=== PATIENT | female | born 2005 | race Caucasian/White ===

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

== ENCOUNTER 2023-01-25 08:00 | Outpatient (RCR) | payer OTHER, SELFPAY ==
--- NOTE | 2023-01-25 10:15 | BH.SGPN.GN ---
Behaviors/Verbalizations/Mental Status: [] Eye contact is fair to good. Motor activity is appropriate. Appearance is casual. Speech is Appropriate. Mood is anxious and depressed. Affect is congruent. Thoughts are linear and logical. No evidence of psychosis. Client Response/Progress/Benefit: [] Client first day in IOP tx, he was attentive during interactive group discussions AEB by writing notes, engaging in small group, and sharing when prompted. Attentive during psychoeducation on the six types of boundaries (physical, emotional, intellectual, sexual, time, and material). Along with peers, pt contributed to interactive discussion identifying common challenges to setting and maintaining healthy boundaries which included; fear of other's response, guilt, fear of losing relationships, and resentment for having to establish the boundary in the first place. Client along with peers identified the benefits to setting boundaries. Client shared she struggles with setting boundaries because she has had past negative experiences when establishing a boundary, as well as struggles with fear of being hurt or rejected. Client benefited from increased awareness and insight on the importance/benefit to setting healthy boundaries. Will continue in IOP to improve daily functioning, increase consistent application of healthy coping and distress tolerance skills, and prevent decompensation. Narrative Note: []
--- NOTE | 2023-01-25 11:15 | BH.SGPN.GN ---
Behaviors/Verbalizations/Mental Status: []Pt alert and oriented, casually dressed and groomed. Eye contact good. Motor activity appropriate. Speech within normal limits. Affect congruent, mood depressed and anxious. Thoughts linear, logical, no signs of hallucinations or delusions. Client Response/Progress/Benefit: []Pt responded well to session, engaged and contributing. Pt attentive during psychoeducation on the different boundary styles. Pt reports connecting most with either extremely rigid or porous boundaries depending on the environment and her comfort levels, shared this has impacted her ability to consistently get her needs met and maintain healthy relationships. Group brainstormed various strategies for improving ability to establish and maintain healthy boundaries. Reported he wants to work on starting with establishing and maintaining small boundaries and building off of them from there. Appeared to benefit from increasing insight to boundary setting styles and the impacts on mental health. Will continue IOP tx to prevent decompensation and maintain safety, improve ability to challenge thought distortions, and increase distress tolerance skill application. Narrative Note: []
--- NOTE | 2023-01-25 11:40 | BH.COMM ---
Communication Note Communication with Client Communication Note: Met with pt to complete initial paperwork and administer the CSSR-S screening and risk assessment. Pt is high risk per the CSSR-S screening and risk assessment. Pt has history of approximately 10 suicide attempts and several self-aborted or interrupted attempts. Pt?s most recent attempt that resulted in a hospitalization to [facility] was in June 2022. Pt shared she overdosed on her medications at that time. Pt did not need her stomach pumped. Pt denies any active suicidal ideations, plan, or intent today, but admits that on 01/04/23 pt had suicidal ideations with intent to overdose, but pt stopped herself. History of non-suicidal self-injurious behavior for the past 9 years. No guns at home. No stockpiles of medications. Pt receptive to discussion on reducing access to lethal means. Pt reports her friend has ?all my knives and all my extra meds.? Protective factors this time in [facility] include stable housing, a care coordination team, and less financial stress. Pt reports ability to maintain safety today. Discussed case with Dr. Alvarez and pt will be admitted to [facility] tx with a diagnosis of MDD, recurrent, severe, without psychosis F 33.2
--- NOTE | 2023-01-27 12:06 | BH.MTP ---
Master Treatment Plan Patient Information Program Physician:: Dr. Kimmy Alvarez Primary Therapist:: Sonali POLANCO Psychiatric Diagnoses Psychiatric Diagnoses:: Major depressive disorder, recurrent, severe without psychosis F 33.2; Dysthymic disorder; Borderline personality disorder; Anxiety disorder, NOS; Complex PTSD Diagnosis Code(s):: F 33.2 Estimated LOS Estimated LOS (in weeks):: 4 Problem/Goal #1 Problem/Goal #1 Stated Goal:: Pt will decrease depressive symptoms, hopelessness, worthlessness, negative self-talk, low distress tolerance, and suicidal ideations. Description of Barriers: Pt has a significant trauma history that pt has not been able to process or resolve. Pt has a history of chronic SI and self-harm. Pt reports low trust for other people, has high recidivism, and has low distress tolerance which makes it difficult for pt to manage chronic SI and reduce self-harm. Functional Impact: Pt is a 17 year-old female with a history of depressive, borderline personality disorder, and complex PTSD. Pt wad referred back to [facility] tx by her insurance leather case finisher due to worsening mental health symptoms. Pt endorses sadness, hopelessness, worthlessness, chronic thoughts of , and chronic passive suicidal ideation. Pt has low motivation and anhedonia and decreased concentration. Her sleep is not good at about 4 to 5 hours a night which is the most sleep she ever states that she gets. Pt has been self harming almost daily by cutting and burning herself but has not required stitches and she feels that this is an addiction. Pt's symptoms are currently impacting her daily functioning and relationships. Goal Relevant Strengths/Supports: Pt has an apartment and has stable housing. Pt is connected with case management through [facility] and through [employer]. Pt also has an outpatient psychiatrist and therapist. Objectives Objective #2: Stated Objective: Pt will learn and utilize 2-3 healthy coping strategies to better manage depressive symptoms and reduce thoughts of as shown by a decrease of DMS-5 symptoms for depression. Interventions: Through group and individual sessions, therapist will help pt identify triggers and warning signs of depression and guilt including emotional, physical, and behavioral changes. Therapist will teach pt various coping skills to manage symptoms and give pt tangible resources to use to regulate emotions. Therapist will use cognitive restructuring techniques and help pt gain awareness of negative thoughts that reinforce guilt and depression. Therapist will provide psychoeducation on maintenance cycles and help pt learn ways to break unhealthy maintenance cycles. Therapist will help pt incorporate behavioral activation and assist pt in setting SMART goals. Discharge Criteria: Pt will have met this goal when can report learning and using at least 2 coping skills to manage depressive symptoms and reduce isolation. Additionally, pt will have met this goal when pt's DSM-5 scores for depression decrease. Target Date: 02/22/23 Review Date: 02/22/23 Status: open Objective #1: Stated Objective: Pt will identify 2 triggers and 2 coping skills to use when pt experiences mood dysregulation and has increased urges to engage in unhealthy, impulsive coping skills. Interventions: Through individual and group counseling pt will be provided with education on healthy coping skills to manage mood symptoms, impulse, and crisis behaviors. Therapist will provide information on healthy alternatives to emotion release. Individual therapist will teach pt DBT techniques to increase emotional regulation and mindfulness. Therapist will also engage pt to use self-compassion while working to change behaviors. Discharge Criteria: pt will have accomplished this goal when pt can identify at least 2 triggers and 2 coping skills to increase mood stability and reduce unhealthy action urges. Target Date: 02/22/23 Review Date: 02/22/23 Status: open
== END 2023-01-26 23:59 ==
LOC: BHIOP 08:00
PROVIDERS: PCP Family Medicine; Referring Provider Psychiatry & Neurology Psychiatry; Visit Provider Psychiatry & Neurology Psychiatry
DX: F33.2 Major depressive disorder, recurrent severe without psychotic features (principal)
CPT/HCPCS: H2012

== ENCOUNTER 2023-01-27 06:50 | Outpatient (RCR) | payer OTHER, SELFPAY ==
--- NOTE | 2023-01-27 09:00 | BH.SGPN.GN ---
Behaviors/Verbalizations/Mental Status: [Patient was alert and oriented, appropriately dressed and groomed. Eye contact was good, motor activity normal, speech within normal limits. Affect congruent, mood content. Thoughts linear, logical, no signs of hallucinations or delusions. Reviewed Patients symptom tracker and the patient reported depressed mood, anxiety/panic attacks, aggravation/irritation/anger, self-harm urges, and risk/thoughts of suicide within patients normal base level.] Client Response/Progress/Benefit: [Patient was engaged and open to the discussion. Patient reported her mood being ?tired and gloomy?.??The patients first win is that she finally got herself into to see the psych doctor after canceling 3 times. Her second win was that she was open and honest with the doctor. She hopes this medication she was put on will be helpful. The stressor was that she has a lot of appointments to keep track of and is nervous she will forget some of them. Patient was interactive and respectful with other group members about their mental wins and stressors. Patient benefited from the discussion by listening to feedback and giving input on her peer?s stressors and mental health wins. Patient will continue with IOP treatment to help develop healthy skills, promote mood stability, and improve distress tolerance. ] Narrative Note: []
--- NOTE | 2023-01-27 10:10 | BH.SGPN.GN ---
Behaviors/Verbalizations/Mental Status: [] Eye contact is poor. Motor activity is appropriate. Appearance is casual. Speech is Appropriate. Mood is depressed. Affect is flat. Thoughts are linear and logical. No evidence of psychosis. Client Response/Progress/Benefit: [] Attentive during group discussions. Active participant in experiential activity. Attentive during interactive discussion in which group worked together to define resilience (i.e. continuing to bounce back from hardship; willingness to keep trying) and identify benefits of resilience. Attentive during interactive discussion on if resilience is something we are born with or can learn. Provided appropriate thoughts and feedback. Participated at times during small groups however was quiet and mostly passive as peers identified strategies to build resilience. Benefited from increased awareness of the role of resilience in mental health and ways to build resilience. Will continue in IOP to prevent decompensation, maintain safety, and to improve daily functioning. Narrative Note: [] Behaviors/Verbalizations/Mental Status: [] Client Response/Progress/Benefit: [] Attentive during group discussions. Active participant in experiential activity. Attentive during interactive discussion in which group worked together to define resilience (i.e. continuing to bounce back from hardship; willingness to keep trying) and identify benefits of resilience. Attentive during interactive discussion on if resilience is something we are born with or can learn. Provided appropriate thoughts and feedback. Participated at times during small groups however was quiet and mostly passive as peers identified strategies to build resilience. Benefited from increased awareness of the role of resilience in mental health and ways to build resilience. Will continue in IOP to prevent decompensation, maintain safety, and to improve daily functioning. Narrative Note: []
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
--- NOTE | 2023-01-27 11:10 | BH.SGPN.GN ---
Behaviors/Verbalizations/Mental Status: []Pt alert and oriented, neatly dressed and groomed. Eye contact fair. Motor activity appropriate. Speech within normal limits. Affect congruent, mood depressed. Thoughts linear, logical, no signs of hallucinations or delusions. Client Response/Progress/Benefit: [] Pt responded well to session AEB completing the resilience worksheet provided. Pt actively participated in the discussion and worked cooperatively with group to identify strategies to enhance each of the components discussed. Pt reports belief they already use resilience traits of self-awareness and moving towards her goals. Pt discussed that they could work more on improving accepting that change is a part of living and nurturing a positive view of self. ?Pt seemed to benefit from discussing strategies for improving personal resilience and identifying resilience traits Pt already possesses. Will continue IOP tx to prevent decompensation, improve distress tolerance skills, and reduce the use of maladaptive coping skills. ??? Narrative Note: []
[2023-01-27 11:39] VITALS: BP 146/91; PULSE 80
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
--- NOTE | 2023-01-27 12:20 | BH.DR.ITP ---
Initial Treatment Plan Patient Information Visit Information: ADMISSION DATE: EXPECTED LOS: 4-6 weeks Problems/Symptoms Problem #1:: depression Symptom:: Sadness, hopelessness, worthlessness, anhedonia, low motivation, biological disruption of sleep, self-harm thoughts, passive thoughts of , suicidal ideation Problem #2:: Anxiety Symptom:: Worry, rumination
--- NOTE | 2023-01-28 10:15 | BH.SGPN.GN ---
Behaviors/Verbalizations/Mental Status: [] Eye contact is poor.. Motor activity is appropriate. Appearance is disheveled. Speech is Appropriate. Mood is depressed. Affect is flat. Thoughts are linear and logical. No evidence of psychosis. Client Response/Progress/Benefit: [] Pt did not participate during the group discussions or group activity on perspective. Attentive at times however does not appear to be taking notes during interactive group discussions in which peers worked together to define 'perspective' (i.e. how we look at things; what we focus on) and discuss how it can impact one's mental health. Attentive as group was able to to identify what can impact our perspective and gave examples such as; past experiences, emotions, feelings, thoughts, support system, upbringing, and current environment. Benefited from increased awareness and insight on the role of perspective on mental health. Will continue in IOP to maintain safety, prevent decompensation, increase healthy coping, and improve functioning. Narrative Note: []
--- NOTE | 2023-01-28 11:15 | BH.SGPN.GN ---
Behaviors/Verbalizations/Mental Status: []Pt alert and oriented, casually dressed and groomed. Eye contact good. Motor activity appropriate. Speech within normal limits. Affect constricted, mood anxious and depressed. Thoughts linear, logical, no signs of hallucinations or delusions. Client Response/Progress/Benefit: []Pt was attentive and contributed to small group discussion, though largely remained a passive participant. Pt completed strengths exploration worksheet, identifying love, common sense, and honesty as personal strengths. With some aid from her small group, Pt able to acknowledge how these strengths are helping pt and can continue to help pt in mental health journey. Pt worked with group to identify strategies that can help increase utilization of personal strengths and how to challenge one?s perspective in general. Pt identified wanting to work on practicing DBT skill of delay, distract, decide to help challenge perspective. Benefited from identifying personal strengths and strategies for enhancing use of identified strengths to challenge perspective. Pt to continue IOP tx to promote mood stability, improve distress tolerance, and prevent decompensation. Narrative Note: []
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
--- NOTE | 2023-02-01 10:15 | BH.SGPN.GN ---
Narrative Note: []Behaviors/Verbalizations/Mental Status: [] Eye contact is fair. Motor activity is appropriate. Appearance is casual. Speech is Appropriate. Mood is depressed and anxious. Affect is constricted. Thoughts are linear and logical. No evidence of psychosis. Client Response/Progress/Benefit: [] Pt was a passive participant in group discussions. Somewhat attentive during psychoeducation AEB by note taking. Pt worked along with peers in small groups to define guilt, inappropriate guilt, and appropriate guilt. Interactive discussion on examples of both inappropriate and appropriate guilt. Pt identified connecting with the group examples of inappropriate guilt and how this impacted their mental health. Benefited from increased awareness of guilt and the differences between appropriate and inappropriate guilt. Will continue in IOP to prevent decompensation, continue to promote mood stability, maintain safety. Narrative Note: []
--- NOTE | 2023-02-01 13:15 | BH.DS ---
Discharge Summary Demographics Date of Admission:: 01/25/23 Discharge Date: 02/01/23 Presenting Problems at Admission:: Pt is a 17 year-old female with a history of depressive, borderline personality disorder, and complex PTSD. Pt wad referred back to [facility] tx by her insurance watch caser due to worsening mental health symptoms. Pt endorses sadness, hopelessness, worthlessness, chronic thoughts of , and chronic passive suicidal ideation. Pt has low motivation and anhedonia and decreased concentration. Her sleep is not good at about 4 to 5 hours a night which is the most sleep she ever states that she gets. Pt has been self harming almost daily by cutting and burning herself but has not required stitches and she feels that this is an addiction. Pt's symptoms are currently impacting her daily functioning and relationships. Discharge Diagnoses:: Major depressive disorder, recurrent, severe without psychosis F 33.2; Dysthymic disorder; Borderline personality disorder; Anxiety disorder, NOS; Complex PTSD Reason for Discharge:: Staff received a call from [facility] registration that [place] Police were in the building and searching for pt. According to [place] Police they received a call from out of state that pt had attempted to kill herself this AM. Pt was taken out of group sessions to discuss recent events. Pt admitted to the around 3am in which she tied a blanket around the door knob and her neck. Pt was escorted to [facility] ER for monitoring and evaluation. Treatment Progress During Treatment & Response: Limited progress. Pt disengaged in group sessions, except on her first day. Admitted to [facility] for only a week. Issues Still to be Addressed:: Mood instability, chronic SI and self-harm, low distress and frustration tolerance, negative thinking, use of unhelpful coping skills, and PTSD. There is a concern that pt decompensated once starting IOP tx AEB pt reporting passive SI that was manageable prior to starting IOP tx and then escalated almost immediately after starting IOP AEB having a suicide attempt a week into the program. Discharge Recommendations/Instructions:: Pt will discharge from [facility] tx to obtain higher level of care. Pt prefers to go to [facility] in [place]. Therapist spoke with [facility] tx team, including Dr. Alvarez, and Dr. Montejo who is pt's outpatient psychiatrist. Pt will be referred to a DBT IOP/PHP as pt can benefit from increasing DBT distress tolerance skills needed to manage chronic SI, borderline personality disorder, and self-harming. Pt can return to IOP tx while pt waits to get into [facility]. Discharge Handout
--- NOTE | 2023-02-01 14:39 | BH.MDN ---
Multi-Disciplinary Note Note 60-min Individual: Time Started:: 11:15 Date: 02/01/23 Purpose of session/treatment goals addressed:: risk assessment Eye Contact:: Poor and Avoidant Motor Activity:: Restless and Other (sobbing, hands over her face) Appearance:: Disheveled Speech:: Other (refused to speak for a majority of crisis intervention) Mood:: Depressed Affect:: Flat Thoughts:: Linear, Logical and No evidence of hallucinations/delusions noted Staff Interventions:: completed risk assessment / safety planning Client Response:: Staff received a call from [facility] registration that [place] Police were in the building and searching for patient. According to [place] Police they received a call from out of state that patient had attempted to kill herself this AM. Pt was taken out of group programinG to discuss recent events. Pt admitted to the SA around 3am in which she tied a blanket around the door knob and her neck. At some point the blanket slipped from the door knob. Its unclear whom she spoke with or the events that occurred after her attempt. She verbalized to staff continued SI and regret that her her attempt was not successful. At this point Angie NIELSEN arrived and pt began to sob uncontrollably with her hands over her face. She refused to leave the chair in which she was seated. She did this for close to an hour and refused to answer any questions. Risks/Concerns:: Significant risk noted due recent suicide attempt. Discussed with Angie NIELSEN and other clinical IOP staff. Plan to escort patient to ER for crisis evaluation. Progress Toward Goals/Plan:: After numerous interventions pt was able to calm self and was agreeable to walking over the ER with IOP staff and Angie NIELSEN. Time Stopped:: 12:45
== END 2023-02-02 06:52 ==
LOC: BHIOP 06:50
PROVIDERS: PCP Family Medicine; Referring Provider Psychiatry & Neurology Psychiatry; Visit Provider Psychiatry & Neurology Psychiatry
DX: F33.2 Major depressive disorder, recurrent severe without psychotic features (principal); F60.3 Borderline personality disorder; F41.9 Anxiety disorder, unspecified; F43.10 Post-traumatic stress disorder, unspecified
CPT/HCPCS: 90792; H2012; H2020; S9480; T1002; 90832; 90837

== ENCOUNTER 2023-02-01 13:07 | Emergency (ER) | payer MEDICAID, SELFPAY ==
[2023-02-01 13:07] VITALS: BP 131/87; PULSE 117; RESP 16; TEMP 36.6; O2SAT 100; BMI 45.7
--- NOTE | 2023-02-01 14:40 | EDS_ITS ---
HPI HPI - Psych History of Present Illness Chief Complaint: Suicidal Informant: patient Onset/Context/Timing Onset: Yesterday Context: Gradual Onset Timing: Continuous Worsened by: Situational factors Relieved by: Nothing Associated Symptoms Associated Symptoms - Psych: Positive for Depressed, Change in Eating, Change in sleeping, Decreased Interest and Suicidal Thoughts; Negative for Confusion, Paranoia, Visual Hallucinations or Auditory Hallucinations Specific plan (suicidal thought): Hanging herself Narrative Narrative: Patient presents with depression and suicide attempt that occurred today. Patient states she has been getting more depressed over the past few days. Patient states she tried to hang herself. Patient states she has not been eating or sleeping well. Patient denies any visual or auditory hallucinations. Patient states she still feels like she wants to try to hang herself. Prior similar symptoms: Yes PFSH PFSH Medical History Anxiety disorder, unspecified Borderline personality disorder Bulimia nervosa, purging type Depression Dysthymic disorder Encounter for medication monitoring Major depressive disorder, recurrent severe without psychotic features Home Medications lamotrigine 100 mg tablet See Rx Instructions .Route .COMPLEX #30 tabs 01/26/23 [Rx Last Taken Unknown] quetiapine 200 mg tablet See Rx Instructions .Route .COMPLEX #30 tabs 01/26/23 [Rx Last Taken Unknown] duloxetine 60 mg capsule,delayed release See Rx Instructions .Route .COMPLEX #30 caps 02/01/23 [Rx Last Taken Unknown] Allergy/AdvReac Type Severity Reaction Status Date / Time No Known Allergies Allergy Verified 01/27/23 11:33 Surgical History History of wisdom tooth extraction Social History Smoking Status: Never smoker alcohol intake: current details: rarely substance use type: former substance user, marijuana and other details: acid and mushrooms what type of physical activity do you participate in: walking ROS ROS ED Constitutional Constitutional ED: Denies chills or fever(s) Eyes Eyes: Denies blurry vision or change in vision ENT ENT ED: Denies rhinorrhea or sore throat Cardiovascular Cardiovascular: Denies chest pain or palpitations Respiratory/Chest Respiratory/Chest: Denies cough or dyspnea Gastrointestinal Gastrointestinal: Denies nausea or vomiting Genitourinary Genitourinary ED: Denies dysuria or hematuria Musculoskeletal Musculoskeletal: Reports neck pain; Denies back pain Integumentary Denies abscess or rash Neurologic Neurologic: Denies headache(s) or weakness Psychiatric Psychiatric: Reports depression, suicidal ideation and suicidal thoughts Allergic/Immunologic Allergic/Immunologic ED: Denies mouth swelling or urticaria EXAM Physical Exam Const Vital Signs: 02/01/23 13:07 02/01/23 20:07 Temperature 97.8 F Temperature Source Temporal Pulse Rate 117 H 75 Respiratory Rate 16 18 Blood Pressure 131/87 H 110/76 Blood Pressure Mean 101 87 Pulse Ox 100 95 Oxygen Delivery Method Room Air Room Air Positive well nourished, well developed and obese General Appearance ED: well developed and NAD Nutritional Appearance: obese HEENT Reports moist mucous membranes Neck supple and no JVD Neck Narrative: There is an abrasion over the anterior neck. There is no subcutaneous emphysema. There is no active bleeding noted. There is mild tenderness to palpation. Resp normal respiratory effort and clear to auscultation bilaterally Cardio Rate: regular rate Rhythm: regular rhythm GI non-tender and non-distended Neuro oriented x3, CN's II-XII intact bilaterally and no sensory deficits noted [place] Coma Scale: document GCS findings Spontaneous Obeys Commands Oriented 15 Sensorium / Orientation: alert Motor Exam: strength 5/5 throughout Psych Activity / Motor Behavior: appropriate eye contact Speech: minimal and soft Mood & Affect: depressed and flat affect Thought Content: suicidality, No homicidality, No delusion(s) and No hallucination(s) Attention / Concentration: attention grossly intact MDM MDM MDM Narrative Medical decision making narrative: [place] slip was placed on the chart by police. Patient will be medically cleared for psychiatric placement. CBC will be obtained to assess for leukocytosis and anemia. Basic metabolic profile will be obtained to assess for electrolyte abnormality and renal function. Urine tox screen will be obtained to assess for substance abuse. Blood alcohol level will be obtained to assess for alcohol intoxication. Serum hCG will be obtained to assess for . COVID-19 rapid antigen will be obtained to assess for COVID-19 infection. Lab Data Attestation: I reviewed the patient's lab results. Lab results narrative: CBC was reviewed. There is a slight leukocytosis of 13.1. The remainder was within normal limits. Basic metabolic profile was reviewed. Potassium was slightly low at 3.3. CO2 was slightly low at 17. The remainder was within normal limits. Urine tox screen was reviewed and was positive for cannabinoids. COVID-19 rapid antigen was reviewed and was negative. Serum hCG was reviewed and was negative. Serum alcohol level was reviewed and was less than 3.0. Labs: Laboratory Results - last 24 hr 02/01/23 02/01/23 02/01/23 15:15 15:37 15:45 WBC 13.1 H RBC 5.46 H Hgb 14.9 Hct 47.0 MCV 86.1 MCH 27.3 MCHC 31.7 L RDW Std Deviation 40.5 RDW Coeff of Nikhil 13.1 Plt Count 259 MPV 9.8 Immature Gran % (Auto) 0.500 Neut % (Auto) 76.4 H Lymph % (Auto) 17.1 L [place] % (Auto) 5.3 Eos % (Auto) 0.2 Baso % (Auto) 0.5 Absolute Neuts (auto) 10.0 H Absolute Lymphs (auto) 2.24 Nucleated RBC % 0 Sodium 136 Potassium 3.3 L Chloride 112 H Carbon Dioxide 17.0 L Anion Gap 7 BUN 6 L Creatinine 0.79 Estim Creat Clear Calc 185.82 Est GFR (MDRD) Af Amer 119 Est GFR (MDRD) Non-Af 99 BUN/Creatinine Ratio 7.6 L Glucose 77 Calcium 8.8 Serum , Qual NEGATIVE Urine Opiates Screen NEGATIVE Urine Methadone Screen NEGATIVE Ur Barbiturates Screen NEGATIVE Ur Phencyclidine Scrn NEGATIVE Ur Amphetamines Screen NEGATIVE MDMA (Ecstasy) Screen NEGATIVE U Benzodiazepines Scrn NEGATIVE Urine Cocaine Screen NEGATIVE U Cannabinoids Screen POSITIVE H Ur Drug Screen Comment Ethyl Alcohol < 3.0 Management Discussion w/another healthcare provider: Behavioral health Treatment and Re-Evaluation Narrative: Patient is medically cleared for psychiatric evaluation. Patient was evaluated by crisis counselor. Crisis counselor felt patient would benefit from admission to a psychiatric facility. Crisis counselor was able to arrange for admission to psychiatric facility. Patient was filled out on the chart. Transfer form was filled out. Patient will be transferred when transportation is available. Discharge Plan Triage Chief Complaint: Suicidal ED Provider: Jones Ingram Dx/Rx/DC Orders Clinical Impression: Depression, Suicide attempt by hanging Prescriptions: No Action lamotrigine 100 mg tablet See Rx Instructions .ROUTE .COMPLEX Qty: 30 2RF Dose Instruction: TAKE 1 TABLET BY MOUTH DAILY Rx Instructions: TAKE 1 TABLET BY MOUTH DAILY quetiapine 200 mg tablet See Rx Instructions .ROUTE .COMPLEX Qty: 30 2RF Dose Instruction: TAKE 1 TABLET BY MOUTH AT BEDTIME Rx Instructions: TAKE 1 TABLET BY MOUTH AT BEDTIME duloxetine 60 mg capsule,delayed release(DR/EC) See Rx Instructions .ROUTE .COMPLEX Qty: 30 3RF Dose Instruction: TAKE 1 CAPSULE BY MOUTH DAILY Rx Instructions: TAKE 1 CAPSULE BY MOUTH DAILY Primary Care Provider: Care Physician,No Primary Referrals: Carley Pang DO [Non-Staff] - Disposition Disposition: Psychiatric Hospital or Unit Discharge Location: [facility]
[2023-02-01 15:26] LABS: Absolute Lymphocyte Count 2.24 X10^3/uL (0.83-4.51); Basophil# 0.07 X10^3/uL; Basophil% 0.5 % (0-1); Eosinophil# 0.03 X10^3/uL; Eosinophils% 0.2 % (0-5); Hemoglobin 14.9 g/dL (12.0-15.0); Lymphocyte # 2.24 X10^3/ul (0.83-4.51); Lymphocyte % 17.1 % (19-41); Mean Corp Hgb Conc 31.7 g/dL (32-36); Mean Corpuscular Hgb 27.3 pg (27.0-32.0); Mean Corpuscular Volume 86.1 fL (81-99); Mean Platelet Vol. 9.8 fl (6.2-12.0); Monocyte% 5.3 % (0-10); NRBC Flagged by Analyzer 0 % (0-5); Neutrophil % 76.4 % (47-70); POSITIVE COUNT YES; Platelet Count 259 K/mm3 (150-450); RBC Distribution Width CV 13.1 % (11.6-14.6); RBC Distribution Width SD 40.5 fl (35.1-43.9); Red Blood Count 5.46 M/mm3 (4.2-5.4); White Blood Count 13.1 K/mm3 (4.4-11.0)
[2023-02-01 15:47] LABS: Anion Gap 7 (5-15); BUN 6 mg/dL (7-18); BUN/Creat Ratio 7.6 RATIO (10-20); Calcium,Total 8.8 mg/dL (8.5-10.1); Chloride 112 mmol/L (98-107); Creatinine, Serum 0.79 mg/dL (0.55-1.02); EST Glomerular Filtration Rate 99 mL/min (>60); Est Glom Filt Rate - Afr Amer 119 mL/min (>60); Estimated Creatinine Clearance 185.82 ml/min; Glucose 77 mg/dL (74-106); Potassium 3.3 mmol/L (3.5-5.1); Sodium Level 136 mmol/L (136-145)
[2023-02-01 16:14] LABS: Amphetamine Urine VISTA NEGATIVE (<1000 ng/mL); Barbiturate Urine VISTA NEGATIVE (< 200 ng/mL); Benzodiazepine Urine VISTA NEGATIVE (< 200 ng/mL); Cocaine Urine VISTA NEGATIVE (< 300 ng/mL); Ecstacy Urine VISTA NEGATIVE (< 500 ng/mL); Methadone Urine VISTA NEGATIVE (< 300 ng/mL); PCP Urine VISTA NEGATIVE (< 25 ng/mL); THC Urine VISTA POSITIVE (< 50 ng/mL); Vista UDS pH Range 4
[2023-02-01] MEDS: Potassium Chloride Oral Tablet 20 MEQ 40 MEQ PO (16:20)
[2023-02-01 16:43] LABS: Alcohol, Blood (Medical)-Serum < 3.0 mg/dL; Internal QC Validated? YES +Cl - CLEAR BKGD; Pregnancy, Serum, hCG Quali. NEGATIVE Negative
[2023-02-01 20:07] VITALS: BP 110/76; PULSE 75; RESP 18; O2SAT 95
[2023-02-01 22:46] VITALS: RESP 16
[2023-02-02 03:19] VITALS: RESP 16
[2023-02-02 06:03] VITALS: BP 122/68; PULSE 80; RESP 16; TEMP 35.6; O2SAT 99
[2023-02-02 07:14] VITALS: RESP 16
== END 2023-02-02 08:59 ==
PROVIDERS: Emergency Provider Emergency Medicine; Visit Provider Emergency Medicine
DX: F32.A Depression, unspecified (principal); T14.91XA Suicide attempt, initial encounter; Z79.899 Other long term (current) drug therapy
CPT/HCPCS: 36415; 80048; 80307; 82077; 84703; 85025; 87811; 99283

== ENCOUNTER 2023-02-11 08:00 | Outpatient (RCR) | payer OTHER, SELFPAY ==
--- NOTE | 2023-02-11 09:05 | BH.SGPN.GN ---
Behaviors/Verbalizations/Mental Status: []Eye contact is good. Motor activity is appropriate. Appearance is casual. Speech is Appropriate. Mood is depressed. Affect is flat. Thoughts are linear and logical. No evidence of psychosis. Reviewed daily check in sheet and no reports of suicidal ideations or intent. Client Response/Progress/Benefit: []Pt responded well to session, attentive, but quiet. Pt has been in IOP tx before and was recently discharged from [facility] due to a suicide attempt by hanging. Pt did not share much during her check-in, but reported that she wants to work on everything while pt is in IOP tx. Pt appeared to benefit from receiving encouraging feedback from peers. Pt will continue IOP tx to prevent decompensation, maintain safety, and increase healthy coping skills. Narrative Note: []
--- NOTE | 2023-02-11 10:10 | BH.SGPN.GN ---
Behaviors/Verbalizations/Mental Status: [] Eye contact is poor. Motor activity is appropriate. Appearance is casual. Speech is Appropriate. Mood is depressed and agitated. Affect is flat. Thoughts are linear and logical. No evidence of psychosis. Client Response/Progress/Benefit: [] Pt was a passive participant in group discussions AEB her providing no contributions in group discussion. Attentive during psychoeducation on the 4 communication styles (Passive, Passive-Aggressive, Aggressive, and Assertive) and the obstacles to effective communication. Contributed during interactive discussion on the benefits of communicating effectively which included: getting needs met, building connection, decreases stress, improved relationships, increased motivation, and increased understanding of others. Worked well in small group in which pt and peers identified the benefits and disadvantages to the different communication styles. Benefited from increased understanding of communication styles and how these can impact effective communication. Will continue in IOP to improve distress tolerance, maintain safety, and prevent decompensation.
--- NOTE | 2023-02-11 11:15 | BH.SGPN.GN ---
Behaviors/Verbalizations/Mental Status: []Pt alert and oriented, neatly dressed and groomed. Eye contact good. Motor activity appropriate. Speech within normal limits. Affect congruent, mood anxious, irritable, depressed. Thoughts linear, logical, no signs of hallucinations or delusions. Client Response/Progress/Benefit: [] Pt responded well to session AEB Pt listening attentively to others during group discussion on the pay offs and costs of the different communication styles. Pt able to connect how current communication style of passive-aggressive and passive communication impacts mental health and relationships. Pt engaged in activity, though mostly passive, which is to be expected on first day. Connected with peers comments about importance of using assertive communication. Pt reported she wants to work on being more open to openly describing and advocating for her needs/wants. Pt seemed to benefit from increasing awareness of healthy strategies to improve communication. Will continue IOP tx to maintain safety, improve mood stability, and prevent decompensation. Narrative Note: []
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
--- NOTE | 2023-02-12 09:00 | BH.COMM ---
Communication Note Communication with Client Communication Note: cancelled IOP today due to illness
--- NOTE | 2023-02-15 09:00 | BH.COMM ---
Communication Note Communication with Client Communication Note: Cancelled IOP today due to illness.
--- NOTE | 2023-02-16 14:51 | BH.DS ---
Discharge Summary Demographics Date of Admission:: 02/11/23 Discharge Date: 02/15/23 Presenting Problems at Admission:: Pt is a 17 y/o female with hx of C-PTSD, MDD, and Borderline PD. Hx of several psychiatric admissions with most recent at [facility] from 02/01/23-02/10/23 due to suicidal attempt via hanging. Pt was enrolled in [facility] IOP from 01/25/23 until her hospitalization (refer to D/C summary and ER notes on 02/01/23). Readmitted to [facility] on 02/11/23 and reported depressed mood, hopelessness, low motivation, no energy, and poor sleep. Long-standing hx of mood instability, low distress tolerance, and struggles with daily functioning. Pt's C-PTSD has intensified since living alone reporting nightmares, flashbacks and hypervigilance. Long-standing daily fleeting SI and self-injurious behaviors. [place] Suicide Screening was completed on 02/11/23 and was not identified as imminent danger to self. Discharge Diagnoses:: Major depressive disorder, recurrent, severe without psychosis F 33.2; Dysthymic disorder; Borderline personality disorder; Anxiety disorder, NOS; Complex PTSD Reason for Discharge:: Pt emailed this therapist on 02/15/23 stating that she no longer wanted to continue in IOP. According to pt's email I just want to start off by saying thank you for all that you guys have been doing for me. It may not seem like it lately but I do appreciate it a lot. As I have been talking with the crisis team through the counseling center. We wrote out all the appointments and programs I am in and we discussed that I need to cut back on a few things. I have decided for right now to cut back on IOP as I will be starting EMDR and hopefully in the near future getting involved in the DBT IOP program that your team discussed. Thank you again for everything I appreciate it a lot Treatment Progress During Treatment & Response: No progress noted as she only attended one day of IOP. Due to only attending one day she did not complete psychosocial, treatment plan, or psychiatric evaluation. She was discharged from [facility] Psych[facility] Unit on 02/10/23 and attended IOP on 02/11/23. She was scheduled to attend on 02/12/23 and 02/15/23 however cancelled stating that she was ill. Issues Still to be Addressed:: Borderline PD, C-PTSD, long-standing self-injurious behaviors, depression, long-standing suicidal ideations, struggles to function. Discharge Recommendations/Instructions:: This therapist reached out to pt's psychiatrist's office (Dr. Montejo) and was informed that she had appointment this afternoon and did no show. Therapist reached out to pt's [facility] inpatient services rn (Pia Conroy) who reports that she spoke with patient this afternoon and was unaware that she was intending to discharge from IOP. [employer] reports she will reach back out to patient to discuss further. Pt is scheduled to begin DBT IOP the week of March 01. Due to limited progress in [facility] IOP (this is her 2nd admission in a year) it was decided by treatment team to refer to a DBT IOP/PHP at [facility] as pt can benefit from increasing DBT distress tolerance skills needed to manage chronic SI, borderline personality disorder, and self-harming. Plan was to remain in [facility] IOP until she started DBT IOP. Pt has several mental health resources and providers (2 caseworkers, therapist, psychiatrist, and lives in apartments managed by local [facility]). Discharge Handout
== END 2023-02-16 07:49 | disposition home or self-care (01) ==
LOC: BHIOP 08:00
PROVIDERS: Referring Provider Psychiatry & Neurology Psychiatry; Visit Provider Psychiatry & Neurology Psychiatry
DX: F33.2 Major depressive disorder, recurrent severe without psychotic features (principal); F60.3 Borderline personality disorder; F43.10 Post-traumatic stress disorder, unspecified; F34.1 Dysthymic disorder
CPT/HCPCS: H2020

== ENCOUNTER 2023-08-28 16:48 | Emergency (ER) | payer OTHER, SELFPAY ==
[2023-08-28 16:49] VITALS: BP 124/66; PULSE 97; RESP 18; TEMP 37; O2SAT 97; BMI 41.4
--- NOTE | 2023-08-28 17:17 | EDS_ITS ---
<Statement entered by Sandra Rivero MD - 08/28/23 22:16> I have personally performed a face to face assessment of the patient and have reviewed the HAZEL Note. Patient presents with crisis secondary to suicidal ideation and attempt. She is known to the crisis center and has not been on any psychiatric medicine since January of last year. She reports having more frequent thoughts of self-harm. Couple weeks ago she did cut her arm. Today she grabbed a razor and caused a superficial laceration across her anterior neck. Patient sitting upright in bed no acute distress. Alert and talkative. Head and neck examination reveals an 8 cm superficial abrasion across the anterior neck. No active bleeding. Heart is regular rate and rhythm. Lung sounds are clear. Abdomen is soft and nontender. Neuro exam unremarkable. Labwork for psychiatric clearance is obtained. Lab work is unremarkable. test negative. Tox screen is positive for cannabinoids. EtOH is negative. Neck wound is cleansed and bacitracin ointment applied. Patient has been seen by crisis and will require placement. Addendum: Patient accepted to [facility] in [place]. She will be observed overnight with transport arranged for 7 AM tomorrow morning. Patient be signed out to oncoming physician for further monitoring. She has been cooperative throughout her ED stay on my shift. HPI History of Present Illness Chief Complaint: Suicidal Narrative Narrative: Patient is a 18-year-old female with history of anxiety, depression, obesity who presents to the emergency department for suicidal ideation, suicide attempt. Patient states that she is been dealing with depression for a long time. She is currently not on any oral medications, she has not been on any oral medication since January 2023, this was also the last time that she was hospitalized. Andreia hutchinson does have history of cutting, she has multiple lacerations to her forearms. 2 weeks ago, she cut her left forearm because she was upset, this did require sutures. Today, the patient states that these feelings of harming herself have been more severe, she is having difficulty doing daily activities because of these thoughts. Today she grabbed a razor blade and cut her throat. This is roughly 8 cm underneath the lower jaw. This is superficial however did draw blood. Patient did not strike any internal arteries or veins. Patient states that she feels out of control. Denies any drug abuse. PFSH PFSH Medical History Anxiety disorder, unspecified Borderline personality disorder Bulimia nervosa, purging type Depression Dysthymic disorder Encounter for medication monitoring Major depressive disorder, recurrent severe without psychotic features Home Medications ?Medication ?Instructions ?Recorded ?Last Taken ?Type duloxetine 60 mg capsule,delayed See Rx Instructions .Route 02/01/23 Unknown Rx release .COMPLEX #30 caps Allergy/AdvReac Type Severity Reaction Status Date / Time No Known Allergies Allergy Verified 08/28/23 16:49 Surgical History History of wisdom tooth extraction Social History Smoking Status: Never smoker alcohol intake: current details: rarely substance use type: former substance user, marijuana and other details: acid and mushrooms what type of physical activity do you participate in: walking ROS ROS ED ROS Narrative Constitutional: Negative for fever, chills, weight loss, weakness Eyes: Negative for vision loss, vision change, double vision ENT: Negative for any sore throat, ear pain, congestion Cardiovascular: Negative for any chest pain, tightness, palpitations Respiratory: Negative for any cough, sputum production, hemoptysis, dyspnea, dyspnea on exertion, orthopnea Gastrointestinal: Negative for any abdominal pain, nausea, vomiting, diarrhea, constipation, blood in stool, blood in vomit : Negative for any urinary frequency, dysuria, retention, blood in urine Muscle skeletal: Negative for any neck pain, back pain Neurological: Negative for any headache, syncope, dizziness Skin: Negative for any rashes, itching, abrasions. Positive for superficial laceration to the neck Psychiatric: Negative for any homicidal ideation. Positive for anxiety, depress ion, elevated stress level, suicidal ideation Hematologic: Negative for any excessive bruising, easy bleeding EXAM Physical Exam Narrative Exam Narrative: Vital signs reviewed. Patient is alert and orient x 4, patient is acting appropriate. HEET: Head normocephalic atraumatic, TMs clear bilaterally. Posterior pharynx is clear, moist mucous membranes. Nares clear bilaterally. Neck: Supple with no lymphadenopathy or tenderness. No signs of meningismus. Cardiac: Regular rate and rhythm no murmurs gallops or rubs, equal peripheral pulses bilaterally. Respiratory: Lungs clear to auscultation bilaterally. No chest tenderness. Abdomen: Soft, nontender, nondistended. No abdominal bruit or pulsatile masses. No hepatosplenomegaly Extremities: No peripheral edema, no signs of gross trauma or deformity. Active full range of motion of all extremities. Neuro: Cranial nerves II through XII intact, no focal neurological deficits. Skin: Clean dry and intact with no rash, purpura, petechiae, vesicles or pustules. Superficial laceration to the neck, bleeding is controlled. This is superficial however deep enough to cause blood. Backs/flank: No CVA tenderness, no midline spinal tenderness, no deformity. Psych: Normal mood and affect. Speaking with the patient, she is tearful, she does have suicidal ideations, Const Vital Signs: 08/28/23 16:49 08/28/23 17:48 Temperature 98.6 F Temperature Source Temporal Pulse Rate 97 84 Respiratory Rate 18 18 Blood Pressure 124/66 H 127/85 H Blood Pressure Mean 85 99 Pulse Ox 97 98 Oxygen Delivery Method Room Air Room Air [facility] Lab Data Labs: Laboratory Results - last 24 hr 08/28/23 08/28/23 16:57 17:25 WBC 13.8 H RBC 5.69 H Hgb 15.5 H Hct 48.6 H MCV 85.4 MCH 27.2 MCHC 31.9 L RDW Std Deviation 41.4 RDW Coeff of Nikhil 13.2 Plt Count 328 MPV 9.2 Immature Gran % (Auto) 0.400 Neut % (Auto) 84.1 H Lymph % (Auto) 10.9 L [place] % (Auto) 4.1 Eos % (Auto) 0.2 Baso % (Auto) 0.3 Absolute Neuts (auto) 11.6 H Absolute Lymphs (auto) 1.51 Nucleated RBC % 0 Sodium 139 Potassium 3.4 L Chloride 105 Carbon Dioxide 23.0 Anion Gap 11 BUN 8 Creatinine 0.89 Estim Creat Clear Calc 102.73 Est GFR (MDRD) Af Amer 104 Est GFR (MDRD) Non-Af 86 BUN/Creatinine Ratio 9.0 L Glucose 94 Calcium 9.6 Serum , Qual NEGATIVE Urine Opiates Screen NEGATIVE Urine Methadone Screen NEGATIVE Ur Barbiturates Screen NEGATIVE Ur Phencyclidine Scrn NEGATIVE Ur Amphetamines Screen NEGATIVE MDMA (Ecstasy) Screen NEGATIVE U Benzodiazepines Scrn NEGATIVE Urine Cocaine Screen NEGATIVE U Cannabinoids Screen POSITIVE H Ur Drug Screen Comment Ethyl Alcohol 4.0 Treatment and Re-Evaluation :: Differential diagnosis includes however is not limited to: Depression, anxiety, suicidal ideation, suicide attempt, psychosis Patient appears to be in no obvious respiratory distress vital signs are stable, patient is acting appropriate. Talking with the patient, she does seem extremely depressed, she is not on any medications which she took yourself off. Patient suicidal ideations are getting more strong, she is also getting more bold and harming herself. 2 weeks ago, she lacerated her left forearm causing the need for sutures. Today she is now going towards her echo is more vital area. Talking with the patient, as well as the crisis evaluation team, I do believe the patient needs to be pink slipped for placement. Patient will start the workup with blood work and urine. All belongings were taken from the patient, the patient will be observed. Patient's laboratory values showed a slight leukocytosis with a white blood count of 13.8, hemoconcentrated with a hematocrit of 15.5. Chemistries were unremarkable. Patient is not . Patient was positive for marijuana however this has been ongoing since January 2023. Patient is currently being observed, will speak with crisis for placement. [place] slip was completed. Update, 8:15 PM, patient is resting comfortably, patient is eating and drinking normally. Currently waiting for a placement to a psychiatric facility. Discharge Plan Triage Chief Complaint: Suicidal ED Midlevel Provider: Eros Flores ED Provider: Sandra Rivero Dx/Rx/DC Orders Prescriptions: No Action duloxetine 60 mg capsule,delayed release(DR/EC) See Rx Instructions .ROUTE .COMPLEX Qty: 30 3RF Dose Instruction: TAKE 1 CAPSULE BY MOUTH DAILY Rx Instructions: TAKE 1 CAPSULE BY MOUTH DAILY Primary Care Provider: Care Physician,No Primary Referrals: Care Physician,No Primary [Primary Care Provider] - Print Language: [place]
[2023-08-28 17:29] LABS: Absolute Lymphocyte Count 1.51 X10^3/uL (0.83-4.51); Absolute Neutrophil Count 11.6 X10^3/uL (2.0-7.7); Basophil# 0.04 X10^3/uL; Basophil% 0.3 % (0-1); Eosinophil# 0.03 X10^3/uL; Eosinophils% 0.2 % (0-5); Hematocrit 48.6 % (37-47); Hemoglobin 15.5 g/dL (12.0-15.0); Lymphocyte # 1.51 X10^3/ul (0.83-4.51); Lymphocyte % 10.9 % (19-41); Mean Corp Hgb Conc 31.9 g/dL (32-36); Mean Corpuscular Hgb 27.2 pg (27.0-32.0); Mean Corpuscular Volume 85.4 fL (81-99); Mean Platelet Vol. 9.2 fl (6.2-12.0); Monocyte# 0.57 X10^3/uL; Monocyte% 4.1 % (0-10); NRBC Flagged by Analyzer 0 % (0-5); Neutrophil # 11.63 X10^3/uL (2.7-7.7); Neutrophil % 84.1 % (47-70); Platelet Count 328 K/mm3 (150-450); RBC Distribution Width CV 13.2 % (11.6-14.6); RBC Distribution Width SD 41.4 fl (35.1-43.9); Red Blood Count 5.69 M/mm3 (4.2-5.4); White Blood Count 13.8 K/mm3 (4.4-11.0)
[2023-08-28 17:47] LABS: Internal QC Validated? YES +Cl - CLEAR BKGD; Pregnancy, Serum, hCG Quali. NEGATIVE Negative
[2023-08-28 17:48] VITALS: BP 127/85; PULSE 84; RESP 18; O2SAT 98
[2023-08-28 17:51] LABS: Anion Gap 11 (5-15); BUN 8 mg/dL (7-18); Calcium,Total 9.6 mg/dL (8.5-10.1); Chloride 105 mmol/L (98-107); Creatinine, Serum 0.89 mg/dL (0.55-1.02); EST Glomerular Filtration Rate 86 mL/min (>60); Est Glom Filt Rate - Afr Amer 104 mL/min (>60); Estimated Creatinine Clearance 102.73 ml/min; Glucose 94 mg/dL (74-106); Potassium 3.4 mmol/L (3.5-5.1); Sodium Level 139 mmol/L (136-145)
[2023-08-28 18:00] LABS: Amphetamine Urine VISTA NEGATIVE (<1000 ng/mL); Barbiturate Urine VISTA NEGATIVE (< 200 ng/mL); Benzodiazepine Urine VISTA NEGATIVE (< 200 ng/mL); Cocaine Urine VISTA NEGATIVE (< 300 ng/mL); Ecstacy Urine VISTA NEGATIVE (< 500 ng/mL); Methadone Urine VISTA NEGATIVE (< 300 ng/mL); PCP Urine VISTA NEGATIVE (< 25 ng/mL); THC Urine VISTA POSITIVE (< 50 ng/mL)
--- NOTE | 2023-08-28 18:13 | NURSING ---
FAXED CHART TO CRISIS
[2023-08-28 18:44] LABS: Vista UDS pH Range 5
[2023-08-29 01:00] VITALS: BP 113/67; PULSE 80; RESP 16; O2SAT 98
[2023-08-29 04:04] VITALS: BP 118/80; PULSE 78; RESP 16; TEMP 36.7; O2SAT 97
--- NOTE | 2023-08-29 04:06 | NURSING ---
Report called to Donald Lucio and report given to Suzanne. ORELLANA.
== END 2023-08-29 09:05 ==
PROVIDERS: Emergency Provider Emergency Medicine; Visit Provider Emergency Medicine
DX: F41.8 Other specified anxiety disorders (principal); E66.9 Obesity, unspecified; R45.851 Suicidal ideations
CPT/HCPCS: 80048; 80307; 80320; 84703; 85025; 99285; G0480

== ENCOUNTER 2024-02-03 12:37 | Emergency (ER) | payer OTHER, MEDICAID, SELFPAY ==
[2024-02-03 12:38] VITALS: BP 138/91; PULSE 110; RESP 18; TEMP 36.9; O2SAT 99; BMI 41.0
[2024-02-03 13:29] LABS: Absolute Lymphocyte Count 2.79 X10^3/uL (0.83-4.51); Basophil# 0.05 X10^3/uL; Basophil% 0.3 % (0-1); Eosinophil# 0.04 X10^3/uL; Eosinophils% 0.3 % (0-5); Hematocrit 45.4 % (37-47); Hemoglobin 15.1 g/dL (12.0-15.0); Lymphocyte # 2.79 X10^3/ul (0.83-4.51); Mean Corp Hgb Conc 33.3 g/dL (32-36); Mean Corpuscular Hgb 27.8 pg (27.0-32.0); Mean Corpuscular Volume 83.6 fL (81-99); Mean Platelet Vol. 9.6 fl (6.2-12.0); Monocyte# 0.74 X10^3/uL; NRBC Flagged by Analyzer 0 % (0-5); Neutrophil # 11.01 X10^3/uL (2.7-7.7); Neutrophil % 74.9 % (47-70); Platelet Count 399 K/mm3 (150-450); RBC Distribution Width CV 13.2 % (11.6-14.6); RBC Distribution Width SD 40.6 fl (35.1-43.9); Red Blood Count 5.43 M/mm3 (4.2-5.4); White Blood Count 14.7 K/mm3 (4.4-11.0)
[2024-02-03 13:36] LABS: Internal QC Validated? YES +Cl - CLEAR BKGD; Pregnancy, Serum, hCG Quali. NEGATIVE Negative
[2024-02-03 13:41] LABS: Anion Gap 8 (5-15); BUN 7 mg/dL (7-18); BUN/Creat Ratio 8.1 RATIO (10-20); Calcium,Total 9.3 mg/dL (8.5-10.1); Chloride 109 mmol/L (98-107); Creatinine, Serum 0.86 mg/dL (0.55-1.02); EST Glomerular Filtration Rate 88 mL/min (>60); Est Glom Filt Rate - Afr Amer 107 mL/min (>60); Estimated Creatinine Clearance 105.66 ml/min; Glucose 109 mg/dL (74-106); Potassium 3.4 mmol/L (3.5-5.1); Sodium Level 137 mmol/L (136-145)
[2024-02-03 13:42] LABS: Alcohol, Blood (Medical)-Serum < 3.0 mg/dL
[2024-02-03 15:39] LABS: Amphetamine Urine VISTA NEGATIVE (<1000 ng/mL); Barbiturate Urine VISTA NEGATIVE (< 200 ng/mL); Benzodiazepine Urine VISTA NEGATIVE (< 200 ng/mL); Cocaine Urine VISTA NEGATIVE (< 300 ng/mL); Ecstacy Urine VISTA NEGATIVE (< 500 ng/mL); Methadone Urine VISTA NEGATIVE (< 300 ng/mL); PCP Urine VISTA NEGATIVE (< 25 ng/mL); THC Urine VISTA POSITIVE (< 50 ng/mL); Vista UDS pH Range 6
[2024-02-03 23:09] VITALS: BP 115/70; PULSE 65; RESP 16; TEMP 36.8; O2SAT 98
== END 2024-02-04 00:03 ==
LOC: ED 13:20
PROVIDERS: Emergency Provider Emergency Medicine; Visit Provider Emergency Medicine
DX: T14.91XA Suicide attempt, initial encounter (principal); F60.3 Borderline personality disorder; S51.812A Laceration without foreign body of left forearm, initial encounter; F32.A Depression, unspecified
CPT/HCPCS: 12001; 80048; 80307; 82077; 84703; 85025; 99285

== ENCOUNTER 2024-03-09 17:11 | Emergency (ER) | payer OTHER, MEDICAID, SELFPAY ==
[2024-03-09 17:12] VITALS: BP 126/73; PULSE 96; RESP 18; TEMP 36.6; O2SAT 98; BMI 44.5
--- NOTE | 2024-03-09 17:39 | EX.ED.VIS.PS ---
HPI <TAL Ruiz - Last Filed: 03/09/24 21:41> HPI - Psych History of Present Illness Chief Complaint: Suicidal Narrative Narrative: Patient presenting today after being sent in from crisis due to concerns for increased self-harm behaviors and suicidal ideation. She currently resides at the counseling center, they report that over the course of several days she has displayed increased self-harm behavior and suicidal ideations. Today, she made several superficial cuts to her left forearm despite being safety planned. Crisis feels she requires additional support and observation. She currently denies SI, HI, hallucinations, and substance use. She has been placed in psychiatric facilities in the past. She has a PMH of anxiety, depression, and borderline personality disorder. Her tetanus is up-to-date. PFSH <TAL Ruiz - Last Filed: 03/09/24 21:41> PFS Medical History MDD (major depressive disorder) Bulimia nervosa, purging type Major depressive disorder, recurrent severe without psychotic features Encounter for medication monitoring Anxiety disorder, unspecified Borderline personality disorder Dysthymic disorder Depression Home Medications ?Medication ?Instructions ?Recorded ?Last Taken ?Type mirabegron 50 mg tablet,extended 50 mg PO QDAY 11/30/23 Unknown History release 24 hr (Myrbetriq) naltrexone 50 mg tablet 25 mg (1/2 x 50 mg) PO QDAY 30 03/02/24 Unknown Rx days #15 tabs Allergy/AdvReac Type Severity Reaction Status Date / Time No Known Allergies Allergy Verified 03/09/24 17:17 Surgical History History of wisdom tooth extraction Social History Smoking Status: Never smoker alcohol intake: current details: rarely substance use type: former substance user, marijuana and other details: acid and mushrooms what type of physical activity do you participate in: walking ROS <TAL Ruiz - Last Filed: 03/09/24 21:41> ROS ED Constitutional Constitutional ED: Denies chills or fever(s) Cardiovascular Cardiovascular: Denies chest pain Respiratory/Chest Respiratory/Chest: Denies cough or dyspnea Gastrointestinal Gastrointestinal: Denies abdominal pain, nausea or vomiting Genitourinary Genitourinary ED: Denies dysuria, hematuria or urinary urgency Musculoskeletal Musculoskeletal: Denies arthralgias or myalgias Integumentary Reports laceration Neurologic Neurologic: Denies weakness EXAM <TAL Ruiz - Last Filed: 03/09/24 21:41> Physical Exam Const Vital Signs: 03/09/24 17:12 03/09/24 18:52 Temperature 98 F Temperature Source Temporal Pulse Rate 96 68 Respiratory Rate 18 14 Blood Pressure 126/73 H 122/78 H Blood Pressure Mean 90 92 Pulse Ox 98 99 Oxygen Delivery Method Room Air Positive well nourished, well developed and no apparent distress General Appearance ED: well developed HEENT Reports normocephalic and head/scalp atraumatic Mouth ED: Yes moist mucous membranes normal Eyes PERRL and EOMs intact bilaterally Neck full ROM and supple Chest Wall inspection of chest normal Resp normal respiratory effort and clear to auscultation bilaterally Cardio regular rate and regular rhythm GI soft to palpation, non-tender, non-distended and no masses Back/Spine normal ROM and normal to inspection Extremity full ROM Extremity Narrative: Several superficial linear lacerations to the left ventral forearm. No active bleeding, no surrounding erythema or signs of infection. Neuro oriented x3, CN's II-XII intact bilaterally, moves all extremities, no focal motor deficits and no sensory deficits noted Sensorium / Orientation: awake and alert Psych mental status grossly normal, cooperative, denies hallucinations, denies homicidal ideation and denies suicidal ideation Skin Rashes: no rashes <Dr. Marvel Velasquez DO - Last Filed: 03/10/24 00:38> Physical Exam Const Vital Signs: 03/09/24 17:12 03/09/24 18:52 Temperature 98 F Temperature Source Temporal Pulse Rate 96 68 Respiratory Rate 18 14 Blood Pressure 126/73 H 122/78 H Blood Pressure Mean 90 92 Pulse Ox 98 99 Oxygen Delivery Method Room Air MDM <TAL Ruiz - Last Filed: 03/09/24 21:41> [facility] MDM Narrative Medical decision making narrative: Patient presenting today due to increasingly concerning behavior she is exhibited over the last several days according to the counseling center. She has had increased suicidal thoughts, worsening depression, and self harming behaviors despite being safety planned. She denies currently feeling suicidal. She does have several superficial linear lacerations to her left ventral forearm with no active bleeding. She has been placed several times in the past. The counseling center pink slipped her and felt that she would benefit from placement in a psychiatric facility. Crisis evaluated the patient and agrees. Medical clearance labs obtained. She does have a WBC of 17.5 but this is nonspecific, potassium 3.2, potassium replacement was given, her urine does not appear infected, urine tox screen shows cannabinoids. Placement is pending. Patient has been pink slipped. Lab Data Attestation: I reviewed the patient's lab results. Lab results narrative: WBC 17.5, potassium 3.2, UA negative for UTI, urine tox screen positive for cannabinoids. Labs: Laboratory Results - last 24 hr 03/09/24 03/09/24 17:17 17:57 WBC 17.5 H RBC 5.26 Hgb 14.6 Hct 45.3 MCV 86.1 MCH 27.8 MCHC 32.2 RDW Std Deviation 39.9 RDW Coeff of Nikhil 12.8 Plt Count 318 MPV 10.0 Immature Gran % (Auto) 0.600 Neut % (Auto) 86.1 H Lymph % (Auto) 8.3 L [place] % (Auto) 4.5 Eos % (Auto) 0.2 Baso % (Auto) 0.3 Absolute Neuts (auto) 15.1 H Absolute Lymphs (auto) 1.46 Nucleated RBC % 0 Sodium 139 Potassium 3.2 L Chloride 109 H Carbon Dioxide 20.0 L Anion Gap 10 BUN 11 Creatinine 0.91 Estim Creat Clear Calc 104.83 Est GFR (MDRD) Af Amer 100 Est GFR (MDRD) Non-Af 83 BUN/Creatinine Ratio 12.0 Glucose 93 Calcium 9.3 Serum , Qual NEGATIVE Urine Color Yellow Urine Clarity Clear Urine pH 6.0 Ur Specific [place] 1.015 Urine Protein 30 H Urine Glucose (UA) Normal Urine Ketones Negative Urine Occult Blood Negative Urine Nitrite Negative Urine Bilirubin Negative Urine Urobilinogen Normal Ur Leukocyte Esterase Negative Urine RBC 0-5 SEEN Urine WBC 0 SEEN Ur Squamous Epith Cells 5-10 SEEN Ur Transition Epith Cell 0-5 SEEN Urine Bacteria 1+ Urine Mucus 0 SEEN Urine Opiates Screen NEGATIVE Urine Methadone Screen NEGATIVE Ur Barbiturates Screen NEGATIVE Ur Phencyclidine Scrn NEGATIVE Ur Amphetamines Screen NEGATIVE MDMA (Ecstasy) Screen NEGATIVE U Benzodiazepines Scrn NEGATIVE Urine Cocaine Screen NEGATIVE U Cannabinoids Screen POSITIVE H Ur Drug Screen Comment Ethyl Alcohol < 3.0 <Dr. Marvel Velasquez, DO - Last Filed: 03/10/24 00:38> [facility] Narrative Medical decision making narrative: Patient presenting today due to increasingly concerning behavior she is exhibited over the last several days according to the counseling center. She has had increased suicidal thoughts, worsening depression, and self harming behaviors despite being safety planned. She denies currently feeling suicidal. She does have several superficial linear lacerations to her left ventral forearm with no active bleeding. She has been placed several times in the past. The counseling center pink slipped her and felt that she would benefit from placement in a psychiatric facility. [facility] evaluated the patient and agrees. Medical clearance labs obtained. She does have a WBC of 17.5 but this is nonspecific, potassium 3.2, potassium replacement was given, her urine does not appear infected, urine tox screen shows cannabinoids. Placement is pending. Patient has been pink slipped. Supervisory Physician Note Patient was seen and examined with the Advanced Practice Provider. Nursing notes and vital signs have been reviewed. Pertinent old records have been reviewed. I agree with the essential elements of the HAZEL's history, physical exam, assessment, and plan. The differential diagnosis and management options were discussed with the HAZEL. I participated in determining and agree with the management, procedures, final impression and disposition as documented. See changes noted by me. Please see addendum or separate note for any additional details. 18-year-old female with history of borderline personality disorder, depression, anxiety presents pink slipped from crisis for increased self-harm behaviors and suicidal ideation. Patient resides at crisis/counseling center. Experience suicidal ideation earlier today with self-harm to the left forearm. Has been taking medication. Currently denies suicidal ideation, homicidal ideation, visual/auditory hallucinations. Gen: A&O x3, NAD Head: Normocephalic, atraumatic Eyes: No sclera icterus, conjunctiva clear ENT: Moist mucous membranes Neck: Trachea midline, No JVD CV: RRR, no murmurs, no peripheral edema Resp: Lungs CTA BL, no w/r/c GI: Abd soft, non-distended, non-tender, no r/r/g Musc: Full ROM, no deformity Skin: Warm, superficial lacerations to the left forearm-no active bleeding Neuro: Alert, oriented, grossly intact, sensation intact Psych: Cooperative, appropriate mood and affect Given patient's increased suicidal ideation as well as self-harm behaviors patient would benefit from inpatient psychiatric facility placement. Patient was informed of our plan. [place] slip written. Crisis and our social worker delinquency prevention evaluate the patient and agrees with placement. Patient up-to-date on tetanus. CBC with a leukocytosis of 17.5. May be reactive to her superficial lacerations. Patient not endorses infectious type symptoms. However will add on UA to rule out UTI. No anemia. BMP relatively unremarkable except for mild hypokalemia. P.o. potassium ordered. UA negative for UTI. Urine negative. Drug screen positive for cannabinoid. Patient medically cleared for inpatient psychiatric facility. Will be placed. Impression: 1. Suicidal ideation 2. Self-harm behaviors 3. History of borderline personality disorder, anxiety, depression 4. Mild hypokalemia Lab Data Labs: Laboratory Results - last 24 hr 03/09/24 03/09/24 17:17 17:57 WBC 17.5 H RBC 5.26 Hgb 14.6 Hct 45.3 MCV 86.1 MCH 27.8 MCHC 32.2 RDW Std Deviation 39.9 RDW Coeff of Nikhil 12.8 Plt Count 318 MPV 10.0 Immature Gran % (Auto) 0.600 Neut % (Auto) 86.1 H Lymph % (Auto) 8.3 L [place] % (Auto) 4.5 Eos % (Auto) 0.2 Baso % (Auto) 0.3 Absolute Neuts (auto) 15.1 H Absolute Lymphs (auto) 1.46 Nucleated RBC % 0 Sodium 139 Potassium 3.2 L Chloride 109 H Carbon Dioxide 20.0 L Anion Gap 10 BUN 11 Creatinine 0.91 Estim Creat Clear Calc 104.83 Est GFR (MDRD) Af Amer 100 Est GFR (MDRD) Non-Af 83 BUN/Creatinine Ratio 12.0 Glucose 93 Calcium 9.3 Serum , Qual NEGATIVE Urine Color Yellow Urine Clarity Clear Urine pH 6.0 Ur Specific [place] 1.015 Urine Protein 30 H Urine Glucose (UA) Normal Urine Ketones Negative Urine Occult Blood Negative Urine Nitrite Negative Urine Bilirubin Negative Urine Urobilinogen Normal Ur Leukocyte Esterase Negative Urine RBC 0-5 SEEN Urine WBC 0 SEEN Ur Squamous Epith Cells 5-10 SEEN Ur Transition Epith Cell 0-5 SEEN Urine Bacteria 1+ Urine Mucus 0 SEEN Urine Opiates Screen NEGATIVE Urine Methadone Screen NEGATIVE Ur Barbiturates Screen NEGATIVE Ur Phencyclidine Scrn NEGATIVE Ur Amphetamines Screen NEGATIVE MDMA (Ecstasy) Screen NEGATIVE U Benzodiazepines Scrn NEGATIVE Urine Cocaine Screen NEGATIVE U Cannabinoids Screen POSITIVE H Ur Drug Screen Comment Ethyl Alcohol < 3.0 Discharge Plan Triage Chief Complaint: Suicidal ED Midlevel Provider: Maria Guadalupe [place] ED Provider: Marvel Velasquez Dx/Rx/DC Orders Clinical Impression: Borderline personality disorder, MDD (major depressive disorder), Intentional self-harm, Suicidal ideations Prescriptions: No Action mirabegron [Myrbetriq] 50 mg tablet extended release 24 hr 50 mg PO QDAY naltrexone 50 mg tablet 25 mg PO QDAY 30 Days Qty: 15 0RF Primary Care Provider: Care Physician,No Primary Referrals: Care Physician,No Primary [Primary Care Provider] - Print Language: Austrian
[2024-03-09 18:20] LABS: Anion Gap 10 (5-15); BUN 11 mg/dL (7-18); Calcium,Total 9.3 mg/dL (8.5-10.1); Chloride 109 mmol/L (98-107); Creatinine, Serum 0.91 mg/dL (0.55-1.02); EST Glomerular Filtration Rate 83 mL/min (>60); Est Glom Filt Rate - Afr Amer 100 mL/min (>60); Estimated Creatinine Clearance 104.83 ml/min; Glucose 93 mg/dL (74-106); Potassium 3.2 mmol/L (3.5-5.1); Sodium Level 139 mmol/L (136-145)
[2024-03-09 18:27] LABS: Internal QC Validated? YES +Cl - CLEAR BKGD; Pregnancy, Serum, hCG Quali. NEGATIVE Negative
[2024-03-09 18:28] LABS: Alcohol, Blood (Medical)-Serum < 3.0 mg/dL
[2024-03-09 18:29] LABS: Amphetamine Urine VISTA NEGATIVE (<1000 ng/mL); Barbiturate Urine VISTA NEGATIVE (< 200 ng/mL); Benzodiazepine Urine VISTA NEGATIVE (< 200 ng/mL); Cocaine Urine VISTA NEGATIVE (< 300 ng/mL); Ecstacy Urine VISTA NEGATIVE (< 500 ng/mL); Methadone Urine VISTA NEGATIVE (< 300 ng/mL); PCP Urine VISTA NEGATIVE (< 25 ng/mL); THC Urine VISTA POSITIVE (< 50 ng/mL); Vista UDS pH Range 5
[2024-03-09 18:52] VITALS: BP 122/78; PULSE 68; RESP 14; O2SAT 99
[2024-03-09 18:53] LABS: Absolute Lymphocyte Count 1.46 X10^3/uL (0.83-4.51); Absolute Neutrophil Count 15.1 X10^3/uL (2.0-7.7); Basophil# 0.06 X10^3/uL; Basophil% 0.3 % (0-1); Eosinophil# 0.03 X10^3/uL; Eosinophils% 0.2 % (0-5); Hematocrit 45.3 % (37-47); Hemoglobin 14.6 g/dL (12.0-15.0); Lymphocyte # 1.46 X10^3/ul (0.83-4.51); Lymphocyte % 8.3 % (19-41); Mean Corp Hgb Conc 32.2 g/dL (32-36); Mean Corpuscular Hgb 27.8 pg (27.0-32.0); Mean Corpuscular Volume 86.1 fL (81-99); Monocyte# 0.79 X10^3/uL; Monocyte% 4.5 % (0-10); NRBC Flagged by Analyzer 0 % (0-5); Neutrophil # 15.06 X10^3/uL (2.7-7.7); Neutrophil % 86.1 % (47-70); Platelet Count 318 K/mm3 (150-450); RBC Distribution Width CV 12.8 % (11.6-14.6); RBC Distribution Width SD 39.9 fl (35.1-43.9); Red Blood Count 5.26 M/mm3 (4.2-5.4); White Blood Count 17.5 K/mm3 (4.4-11.0)
--- NOTE | 2024-03-09 19:30 | CM.ED ---
Social work Ludin from Crisis called this SW around 1730 and left a voicemail stating patient would be arriving at [facility] ED soon. This SW and KAYDEN Malave returned Ludin's call and Ludin stated Rose from Crisis was on her way to [facility] ED with patient's pink slip. Ludin stated he was typing patient's assessment and would fax it to [facility] ED when completed, but Ludin stated patient would need inpatient psych. KAYDEN Malave verified that Ludin would be sending referrals when necessary; Ludin confirmed and SW to send medical clearance paperwork when available if ready prior to end of SW shift. Dr. Salgado arrived to ED SW office and stated concern with Crisis plan to place patient at an inpatient psychiatric hospital. Dr. Salgado asked this KAYDEN and KAYDEN Malave could check in with patient. SW to follow. Michelle Watson, [employer], [employer]
[2024-03-09] MEDS: Potassium Chloride Oral Tablet 20 MEQ 40 MEQ PO (20:17)
[2024-03-09 20:24] LABS: Mucous, Urine 0 SEEN /hpf (<or=2+); White Blood Cells 0 SEEN /hpf (0-5)
[2024-03-09 20:26] LABS: Color, Urine Yellow (Yellow); Glucose, Dipstick Normal (Normal); Ketone-Dipstick Negative (Negative); Leukocyte Esterase-Dipstick Negative /ul (Negative); Nitrite-Dipstick Negative (Negative); Occult Blood-Urine Negative /ul (Negative); Protein-Dipstick 30 mg/dl (Negative); Specific Gravity, Urine 1.015 (1.002-1.030); Urine Bilirubin Dipstick Negative (Negative); Urine Clarity Clear (Clear); Urine Urobilinogen Normal (Normal)
[2024-03-09 20:44] LABS: Red Blood Cells-Urine 0-5 SEEN /hpf (0-5); Squamous Epithelial Cells - UA 5-10 SEEN /hpf (5-10); Transitional Epithelial - Ur 0-5 SEEN /hpf (0-5)
[2024-03-09 20:45] LABS: Bacteria 1+ /hpf (None Seen)
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
--- NOTE | 2024-03-09 21:45 | ED.RN ---
TAZ CHANG CALLED, REFERRED TO [facility]
[2024-03-10 00:55] VITALS: BP 129/72; PULSE 77; RESP 15; TEMP 36.7; O2SAT 99
== END 2024-03-10 00:57 | disposition short-term general hospital (02) ==
PROVIDERS: Physician Assistant; Emergency Provider Surgery; Visit Provider Surgery
DX: F32.9 Major depressive disorder, single episode, unspecified (principal); F60.3 Borderline personality disorder; X83.8XXA Intentional self-harm by other specified means, initial encounter; S51.812A Laceration without foreign body of left forearm, initial encounter; R45.851 Suicidal ideations; E87.6 Hypokalemia; Y92.89 Other specified places as the place of occurrence of the external cause
CPT/HCPCS: 80048; 80307; 81001; 82077; 84703; 85025; 99285

== ENCOUNTER 2025-03-03 08:35 | Observation (INO) | payer MEDICAID, SELFPAY ==
[2025-03-03] VITALS (15 sets, daily range): BP systolic 89–146; BP diastolic 53–121; PULSE 50–117; RESP 11–32; TEMP 36.3–36.9; O2SAT 94–100; BMI 35.3; BMI 33.4
--- NOTE | 2025-03-03 08:47 | EDS_ITS ---
HPI History of Present Illness Chief Complaint: Nausea/Vomiting Detail of Chief Complaint: Vomiting and abdominal pain Informant: patient Narrative Narrative: Patient presents to the emergency department complaint of vomiting and abdominal pain that started yesterday. She called EMS. She lives alone. History of bulimia as well as history of heavy THC use which she quit about a week ago. Patient states she has lost about 70 pounds in the last 6 months or so. She has had no prior abdominal surgeries. She denies urinary symptoms. Does not think she is . No history of diabetes. [facility] Medical History (Updated 03/03/25 @ 11:[address] Julee Joyce DO) PTSD (post-traumatic stress disorder) MDD (major depressive disorder) Bulimia nervosa, purging type Major depressive disorder, recurrent severe without psychotic features Encounter for medication monitoring Anxiety disorder, unspecified Borderline personality disorder Dysthymic disorder Depression Home Medications Medication Instructions Recorded Last Taken Type ondansetron 4 mg disintegrating 4 mg PO Q8H PRN nausea and vomiting 03/03/25 03/03/25 History tablet Allergy/AdvReac Type Severity Reaction Status Date / Time No Known Allergies Allergy Verified 03/03/25 08:45 Surgical History History of wisdom tooth extraction Social History Smoking Status: Never smoker alcohol intake: current details: rarely substance use type: former substance user, marijuana and other details: acid and mushrooms what type of physical activity do you participate in: walking ROS ROS ED Review of Systems ROS Unobtainable: other Constitutional Constitutional ED: Reports lethargy; Denies chills, fever(s), sweats or weight loss Eyes Eyes: Denies blurry vision, change in vision or diplopia ENT ENT ED: Denies rhinorrhea or sore throat Cardiovascular Cardiovascular: Denies chest pain, orthopnea or racing heartbeat Respiratory/Chest Respiratory/Chest: Denies cough, dyspnea, dyspnea on exertion, orthopnea or sputum Gastrointestinal Gastrointestinal: Reports abdominal pain, nausea and vomiting; Denies diarrhea Genitourinary Genitourinary ED: Denies dysuria, hematuria or urinary frequency Musculoskeletal Musculoskeletal: Denies arthralgias, back pain, myalgias or neck pain Integumentary Denies abscess, Abrasions or rash Neurologic Neurologic: Denies headache(s) or weakness Psychiatric Psychiatric: Denies anxiety, depression or suicidal thoughts Endocrine Endocrinology: Denies polydipsia, polyphagia or polyuria Hematologic/Lymphatic Hematologic/Lymphatic: Denies easy bleeding, easy bruising or lymphadenopathy Allergic/Immunologic Allergic/Immunologic ED: Denies mouth swelling, tongue swelling or urticaria EXAM Physical Exam Const Vital Signs: 03/03/25 08:36 03/03/25 11:12 Temperature 97.5 F L Temperature Source Oral Pulse Rate 117 H 66 Respiratory Rate 32 H 16 Blood Pressure 146/121 H 103/53 L Blood Pressure Mean 129 69 Pulse Ox 94 99 Oxygen Delivery Method Room Air Positive well nourished and well developed General Appearance ED: well developed and NAD HEENT Reports TM's clear and moist mucous membranes normocephalic and atraumatic; Negative for trauma or tenderness Tympanic Membrane ED: Yes TM's clear Eyes PERRL and EOMs intact bilaterally General Eye ED: Negative for pale conjunctiva or scleral icterus Neck no lymphadenopathy, supple and no JVD General: Negative for tenderness Chest Wall inspection of chest normal and palpation of chest normal Chest: Negative for tenderness Resp normal respiratory effort and clear to auscultation bilaterally Effort and Inspection: Negative for respiratory distress or pain with movement Auscultation: Negative for rhonchi, wheezes or diminished lung sounds Cardio regular rate, regular rhythm, S1 normal heart sound, S2 normal heart sound and no murmurs Peripheral Pulses: pulses 2+ throughout GI normal to inspection, nondistended, normoactive bowel sounds, soft to palpation, non-distended and no masses GI Narrative: Mild diffuse tenderness. No rebound, rigidity, or peritoneal signs. No mass palpated Back/Spine no CVA tenderness and no thoracic nor lumbar tenderness Extremity normal to inspection General Extremety ED: Negative for edema General Extremity: Negative for edema Neuro oriented x3, CN's II-XII intact bilaterally, no sensory deficits noted and gait normal Sensorium / Orientation: awake, alert, oriented to person, oriented to place and oriented to time Motor Exam: strength 5/5 throughout and strength abnormal Psych mental status grossly normal Skin no rashes or lesions noted and no wounds MDM MDM MDM Narrative Medical decision making narrative: Patient presents with vomiting with history of bulimia and more than 70 pound weight loss in the last 6 months. Actively retching and vomiting on arrival. She states she has not been bulimic for over 2 years. IV line established. She was medicated with Reglan 10 mg IV. She had good relief with that but continued to feel nauseated and was given 4 mg Zofran. She was ordered a literfluid bolus. CBC with differential showed an elevated white count 17.6 with hemoglobin 16 and platelet count of 298. Chemistry showed sodium of 135 with potassium of 2.6. CO2 was 13.9 and anion gap of 27 with a glucose of 174. GHB was elevated 6.5. negative. CT scan of the abdomen pelvis showed no acute findings in the abdomen. She had submucosal fat deposition in small and large bowel which could be related to inflammatory bowel disease versus chronic steroid use versus obesity or less common from chronic ischemia. At this point felt patient warranted admission for vomiting and dehydration. I did give her Protonix bolus. Discussed case with hospitalist Dr. Whitney Dutta. I did order initially an ABG which is pending. Held off on treating for possible DKA given that she has no history of diabetes and this could be dehydration ketosis. Patient will be admitted and guarded condition. Blood gas was obtained and did show acidosis with pH of 7.3 and a CO2 of 23. Patient will be admitted admitted to the ICU. Hospitalist did not want to start an insulin drip as hemoglobin A1c was normal and suspicion is this is all dehydration and starvation ketosis Lab Data Attestation: I reviewed the patient's lab results. Labs: Laboratory Results - last 24 hr 03/03/25 03/03/25 09:13 11:42 WBC 17.6 H RBC 5.61 H Hgb 16.0 H Hct 47.0 MCV 83.8 MCH 28.5 MCHC 34.0 RDW Std Deviation 40.4 RDW Coeff of Nikhil 13.2 Plt Count 298 MPV 11.3 Immature Gran % (Auto) 0.900 Neut % (Auto) 86.8 H Lymph % (Auto) 7.9 L Greene % (Auto) 3.8 Eos % (Auto) 0.1 Baso % (Auto) 0.5 Absolute Neuts (auto) 15.3 H Absolute Lymphs (auto) 1.39 Nucleated RBC % 0 Sodium 135 Potassium 2.6 L* Chloride 94 L Carbon Dioxide 13.9 L Anion Gap 27 H BUN 5 Creatinine 0.79 Estim Creat Clear Calc 105.03 Est GFR (MDRD) Non-Af 110 BUN/Creatinine Ratio 6.1 L Glucose 174 H Hemoglobin A1c 4.6 Calcium 9.8 Magnesium 1.8 Total Bilirubin 0.60 AST 15 ALT 19 Alkaline Phosphatase 57 Total Protein 7.6 Albumin 4.4 Globulin 3.2 Albumin/Globulin Ratio 1.4 Lipase 32 b-Hydroxybutyric mmol/L 6.5 H Serum , Qual NEGATIVE Urine Color Straw Urine Clarity Clear Urine pH 5.0 Ur Specific [place] 1.010 Urine Protein 15 H Urine Glucose (UA) Normal Urine Ketones 150 A* Urine Occult Blood Negative Urine Nitrite Negative Urine Bilirubin Negative Urine Urobilinogen Normal Ur Leukocyte Esterase Negative Urine RBC 0 SEEN Urine WBC 0 SEEN Ur Squamous Epith Cells 0-5 SEEN Urine Bacteria 0 SEEN Urine Mucus 0 SEEN ABG Data ABG results: ABG 03/03/25 11:53 Specimen Type ART Sample Site Not entered pH 7.33 L Bicarbonate Actual 12.2 L Total CO2 13 Base Excess -14 L O2 Saturation 98 ABG pCO2 23.2 L ABG pO2 102 H O2 Delivery Device Not entered Vent Mode Not entered Radiography Diagnostic Testing: Clinical Impression(s) from Imaging Studies Abdomen/Pelvis CT 03/03/25 10:05 IMPRESSION: 1. No acute findings in the abdomen or pelvis. 2. Submucosal fat deposition ("fat-halo" sign) in the small and large bowel, most often related to chronic IBD, chronic steroid use, or obesity; less commonly chronic ischemia. No acute inflammation. Reading Location: [facility] EK Initial EKG: Attestation: I personally reviewed and interpreted this EKG as follows: Comments: Sinus rhythm with rate of of [address] changes Discharge Plan Dx/Rx/DC Orders Clinical Impression: Intractable nausea and vomiting, Leukocytosis, Dehydration, Acute hypokalemia Disposition Disposition: Acute Care Hospital [facility]
[2025-03-03 09:21] LABS: Hematocrit 47.0 % (37-47); Hemoglobin 16.0 g/dL (12.0-15.0); Immature Granulocytes Count 0.150 X10^3/uL (0.0-0.0); Mean Corp Hgb Conc 34.0 g/dL (32-36); Mean Corpuscular Volume 83.8 fL (81-99); Mean Platelet Vol. 11.3 fl (6.2-12.0); NRBC Flagged by Analyzer 0 % (0-5); Platelet Count 298 K/mm3 (150-450); RBC Distribution Width CV 13.2 % (11.6-14.6); RBC Distribution Width SD 40.4 fl (35.1-43.9); Red Blood Count 5.61 M/mm3 (4.2-5.4); White Blood Count 17.6 K/mm3 (4.4-11.0)
[2025-03-03 09:26] LABS: Internal QC Validated? YES +Cl - CLEAR BKGD; Pregnancy, Serum, hCG Quali. NEGATIVE Negative
[2025-03-03] MEDS: 0.9% Normal Saline (1000mL) 1,000 ML 999 ML IV (09:28)
--- OUTSIDE RECORDS SUMMARY | 2025-03-03 09:34 | XMS RPT_ITS | CCD ---
Author Organization [facility] Care Team Providers Care Hot Press Operator Name Role Phone PATRICIA ORELLANA MD Primary Care Physician MONICA GALVIN Admitting Unavailable MONICA GALVIN Attending Unavailable ROSY BASHAR Consulting Unavailable TOM BUENROSTRO Primary Care Unavailabl gael GALLEGOS, BASHAR Consulting Unavailable GEHLOT, UPENDER Admitting Unavailable GEHLOT, UPENDER Attending Unavailable TOM BUENROSTRO Primary Care UnavailHAILEY Torrez Admitting Unavailable HAILEY DIAZ Attending Unavailable ROSY, BASHAR Consulting Unavailable TOM BUENROSTRO Primary Care Unavailfavian GALLEGOS, BASHAR Consulting Unavailable GEHLOT, UPENDER Admitting Unavailable GEHLOT, UPENDER Attending Unavailable TOM BUENROSTRO Primary Care UnavailPATRICIA Ann MD Primary Care Physician PHYSICIAN, NONE Primary Care Physician UnavailQUINTIN García DO Attending Unavailable PATRICIA ORELLANA MD Primary Care UnavailHODAN Hernández DO Attending Unavailable PHYSICIAN, NONE Primary Care Unavailable PHYSICIAN, NONE Primary Care Unavailable JOSE DAVID DALEY, DR DIANE Almaguer Attending Unavai lable Care Physician, No Primary Referring Unava ilable Wyatt Montejo Attending Unavailable Care Physician, No Primary Primary Care Unava ilable Wyatt Montejo Attending Unavailable Care Physician, No Primary Primary Care Unava ilable Care Physician, No Primary Primary Care Unava ilable Wyatt Montejo Attending Unavailable Care Physician, No Primary Primary Care Unava ilable Wyatt Montejo Attending Unavailable Care Physician, No Primary Primary Care Unava ilable Wyatt Montejo Attending Unavailable Care Physician, No Primary Primary Care Unava ilable Marvel Velasquez [facility] Luis Avila Attending Unavailable Care Physician, No Primary Primary Care Unava ilable Care Physician, No Primary Primary Care Unava ilable Care Physician, No Primary Referring Unava ilable SeeWyatt deal Attending Unavailable Care Physician, No Primary Primary Care Unava ilable Seese, Wyatt Barlow Attending Unavailable Care Physician, No Primary Primary Care Unava ilable Care Physician, No Primary Referring Unava ilable Seese, Wyatt Barlow Attending Unavailable Care Physician, No Primary Primary Care Unava ilable Care Physician, No Primary Referring Unava ilable Seese, Wyatt Barlow Attending Unavailable Care Physician, No Primary Primary Care Unava ilable Seese, Wyatt Barlow Attending Unavailable Care Physician, No Primary Primary Care Unava ilable Care Physician, No Primary Referring Unava ilable SeeWyatt deal Attending Unavailable SeeseWyatt Attending Unavailable Care Physician, No Primary Primary Care Unava ilable Medications Current Medications Medication Drug Class(es) Dates Sig (Normalized) Sig (Original) ibuprofen 200 mg oral tablet (4 sources) Nonsteroidal Anti-inflammatory Drug Start: 09-08-2017 take 1 dose by mouth every six hours as needed for pain ibuprofen Dose : 200 mg =, Oral, q6hr, PRN as needed for pain, 0 Refill(s) Start Date: 09/08/17 Status: Ordered Repeat number: 1 24 hr mirabegron 50 mg extended release oral tablet (2 sources) beta3-Adrenergic Agonist Start: 08-05-2023 Myrbetriq 50 mg oral tablet, extended release Dose : 50 mg = 1 tab(s), Oral, qDay, # 30 tab(s), 0 Refill(s) Start Date: 08/05/23 Status: Ordered Quantity: 30.0 Unit: tab(s) Repeat number: 1 ondansetron 4 mg disintegrating oral tablet (1 source) Serotonin-3 Receptor Antagonist Start: 09-29-2024 End: 10-05-2024 ondansetron 4 mg oral tablet, disintegrating Dose : 4 mg = 1 tab(s), Oral, q6h, PRN Nausea/Vomiting, X 3 day(s), # 20 tab(s), 1 Refill(s), 10/05/24 3:23:00 AM EDT Start Date: 09/29/24 Stop Date: 10/05/24 Status: Ordered Quantity: 20.0 Unit: tab(s) Repeat number: 2 Problems Problem Classification Problem Date Documented Da te Episodic/Chronic Anxiety disorders (2 sources) Post-traumatic stress disorder, unspecified; Translations: [Post-traumatic stress disorder, unspecified] Onset: 06-21-2024 Chronic Fluid and electrolyte disorders (2 sources) Dehydration; Translations: [Dehydration] Onset: 09-29-2024 Episodic Mood disorders (20 sources) Depressive disorder; Translations: [Depression with suicidal ideation] Onset: 02-26-2022 Chronic Nausea and vomiting (2 sources) Nausea and vomiting; Translations: [Nausea with vomiting, unspecified] Onset: 09-29-2024 Episodic Open wounds of extremities (1 source) Laceration of upper arm; Translations: [Laceration without foreign body of unspecified upper arm, initial encounter] Onset: 08-05-2023 Episodic Other gastrointestinal disorders (4 sources) Heartburn 02-16-2018 Episodic Other injuries and conditions due to external causes (3 sources) Abrasion and/or friction burn of multiple sites; Translations: [Unspecified multiple injuries, initial encounter] Episodic Personality disorders (2 sources) Borderline personality disorder; Translations: [Borderline personality disorder] Onset: 03-02-2024 Chronic Residual codes; unclassified (3 sources) Deliberate self-cutting; Translations: [Other problems related to lifestyle] Episodic Suicide and intentional self-inflicted injury (10 sources) Suicidal thoughts; Translations: [Suicidal ideations] Onset: 07-24-2024 Episodic Unclassified (4 sources) Gastrocnemius muscle structure (body structure) 09-08-2017 Comment on above: Left leg Results Test Name Value Interpretation Reference Range Facility .Auto Diffon 09-29-2024 Basophil, Absolute 0.0 10 3/mcL Normal 0.0-0.3 [facility] Comment on above: Performed By: #### A DIFF, CBC, ANEU, MDW, GFR, CMP, LIP #### [facility] [address] [place], [place] [address] Basophils/100 WBC (Bld) 0.7 % Normal 0.0-2.5 [facility] Comment on above: Performed By: #### A DIFF, CBC, ANEU, MDW, GFR, CMP, LIP #### [address] [address] Eosinophil, Absolute 0.1 10 3/mcL Normal 0.0-0.7 [facility] Comment on above: Performed By: #### A DIFF, CBC, ANEU, MDW, GFR, CMP, LIP #### [address] [address] Eosinophils/100 WBC (Bld) 1.3 % Normal 0.0-6.0 [facility] Comment on above: Performed By: #### A DIFF, CBC, ANEU, MDW, GFR, CMP, LIP #### [address] [address] Lymphocyte, Absolute 3.0 10 3/mcL Normal 0.9-4.3 [facility] Comment on above: Performed By: #### A DIFF, CBC, ANEU, MDW, GFR, CMP, LIP #### [address] [address] Lymphocytes/100 WBC (Bld) 28.9 % Normal 20.0-40.0 [facility] Comment on above: Performed By: #### A DIFF, CBC, ANEU, MDW, GFR, CMP, LIP #### [address] [address] Monocyte, Absolute 0.9 10 3/mcL Normal 0.1-1.4 [facility] Comment on above: Performed By: #### A DIFF, CBC, ANEU, MDW, GFR, CMP, LIP #### [address] [address] Monocytes/100 WBC (Bld) 9.0 % Normal 2.0-13.0 [facility] Comment on above: Performed By: #### A DIFF, CBC, ANEU, MDW, GFR, CMP, LIP #### [address] [address] Neutrophils/100 WBC (Bld) 59.9 % Normal 50.0-75.0 [facility] Comment on above: Performed By: #### A DIFF, CBC, ANEU, MDW, GFR, CMP, LIP #### [address] [address] .GFRon 09-29-2024 Estimated Glomerular Filtration Rate 101 ml/min/1.73sqm Normal [facility] Comment on above: Result Comment: Stages of Chronic Kidney Disease (CKD) Stage Description eGFR(ml/min/1.73 sq.m.) CKD 1 Normal kidney function or >=90 normal kindney function with possible kidney damage (ex. Proteinuria) CKD 2 Kidney damage with mild loss 60-89 of kidney function CKD 3a Mild to moderate loss of kidney 45-59 function CKD 3b Moderate to severe loss of 30-44 of kindey function CKD 4 Severe loss of kidney function 15-29 CKD 5 Kidney failure <15 Note: (go live 2024) the eGFR calculation was updated to the 2020 CKD-EPI creatinine equation without a race factor to calculate the eGFR results. Performed By: #### A DIFF, CBC, ANEU, MDW, GFR, CMP, LIP #### [address] [address] .MDWon 09-29-2024 Monocyte Distribution Width Not performed Normal 0.00-20.00 [facility] Comment on above: Result Comment: MDW testing unable to be performed on [id number] instrumentation. Performed By: #### A DIFF, CBC, ANEU, MDW, GFR, CMP, LIP #### [address] [address] .NEUABSon 09-29-2024 Neutrophil, Absolute 6.2 10 3/mcL Normal 2.3-8.1 [facility] Comment on above: Performed By: #### A DIFF, CBC, ANEU, MDW, GFR, CMP, LIP #### [address] [address] CBCon 09-29-2024 Erythrocyte distribution width (RBC) [Ratio] 13.7 % Normal 11.5-15.5 [facility] Comment on above: Performed By: #### A DIFF, CBC, ANEU, MDW, GFR, CMP, LIP #### [address] [address] Hematocrit (Bld) [Volume fraction] 49.0 % High 34.0-46.0 [facility] Comment on above: Performed By: #### A DIFF, CBC, ANEU, MDW, GFR, CMP, LIP #### [address] [address] Hgb 17.2 G/dL High 12.0-16.0 [facility] Comment on above: Performed By: #### A DIFF, CBC, ANEU, MDW, GFR, CMP, LIP #### [address] [address] MCH (RBC) [Entitic mass] 27.9 pg Normal 27.0-33.0 [facility] Comment on above: Performed By: #### A DIFF, CBC, ANEU, MDW, GFR, CMP, LIP #### [address] [address] MCHC 35.2 G/dL Normal 32.0-36.0 [facility] Comment on above: Performed By: #### A DIFF, CBC, ANEU, MDW, GFR, CMP, LIP #### [address] [address] MCV (RBC) [Entitic vol] 79.3 fL Low 80.0-99.0 [facility] Comment on above: Performed By: #### A DIFF, CBC, ANEU, MDW, GFR, CMP, LIP #### [address] [address] Platelet 371 10 3/mcL Normal 150-450 [facility] Comment on above: Performed By: #### A DIFF, CBC, ANEU, MDW, GFR, CMP, LIP #### [address] [address] Platelet mean volume (Bld) [Entitic vol] 8.6 fL Normal 6.6-10.5 [facility] Comment on above: Performed By: #### A DIFF, CBC, ANEU, MDW, GFR, CMP, LIP #### [address] [address] RBC 6.18 10 6/mcL High 4.10-5.30 [facility] Comment on above: Performed By: #### A DIFF, CBC, ANEU, MDW, GFR, CMP, LIP #### [address] [address] WBC 10.4 10 3/mcL Normal 4.5-10.8 [facility] Comment on above: Performed By: #### A DIFF, CBC, ANEU, MDW, GFR, CMP, LIP #### [address] [address] CMPon 09-29-2024 Albumin Level 4.3 G/dL Normal 3.5-5.0 [facility] Comment on above: Performed By: #### A DIFF, CBC, ANEU, MDW, GFR, CMP, LIP #### [address] [address] Albumin/Globulin [Mass ratio] 1.0 {ratio} Low 1.1-2.5 [facility] Comment on above: Performed By: #### A DIFF, CBC, ANEU, MDW, GFR, CMP, LIP #### [address] [address] ALP [Catalytic activity/Vol] 85 U/L Normal 40-135 [facility] Comment on above: Performed By: #### A DIFF, CBC, ANEU, MDW, GFR, CMP, LIP #### [address] [address] ALT [Catalytic activity/Vol] 27 U/L Normal 14-59 [facility] Comment on above: Performed By: #### A DIFF, CBC, ANEU, MDW, GFR, CMP, LIP #### [address] [address] AST [Catalytic activity/Vol] 17 U/L Normal 10-40 [facility] Comment on above: Performed By: #### A DIFF, CBC, ANEU, MDW, GFR, CMP, LIP #### [address] [address] Bili Total 0.7 mg/dL Normal 0.2-1.0 [facility] Comment on above: Result Comment: Use of this assay is not recommended for patients undergoing treatment with eltrombopag due to the potential for falsely elevated results. Performed By: #### A DIFF, CBC, ANEU, MDW, GFR, CMP, LIP #### [place] [address] BUN/Creatinine Ratio 5 ratio Low 7-27 [facility] Comment on above: Performed By: #### A DIFF, CBC, ANEU, MDW, GFR, CMP, LIP #### [place] [address] Calcium [Mass/Vol] 9.4 mg/dL Normal 8.4-10.2 [facility] Comment on above: Performed By: #### A DIFF, CBC, ANEU, MDW, GFR, CMP, LIP #### [place] [id number] Chloride [Moles/Vol] 99 mmol/L Normal 98-107 [facility] Comment on above: Performed By: #### A DIFF, CBC, ANEU, MDW, GFR, CMP, LIP #### [place] [address] CO2 [Moles/Vol] 17 mmol/L Low 22-29 [facility] Comment on above: Performed By: #### A DIFF, CBC, ANEU, MDW, GFR, CMP, LIP #### [address] [address] Creatinine [Mass/Vol] 0.84 mg/dL Normal 0.51-0.95 [facility] Comment on above: Performed By: #### A DIFF, CBC, ANEU, MDW, GFR, CMP, LIP #### [address] [address] Electrolyte Balance 21.0 mEq/L High 4.0-15.0 [facility] Comment on above: Performed By: #### A DIFF, CBC, ANEU, MDW, GFR, CMP, LIP #### [address] [address] Globulin 4.5 G/dL High 2.7-4.4 [facility] Comment on above: Performed By: #### A DIFF, CBC, ANEU, MDW, GFR, CMP, LIP #### [address] [address] Glucose [Mass/Vol] 89 mg/dL Normal 70-105 [facility] Comment on above: Performed By: #### A DIFF, CBC, ANEU, MDW, GFR, CMP, LIP #### [address] [address] Potassium [Moles/Vol] 3.4 mmol/L Low 3.5-5.1 [facility] Comment on above: Performed By: #### A DIFF, CBC, ANEU, MDW, GFR, CMP, LIP #### [address] [address] Sodium [Moles/Vol] 137 mmol/L Normal 136-145 [facility] Comment on above: Performed By: #### A DIFF, CBC, ANEU, MDW, GFR, CMP, LIP #### [address] [address] Total Protein 8.8 G/dL High 6.4-8.2 [facility] Comment on above: Performed By: #### A DIFF, CBC, ANEU, MDW, GFR, CMP, LIP #### [address] [address] Urea nitrogen [Mass/Vol] 4 mg/dL Low 7-18 [facility] Comment on above: Performed By: #### A DIFF, CBC, ANEU, MDW, GFR, CMP, LIP #### [address] [address] [address] ABD/PELVIS W/ IV CONTRAST ONLYon 09-29-2024 CT ABD/PELVIS W/ IV CONTRAST ONLY ORIGINAL EXAMINATION: CT OF THE ABDOMEN AND PELVIS WITH CONTRAST 09/29/2024 2:30 am TECHNIQUE: CT of the abdomen and pelvis was performed with the administration of intravenous contrast. Multiplanar reformatted images are provided for review. Automated exposure control, iterative reconstruction, and/or weight based adjustment of the mA/kV was utilized to reduce the radiation dose to as low as reasonably achievable. COMPARISON: CT abdomen and pelvis on 04/03/2021 HISTORY: ORDERING SYSTEM PROVIDED HISTORY: Reason for Exam: Abdominal pain, acute, nonlocalized FINDINGS: Lower Chest: There is no acute abnormality at the lung bases. Organs: The liver, biliary tree, pancreas, spleen, adrenal glands, and kidneys show no sign of acute abnormality. GI/Bowel: There is no intestinal obstruction or inflammation. The appendix is normal. No free intraperitoneal air or abnormal fluid collection is present in the peritoneum. Normal mesenteric lymph nodes are present without signs of mesenteritis. Pelvis: Urinary bladder is nearly empty and contains no stones. Uterus and adnexal structures are unremarkable. There is no abnormal fluid collection in the pelvis. Peritoneum/Retroperitone um: There is no retroperitoneal lymph node enlargement. Abdominal aorta and inferior vena cava are normal. Bones/Soft Tissues: No acute findings. IMPRESSION: No acute intra-abdominal or pelvic abnormality. Interpreted by: Enrico Justice MD Preliminary Report By: Enrico Justice MD Electronically signed By Enrico Justice MD Dictated Date: 09/29/2024 2:47:16 AM Prelim Date: 09/29/2024 2:50:36 AM Sign Date: 09/29/2024 2:50:36 AM Ordering Provider: DIANE MAIN Interpreted by: Enrico Justice MD Preliminary Report By: Enrico Justice MD Electronically signed By Enrico Justice MD Dictated Date: 09/29/2024 2:47:16 AM Prelim Date: 09/29/2024 2:50:36 AM Sign Date: 09/29/2024 2:50:36 AM Ordering Provider: DIANE Tucker [facility] LABORATORYOrdered By: Rosa Momin on 09-29-2024 Amphetamines Screen Ql (U) Negative *NA* (09/29/24 1:48 AM) Invalid Interpretation Code Negative AO ADM SS Appearance (U) Clear (09/29/24 1:48 AM) Normal Clear AO Auto Urine SS Barbiturates Screen Ql (U) Negative *NA* (09/29/24 1:48 AM) Invalid Interpretation Code Negative AO ADM SS Benzodiazepines Ql (U) Negative *NA* (09/29/24 1:48 AM) Invalid Interpretation Code Negative AO ADM SS Benzoylecgonine Screen Ql (U) Negative *NA* (09/29/24 1:48 AM) Invalid Interpretation Code Negative AO ADM SS Bilirubin Ql (U) Moderate *ABN* (09/29/24 1:48 AM) Invalid Interpretation Code Negative AO Auto Urine SS Cannabinoids Screen Ql (U) Positive *ABN* (09/29/24 1:48 AM) Invalid Interpretation Code Negative AO ADM SS Color (U) Yellow (09/29/24 1:48 AM) Normal AO Auto Urine SS Glucose Test strip (U) [Mass/Vol] Negative Normal Negative AO Auto Urine SS HCG ( test) Ql Negative (09/29/24 1:48 AM) Normal AO Manual Urine SS Hemoglobin Auto test strip (U) [Mass/Vol] Negative (09/29/24 1:48 AM) Normal Negative AO Auto Urine SS Ketones Ql (U) >=160 mg/dL Invalid Interpretation Code Negative AO Auto Urine SS Methadone Screen Ql (U) Negative *NA* (09/29/24 1:48 AM) Invalid Interpretation Code Negative AO ADM SS Opiates Screen Ql (U) Negative *NA* (09/29/24 1:48 AM) Invalid Interpretation Code Negative AO ADM SS Phencyclidine Ql (U) Negative *NA* (09/29/24 1:48 AM) Invalid Interpretation Code Negative AO ADM SS test (u) int Not detected Invalid Interpretation Code AO Manual Urine SS UA Leuk Est Negative (09/29/24 1:48 AM) Normal Negative AO Auto Urine SS UA Nitrite Negative (09/29/24 1:48 AM) Normal Negative AO Auto Urine SS UA pH 6.0 (09/29/24 1:48 AM) Normal 5.0 - 8.0 AO Auto Urine SS UA Protein 100 mg/dL Invalid Interpretation Code Negative AO Auto Urine SS UA RBC Negative Normal 0-2 AO Auto Urine SS UA Spec Grav >=1.030 *ABN* (09/29/24 1:48 AM) Invalid Interpretation Code 1.015-1.025 AO Auto Urine SS UA Specimen Type Void (09/29/24 1:48 AM) Normal AO Auto Urine SS UA Squam Epithelial 3-5 /HPF Normal 0-20 AO Au to Urine SS UA Urobilinogen 0.2 E.U./dL Normal 0.2-1.0 AO Auto Urine SS Urine Drugs screened: See Below 3 (09/29/24 1:48 AM) Normal AO Chemistry S Comment on above: Interpretive Data: T his drug screen is a presumptive screening only. No confirmation will be performed unless requested. Drugs screened include: Threshold Amphetamines/Methamphetamines 1,000 ng/mL Barbiturates 200 ng/mL Benzodiazepine metabolites 200 ng/mL Cannabinoids (THC metabolites) 50 ng/mL Cocaine 300 ng/mL Opiates 300 ng/mL Methadone 300 ng/mL Phencyclidine (PCP) 25 ng/mL Testing has been performed FOR MEDICAL PURPOSES ONLY. WBC LM.HPF (Urine sed) [#/Area] 3-5 /HPF Normal 0-5 AO Auto Urine SS Monocyte distribution width Auto (Bld) [Entitic vol] Not Performed 1 (09/29/24 1:43 AM) Normal 0.00 - 20.00 AO Hematology S Comment on above: Result Comment: MDW testing unable to be performed on [id number] instrumentation. LABORATORYOrdered By: SYSTEM SYSTEM on 09-29-2024 Albumin BCP dye [Mass/Vol] 4.3 G/dL Normal 3.5 - 5.0 G/dL AO ADM SS Albumin/Globulin [Mass ratio] 1.0 {ratio} Low 1.1 - 2.5 ratio AO ADM SS ALP [Catalytic activity/Vol] 85 U/L Normal 40 - 135 U/L AO ADM SS ALT With P-5'-P [Catalytic activity/Vol] 27 U/L Normal 14 - 59 U/L AO ADM SS AST With P-5'-P [Catalytic activity/Vol] 17 U/L Normal 10 - 40 U/L AO ADM SS Basophils (Bld) [#/Vol] 0.0 103/mcL Normal 0.0 - 0.3 10^3/mcL AO Workflow SS Basophils/100 WBC (Bld) 0.7 % Normal 0.0 - 2.5 % AO Workflow SS Bilirubin [Mass/Vol] 0.7 mg/dL Normal 0.2 - 1 .0 mg/dL AO ADM SS Comment on above: Interpretive Data: U se of this assay is not recommended for patients undergoing treatment with eltrombopag due to the potential for falsely elevated results. Calcium [Mass/Vol] 9.4 mg/dL Normal 8.4 - 10. 2 mg/dL AO ADM SS Chloride [Moles/Vol] 99 mmol/L Normal 98 - 10 7 mmol/L AO ADM SS CO2 [Moles/Vol] 17 mmol/L Low 22 - 29 mmol/L AO ADM SS Creatinine [Mass/Vol] 0.84 mg/dL Normal 0.51 - 0.95 mg/dL AO ADM SS Electrolyte Balance 21.0 mEq/L High 4.0 - 15 .0 mEq/L AO ADM SS Eosinophil, Absolute 0.1 103/mcL Normal 0.0 - 0 .7 10^3/mcL AO Workflow SS Eosinophils/100 WBC (Bld) 1.3 % Normal 0.0 - 6.0 % AO Workflow SS Erythrocyte distribution width (RBC) [Ratio] 13.7 % Normal 11.5 - 15.5 % AO Workflow SS Estimated Glomerular Filtration Rate 101 ml/min/1.73sqm Invalid Interpretation Code AO Chemistry S Comment on above: Interpretive Data: Stages of Chronic Kidney Disease (CKD) Stage Description eGFR(ml/min/1.73 sq.m.) CKD 1 Normal kidney function or >=90 normal kindney function with possible kidney damage (ex. Proteinuria) CKD 2 Kidney damage with mild loss 60-89 of kidney function CKD 3a Mild to moderate loss of kidney 45-59 function CKD 3b Moderate to severe loss of 30-44 of kindey function CKD 4 Severe loss of kidney function 15-29 CKD 5 Kidney failure <15 Note: (go live 2024) the eGFR calculation was updated to the 2020 CKD-EPI creatinine equation without a race factor to calculate the eGFR results. Globulin 4.5 G/dL High 2.7 - 4.4 G/dL AO ADM SS Glucose [Mass/Vol] 89 mg/dL Normal 70 - 105 mg/dL AO ADM SS Hematocrit (Bld) [Volume fraction] 49.0 % High 34.0 - 46.0 % AO Workflow SS Hemoglobin (Bld) [Mass/Vol] 17.2 G/dL High 12.0 - 16.0 G/dL AO Workflow SS Lipase [Catalytic activity/Vol] 37 U/L Normal 16 - 77 U/L AO ADM SS Lymphocytes (Bld) [#/Vol] 3.0 103/mcL Normal 0.9 - 4.3 10^3/mcL AO Workflow SS Lymphocytes/100 WBC (Bld) 28.9 % Normal 20.0 - 40.0 % AO Workflow SS MCH (RBC) [Entitic mass] 27.9 pg Normal 27.0 - 33.0 pg AO Workflow SS MCHC 35.2 G/dL Normal 32.0 - 36.0 G/dL AO Workflow SS MCV (RBC) [Entitic vol] 79.3 fL Low 80.0 - 99.0 fL AO Workflow SS Monocytes (Bld) [#/Vol] 0.9 103/mcL Normal 0.1 - 1.4 10^3/mcL AO Workflow SS Monocytes/100 WBC (Bld) 9.0 % Normal 2.0 - 13.0 % AO Workflow SS Neutrophils (Bld) [#/Vol] 6.2 103/mcL Normal 2.3 - 8.1 10^3/mcL AO Workflow SS Neutrophils/100 WBC (Bld) 59.9 % Normal 50.0 - 75.0 % AO Workflow SS Platelet mean volume (Bld) [Entitic vol] 8.6 fL Normal 6.6 - 10.5 fL AO Workflow SS Platelets (Bld) [#/Vol] 371 103/mcL Normal 150 - 450 10^3/mcL AO Workflow SS Potassium [Moles/Vol] 3.4 mmol/L Low 3.5 - 5.1 mmol/L AO ADM SS Protein [Mass/Vol] 8.8 G/dL High 6.4 - 8.2 G/dL AO ADM SS RBC (Bld) [#/Vol] 6.18 106/mcL High 4.10 - 5.3 0 10^6/mcL AO Workflow SS Sodium [Moles/Vol] 137 mmol/L Normal 136 - 145 mmol/L AO ADM SS Urea nitrogen [Mass/Vol] 4 mg/dL Low 7 - 18 mg/dL AO ADM SS Urea nitrogen/Creatinine [Mass ratio] 5 ratio Low 7 - 27 ratio AO ADM SS WBC (Bld) [#/Vol] 10.4 103/mcL Normal 4.5 - 10.8 10^3/mcL AO Workflow SS LIPon 09-29-2024 Lipase Level 37 U/L Normal 16-77 [facility] Comment on above: Performed By: #### A DIFF, CBC, ANEU, MDW, GFR, CMP, LIP #### [address] [address] PREGUon 09-29-2024 HCG ( test) Ql (U) Negative Normal [facility] Comment on above: Performed By: #### U A, UAMIC, PREGU, UDRUG #### [place] [address] test (u) int Not detected Invalid Interpretation Code [facility] Comment on above: Performed By: #### U A, UAMIC, PREGU, UDRUG #### [place] [address] UAon 09-29-2024 Color (U) Yellow Normal [facility] Comment on above: Performed By: #### U A, UAMIC, PREGU, UDRUG #### [place] [address] Glucose (U) [Mass/Vol] Negative Normal Negative [facility] Comment on above: Performed By: #### U A, UAMIC, PREGU, UDRUG #### [place] [address] Ketones Ql (U) >=160 Abnormal Negative [facility] Comment on above: Performed By: #### U A, UAMIC, PREGU, UDRUG #### [place] [address] UA Appear Clear Normal Clear [facility] Comment on above: Performed By: #### U A, UAMIC, PREGU, UDRUG #### [address] [address] UA Bili Moderate Abnormal Negative [facility] Comment on above: Performed By: #### U A, UAMIC, PREGU, UDRUG #### [place] [address] UA Blood Negative Normal Negative [facility] Comment on above: Performed By: #### U A, UAMIC, PREGU, UDRUG #### [address] [address] UA Leuk Est Negative Normal Negative [facility] Comment on above: Performed By: #### U A, UAMIC, PREGU, UDRUG #### [place] [address] UA Nitrite Negative Normal Negative [facility] Comment on above: Performed By: #### U A, UAMIC, PREGU, UDRUG #### [place] [address] UA pH 6.0 Normal 5.0 - 8.0 [facility] Comment on above: Performed By: #### U A, UAMIC, PREGU, UDRUG #### [place] [address] UA Protein 100 mg/dL Abnormal Negative [facility] Comment on above: Performed By: #### U A, UAMIC, PREGU, UDRUG #### [place] [address] UA Spec Grav >=1.030 Abnormal 1.015-1.025 [facility] Comment on above: Performed By: #### U A, UAMIC, PREGU, UDRUG #### [place] [address] UA Specimen Type Void Normal [facility] Comment on above: Performed By: #### U A, UAMIC, PREGU, UDRUG #### [place] [address] UA Urobilinogen 0.2 E.U./dL Normal 0.2-1.0 [facility] Comment on above: Performed By: #### U A, UAMIC, PREGU, UDRUG #### [place] [address] UAMICon 09-29-2024 UA RBC Negative Normal 0-2 [facility] Comment on above: Performed By: #### A DIFF, CBC, ANEU, MDW, GFR, CMP, LIP #### [place] [address] UA Squam Epithelial 3-5 Normal 0-20 [facility] Comment on above: Performed By: #### A DIFF, CBC, ANEU, MDW, GFR, CMP, LIP #### [address] [address] UA WBC 3-5 Normal 0-5 [facility] Comment on above: Performed By: #### A DIFF, CBC, ANEU, MDW, GFR, CMP, LIP #### [place] [address] UDRUGon 09-29-2024 Amphetamine (u) Negative Normal Negative [facility] Comment on above: Performed By: #### A DIFF, CBC, ANEU, MDW, GFR, CMP, LIP #### [place] [address] Barbiturate (u) Negative Normal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 nitrogen/Creatinine [Mass ratio] 10.5 mg/mg 10-20 [facility] Work Phone: [phone] Laboratory - Drug toxicology on 03-02-2022 Amphetamines Ql (U) Negative <1000 ng/mL [facility] Work Phone: [phone] Benzodiazepines Ql (U) Negative < 200 ng/mL [facility] Work Phone: [phone] Cannabinoids Screen Ql (U) Negative < 50 ng/mL [facility] Work Phone: [phone] Cocaine Ql (U) Negative < 300 ng/mL [facility] Work Phone: [phone] Opiates Ql (U) Negative < 300 ng/mL [facility] Work Phone: [phone] Laboratory - Hematology and Cell countson 03-02-2022 Erythrocyte distribution width (RBC) [Entitic vol] 39.5 fL 35.1-43.9 [facility] Work Phone: [phone] Erythrocyte distribution width (RBC) [Ratio] 12.9 % 11.6-14.6 [facility] Work Phone: [phone] Immature granulocytes/100 WBC (Bld) 0.500 % 0.0-0.9 [facility] Work Phone: [phone] Comment on above: IG% - Immature Granu locytes (promyelocytes, myelocytes and metamyelocytes) > 1% indicates that a LEFT SHIFT is Present. MCH (RBC) [Entitic mass] 27.5 pg 25.0-35.0 [facility] Work Phone: Nucleated RBC/100 WBC (Bld) [Ratio] 0 % 0-5 [facility] Work Phone: [phone] MCHC Auto (RBC) [Mass/Vol]on 03-02-2022 MCHC (RBC) [Mass/Vol] 32.7 g/dL 32-36 [facility] Work Phone: No Panel Informationon 03-02 Estimated Creatinine Clearance Calc 155.72 ml/min [facility] Work Phone: [phone] Estimated GFR (MDRD) Amer 111 mL/min >60 [facility] Work Phone: [phone] Comment on above: GFR Calc Estimated GFR (MDRD) Non-Af Amer 91 mL/min >60 [facility] Work Phone: [phone] Comment on above: Non- GFR Calc Ethyl Alcohol Level < 3.0 mg/dL [facility] Work Phone: [phone] Comment on above: The serum:whole bloo d ethanol ratio is approximately 1.14and varies slightly with hematocrit. Medical Alcohol reference interval and critical value innon-tolerant individuals; 50 - 100 Impairment 100 Intoxication 100 - 250 Severe Poisoning 250 - 400 Deep/possible fatal coma MDMA (Ecstasy) Screen Negative < 500 ng/mL [facility] Work Phone: [phone] Urine Barbiturates Screen Negative < 200 ng/mL [facility] Work Phone: [phone] Urine Drug Screen Comment [facility] Work Phone: [phone] Comment on above: CONFIRMATORY TESTING FOR ALL POSITIVE URINE DRUG SCREENRESULTS WILL ONLY BE SENT OUT UPON PHYSICIAN ORDER. VISTA Urine Drug Screen methods provide only preliminaryanalytical test results. A more specific alternate chemicalmethod must be used in order to obtain a confirmedanalytical result. Gas chromatography/mass spectrometery(GC/MS) is the preferred confirmatory method. Clinicalconsideration and professional judgement should be appliedto any drug of abuse test result, particularly whenpreliminary positive results are used. URINE TCA TESTING MUST BE ORDERED SEPARATELY. USE TESTMNEMONIC: [facility] Urine Methadone Screen Negative < 300 ng/mL [facility] Work Phone: Platelets bldon 03-02-2022 Platelets (Bld) [#/Vol] 276 10*3/uL 150-450 [facility] Work Phone: Serum or plasma calcium dean urement (mass/volume)on 03-02-2022 Calcium [Mass/Vol] 9.3 mg/dL 8.5-10.1 [facility] Work Phone: Serum or plasma creatinine m easurement (mass/volume)on 03-02-2022 Creatinine [Mass/Vol] 0.85 mg/dL 0.55-1.02 [facility] Work Phone: Comment on above: The validity of the calculated GFR & GFRAA in patients over 70 years has not been determined. Clinical correlation is essential. Serum or plasma urea nitroge n measurement (mass/volume)on 03-02-2022 Urea nitrogen [Mass/Vol] 9 mg/dL 7-18 [facility] Work Phone: Thin prep Papanicolaou smear with manual screeningon 03-02-2022 Thin prep Papanicolaou smear with manual screening 8 5-15 [facility] Work Phone: Urine phencyclidine (PCP) de tectionon 03-02-2022 Phencyclidine Ql (U) Negative < 25 ng/mL [facility] Work Phone: Absolute lymphocyte counton 02-25-2022 Lymphocytes Auto (Unsp spec) [#/Vol] 2.68 10*3/uL 0.83-4.51 [facility] Work Phone: Basophil percentageon 2021 Basophils/100 WBC (Bld) 0.4 % 0-1 [facility] Work Phone: Chloride [Moles/Vol] 108 mmol/L 98-107 [facility] Work Phone: Eosinophils/100 WBC (Bld) 0.6 % 0-3 [facility] Work Phone: Glucose [Mass/Vol] 100 mg/dL 74-106 [facility] Work Phone: Comment on above: Fasting Glucose resu lt from 100 to 125 mg/dL suggests IMPAIRED HOMEOSTASIS per A.D.A. criteria. Neutrophils (Bld) [#/Vol] 10.4 10*3/uL 2.0-7.7 [facility] Work Phone: Neutrophils/100 WBC (Bld) 74.5 % 34-64 [facility] Work Phone: [phone] Potassium [Moles/Vol] 3.3 mmol/L 3.5-5.1 [facility] Work Phone: [phone] Sodium [Moles/Vol] 141 mmol/L 136-145 [facility] Work Phone: [phone] WBC (Bld) [#/Vol] 14.0 10*3/uL 4.5-13.0 [facility] Work Phone: [phone] Beta hCG serum qualon 2021 Beta HCG ( test) Ql Negative [facility] Work Phone: [phone] Blood erythrocytes count (nu mber/volume)on 02-25-2022 RBC (Bld) [#/Vol] 5.45 10*6/uL 4.1-4.8 [facility] Work Phone: Blood hemoglobin measurement (mass/volume)on 02-25-2022 Hemoglobin (Bld) [Mass/Vol] 14.6 g/dL 12.0-15.0 [facility] Work Phone: [phone] Blood lymphocytes/100 leukoc yteson 02-25-2022 Lymphocytes/100 WBC (Bld) 19.2 % 25-45 [facility] Work Phone: [phone] Blood monocytes/100 leukocyt eson 02-25-2022 Monocytes/100 WBC (Bld) 4.8 % 3-6 [facility] Work Phone: Blood platelet mean volumeon 02-25-2022 Platelet mean volume (Bld) [Entitic vol] 11.0 fL 6.2-12.0 [facility] Work Phone: Determination of erythrocyte mean corpuscular volume (MCV)on 02-25-2022 MCV (RBC) [Entitic vol] 82.0 fL 78-96 [facility] Work Phone: [phone] Hematocrit Auto (Bld) [Volum e fraction]on 02-25-2022 Hematocrit (Bld) [Volume fraction] 44.7 % 37-46 [facility] Work Phone: [phone] Laboratory - Chemistry and C hemistry - challengeon 02-25-2022 CO2 [Moles/Vol] 24.0 mmol/L 21.0-32.0 [facility] Work Phone: [phone] Urea nitrogen/Creatinine [Mass ratio] 11.1 mg/mg 10-20 [facility] Work Phone: [phone] Laboratory - Drug toxicology on 02-25-2022 Amphetamines Ql (U) Negative <1000 ng/mL [facility] Work Phone: [phone] Benzodiazepines Ql (U) Negative < 200 ng/mL [facility] Work Phone: [phone] Cannabinoids Screen Ql (U) Negative < 50 ng/mL [facility] Work Phone: [phone] Cocaine Ql (U) Negative < 300 ng/mL [facility] Work Phone: [phone] Opiates Ql (U) Negative < 300 ng/mL [facility] Work Phone: [phone] Laboratory - Hematology and Cell countson 02-25-2022 Erythrocyte distribution width (RBC) [Entitic vol] 38.8 fL 35.1-43.9 [facility] Work Phone: [phone] Erythrocyte distribution width (RBC) [Ratio] 13.0 % 11.6-14.6 [facility] Work Phone: [phone] Immature granulocytes/100 WBC (Bld) 0.500 % 0.0-0.9 [facility] Work Phone: [phone] Comment on above: IG% - Immature Granu locytes (promyelocytes, myelocytes and metamyelocytes) > 1% indicates that a LEFT SHIFT is Present. MCH (RBC) [Entitic mass] 26.8 pg 25.0-35.0 [facility] Work Phone: [phone] Nucleated RBC/100 WBC (Bld) [Ratio] 0 % 0-5 [facility] Work Phone: [phone] MCHC Auto (RBC) [Mass/Vol]on 02-25-2022 MCHC (RBC) [Mass/Vol] 32.7 g/dL 32-36 [facility] Work Phone: [phone] No Panel Informationon 02-25 MDMA (Ecstasy) Screen Negative < 500 ng/mL [facility] Work Phone: [phone] Urine Barbiturates Screen Negative < 200 ng/mL [facility] Work Phone: [phone] Urine Drug Screen Comment [facility] Work Phone: [phone] Comment on above: CONFIRMATORY TESTING FOR ALL POSITIVE URINE DRUG SCREENRESULTS WILL ONLY BE SENT OUT UPON PHYSICIAN ORDER. VISTA Urine Drug Screen methods provide only preliminaryanalytical test results. A more specific alternate chemicalmethod must be used in order to obtain a confirmedanalytical result. Gas chromatography/mass spectrometery(GC/MS) is the preferred confirmatory method. Clinicalconsideration and professional judgement should be appliedto any drug of abuse test result, particularly whenpreliminary positive results are used. URINE TCA TESTING MUST BE ORDERED SEPARATELY. USE TESTMNEMONIC: [facility] Urine Methadone Screen Negative < 300 ng/mL [facility] Work Phone: [phone] Estimated Creatinine Clearance Calc 186.01 ml/min [facility] Work Phone: [phone] Estimated GFR (MDRD) Amer 135 mL/min >60 [facility] Work Phone: [phone] Comment on above: GFR Calc Estimated GFR (MDRD) Non-Af Amer 111 mL/min >60 [facility] Work Phone: [phone] Comment on above: Non- GFR Calc Ethyl Alcohol Level 9.0 mg/dL [facility] Work Phone: [phone] Comment on above: The serum:whole bloo d ethanol ratio is approximately 1.14and varies slightly with hematocrit. Medical Alcohol reference interval and critical value innon-tolerant individuals; 50 - 100 Impairment 100 Intoxication 100 - 250 Severe Poisoning 250 - 400 Deep/possible fatal coma Platelets bldon 02-25-2022 Platelets (Bld) [#/Vol] 224 10*3/uL 150-450 [facility] Work Phone: Serum or plasma calcium dean urement (mass/volume)on 02-25-2022 Calcium [Mass/Vol] 9.2 mg/dL 8.5-10.1 [facility] Work Phone: Serum or plasma creatinine m easurement (mass/volume)on 02-25-2022 Creatinine [Mass/Vol] 0.72 mg/dL 0.55-1.02 [facility] Work Phone: Comment on above: The validity of the calculated GFR & GFRAA in patients over 70 years has not been determined. Clinical correlation is essential. Serum or plasma urea nitroge n measurement (mass/volume)on 02-25-2022 Urea nitrogen [Mass/Vol] 8 mg/dL 7-18 [facility] Work Phone: Thin prep Papanicolaou smear with manual screeningon 02-25-2022 Thin prep Papanicolaou smear with manual screening 9 5-15 [facility] Work Phone: Urine phencyclidine (PCP) de tectionon 02-25-2022 Phencyclidine Ql (U) Negative < 25 ng/mL [facility] Work Phone: Progress Noteon 04-23-2021 [employer] Authentication Interface Message Text Patient ID: Eva Montes is a 15 y.o. female. Her chief complaint(s) include: Follow Up (Follow up on stomach pain, pain after eating and drinking patient states no change since last seen ) Assessment 1. Pain of upper abdomen Plan Eva was seen today for follow up. Diagnoses and all orders for this visit: Pain of upper abdomen Patient comes in for recheck of abdominal pain. Patient has not been taking the prilosec as prescribed. Part of it is due to upcoming procedure tomorrow in which patient was told she had to be off medication. Instructed patient that once procedure completed, she is to start on prilosec 40mg qam. To monitor diet and keep diary of symptoms and associated information such as where the pain is, level of pain, food eaten or if not eaten, etc. If pain not improving with taking the prilosec on daily basis for 1 to 2 weeks, then instructed to call. Will review the information and discuss with GI to see if patient needs seen sooner. In the meantime, recommended patient avoid fatty, fried foods. Avoid spicy foods as well. Also to avoid caffeine. Return in about 2 weeks (around 05/07/2021). Subjective She is accompanied by her mother. Independent history obtained from mother (and patient). Follow Up This problem is new. (All her life per patient, she has been having abdominal pain/discomfort.). The onset has been gradual. The course is worsening. The patient's symptoms have included decreased appetite, decreased fluid intake and abdominal pain (sharp pain on either side of upper abdomen and then goes to middle. Usually right after eating. No pain with swallowing. No feeling of something getting stuck in her throat). The patient's symptoms have included no fever, no fussiness, no congestion, no rhinorrhea, no cough, no headaches, no diarrhea and no vomiting. The location of symptoms have included the abdomen. The symptoms are described as severe (sometimes to point of tears). The symptoms are aggravated by eating (no certain foods will trigger her). (Prilosec 20mg qday--not taking them due to having a bladder pressure test.). Primary Care Review of Systems Objective Vital Signs 04/23/21 1606 Temp: 36.4 C (97.6 F) TempSrc: Temporal Weight: 87.6 kg There is no height or weight on file to calculate BMI. Physical Exam Constitutional: She appears well. She is active. No distress. HENT: Head: Atraumatic. Ears: Right Ear: Tympanic membrane and external ear normal. Left Ear: Tympanic membrane and external ear normal. Nose: Nose normal. No nasal discharge. Mouth/Throat: Mucous membranes are moist. Dentition is normal. No pharynx erythema. Eyes: Conjunctivae and EOM are normal. Pupils are equal, round, and reactive to light. Neck: Neck supple. No neck adenopathy. Cardiovascular: Normal rate, regular rhythm, S1 normal and S2 normal. Pulses are palpable. Pulmonary/Chest: Effort normal and breath sounds normal. Abdominal: Soft. Bowel sounds are normal. She exhibits no distension and no mass. There is abdominal tenderness (upper abdomen with pain and tenderness with palpation/lower abdomen without discomfort.). Musculoskeletal: Cervical back: Neck supple. General: No deformity. Neurological: She is alert. She has normal strength. She exhibits normal muscle tone. Skin: Skin is warm. Skin is not pale and cyanotic. Findings: No rash. Vitals reviewed: Temperature 36.4 C (97.6 F), temperature source Temporal, weight 87.6 kg, last menstrual period 03/24/2021. Normal [facility] Immunoglobulin Aon 2 Immunoglobulin A 228 mg/dL Normal 61-348 [facility] Comment on above: Order Comment: Is th is specimen being sent to an external lab?->No Release to patient->Automatic [id number]&Blood^\\S\\^Vein&Vein Performed By: #### I GA #### [address] [address] Bili,Conjugatedon 04-03-2021 Bili,Conjugated <0.1 Normal 0.0-0.7 [facility] Comment on above: Order Comment: Is th is specimen being sent to an external lab?->No Release to patient->Automatic [id number]&Blood^\\S\\^Vein&Vein Performed By: #### D BILI #### [address] [address] Comp Metabolic Panelon 04-03 Potassium [Moles/Vol] 6.5 mmol/L Off scale high 3.3-5.1 [facility] Comment on above: Order Comment: Is th is specimen being sent to an external lab?->No Release to patient->Automatic [id number]&Blood^\\S\\^Vein&Vein Result Comment: No v isible hemolysis. Original specimen repeated and results verified. Performed By: #### C MP #### [address] [address] Albumin [Mass/Vol] 4.3 g/dL Normal 3.2-4.5 [facility] Comment on above: Order Comment: Is th is specimen being sent to an external lab?->No Release to patient->Automatic [id number]&Blood^\\S\\^Vein&Vein Performed By: #### C MP #### [address] [address] ALP [Catalytic activity/Vol] 47 U/L Normal 43-83 [facility] Comment on above: Order Comment: Is th is specimen being sent to an external lab?->No Release to patient->Automatic [id number]&Blood^\\S\\^Vein&Vein Performed By: #### C MP #### [address] [address] ALT [Catalytic activity/Vol] 18 U/L Normal 0-31 [facility] Comment on above: Order Comment: Is th is specimen being sent to an external lab?->No Release to patient->Automatic 90775&Blood^\\S\\^Vein&Vein Performed By: #### C MP #### [address] [address] AST [Catalytic activity/Vol] 17 U/L Normal 0-31 [facility] Comment on above: Order Comment: Is th is specimen being sent to an external lab?->No Release to patient->Automatic 81569&Blood^\\S\\^Vein&Vein Performed By: #### C MP #### [address] [address] Bili,Total 0.5 mg/dl Normal 0.0-1.0 [facility] Comment on above: Order Comment: Is th is specimen being sent to an external lab?->No Release to patient->Automatic 77352&Blood^\\S\\^Vein&Vein Performed By: #### C MP #### [address] [address] Calcium [Mass/Vol] 9.1 mg/dL Normal 7.6-11.0 [facility] Comment on above: Order Comment: Is th is specimen being sent to an external lab?->No Release to patient->Automatic [id number]&Blood^\\S\\^Vein&Vein Performed By: #### C MP #### [place] [address] Chloride [Moles/Vol] 103 mmol/L Normal 96-108 [facility] Comment on above: Order Comment: Is th is specimen being sent to an external lab?->No Release to patient->Automatic [id number]&Blood^\\S\\^Vein&Vein Performed By: #### C MP #### [place] [address] CO2 [Moles/Vol] 23.6 mmol/L Normal 22.0-29.0 [facility] Comment on above: Order Comment: Is th is specimen being sent to an external lab?->No Release to patient->Automatic [id number]&Blood^\\S\\^Vein&Vein Performed By: #### C MP #### [place] [address] Creatinine [Mass/Vol] 0.69 mg/dL Normal 0.50-1.00 [facility] Comment on above: Order Comment: Is th is specimen being sent to an external lab?->No Release to patient->Automatic 99031&Blood^\\S\\^Vein&Vein Result Comment: Premature 0.3-1.0 mg/dL Performed By: #### C MP #### [place] [address] Glucose [Mass/Vol] 69 mg/dL Low 70-99 [facility] Comment on above: Order Comment: Is th is specimen being sent to an external lab?->No Release to patient->Automatic [id number]&Blood^\\S\\^Vein&Vein Result Comment: Criteria for Diagnosis of Diabetes(Effective 09/01/10): Fasting specimen (no caloric intake for at least 8 hours). <100 mg/dl Normal 100-125 mg/dl Increased Risk for Diabetes >125 mg/dl Diagnostic for Diabetes Random Glucose (any time of day without regard to last meal). >=200 mg/dl plus Classic Symptoms of Diabetes Performed By: #### C MP #### [place] [address] Protein [Mass/Vol] 7.9 g/dL Normal 6.0-8.0 [facility] Comment on above: Order Comment: Is th is specimen being sent to an external lab?->No Release to patient->Automatic 68857&Blood^\\S\\^Vein&Vein Performed By: #### C MP #### [place] [address] Sodium [Moles/Vol] 137 mmol/L Normal 133-145 [facility] Comment on above: Order Comment: Is th is specimen being sent to an external lab?->No Release to patient->Automatic 49034&Blood^\\S\\^Vein&Vein Performed By: #### C MP #### [place] [address] Urea nitrogen [Mass/Vol] 8 mg/dL Normal 4-19 [facility] Comment on above: Order Comment: Is th is specimen being sent to an external lab?->No Release to patient->Automatic [id number]&Blood^\\S\\^Vein&Vein Performed By: #### C MP #### [place] [address] LABORATORYOrdered By: Ashley Borges on 04-03-2021 Basophil, Absolute 0.10 103/mcL Invalid Interpretation Code 0.00 - 0.19 10^3/mcL AO Auto Heme SS Basophils/100 WBC (Bld) 0.8 % Invalid Interpretation Code 0.0 - 2.5 % AO Auto Heme SS Eosinophil, Absolute 0.10 103/mcL Invalid Interpretation Code 0.00 - 0.40 10^3/mcL AO Auto Heme SS Eosinophils/100 WBC (Bld) 1.1 % Invalid Interpretation Code 0.0 - 7.0 % AO Auto Heme SS Erythrocyte distribution width (RBC) [Ratio] 13.2 % Invalid Interpretation Code 11.5 - 14.5 % AO Auto Heme SS Hematocrit (Bld) [Volume fraction] 41.2 % Invalid Interpretation Code 37.0 - 47.0 % AO Auto Heme SS Hemoglobin (Bld) [Mass/Vol] 13.6 G/dL Invalid Interpretation Code 12.0 - 16.0 G/dL AO Auto Heme SS Lymphocyte, Absolute 3.40 103/mcL Invalid Interpretation Code 0.77 - 3.85 10^3/mcL AO Auto Heme SS Lymphocytes/100 WBC (Bld) 32.8 % Invalid Interpretation Code 10.0 - 50.0 % AO Auto Heme SS MCH (RBC) [Entitic mass] 27.0 pg Invalid Interpretation Code 27.0 - 31.2 pg AO Auto Heme SS MCHC (RBC) [Mass/Vol] 33.0 G/dL Invalid Interpretation Code 33.0 - 37.0 G/dL AO Auto Heme SS MCV (RBC) [Entitic vol] 81.9 fL Invalid Interpretation Code 80.0 - 94.0 fL AO Auto Heme SS Monocyte, Absolute 0.60 103/mcL Invalid Interpretation Code 0.15 - 1.00 10^3/mcL AO Auto Heme SS Monocytes/100 WBC (Bld) 6.0 % Invalid Interpretation Code 1.7 - 13.0 % AO Auto Heme SS Neutrophil, Absolute 6.10 103/mcL Invalid Interpretation Code 2.85 - 6.16 10^3/mcL AO Auto Heme SS Neutrophils/100 WBC (Bld) 59.3 % Invalid Interpretation Code 37.0 - 80.0 % AO Auto Heme SS Platelet mean volume (Bld) [Entitic vol] 7.5 fL Invalid Interpretation Code 7.4 - 10.4 fL AO Auto Heme SS Platelets (Bld) [#/Vol] 348 103/mcL Invalid Interpretation Code 130 - 400 10^3/mcL AO Auto Heme SS RBC (Bld) [#/Vol] 5.03 106/mcL Invalid Interpretation Code 4.20 - 5.40 10^6/mcL AO Auto Heme SS WBC (Bld) [#/Vol] 10.30 103/mcL Invalid Interpretation Code 4.60 - 10.80 10^3/mcL AO Auto Heme SS Appearance (U) Clear (04/03/21 8:43 PM) Invalid Interpretation Code Clear AO Auto Urine SS Bilirubin Ql (U) Negative (04/03/21 8:43 PM) Invalid Interpretation Code Negative AO Auto Urine SS Color (U) Yellow (04/03/21 8:43 PM) Invalid Interpretation Code AO Auto Urine SS Glucose Test strip (U) [Mass/Vol] Negative Invalid Interpretation Code Negativemg/d L AO Auto Urine SS HCG ( test) Ql Negative (04/03/21 8:43 PM) Invalid Interpretation Code AO Manual Urine SS Hemoglobin Auto test strip (U) [Mass/Vol] Negative (04/03/21 8:43 PM) Invalid Interpretation Code Negative AO Auto Urine SS Ketones Ql (U) Trace mg/dL Invalid Interpretation Code Negativemg/d L AO Auto Urine SS test (u) int Not detected Invalid Interpretation Code AO Manual Urine SS UA Leuk Est Negative (04/03/21 8:43 PM) Invalid Interpretation Code Negative AO Auto Urine SS UA Nitrite Negative (04/03/21 8:43 PM) Invalid Interpretation Code Negative AO Auto Urine SS UA pH 6.0 (04/03/21 8:43 PM) Invalid Interpretation Code 5.0 - 8.0 AO Auto Urine SS UA Protein Negative Invalid Interpretation Code Negativemg/d L AO Auto Urine SS UA Spec Grav >=1.030 *ABN* (04/03/21 8:43 PM) Invalid Interpretation Code 1.015-1.025 AO Auto Urine SS UA Specimen Type Clean Catch (04/03/21 8:43 PM) Invalid Interpretation Code AO Auto Urine SS UA Urobilinogen 1.0 E.U./dL Invalid Interpretation Code 0.2-1.0E.U./ dL AO Auto Urine SS LABORATORYOrdered By: Tom Nunez on 04-03-2021 Lipase [Catalytic activity/Vol] 128 U/L Invalid Interpretation Code 73 - 393 U/L AO ADM SS Calcium [Mass/Vol] 9.1 mg/dL Invalid Interpretation Code 8.4 - 10.2 mg/dL AO ADM SS Chloride [Moles/Vol] 103 mmol/L Invalid Interpretation Code 98 - 107 mmol/L AO ADM SS CO2 [Moles/Vol] 28 mmol/L Invalid Interpretation Code 22 - 29 mmol/L AO ADM SS Creatinine [Mass/Vol] 0.76 mg/dL Invalid Interpretation Code 0.55 - 1.02 mg/dL AO ADM SS Electrolyte Balance 11.0 mEq/L Invalid Interpretation Code AO ADM SS Glucose [Mass/Vol] 95 mg/dL Invalid Interpretation Code 70 - 105 mg/dL AO ADM SS Potassium [Moles/Vol] 3.5 mmol/L Invalid Interpretation Code 3.5 - 5.1 mmol/L AO ADM SS Sodium [Moles/Vol] 142 mmol/L Invalid Interpretation Code 136 - 145 mmol/L AO ADM SS Urea nitrogen [Mass/Vol] 11 mg/dL Invalid Interpretation Code 7 - 18 mg/dL AO ADM SS Urea nitrogen/Creatinine [Mass ratio] 14 ratio Invalid Interpretation Code 7 - 27 ratio AO ADM SS Lipaseon 04-03-2021 Lipase [Catalytic activity/Vol] 28 U/L Normal 16-63 [facility] Comment on above: Order Comment: Is th is specimen being sent to an external lab?->No Release to patient->Automatic [id number]&Blood^\\S\\^Vein&Vein Performed By: #### L IPAS #### [address] [address] Transglutaminase IgAon 04-03 Transglutaminase IgA <1.60 Normal 0.00-8.99 [facility] Comment on above: Order Comment: Is th is specimen being sent to an external lab?->No Release to patient->Automatic [id number]&Blood^\\S\\^Vein&Vein Result Comment: NEGATIVE Interpretation of Results: Negative: <9.0 AU/mL Equivocal: 9.0-16.0 AU/mL Positive: >16.0 AU/mL Method: The anti-tTG antibodies were determined using an ASHLEY-based commercially available kit ([facility]). Performed By: #### T RGLA #### [address] [address] Progress Noteon 04-02-2021 [employer] Program Manager Authentication Interface Message Text Patient ID: Eva Montes is a 15 y.o. female. Her chief complaint(s) include: Abdominal Pain Assessment 1. Epigastric abdominal pain Plan Eva was seen today for abdominal pain. Diagnoses and all orders for this visit: Epigastric abdominal pain - omeprazole (PRILOSEC) 40 MG capsule; Take 1 Capsule (40 mg) by mouth daily - Venipuncture - Immunoglobulin A - Transglutaminase IgA - Comprehensive metabolic panel - Cancel: Hepatic function panel - Lipase - Cancel: Referral to Gastroenterology; Future - US Abdomen Complete; Future - Referral to Gastroenterology; Future Other orders - Bili, Conjugated Return in 3 weeks (on 04/23/2021). Will obtain labwork and imaging d/t degree of pain pt is experiencing and length of time. Advised to start prilosec and will refer to GI. Will have pt f/u in 3 weeks but if can get into GI sooner then okay to cancel f/u appt. Recommended: - Avoid overeating; eat smaller meals throughout the day - Increase water intake to reduce acid in esophagus - Avoid: caffeine, coffee, carbonated beverages, chocolate Subjective HPI Comments: Stomach pains every time after she drinks or eats, doesn't matter what it is. Has had these pains since as long as she can remember, got worse last Spring and getting worse each day. Epigastric region, not the same level of pain always. Tums did not help, did 1 day of prilosec and did not help. She is accompanied by her friend of family. Abdominal Pain The course is worsening. The location of the pain is in the epigastrium. Aggravated by: eating and drinking. Symptoms are relieved by resting. Associated symptoms include headaches. Associated symptoms do not include burping, flatus, diarrhea, nausea, vomiting and dysuria. Stool history does not include large stools. (Daily BM, soft, no pain, no blood, no mucus). Diet History: pt does not eat much, does not eat breakfast d/t feeling nauseated, sometimes skips lunch and dinner; has a snack bin in room; drinks gatorade, 1/7 days drinks pop, < once week drinks coffee, denies fast food often or spicy food. (LMP 2 weeks ago). Primary Care Review of Systems Objective Vital Signs 04/02/21 1249 Temp: 36.3 C (97.3 F) TempSrc: Temporal Weight: 86.9 kg There is no height or weight on file to calculate BMI. Physical Exam Constitutional: She appears well. She is active. No distress. HENT: Head: Atraumatic. Eyes: Conjunctivae and EOM are normal. Pupils are equal, round, and reactive to light. Neck: Neck supple. No neck adenopathy. Cardiovascular: Normal rate, regular rhythm, S1 normal and S2 normal. Pulses are palpable. Pulmonary/Chest: Effort normal and breath sounds normal. Abdominal: Soft. Bowel sounds are normal. She exhibits no distension and no mass. There is abdominal tenderness (epigastric, makes pt tear up, +murphys sign). Musculoskeletal: Cervical back: Neck supple. Neurological: She exhibits normal muscle tone. Skin: Skin is warm. Skin is not pale and cyanotic. Findings: No rash. 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 female. Her chief complaint(s) include: 15 YEAR WELL CHILD and Depression (discuss meds) Assessment 1. Encounter for routine child health examination without abnormal findings 2. Dysthymia 3. Urinary incontinence, unspecified type 4. Exercise counseling 5. Encounter for dietary counseling and surveillance 6. Need for vaccination Plan Eva was seen today for 15 year well child and depression. Diagnoses and all orders for this visit: Encounter for routine child health examination without abnormal findings - PHQ9 Assessment With Score - Health Risk Assessment - LUCA Dysthymia - citalopram (CELEXA) 10 MG tablet; Take 1 Tablet (10 mg) by mouth daily Urinary incontinence, unspecified type - AMB Referral To Urology; Future Exercise counseling Encounter for dietary counseling and surveillance Need for vaccination - Meningococcal B (BEXSERO) Return in about 1 year (around 10/10/2021) for well check. Mood has been much better lately, especially with going to the new counselor and living in her new living arrangement. No self harm or suicidal thoughts. Eva has not been taking her celexa and is doing well without it. Discussed the importance of starting it if her depression symptoms start to return, especially with the increased stress of school starting in the fall, working, and going to counseling with mom to try to work out their differences. Referred to urology (Tatianna Tabares) for further evaluation of the urinary incontinence issues. Subjective HPI Comments: Mood concerns. Was hospitalized a few months ago in a psychiatric hospital. Was started on celexa. Taking celexa 10 mg daily- started about 2 weeks ago. Feels happier. Mom feels she is doing better lately. Has been living apart from mom for the past 2-3 weeks. She and mom are going to start counseling together, Wednesday at [facility]. Eva is not happy about this because she does not like the counselor they will be meeting with (she went to him previously, other family members also see him). Per discussion with Eva when mom was not in the room: Eva states that the reason she is no longer living with mom is because of the state of the house mom is living in- multiple cats without litter boxes and the carpet is/was covered in pet urine (Eva states the carpet was ripped out after a CPS visit). Eva states that CPS continues to be involved. The living conditions were causing Eva to not want to eat and made her depression a lot worse, leading to a psych hospitalization. She is now living about an hour away, living with an adult friend that she met at [facility]. She likes where she is living now and feels safe there. Her mood has been much better. She is doing weekly counseling and likes her counselor (new counselor recently that she feels much more comfortable with)- she feels this has been very helpful. Mood is much better in her new living environment. When mom is in the room, Eva states that she has been taking her Celexa, however with mom out of the room, states that she has not been taking it and has been doing well without it. She does not feel sad. Has been happy lately. No suicidal thoughts or self harm. She does not want mom to know that she is not taking the med because it was a condition of her agreement with mom (could live with her friend if she took the meds). Has been having some urinary incontinence, "dribbling" in her underwear. Has been happening as long as she can remember. Getting a little worse recently. Will happen randomly, not necesarily right after using the bathroom, not associated with coughing/sneezing, etc, but throughout the day. No pain with urination. She is accompanied by her mother. Independent history obtained from mother. 15 YEAR WELL CHILD Complications after delivery: parental limits and consequences for unacceptable behavior Home: Eva has an adult to turn to for help and lives apart from family. Education: Eva is in 12th grade. (Initially was failing but then brought up grades to A's by the end of the year. Missed a lot of days of school marla year. Doing career [employer] for [employer].). Eating: Eva eats regular meals including fruits and vegetables and has a calcium source (sometimes milk). 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 (Likes to swim). Drugs: Eva does not use tobacco, does not use drugs, does not use alcohol and does not vape. (Eva admits to using marijuana and drinking alcohol in the past to cope with "home stuff" but denies any use in the past few months). Safety: Eva has peer relationships free from violence. Sex: The patient has never had a sexual partner. Suicidality: Eva has ways to cope with stress, displays self-confidence and has depression (has been much better lately). Eva has no problems wit (more content not included)... Normal [facility] COVID-19 virus antigen assay SARS-CoV-2 (COVID-19) Ag IA.rapid Ql (Resp) [facility] Work Phone: Vital Signs Date Time Vital Sign Value Performing Clinician Facility 08-05-2023 21:24-0400 Body height 149.9 cm [facility] Placed [facility] 08-05-2023 21:24-0400 Body temperature 98.24 [degF] [facility] Placed [facility] 08-05-2023 21:24-0400 Body weight 81.8 kg [facility] INDOM [facility] 08-05-2023 21:24-0400 Diastolic Blood Pressure Non-Invasive 84 mm[Hg] [facility] Placed [facility] 08-05-2023 21:24-0400 Heart rate 110 /min [facility] INDOM [facility] 08-05-2023 21:24-0400 Systolic Blood Pressure Non-Invasive 122 mm[Hg] HODAN MELCHOR DO [facility] 02-19-2023 23:39-0500 Blood Pressure Location QUINTIN BARLOW DO [facility] 02-19-2023 23:39-0500 Body height 149.9 cm QUINTIN ELENAT DO [facility] 02-19-2023 23:39-0500 Body temperature 99.14 [degF] QUINTIN ELENAT DO [facility] 02-19-2023 23:39-0500 Body weight 103.1 kg QUINTIN ELENAT DO [facility] 02-19-2023 23:39-0500 Diastolic Blood Pressure Non-Invasive 88 mm[Hg] QUINTIN ELENAT DO [facility] 02-19-2023 23:39-0500 Heart rate 98 /min QUINTIN BARLOW DO [facility] 02-19-2023 23:39-0500 Height ZScore -2.06 1 QUINTIN BARLOW DO [facility] Comment on above: Result Comment: ^~:!ZScore Source -[facility] 02-19-2023 23:39-0500 Percent Height for Age 1.96 % QUINTIN ELENAT DO [facility] Comment on above: Result Comment: ^~:!Percentile Source -[facility] 02-19-2023 23:39-0500 Respiratory rate 16 /min QUINTIN ELENAT DO [facility] 02-19-2023 23:39-0500 Systolic Blood Pressure Non-Invasive 138 mm[Hg] QUINTIN ELENAT DO [facility] 03-24-2022 06:00-0500 Diastolic blood pressure 75 mm[Hg] [facility] Work Phone: 03-24-2022 06:00-0500 Heart rate 76 /min [facility] Work Phone: 03-24-2022 06:00-0500 Respiratory rate 18 /min [facility] Work Phone: 03-24-2022 06:00-0500 SaO2% (BldA) [Mass fraction] 97 % [facility] Work Phone: 03-24-2022 06:00-0500 Systolic blood pressure 126 mm[Hg] [facility] Work Phone: 03-23-2022 18:27-0500 Body temperature 98.4 [degF] [facility] Work Phone: 03-23-2022 17:02-0500 Body height 147.32 cm [facility] Work Phone: 03-23-2022 17:02-0500 Body mass index (BMI) [Percentile] Per age and sex 98.9 % [facility] Work Phone: 03-23-2022 17:02-0500 Body mass index (BMI) [Ratio] 41.8 kg/m2 [facility] Work Phone: 03-23-2022 17:02-0500 Body weight 90.71 kg [facility] Work Phone: 03-03-2022 10:00-0500 Body temperature 98.1 [degF] [facility] Work Phone: 03-03-2022 10:00-0500 Diastolic blood pressure 71 mm[Hg] [facility] Work Phone: 03-03-2022 10:00-0500 Heart rate 74 /min [facility] Work Phone: 03-03-2022 10:00-0500 Respiratory rate 16 /min [facility] Work Phone: 03-03-2022 10:00-0500 SaO2% (BldA) [Mass fraction] 97 % [facility] Work Phone: 03-03-2022 10:00-0500 Systolic blood pressure 93 mm[Hg] [facility] Work Phone: 03-02-2022 21:11-0500 Body height 147.32 cm [facility] Work Phone: 03-02-2022 21:11-0500 Body mass index (BMI) [Percentile] Per age and sex 98.9 % [facility] Work Phone: 03-02-2022 21:11-0500 Body mass index (BMI) [Ratio] 42.3 kg/m2 [facility] Work Phone: 03-02-2022 21:11-0500 Body weight 91.9 kg [facility] Work Phone: 02-26-2022 15:06-0500 Diastolic blood pressure 77 mm[Hg] [facility] Work Phone: 02-26-2022 15:06-0500 Heart rate 73 /min [facility] Work Phone: 02-26-2022 15:06-0500 Respiratory rate 16 /min [facility] Work Phone: 02-26-2022 15:06-0500 SaO2% (BldA) [Mass fraction] 97 % [facility] Work Phone: 02-26-2022 15:06-0500 Systolic blood pressure 110 mm[Hg] [facility] Work Phone: 02-26-2022 14:00-0500 Body temperature 97.4 [degF] [facility] Work Phone: 02-25-2022 17:42-0500 Body height 147.32 cm [facility] Work Phone: 02-25-2022 17:42-0500 Body mass index (BMI) [Percentile] Per age and sex 99 % [facility] Work Phone: 02-25-2022 17:42-0500 Body mass index (BMI) [Ratio] 42.8 kg/m2 [facility] Work Phone: 02-25-2022 17:42-0500 Body weight 92.98 kg [facility] Work Phone: 04-03-2021 22:00-0500 Diastolic blood pressure 78 mm[Hg] GREGORY BOX MD [facility] 04-03-2021 22:00-0500 Heart rate 80 /min GREGORY BOX MD [facility] 04-03-2021 22:00-0500 Systolic blood pressure 126 mm[Hg] GREGORY BOX MD [facility] 04-03-2021 20:04-0500 Body temperature 98.6 [degF] GREGORY BOX MD [facility] 04-03-2021 20:04-0500 Body weight 83 kg GREGORY BOX MD [facility] 04-03-2021 20:04-0500 Diastolic blood pressure 88 mm[Hg] GREGORY BOX MD [facility] 04-03-2021 20:04-0500 Heart rate 88 /min GREGORY BOX MD [facility] 04-03-2021 20:04-0500 Respiratory rate 18 /min GREGORY BOX MD [facility] 04-03-2021 20:04-0500 Systolic blood pressure 138 mm[Hg] GREGORY BOX MD [facility] Encounters Encounter Date Encounter Type Care Provider Facility Start: 10-11-2024 ambulatory No Primary Car e Physician Facility:[facility] Start: 09-29-2024 End: 09-29-2024 Emergency department patient visit DR DIANE MAIN MD [facility] Start: 08-17-2024 End: 08-17-2024 ambulatory No Primary Care Physician Facility:[facility] Start: 07-19-2024 End: 07-19-2024 ambulatory No Primary Care Physician Facility:[facility] Start: 06-21-2024 End: 06-21-2024 ambulatory No Primary Care Physician Facility:[facility] Start: 04-11-2024 End: 04-11-2024 ambulatory No Primary Care Physician Facility:[facility] Start: 03-09-2024 End: 03-10-2024 Emergency department patient visit No Primary Care Physician Facility:[facility] Start: 03-02-2024 End: 03-02-2024 ambulatory Wyatt L Seese Facility:[facility] Start: 02-29-2024 ambulatory Wyatt L Seese Facility :[facility] Start: 02-03-2024 End: 02-04-2024 Emergency department patient visit Luis Avila Facility:[facility] Start: 02-01-2024 End: 02-01-2024 ambulatory No Primary Care Physician Facility:[facility] Start: 01-11-2024 ambulatory No Primary Car e Physician Facility:[facility] Start: 11-30-2023 End: 11-30-2023 ambulatory No Primary Care Physician Facility:[facility] Start: 08-05-2023 End: 08-06-2023 Emergency department patient visit HODAN JILL LOZANO Facility:[facility] Start: 08-05-2023 End: 08-06-2023 [facility] Start: 02-20-2023 End: 02-20-2023 Emergency department patient visit QUINTIN BARLOW DO Facility:[facility] Start: 02-19-2023 End: 02-19-2023 [facility] Start: 02-02-2023 End: 02-09-2023 Evaluation and management of inpatient MONICA K. [facility] Start: 06-28-2022 End: 07-02-2022 Evaluation and management of inpatient [facility] Start: 03-23-2022 End: 03-24-2022 Emergency department patient visit [facility] Start: 03-03-2022 End: 03-16-2022 Evaluation and management of inpatient HAILEY MALDONADO [facility] Start: 03-02-2022 End: 03-03-2022 Emergency department patient visit [facility] Start: 02-26-2022 End: 03-01-2022 Evaluation and management of inpatient [facility] Start: 02-25-2022 End: 02-26-2022 Emergency department patient visit [facility] Start: 04-03-2021 End: 04-03-2021 Emergency department patient visit GREGORY BOX MD [facility] Procedures Date Procedure Procedure Detail Performing Clinician Start: 02-25-2018 Steven BOX MD Comment on above: Right Start: 09-17-2017 Steven BOX MD Comment on above: LEFT Viral antigen assay Plan of Treatment Date Care Activity Detail Author Start: 03-23-2022 Referral to service [facility] Work Phone: Start: 03-23-2022 End: 03-23-2022 Suicide precautions [facility] Work Phone: Start: 03-02-2022 Referral to service [facility] Work Phone: Start: 03-02-2022 End: 03-02-2022 Suicide precautions [facility] Work Phone: Start: 02-25-2022 Referral to service [facility] Work Phone: Start: 02-25-2022 End: 02-25-2022 Suicide precautions [facility] Work Phone: Patient referral [facility] Work Phone: Immunizations Immunization Date Immunization Notes Care Provider Fa sweetie 02-19-2023 tetanus toxoid, redu tammy diphtheria toxoid, and acellular pertussis vaccine, adsorbed QUINTIN KASSYMariana DO [facility] Payers Date Payer Category Payer Medicaid [id number] 2023 Self-pay [id number] 2022 Medicaid [id number] 2016 Unknown [facility] [id number] 91a [id number] 2003 Unknown [id number] 2.16. [id number] 2003 Unknown [id number] 2.16. 840.1.442711.3.579.2.903 2003 Unknown [id number] 2.16. 840.1.715725.3.579.2.903 2003 Unknown [id number] 2.16. 840.1.400172.3.579.2.903 2003 Unknown [id number] 2.16. 840.1.800495.3.579.2.627 1962 Unknown [id number] 2.16.8 40.1.946809.3.579.2.627 1962 Unknown [id number] 2.16.8 40.1.068877.3.579.2.627 Unknown [id number] 2.16.8 40.1.330098.3.579.2.462 Unknown [id number] 2.16.8 40.1.850290.3.579.2.462 Unknown [id number] 2.16.8 40.1.954245.3.579.2.462 Unknown [id number] 2.16.8 40.1.837580.3.579.2.462 Unknown [id number] 2.16.8 40.1.489175.3.579.2.462 Unknown [id number] 2.16.8 40.1.616727.3.579.2.462 Unknown [id number] 2.16.8 40.1.103995.3.579.2.462 Unknown [id number] 2.16.8 40.1.347732.3.579.2.462 Unknown [id number] 2.16.8 40.1.187129.3.579.2.462 Unknown [id number] 2.16.8 40.1.914435.3.579.2.462 Unknown [id number] 2.16.8 40.1.583395.3.579.2.462 Unknown [id number] 2.16.8 40.1.114240.3.579.2.462 Unknown [id number] 2.16.8 40.1.349522.3.579.2.462 Unknown [id number] 2.16.8 40.1.525158.3.579.2.462 Social History Date Type Detail Facility Start: 09-29-2024 Never smoked t obacco (finding) [facility] Assigned At [facility] Start: 02-25-2022 End: 03-23-2022 Tobacco smoking status NHIS Unknown if ever smoked [facility] Work Phone: Start: 08-02-2020 Non-smoker;- [facility] Work Phone: Start: 2003 Sex Assigned At Female [facility] Work Phone: Start: 08-30-2017 Sex Female (finding) [facility] Functional Status Date Assessment Result Facility 08-06-2023 Functional Status ID band on, Bed in low position [facility] 08-05-2023 Functional Status Room check performed [facility] 08-05-2023 Functional Status [facility] 02-19-2023 Functional Status Identified as high risk, Room located near nursing station, Door open, Non-Slip footwear, Room check performed, Produce Runner at bedside [facility] Mental Status Date Assessment Result Facility 08-05-2023 Mental Status Orientation Orie nted x 4, Follows simple commands [facility] 02-19-2023 Mental Status Oriented x 4 [facility] Clinical Notes 04-04-2021 to 09-29-2024 Note Date & Type Note Facility 09-29-2024 Hospital Discharg e instructions Patient Education 09/29/2024 03:23:03 Vomiting (Adult) Vomiting (Adult) Vomiting is a common symptom that may be due to different causes. These include gastroenteritis ("stomach flu"), food poisoning and gastritis. There are other more serious causes of vomiting which may be hard to diagnose early in the illness. Therefore, it is important to watch for the warning signs listed below. The main danger from repeated vomiting is dehydration. This is due to excess loss of water and minerals from the body. When this occurs, your body fluids must be replaced. Home care If symptoms are severe, rest at home for the next 24 hours. Because your symptoms may be from an infection, wash your hands often and well. If soap and water are not available, use alcohol-based mat roller to keep from spreading the infection to others. Wash your hands for at least 20 seconds. Humming the happy birthday song twice while you wash is an easy way to make sure you've washed for 20 seconds. Wash your hands after using the toilet, before and after preparing food, before eating food, after changing a diaper, cleaning a wound, caring for a sick person, and blowing your nose, coughing, or sneezing. You should also wash your hands after caring for someone who is sick, touching pet food, or treats, and touching an animal, or animal waste. You may use acetaminophen or NSAID medicines like ibuprofen or naproxen to control fever, unless another medicine was prescribed. If you have chronic liver or kidney disease or ever had a stomach ulcer or gastrointestinal bleeding, talk with your doctor before using these medicines. Aspirin should never be used in anyone under 18 years of age who is ill with a fever. It may cause severe liver damage. Don't use NSAID medicines if you are already taking one for another condition (like arthritis) or are on aspirin (such as for heart disease, or after a stroke) Don't use tobacco and or drink alcohol, which may worsen your symptoms. If medicines for vomiting were prescribed, take as directed. Once vomiting stops, then follow these guidelines: During the first 12 to 24 hours follow the diet below: Fruit juices. Apple, grape juice, clear fruit drinks, and electrolyte replacement drinks. Beverages. Soft drinks without caffeine; mineral water (plain or flavored), decaffeinated tea and coffee. Soups. Clear broth and bouillon Desserts. Plain gelatin, ice pops, and fruit juice bars. As you feel better, you may add 6 to 8 ounces of yogurt per day. During the next 24 hours you may add the following to the above: Hot cereal, plain toast, bread, rolls, crackers Plain noodles, rice, mashed potatoes, chicken noodle or rice soup Unsweetened canned fruit such as applesauce, bananas (avoid pineapple and citrus) Limit caffeine and chocolate. No spices or seasonings except salt. During the next 24 hours: Gradually resume a normal diet, as you feel better and your symptoms lessen. Follow-up care Follow up with your healthcare provider, or as advised. When to seek medical advice Call your healthcare provider right away if any of these occur: Constant right-sided lower belly pain or increasing general belly pain Continued vomiting (unable to keep liquids down) for 24 hours Vomiting blood or coffee grounds Swollen belly Frequent diarrhea (more than 5 times a day); blood (red or black color) or mucus in diarrhea Reduced urine output or extreme thirst Weakness, dizziness or fainting Unusually drowsy or confused Fever of 100.4 F (38 C) oral or higher, or as directed Yellow color of the eyes or skin [id number] [employer]. [address] [place] [address]. All rights reserved. This information is not intended as a substitute for professional medical care. Always follow your healthcare professional's instructions. 09/29/2024 03:23:01 Dehydration Dehydration The human body is comprised largely of water. If you lose more fluids than you take in, you can become dehydrated. This means there are not enough fluids in your body for it to function right. Mild dehydration can cause weakness, confusion, or muscle cramps. In extreme cases, it can lead to brain damage and even . That's why prompt treatment is crucial. Risk factors Anyone can become dehydrated. But infants, children, and older adults are at greatest risk. You are most likely to lose fluids with severe vomiting, diarrhea, or a fever. Exercising or working hard especially in hot weather can also cause excess fluid loss. What to do Drinking liquids is the best way to prevent dehydration. Water is best, but juice or frozen pops can also help. For adults, don't use liquids that contain caffeine or alcohol to rehydrate. Your doctor may suggest electrolyte solutions for sick infants and young children. When to go to the emergency room (ER) Go to an ER right away for these symptoms: Adults Very dark urine and little urine output Dizziness, weakness, confusion, fainting Children Sunken eyes Little or no urine output (for infants, no wet diaper in 8 hours) Very dark urine Skin that doesn't bounce back quickly when pinched Crying without tears Lethargy, decreased activity, or increased sleepiness What to expect in the emergency room Your blood pressure, temperature, and heart rate will be checked. You may have blood or urine tests. The main treatment for dehydration is fluids. You may be given these to drink. Or, you may receive them through a vein in your arm. You also may be treated for diarrhea, vomiting, or a high fever. [id number] [employer]. [address] [place] [address]. All rights reserved. This information is not intended as a substitute for professional medical care. Always follow your healthcare professional's instructions. Follow Up Care 09/29/2024 01:22:15 With:Call STEPHANIE Godfrey Pt. Refferral [phone] Address:Unknown When:2-4 days Comments:Return to ED if symptoms worsen With:Call Physician Referral Address:Unknown When:2-4 days [facility] 09-29-2024 Note Discharge Instructions Thank you for allowing [facility] to assist you with your healthcare needs. The following is important discharge information regarding your hospital visit. Diagnosis from Today's Visit Dehydration Nausea & vomiting What to Do Next Instructions from Your Care Team No qualifying data available. Post Acute Orders No qualifying data available. You Need to Schedule the Following Appointments Follow Up with Call [facility] New Pt. Refferral [phone] When:Within 2-4 days Additional Information: Return to ED if symptoms worsen Follow Up with Call Physician Referral When:Within 2-4 days Allergies NKA Medications Please ask your primary doctor or pharmacist before taking any other medication not listed, including over the counter drugs, herbal medications, vitamins and or supplements as they may interact with your home medications. What How Much When Instructions Last Dose New ondansetron (ondansetron 4 mg oral tablet, disintegrating) 1 tab(s) by mouth Every 6 hours as needed for Nausea/Vomiting Duration: 3 Days Refills: 1 Printed Prescription Unchanged ibuprofen 200 Milligram by mouth Every 6 hours as needed for as needed for pain Unchanged mirabegron (Myrbetriq 50 mg oral tablet, extended release) 1 tab(s) by mouth Once a day Please take this list to your next doctor s visit. Bring all medications you take, including over the counter medications, herbals and other supplements with you to your doctor s visit. Patients and families are reminded to discard old lists and to update any records with all medication providers or retail pharmacies. Education Materials Vomiting (Adult) Vomiting is a common symptom that may be due to different causes. These include gastroenteritis ("stomach flu"), food poisoning and gastritis. There are other more serious causes of vomiting which may be hard to diagnose early in the illness. Therefore, it is important to watch for the warning signs listed below. The main danger from repeated vomiting is dehydration. This is due to excess loss of water and minerals from the body. When this occurs, your body fluids must be replaced. Home care If symptoms are severe, rest at home for the next 24 hours. Because your symptoms may be from an infection, wash your hands often and well. If soap and water are not available, use alcohol-based mat roller to keep from spreading the infection to others. Wash your hands for at least 20 seconds. Humming the happy birthday song twice while you wash is an easy way to make sure you've washed for 20 seconds. Wash your hands after using the toilet, before and after preparing food, before eating food, after changing a diaper, cleaning a wound, caring for a sick person, and blowing your nose, coughing, or sneezing. You should also wash your hands after caring for someone who is sick, touching pet food, or treats, and touching an animal, or animal waste. You may use acetaminophen or NSAID medicines like ibuprofen or naproxen to control fever, unless another medicine was prescribed. If you have chronic liver or kidney disease or ever had a stomach ulcer or gastrointestinal bleeding, talk with your doctor before using these medicines. Aspirin should never be used in anyone under 18 years of age who is ill with a fever. It may cause severe liver damage. Don't use NSAID medicines if you are already taking one for another condition (like arthritis) or are on aspirin (such as for heart disease, or after a stroke) Don't use tobacco and or drink alcohol, which may worsen your symptoms. If medicines for vomiting were prescribed, take as directed. Once vomiting stops, then follow these guidelines: During the first 12 to 24 hours follow the diet below: Fruit juices. Apple, grape juice, clear fruit drinks, and electrolyte replacement drinks. Beverages. Soft drinks without caffeine; mineral water (plain or flavored), decaffeinated tea and coffee. Soups. Clear broth and bouillon Desserts. Plain gelatin, ice pops, and fruit juice bars. As you feel better, you may add 6 to 8 ounces of yogurt per day. During the next 24 hours you may add the following to the above: Hot cereal, plain toast, bread, rolls, crackers Plain noodles, rice, mashed potatoes, chicken noodle or rice soup Unsweetened canned fruit such as applesauce, bananas (avoid pineapple and citrus) Limit caffeine and chocolate. No spices or seasonings except salt. During the next 24 hours: Gradually resume a normal diet, as you feel better and your symptoms lessen. Follow-up care Follow up with your healthcare provider, or as advised. When to seek medical advice Call your healthcare provider right away if any of these occur: Constant right-sided lower belly pain or increasing general belly pain Continued vomiting (unable to keep liquids down) for 24 hours Vomiting blood or coffee grounds Swollen belly Frequent diarrhea (more than 5 times a day); blood (red or black color) or mucus in diarrhea Reduced urine output or extreme thirst Weakness, dizziness or fainting Unusually drowsy or confused Fever of 100.4 F (38 C) oral or higher, or as directed Yellow color of the eyes or skin [id number] [employer]. [address] [place] [address], [place] [address]. All rights reserved. This information is not intended as a substitute for professional medical care. Always follow your healthcare professional's instructions. Dehydration The human body is comprised largely of water. If you lose more fluids than you take in, you can become dehydrated. This means there are not enough fluids in your body for it to function right. Mild dehydration can cause weakness, confusion, or muscle cramps. In extreme cases, it can lead to brain damage and even . That's why prompt treatment is crucial. Risk factors Anyone can become dehydrated. But infants, children, and older adults are at greatest risk. You are most likely to lose fluids with severe vomiting, diarrhea, or a fever. Exercising or working hard especially in hot weather can also cause excess fluid loss. What to do Drinking liquids is the best way to prevent dehydration. Water is best, but juice or frozen pops can also help. For adults, don't use liquids that contain caffeine or alcohol to rehydrate. Your doctor may suggest electrolyte solutions for sick infants and young children. When to go to the emergency room (ER) Go to an ER right away for these symptoms: Adults Very dark urine and little urine output Dizziness, weakness, confusion, fainting Children Sunken eyes Little or no urine output (for infants, no wet diaper in 8 hours) Very dark urine Skin that doesn't bounce back quickly when pinched Crying without tears Lethargy, decreased activity, or increased sleepiness What to expect in the emergency room Your blood pressure, temperature, and heart rate will be checked. You may have blood or urine tests. The main treatment for dehydration is fluids. You may be given these to drink. Or, you may receive them through a vein in your arm. You also may be treated for diarrhea, vomiting, or a high fever. [id number] [employer]. [address] [place] [address], [place] [address]. All rights reserved. This information is not intended as a substitute for professional medical care. Always follow your healthcare professional's instructions. Additional Information VACCINATE! IT SAVES LIVES! Members of the community who have not yet received the COVID-19 vaccine and would like to receive it can visit one of [facility] vaccine clinics. There are many vaccine clinic locations within the [facility]. For locations and available times, please visit [email or web address].[place]. gov/. It is important to note that some COVID mobile vaccine clinics are held outdoors and may be canceled in rainy or stormy conditions. To learn more about pediatric vaccinations (ages 5-11), we invite you to visit the [facility] webpage. [email or web address] [email or web address] To learn more about the COVID-19 vaccine, we invite you to visit the CDC website for a list of frequently asked questions. https://www.cdc.gov/coronavirus/ 2019-ncov/vaccines/faq.html [facility] [employer] [facility] [employer] Patient Portal Access Instructions: Stay connected with your healthcare team and access your personal medical information anytime with the [employer] Patient Portal. If you would like a full copy of your medical records please contact the [facility] Medical Records Department Wednesday through Wednesday between 8a.m. and 4:30p.m. Please follow the directions below to access the portal: 1.Access the email account you provided upon registration to the hospital.2.Look for an invitation email from [facility].3.Open the email and access the invitation link: Accept Invitation to [facility] [employer] [facility] [employer]4.Fill in the required vogel to create your account. Sign into www.[employer] with your username and password that you created in the above steps to stay up to date. You can then view a summary of results, a summary of your visits, and the ability to download your summaries to your computer or send the information securely to a physician. Remember that your healthcare information is confidential, so carefully consider who you will allow to register on the [employer] Patient Portal for access to your information. You can also access the [employer] Patient Portal on the [email or web address]. Simply click on "Health Records" under "Health Data" and then click on the [employer] logo. HOW TO SAFELY DISPOSE OF PRESCRIPTION MEDICATIONS Please use one of the following methods to safely dispose of your unused medications. 1.Use a drug disposal kit: the drug disposal pouch allows you to safely discard your old and unused drugs. Ask your nurse to give you one when you are discharged.2.Visit a local take-back location: Many local pharmacies and police departments have programs that collect old and unwanted prescription drugs. Call your local pharmacy or go to http://Blendagram.[employer]/7B1Zq3q to find one close to you.3.Make use of household items: Use cat litter or old coffee grounds to dispose medications if other options are not available. Mix your drugs with these household products, seal them in an airtight container and throw it into the garbage. Call [facility]: [phone] to be sure your drugs can be disposed of in this way. Some medicines may require a different approach.4.Never flush your medications down the toilet. IF YOU HAVE BEEN PRESCRIBED AN OPIOIDS FOR PAIN If you have been prescribed an opioid (such as hydrocodone, oxycodone or morphine), it is critical to understand the possible side effects and risks of opioid pain medications. Even when taken as directed, opioids can have several side effects including: Tolerance, meaning you might need to take more of a medication for the same pain relief. Nausea, vomiting and/or constipation. Sleepiness, dizziness, dry mouth, confusion, depression or itching. Physical dependence, meaning you have withdrawal symptoms when a medication is stopped ? this can develop within a few days. KNOW YOUR RESPONSIBILITIES It is important to know exactly how much and how often to take the opioid pain medications you are prescribed. Never take opioids in higher amounts or more often than prescribed. Do not combine opioids with alcohol or other drugs that cause drowsiness, such as benzodiazepines, also known as benzos, including diazepam and alprazolam, muscle relaxants or sleep aids. Never sell or share prescription opioids. This is illegal. Store opioids in a secure place and out of reach of others (including children, family, friends and visitors). The last page(s) of this document has been signed and retained as a CHART COPY Signatures Patient Education Materials Vomiting (Adult) Dehydration Medication Leaflets My discharge plan and instructions have been reviewed and explained to me and I,EVA MONTES understand my current condition and have read and understand these discharge instructions. I have received a written copy of the plan/instructions. If I have questions, I am aware that I should contact my doctor. 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 Multiplanar reformatted images are provided for review. Automated exposure control, iterative reconstruction, and/or weight based adjustment of the mA/kV was utilized to reduce the radiation dose to as low as reasonably achievable. COMPARISON: CT abdomen and pelvis on 04/03/2021 HISTORY: ORDERING SYSTEM PROVIDED HISTORY: Reason for Exam: Abdominal pain, acute, nonlocalized FINDINGS: Lower Chest: There is no acute abnormality at the lung bases. Organs: The liver, biliary tree, pancreas, spleen, adrenal glands, and kidneys show no sign of acute abnormality. GI/Bowel: There is no intestinal obstruction or inflammation. The appendix is normal. No free intraperitoneal air or abnormal fluid collection is present in the peritoneum. Normal mesenteric lymph nodes are present without signs of mesenteritis. Pelvis: Urinary bladder is nearly empty and contains no stones. Uterus and adnexal structures are unremarkable. There is no abnormal fluid collection in the pelvis. Peritoneum/Retroperitoneum: There is no retroperitoneal lymph node enlargement. Abdominal aorta and inferior vena cava are normal. Bones/Soft Tissues: No acute findings. IMPRESSION: No acute intra-abdominal or pelvic abnormality. Interpreted by: Enrico Justice MD Preliminary Report By: Enrico Justice MD Electronically signed By Enrico Justice MD Dictated Date: 09/29/2024 2:47:16 AM Prelim Date: 09/29/2024 2:50:36 AM Sign Date: 09/29/2024 2:50:36 AM Ordering Provider: DIANE MAIN Interpreted by: Enrico Justice MD Preliminary Report By: Enrico Justice MD Electronically signed By Enrico Justice MD Dictated Date: 09/29/2024 2:47:16 AM Prelim Date: 09/29/2024 2:50:36 AM Sign Date: 09/29/2024 2:50:36 AM Ordering Provider: DIANE MAIN [facility]05-10-2024 Note Discharge Instructions Thank you for allowing [facility] to assist you with your healthcare needs. The following is importantdischarge information regarding your hospital visit. Diagnosis from Today's Visit Depression Laceration of arm Medical screening exam What to Do Next Instructions from Your Care Team Follow-up with your doctor return the emergency department 8 to 10 days for possible suture removal. Keep wound clean and dry. Return the emergency department immediately if you have increased redness around wound, drainage, fevers, suicidal thoughts or homicidal thoughts, or any other care concern. No qualifying data available. Post Acute Orders No qualifying data available. You Need to Schedule the Following Appointments Follow Up with your counselor When Within 2-4 days Where: Follow Up with Go to emergency room if symptoms worsen When Within 2-4 days Follow Up with Call Physician Referral When Within 2-4 days Allergies NKA Medications Please ask your primary doctor or pharmacist before taking any other medication not listed, including over the counter drugs, herbal medications, vitamins and or supplements as they may interact withyour home medications. What How Much When Instructions Last Dose Unchanged ibuprofen 200 Milligram by mouth Every 6 hours as needed for as needed for pain Unchanged mirabegron (Myrbetriq 50 mg oral tablet, extended release) 1 tab(s) by mouth Once a day Please take this list to your next doctor s visit. Bring all medications you take, including over the counter medications, herbals and other supplements with you to your doctor s visit. Patients and families are reminded to discard old lists and to update any records with all medication providers or retail pharmacies. Education Materials Depression Depression is one of the most common mental health problems today. It is not just a state of unhappiness or sadness. It is a true disease. The cause seems to be related to a decrease in chemicals that transmit signals in the brain. Having a family history of depression, alcoholism, or suicide increases the risk. Chronic illness, chronic pain, migraine headaches, and high emotional stress also increase the risk. Depression is something we tend to recognize in others, but may have a hard time seeing in ourselves. It can show in many physical and emotional ways: Loss of appetite Overeating Not being able to sleep Sleeping too much Tiredness not related to physical exertion Restlessness or irritability Slowness of movement or speech Feeling depressed or withdrawn Loss of interest in things you once enjoyed Trouble concentrating, poor memory, trouble making decisions Thoughts of harming or killing oneself, or thoughts that life is not worth living Low self-esteem The treatment for depression may include both medicine and psychotherapy. Antidepressants can reduce suffering and can improve the ability to function during the depressed period. Therapy can offer emotional support and help you understand emotional factors that may be causing the depression. Home care Ongoing care and support help people manage this disease. Find a healthcare provider and therapist who meet your needs. Seek help when you feel like you may be getting ill. Be kind to yourself. Make it a point to do things that you enjoy (gardening, walking in nature, going to a movie). Reward yourself for small successes. Take care of your physical body. Eat a balanced diet (low in saturated fat and high in fruits and vegetables). Exercise at least 3 times a week for 30 minutes. Even mild-moderate exercise (like briskwalking) can make you feel better. Don't drink alcohol, which can make depression worse. Take medicine as prescribed. Tell each of your healthcare providers about all of the prescription and jhkf-oul-gmrwhow medicines, vitamins, and supplements you take. Certain supplements interact with medicines and can result in dangerous side effects. Ask your pharmacist when you have questions about medicine interactions. Talk with your family and trusted friends about your feelings and thoughts. Ask them to help you recognize behavior changes early so you can get help and, if needed, medicine can be adjusted. Follow-up care Follow up with your healthcare provider, or as advised. Call 911 Call 911 if you: Have suicidal thoughts, a suicide plan, and the means to carry out the plan; or serious thoughts ofhurting someone else Have trouble breathing Are very confused Feel very drowsy or have trouble awakening Faint or lose consciousness Have new chest pain that becomes more severe, lasts longer, or spreads into your shoulder, arm, neck, jaw, or back When to seek medical advice Call your healthcare provider right away if any of these happen: Feeling extreme depression, fear, anxiety, or anger toward yourself or others Feeling out of control Feeling that you may try to harm yourself or another Hearing voices that others do not hear Seeing things that others do not see Can t sleep or eat for 3 days in a row Friends or family express concern over your behavior and ask you to seek help [phone] [employer]. [address] [place] [address]. All rights reserved. This information is not intended as a substitute for professional medical care. Always follow yourhealthcare professional's instructions. Extremity Laceration: Stitches, Wild, or Tape A laceration is a cut through the skin. If it is deep, it may require stitches or wild to close so it can heal. Minor cuts may be treated with surgical tape closures, or skin glue. X-rays may be done if something may have entered the skin through the cut. You may also need a tetanus shot if you are not up to date on this vaccine. Home care Follow the healthcare provider s instructions on how to care for the cut. Wash your hands with soap and warm water before and after caring for your wound. This is to help prevent infection. Keep the wound clean and dry. If a bandage was applied and it becomes wet or dirty, replace it. Otherwise, leave it in place for the first 24 hours, then change it once a day or as directed. If stitches or wild were used, clean the wound daily: oAfter removing the bandage, wash the area with soap and water. Use a wet cotton swab to loosen andremove any blood or crust that forms. oAfter cleaning, keep the wound clean and dry. Talk with your healthcare provider before putting any antibiotic ointment on the wound. Reapply the bandage. You may remove the bandage to shower as usual after the first 24 hours, but don't soak the area in water (no swimming) until the stitches or wild are removed. If surgical tape closures were used, keep the area clean and dry. If it becomes wet, blot it dry with a towel. Let the surgical tape fall off on its own. The healthcare provider may prescribe an antibiotic cream or ointment to prevent infection. He or she may also prescribe an antibiotic pill. Don't stop taking this medicine until you have finished itall or the provider tells you to stop. The provider may also prescribe medicine for pain. Follow the instructions for taking these medicines. Don't do activities that may reopen your wound. Follow-up care Follow up with your healthcare provider, or as advised. Most skin wounds heal within 10 days. But an infection may sometimes occur even with proper treatment. Check the wound daily for the signs of infection listed below. Stitches and wild should be removed within 7 to14 days. If surgical tape closures were used, you may remove them after 10 days if they have not fallen off by then. When to seek medical advice Call your healthcare provider right away if any of these occur: Wound bleeding not controlled by direct pressure Signs of infection, including increasing pain in the wound, increasing wound redness or swelling, or pus or bad odor coming from the wound Fever of 100.4 F (38 C) or higher, or as directed by your healthcare provider Stitches or wild come apart or fall out or surgical tape falls off before 7 days Wound edges reopen Wound changes colors Numbness occurs around the wound Decreased movement around the injured area [id number] [employer]. [address] [place] [address]. All rights reserved. This information is not intended as a substitute for professional medical care. Always follow yourhealthcare professional's instructions. Additional Information VACCINATE! IT SAVES LIVES! Members of the community who have not yet received the COVID-19 vaccine and would like to receive it can visit one of [facility] vaccine clinics. There are many vaccine clinic locations within the [facility]. For locations and available times, please visit www.gettheshot.coronavirus.[place].gov/. It is important to note that some COVID mobile vaccine clinics are held outdoors and may be canceled in rainy or stormy conditions. To learn more about pediatric vaccinations (ages 5-11), we invite you to visit the [facility] webpage. https://www.[employer]SpringSources.org/[email or web address]-Rjdxw-Glxhrzyzogw-Elnandpzht-[email or web address] stions.htmlTo learn more about the COVID-19 vaccine, we invite you to visit the CDC website for a list of frequently asked questions. https://www.cdc.gov/coronavirus/2019-ncov/vaccines/faq.html [facility] [employer] Patient Portal Access Instructions: Stay connected with your healthcare team and access your personal medical information anytime with the [facility] Patient Portal. If you would like a full copy of your medical records please contact the [facility] Medical Records Department Wednesday through Wednesday between 8a.m. and 4:30p.m. Please follow the directions below to access the portal: 1.Access the email account you provided upon registration to the hospital.2.Look for an invitation email from [facility].3.Open the email and access the invitation link: Accept Invitation to [facility]4.Fill in the required vogel to create your account. Sign into www.[employer] with your username and password that you created in the above steps to stay up to date. You can then view a summary of results, a summary of your visits, and the ability to download your summaries to your computer or send the information securely to a physician. Remember that your healthcare information is confidential, so carefully consider who you will allow to register on the [facility] Patient Portal for access to your information. You can also access the [facility] Patient Portal on the trgt.us. Simply click on "Health Records" under "HealthData" and then click on the [employer] logo. HOW TO SAFELY DISPOSE OF PRESCRIPTION MEDICATIONS Please use one of the following methods to safely dispose of your unused medications. 1.Use a drug disposal kit: the drug disposal pouch allows you to safely discard your old and unuseddrugs. Ask your nurse to give you one when you are discharged.2.Visit a local take-back location: Many local pharmacies and police departments have programs that collect old and unwanted prescriptiondrugs. Call your local pharmacy or go to http://Blend[employer]/4C5Jx9o to find one close to you.3.Make use of household items: Use cat litter or old coffee grounds to dispose medications if other options arenot available. Mix your drugs with these household products, seal them in an airtight container andthrow it into the garbage. Call [facility]: [phone] to be sure your drugs can be disposed of in this way. Some medicines may require a different approach.4.Never flush your medications down the toilet. IF YOU HAVE BEEN PRESCRIBED AN OPIOIDS FOR PAIN If you have been prescribed an opioid (such as hydrocodone, oxycodone or morphine), it is critical to understand the possible side effects and risks of opioid pain medications. Even when taken as directed, opioids can have several side effects including: Tolerance, meaning you might need to take more of a medication for the same pain relief. Nausea, vomiting and/or constipation. Sleepiness, dizziness, dry mouth, confusion, depression or itching. Physical dependence, meaning you have withdrawal symptoms when a medication is stopped ? this can develop within a few days. KNOW YOUR RESPONSIBILITIES It is important to know exactly how much and how often to take the opioid pain medications you are prescribed. Never take opioids in higher amounts or more often than prescribed. Do not combine opioids with alcohol or other drugs that cause drowsiness, such as benzodiazepines, also known as benzos,including diazepam and alprazolam, muscle relaxants or sleep aids. Never sell or share prescriptionopioids. This is illegal. Store opioids in a secure place and out of reach of others (including children, family, friends and visitors). The last page(s) of this document has been signed and retained as a CHART COPY Signatures Patient Education Materials Depression Laceration, Extremity: Suture, Staple, or Tape Medication Leaflets My discharge plan and instructions have been reviewed and explained to me and IALBERTO RAVEN L understand my current condition and have read and understand these discharge instructions. I have received a written copy of the plan/instructions. If I have questions, I am aware that I should contact my doctor. 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 Digitally Signed by Sonali Smith RN on 08/06/2023 12:46 AM [facility]05-10-2024 Hospital Discharge instructions Patient Education 08/05/2023 22:11:37 Depression Depression Depression is one of the most common mental health problems today. It is not just a state of unhappiness or sadness. It is a true disease. The cause seems to be related to a decrease in chemicals that transmit signals in the brain. Having a family history of depression, alcoholism, or suicide increases the risk. Chronic illness, chronic pain, migraine headaches, and high emotional stress also increase the risk. Depression is something we tend to recognize in others, but may have a hard time seeing in ourselves. It can show in many physical and emotional ways: Loss of appetite Overeating Not being able to sleep Sleeping too much Tiredness not related to physical exertion Restlessness or irritability Slowness of movement or speech Feeling depressed or withdrawn Loss of interest in things you once enjoyed Trouble concentrating, poor memory, trouble making decisions Thoughts of harming or killing oneself, or thoughts that life is not worth living Low self-esteem The treatment for depression may include both medicine and psychotherapy. Antidepressants can reduce suffering and can improve the ability to function during the depressed period. Therapy can offer emotional support and help you understand emotional factors that may be causing the depression. Home care Ongoing care and support help people manage this disease. Find a healthcare provider and therapist who meet your needs. Seek help when you feel like you may be getting ill. Be kind to yourself. Make it a point to do things that you enjoy (gardening, walking in nature, going to a movie). Reward yourself for small successes. Take care of your physical body. Eat a balanced diet (low in saturated fat and high in fruits and vegetables). Exercise at least 3 times a week for 30 minutes. Even mild-moderate exercise (like briskwalking) can make you feel better. Don't drink alcohol, which can make depression worse. Take medicine as prescribed. Tell each of your healthcare providers about all of the prescription and rpdg-jld-zuiacne medicines, vitamins, and supplements you take. Certain supplements interact with medicines and can result in dangerous side effects. Ask your pharmacist when you have questions about medicine interactions. Talk with your family and trusted friends about your feelings and thoughts. Ask them to help you recognize behavior changes early so you can get help and, if needed, medicine can be adjusted. Follow-up care Follow up with your healthcare provider, or as advised. Call 911 Call 911 if you: Have suicidal thoughts, a suicide plan, and the means to carry out the plan; or serious thoughts ofhurting someone else Have trouble breathing Are very confused Feel very drowsy or have trouble awakening Faint or lose consciousness Have new chest pain that becomes more severe, lasts longer, or spreads into your shoulder, arm, neck, jaw, or back When to seek medical advice Call your healthcare provider right away if any of these happen: Feeling extreme depression, fear, anxiety, or anger toward yourself or others Feeling out of control Feeling that you may try to harm yourself or another Hearing voices that others do not hear Seeing things that others do not see Can t sleep or eat for 3 days in a row Friends or family express concern over your behavior and ask you to seek help [phone] [employer] [place] [address], [place] [address]. All rights reserved. This information is not intended as a substitute for professional medical care. Always follow [facility] professional's instructions. 08/05/2023 22:11:27 Laceration, Extremity: Suture, Staple, or Tape Extremity Laceration: Stitches, Harrison, or Tape A laceration is a cut through the skin. If it is deep, it may require stitches or wild to close so it can heal. Minor cuts may be treated with surgical tape closures, or skin glue. X-rays may be done if something may have entered the skin through the cut. You may also need a tetanus shot if you are not up to date on this vaccine. Home care Follow the healthcare provider s instructions on how to care for the cut. Wash your hands with soap and warm water before and after caring for your wound. This is to help prevent infection. Keep the wound clean and dry. If a bandage was applied and it becomes wet or dirty, replace it. Otherwise, leave it in place for the first 24 hours, then change it once a day or as directed. If stitches or wild were used, clean the wound daily: oAfter removing the bandage, wash the area with soap and water. Use a wet cotton swab to loosen andremove any blood or crust that forms. oAfter cleaning, keep the wound clean and dry. Talk with your healthcare provider before putting any antibiotic ointment on the wound. Reapply the bandage. You may remove the bandage to shower as usual after the first 24 hours, but don't soak the area in water (no swimming) until the stitches or wild are removed. If surgical tape closures were used, keep the area clean and dry. If it becomes wet, blot it dry with a towel. Let the surgical tape fall off on its own. The healthcare provider may prescribe an antibiotic cream or ointment to prevent infection. He or she may also prescribe an antibiotic pill. Don't stop taking this medicine until you have finished itall or the provider tells you to stop. The provider may also prescribe medicine for pain. Follow the instructions for taking these medicines. Don't do activities that may reopen your wound. Follow-up care Follow up with your healthcare provider, or as advised. Most skin wounds heal within 10 days. But an infection may sometimes occur even with proper treatment. Check the wound daily for the signs of infection listed below. Stitches and wild should be removed within 7 to14 days. If surgical tape closures were used, you may remove them after 10 days if they have not fallen off by then. When to seek medical advice Call your healthcare provider right away if any of these occur: Wound bleeding not controlled by direct pressure Signs of infection, including increasing pain in the wound, increasing wound redness or swelling, or pus or bad odor coming from the wound Fever of 100.4 F (38 C) or higher, or as directed by your healthcare provider Stitches or wild come apart or fall out or surgical tape falls off before 7 days Wound edges reopen Wound changes colors Numbness occurs around the wound Decreased movement around the injured area [id number] [employer]. [address] [place] [address]. All rights reserved. This information is not intended as a substitute for professional medical care. Always follow yourhealthcare professional's instructions. Follow Up Care 08/05/2023 21:13:51 With:your counselor Address: When:2-4 days With:Go to emergency room if symptoms worsen Address:Unknown When:2-4 days With:Call Physician Referral Address:Unknown When:2-4 days [facility] 11-25-2023 Hospital Discharge instructions Patient Education 02/19/2023 23:33:13 Laceration, Old: Not Sutured Old Laceration: Not Sutured A laceration is a cut through the skin. This will usually require stitches if it is deep. However, if a laceration remains open for too long, the risk of infection increases. In your case, too much time has passed before coming for treatment. The danger of infection from stitching at this time is too high. That is why your wound was not stitched. If the wound is spread open, it will heal by filling in from the bottom and sides. A wound that is not stitched may take 1 to 4 weeks to heal, depending on the size of the opening. You will probably have a visible scar. You can discuss revision of the scar with your healthcare provider at a later time. Home care The following guidelines will help you care for your laceration at home: Keep the wound clean and dry. If a bandage was applied and it becomes wet or dirty, replace it. Otherwise, leave it in place for the first 24 hours, then change it once a day or as directed. The healthcare provider may prescribe an antibiotic cream or ointment to prevent infection. If you are at high risk for infection, or the wound is very dirty, your provider may prescribe an oral antibiotic medicine to prevent infection. Don't stop using this medicine until you have finishedit all, or the provider tells you to stop. The healthcare provider may also prescribe medicine for pain. Follow instructions for taking these medicines. Clean the wound daily: After removing any bandage, wash the area with soap and water. Use a wet cotton swab to loosen and remove any blood or crust that forms. Talk with your healthcare provider before applying any antibiotic ointment to the wound. Reapply a fresh bandage. You may remove the bandage to shower as usual after the first 24 hours, but don't soak the area in water. This means no tub baths or swimming until the wound heals or your provider tells you it's OK.Don't do activities that may reinjure your wound. Check the wound daily for signs of infection listed below. Follow-up care Follow up with your healthcare provider, or as advised. When to seek medical advice Call your healthcare provider right away if any of these occur: Wound bleeding not controlled by direct pressure Signs of infection, including increasing pain in the wound, increasing wound redness or swelling, or pus or bad odor coming from the wound Fever of 100.4 F (38. C) or higher, or as directed by your healthcare provider Wound edges reopen Wound changes colors Numbness around the wound Decreased movement around the injured area [id number] [employer]. [address] [place] [address]. All rights reserved. This information is not intended as a substitute for professional medical care. Always follow yourhealthcare professional's instructions. Follow Up Care 02/19/2023 23:12:47 With:PATRICIA ORELLANA MD Address: [facility] [address] [place] [address]- When:2-4 days [facility] 11-24-2023 Note Discharge Instructions Thank you for allowing [facility] to assist you with your healthcare needs. The following is importantdischarge information regarding your hospital visit. Diagnosis from Today's Visit Arm laceration What to Do Next Instructions from Your Care Team No qualifying data available. Post Acute Orders No qualifying data available. You Need to Schedule the Following Appointments Follow Up with PATRICIA ORELLANA MD When Within 2-4 days Where: [facility] [address] [place] [address]- Allergies NKA Medications Please ask your primary doctor or pharmacist before taking any other medication not listed, including over the counter drugs, herbal medications, vitamins and or supplements as they may interact withyour home medications. What How Much When Instructions Last Dose Unchanged ibuprofen 200 Milligram by mouth Every 6 hours as needed for as needed for pain Please take this list to your next doctor s visit. Bring all medications you take, including over the counter medications, herbals and other supplements with you to your doctor s visit. Patients and families are reminded to discard old lists and to update any records with all medication providers or retail pharmacies. Medication Leaflets tetanus, diphtheria, acellular pertussis vaccine (Tdap) (TET a nus, dif THEER ee a, and ay BASIM juan manuel ler per [facility] iss) Adacel (Tdap), Boostrix (Tdap) What is the most important information I should know about this vaccine? Becoming infected with tetanus, diphtheria, or pertussis is much more dangerous to your health thanreceiving this vaccine. What is tetanus, diphtheria, acellular pertussis vaccine (Tdap)? Tetanus, diphtheria, and pertussis are serious diseases caused by bacteria. Tetanus (lockjaw) causes painful tightening of the muscles that can lead to 'locking' of the jaw sothe victim cannot open the mouth, swallow, or breathe. Tetanus can lead to . Diphtheria can lead to breathing problems, paralysis, heart failure, or . Pertussis (whooping cough) causes severe long-lasting episodes of cough that can interfere with eating, drinking, or breathing. Pertussis can lead to pneumonia, seizures, brain damage, and . Diphtheria and pertussis are spread from person to person. Tetanus enters the body through a cut orwound. The tetanus, diphtheria, and acellular pertussis adult vaccine (also called Tdap) is used to help prevent these diseases in people who are 10 to 64 years old. Like any vaccine, the Tdap vaccine may not provide protection from disease in every person. What should I discuss with my healthcare provider before receiving this vaccine? You should not receive this vaccine if you've ever had: a life-threatening allergic reaction to a vaccine containing tetanus, diphtheria, or pertussis; or decreased consciousness, seizures, or coma within 7 days after receiving a pertussis vaccine. If you have any of these other conditions, your vaccine may need to be postponed or not given at all: seizures; a weak immune system (caused by disease or by using certain medicine); or Guillain-Nieto syndrome within 6 weeks after receiving a tetanus vaccine. You can still receive a vaccine if you have a minor cold. In the case of a more severe illness witha fever or any type of infection, wait until you get better before receiving this vaccine. If you are or , your doctor or vaccination provider should determine whether you need a Tdap vaccine. If you are , your name may be listed on a registry to track the effects of this vaccine on the baby. This version of the vaccine (Adacel, Boostrix) should not be given to anyone under the age of 10. Another vaccine is available for use in children younger than 10 years old. How is this vaccine given? This vaccine is given as an injection (shot) into a muscle. Tdap vaccine is usually given as a one-time injection. Unless your doctor's tells you otherwise, you will not need a booster vaccine. What happens if I miss a dose? Since the Tdap vaccine is usually given only once, you are not likely to miss a dose. What happens if I overdose? An overdose of this vaccine is unlikely to occur. What should I avoid before or after receiving this vaccine? Follow your vaccination provider's instructions about any restrictions on food, beverages, or activity. What are the possible side effects of this vaccine? Get emergency medical help if you have signs of an allergic reaction: hives; difficult breathing; swelling of your face, lips, tongue, or throat. Becoming infected with diphtheria, pertussis, or tetanus is much more dangerous to your health thanreceiving this vaccine. However, like any medicine, this vaccine can cause side effects but the risk of serious side effects is extremely low. Call your doctor at once if you have: severe pain, itching, swelling, or redness where the shot was given; high fever (over 102 degrees F); a light-headed feeling, like you might pass out; severe joint pain; or nervous system problems--numbness, pain, tingling, weakness, burning or prickly feeling, vision or hearing problems, trouble breathing. Common side effects may include: nausea, vomiting, diarrhea, and/or abdominal pain; pain, redness, or swelling where the shot was given; headache or tiredness; body aches; or fever. This is not a complete list of side effects and others may occur. Call your doctor for medical advice about side effects. You may report vaccine side effects to the Department of Health and Human Services at . What other drugs will affect tetanus, diphtheria, acellular pertussis vaccine? Before receiving this vaccine, tell your vaccination provider about all other vaccines you have recently received. Also, tell the vaccination provider if you have recently received drugs or treatments that can weaken the immune system, including: steroid medicine; cancer treatments; medicine to treat psoriasis, rheumatoid arthritis, or other autoimmune disorders; or medicines to treat or prevent organ transplant rejection. If you are using any of these medications, you may not be able to receive the vaccine, or may need to wait until the other treatments are finished. This list is not complete. Other drugs may affect this vaccine, including prescription and mhsm-zbu-zrebltw medicines, vitamins, and herbal products. Not all possible drug interactions are listed here. Where can I get more information? Your vaccination provider, pharmacist, or doctor can provide more information about this vaccine. Additional information is available from your local health department or the Centers for Disease Control and Prevention. Remember, keep this and all other medicines out of the reach of children, never share your medicines with others, and use this medication only for the indication prescribed. Every effort has been made to ensure that the information provided by [employer]. ('[employer]') is accurate, up-to-date, and complete, but no guarantee is made to that effect. Drug information contained herein may be time sensitive. [employer] information has been compiled for use by healthcare practitioners and consumers in the [place] and therefore [employer] does not warrant that uses outside of the [place] are appropriate, unless specifically indicated otherwise. [employer]'s drug information does not endorse drugs, diagnose patients or recommend therapy. [employer] drug information isan informational resource designed to assist licensed healthcare practitioners in caring for their p atients and/or to serve consumers viewing this service as a supplement to, and not a substitute for, the expertise, skill, knowledge and judgment of healthcare practitioners. The absence of a warningfor a given drug or drug combination in no way should be construed to indicate that the drug or drug combination is safe, effective or appropriate for any given patient. [facility] does not assume any responsibility for any aspect of healthcare administered with the aid of information [facility] provides. The information contained herein is not intended to cover all possible uses, directions, precautions, warnings, drug interactions, allergic reactions, or adverse effects. If you have questions about the drugs you are taking, check with your doctor, nurse or pharmacist. Copyright 0914-3523 [employer] Version: 4.01. Revision Date: 02/26/2021. Education Materials Old Laceration: Not Sutured A laceration is a cut through the skin. This will usually require stitches if it is deep. However, if a laceration remains open for too long, the risk of infection increases. In your case, too much time has passed before coming for treatment. The danger of infection from stitching at this time is too high. That is why your wound was not stitched. If the wound is spread open, it will heal by filling in from the bottom and sides. A wound that is not stitched may take 1 to 4 weeks to heal, depending on the size of the opening. You will probably have a visible scar. You can discuss revision of the scar with your healthcare provider at a later time. Home care The following guidelines will help you care for your laceration at home: Keep the wound clean and dry. If a bandage was applied and it becomes wet or dirty, replace it. Otherwise, leave it in place for the first 24 hours, then change it once a day or as directed. The healthcare provider may prescribe an antibiotic cream or ointment to prevent infection. If you are at high risk for infection, or the wound is very dirty, your provider may prescribe an oral antibiotic medicine to prevent infection. Don't stop using this medicine until you have finishedit all, or the provider tells you to stop. The healthcare provider may also prescribe medicine for pain. Follow instructions for taking these medicines. Clean the wound daily: After removing any bandage, wash the area with soap and water. Use a wet cotton swab to loosen and remove any blood or crust that forms. Talk with your healthcare provider before applying any antibiotic ointment to the wound. Reapply a fresh bandage. You may remove the bandage to shower as usual after the first 24 hours, but don't soak the area in water. This means no tub baths or swimming until the wound heals or your provider tells you it's OK.Don't do activities that may reinjure your wound. Check the wound daily for signs of infection listed below. Follow-up care Follow up with your healthcare provider, or as advised. When to seek medical advice Call your healthcare provider right away if any of these occur: Wound bleeding not controlled by direct pressure Signs of infection, including increasing pain in the wound, increasing wound redness or swelling, or pus or bad odor coming from the wound Fever of 100.4 F (38. C) or higher, or as directed by your healthcare provider Wound edges reopen Wound changes colors Numbness around the wound Decreased movement around the injured area [id number] [employer]. [address] [place] [address]. All rights reserved. This information is not intended as a substitute for professional medical care. Always follow yourhealthcare professional's instructions. Additional Information VACCINATE! IT SAVES LIVES! Members of the community who have not yet received the COVID-19 vaccine and would like to receive it can visit one of [facility] vaccine clinics. There are many vaccine clinic locations within the [facility]. For locations and available times, please visit www.[email or web address].[place].gov/. It is important to note that some COVID mobile vaccine clinics are held outdoors and may be canceled in rainy or stormy conditions. To learn more about pediatric vaccinations (ages 5-11), we invite you to visit the [facility] webpage. [email or web address]/pages/[email or web address]-Eyfgoiydwzy-Ikrtxtojrp-Qhloe-[email or web address] stions.htmlTo learn more about the COVID-19 vaccine, we invite you to visit the CDC website for a list of frequently asked questions. https://www.cdc.gov/coronavirus/2019-ncov/vaccines/faq.html [facility] Access Instructions: Stay connected with your healthcare team and access your personal medical information anytime with the [facility] Patient Portal. If you would like a full copy of your medical records please contact the [facility] Medical Records Department Wednesday through Wednesday between 8a.m. and 4:30p.m. Please follow the directions below to access the portal: 1.Access the email account you provided upon registration to the [facility].2.Look for an invitation email from [facility].3.Open the email and access the invitation link: Accept Invitation to [facility]4.Fill in the required vogel to create your account. Sign into www.[employer] with your username and password that you created in the above steps to stay up to date. You can then view a summary of results, a summary of your visits, and the ability to download your summaries to your computer or send the information securely to a physician. Remember that your healthcare information is confidential, so carefully consider who you will allow to register on the [facility] Patient Portal for access to your information. You can also access the [facility] Patient Portal on the [email or web address]. Simply click on "Health Records" under "HealthData" and then click on the [facility] logo. HOW TO SAFELY DISPOSE OF PRESCRIPTION MEDICATIONS Please use one of the following methods to safely dispose of your unused medications. 1.Use a drug disposal kit: the drug disposal pouch allows you to safely discard your old and unuseddrugs. Ask your nurse to give you one when you are discharged.2.Visit a local take-back location: Many local pharmacies and police departments have programs that collect old and unwanted prescriptiondrugs. Call your local pharmacy or go to http://Blendagram.[employer]/6A5Kn2r to find one close to you.3.Make use of household items: Use cat litter or old coffee grounds to dispose medications if other options arenot available. Mix your drugs with these household products, seal them in an airtight container andthrow it into the garbage. Call [facility]: [phone] to be sure your drugs can be disposed of in this way. Some medicines may require a different approach.4.Never flush your medications down the toilet. IF YOU HAVE BEEN PRESCRIBED AN OPIOIDS FOR PAIN If you have been prescribed an opioid (such as hydrocodone, oxycodone or morphine), it is critical to understand the possible side effects and risks of opioid pain medications. Even when taken as directed, opioids can have several side effects including: Tolerance, meaning you might need to take more of a medication for the same pain relief. Nausea, vomiting and/or constipation. Sleepiness, dizziness, dry mouth, confusion, depression or itching. Physical dependence, meaning you have withdrawal symptoms when a medication is stopped ? this can develop within a few days. KNOW YOUR RESPONSIBILITIES It is important to know exactly how much and how often to take the opioid pain medications you are prescribed. Never take opioids in higher amounts or more often than prescribed. Do not combine opioids with alcohol or other drugs that cause drowsiness, such as benzodiazepines, also known as benzos,including diazepam and alprazolam, muscle relaxants or sleep aids. Never sell or share prescriptionopioids. This is illegal. Store opioids in a secure place and out of reach of others (including children, family, friends and visitors). The last page(s) of this document has been signed and retained as a CHART COPY Signatures Patient Education Materials [place], Old: Not Sutured Medication Leaflets Boostrix (Tdap) My discharge plan and instructions have been reviewed and explained to me and I,EVA MONTES understand my current condition and have read and understand these discharge instructions. I have received a written copy of the plan/instructions. If I have questions, I am aware that I should contact my doctor. 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 This does not mean that this is something to worry about. Everyone likes to know the exact cause of the problem. But sometimes with belly pain, there is no clear-cut cause, and this could be a good thing. The good news is that your symptoms can be treated, and you will feel better. Your condition does not seem serious now. But sometimes the signs of a serious problem may take more time to appear. For this reason, it is important for you to watch for any new symptoms, problems, or worsening of your condition. Over the next few days, the abdominal pain may come and go. Or it may be constant. Other common symptoms can include nausea and vomiting. Sometimes it can be difficult to tell if you feel nauseous. You may just feel bad and not connect that feeling to nausea. Constipation, diarrhea, and a fever maygo along with the pain. The pain may continue even if treated correctly over the following days. Depending on how things go, sometimes the cause can become clear and may need more or different treatment. Additional evaluations, medicines, or tests may also be needed. Home care Your healthcare provider may prescribe medicine for pain, symptoms, or an infection. Follow the healthcare provider's instructions for taking these medicines. General care Rest as much as you can until your next exam. No strenuous activities. Try to find positions that ease discomfort. A small pillow placed on the abdomen may help relieve pain. Something warm on your abdomen (such as a heating pad) may help, but be careful not to burn yourself. Diet Don t force yourself to eat, especially if having cramps, vomiting, or diarrhea. Water is important so you don't get dehydrated. Soup may also be good. Sports drinks may also help,especially if they are not too acidic. Don't drink sugary drinks as this can make things worse. Take liquids in small amounts. Don t guzzle them. Caffeine sometimes makes the pain and cramping worse. Don t take dairy products if you have vomiting or diarrhea. Don't eat large amounts at a time. Wait a few minutes between bites. Eat a diet low in fiber (called a low-residue diet). Foods allowed include refined breads, white rice, fruit and vegetable juices without pulp, tender meats. These foods will pass more easily throughthe intestine. Don t have whole-grain foods, whole fruits and vegetables, meats, seeds and nuts, fried or fatty foods, dairy, alcohol and spicy foods until your symptoms go away. Follow-up care Follow up with your healthcare provider, or as advised, if your pain does not begin to improve in the next 24 hours. Call 911 Call 911 if any of these occur: Trouble breathing Confusion Fainting or loss of consciousness Rapid heart rate Seizure When to seek medical advice Call your healthcare provider right away if any of these occur: Pain gets worse or moves to the right lower abdomen New or worsening vomiting or diarrhea Swelling of the abdomen Unable to pass stool for more than 3 days Fever of 100.4 F (38 C) or higher, or as directed by your healthcare provider. Blood in vomit or bowel movements (dark red or black color) Yellow color of eyes and skin (jaundice) Weakness, dizziness Chest, arm, back, neck, or jaw pain Unexpected vaginal bleeding or missed period Can't keep down liquids or water and you are getting dehydrated [id number] [employer]. [address] [place] [address]. All rights reserved. This information is not intended as a substitute for professional medical care. Always follow yourhealthcare professional's instructions. Follow Up Care 04/03/2021 20:02:44 With:PATRICIA ORELLANA MD Address: [address] [place] [address]- When:2-4 days [facility] Evaluation + Plan note No data available for this section [facility] Evaluation noteNo assessment information available [facility] Work Phone: Summary note* TRAN Holden: PERFORM Event Display: Patient Summary Documents Authored Date: [id number] [facility] Summary Purpose Family History No Family History Records FoundNo Family History Records Found No data available for this section No data available for this section No Family History Records Found No data available for this section No Family History Records FoundNo Family History Records Found Advance Directives No Advanced Directives Records Found Advance Directive Response Recorded Date/ Time Living Will No February 25 6:43pm Power of Rehabilitation Services Coordinator No February 25, 2022 6:43pm Advance Directive Response Recorded Date/ Time Living Will No March 02 10:08pm Power of Rehabilitation Services Coordinator No March 02, 2022 10:08pm Advance Directive Response Recorded Date/ Time Living Will No March 23 6:28pm Power of Rehabilitation Services Coordinator No March 23, 2022 6:28pm Chief Complaint and Reason for Visit Chief Complaint SI Chief Complaint SI S.I. Chief Complaint SI S.I. SI Additional Source Comments INFORMATION SOURCE (unrecogn ized section and content) DATE CREATED AUTHOR 05/07/2021 [facility] DATE CREATED AUTHOR AUTHOR'S ORGANIZ ATION 02/11/2023 [facility] DATE CREATED AUTHOR AUTHOR'S ORGANIZ ATION 08/14/2023 [facility] ([place]) DATE CREATED AUTHOR AUTHOR'S ORGANIZ ATION 10/07/2024 [facility] DATE CREATED AUTHOR AUTHOR'S ORGANIZ ATION 10/13/2024 [facility] Goals (unrecognized section and content) Goals may be documented in a n alternate section Patient Care team informatio n (unrecognized section and content) Care Team Personnel Name: PATRICIA ORELLANA MD Member Role: Primary Care Physician Address: Address: [address] [place] [id number] Name: QUINTIN BARLOW DO Position: ED Physician Member Role: ED Physician Address: Address: [facility] [address] [place] [address] Care Team Related Persons Name: MANJULA GRANDA Address: Home [address] [place] [address] Name: IVIS MONTES Address: Home [address] [place], [place] [id number] Address: Temporary [address] [place], [place] [id number] Care Team Personnel Name: PHYSICIAN, LIBERTY Position: Physician Member Role: Primary Care Physician Care Team Related Persons Name: GRANDAMANJULA URENA Address: Home [address] [place] [address] Name: IVIS MONTES Address: Home [address] [place], [place] [id number] Address: Temporary [address] [place], [place] [id number] Care Team Personnel Name: PHYSICIAN, NONE Position: AH Physician Member Role: Primary Care Physician Care Team Related Persons Name: MANJULA GRANDA Name: NANCIEIVIS VERAS FOR RECORDS PERTAINING TO PATIENTS WHO ARE OR HAVE BEEN ENROLLED IN A CHEMICAL DEPENDENCY/SUBSTANCEABUSE PROGRAM, SOME INFORMATION MAY BE OMITTED. This clinical summary was aggregated from multiple sources. Caution should be exercised in using it in the provision of clinical care. This summary normalizes information from multiple sources, and as a consequence, information in this document may materially change the coding, format and clinical context of patient data. In addition, data may be omitted in some cases. CLINICAL DECISIONS SHOULD BE BASED ON THE PRIMARY CLINICAL RECORDS. [employer] [facility]. provides no warranty or guarantee of the accuracy or completeness of information in this document.
[2025-03-03 09:42] LABS: Lipase 32 U/L (13-75)
[2025-03-03 09:49] LABS: AST(SGOT) 15 U/L (<=31); Alanine Aminotransfer ALT/SGPT 19 U/L (<=34); Albumin, Serum 4.4 g/dL (3.5-5.0); Alkaline Phosphatase 57 U/L (35-104); Anion Gap 27 (5-15); BUN 5 mg/dL (4-19); BUN/Creat Ratio 6.1 RATIO (10-20); Calcium,Total 9.8 mg/dL (7.6-11.0); Carbon Dioxide 13.9 mmol/L (21.0-32.0); Chloride 94 mmol/L (98-108); Estimated Creatinine Clearance 105.03 ml/min (50-250); Globulin 3.2 g/dL (2.2-4.2); Glucose 174 mg/dL (70-99); Potassium 2.6 mmol/L (3.3-5.1)
--- NOTE | 2025-03-03 10:00 | EKG12_ITS ---
Test Reason : GENERAL Blood Pressure : */* mmHG Vent. Rate : 70 BPM Atrial Rate : 70 BPM P-R Int : 180 ms QRS Dur : 92 ms QT Int : 414 ms P-R-T Axes : 105 34 18 degrees QTcB Int : 447 ms Normal sinus rhythm Nonspecific T wave abnormality Abnormal ECG Confirmed by CAMERON DALEY, ISADORA ([id number]), movie editor OTM TRUJILLO ([id number]) on 03/05/2025 6:09:31 AM Referred By: Confirmed By: ISADORA BARNES MD
--- NOTE | 2025-03-03 10:05 | CT_ITS ---
PROCEDURE: ABDOMEN/PELVIS W IV CONT ONLY 03/03/2025 REASON FOR EXAM: Vomiting and abdominal pain for 7 hours. Weight loss 70 lb. Quit smoking we would 1 week ago. History of bulimia and PTSD. TECHNIQUE: Procedure Code: [id number] Modality: CT Procedure: ABDOMEN/PELVIS W IV CONT ONLY Coronal and Sagittal reconstruction series were provided. CONTRAST: Isovue 370 VOLUME: 94 mL One or more dose reduction techniques were used (e.g., Automated exposure control, adjustment of the mA and/or kV according to patient size, use of iterative reconstruction technique. RADIATION DOSE SUMMARY: CTDlvol: 13.30, 15.07 mGy DLP: 750 mGycm COMPARISON: None. FINDINGS: LUNG BASES: No basilar airspace consolidation or pleural effusion. LIVER: Unremarkable, except for focal steatosis along the falciform ligament. GALLBLADDER: Unremarkable. No calcified stone. BILE DUCTS: No ductal dilation. PANCREAS: Unremarkable. SPLEEN: Unremarkable. ADRENAL GLANDS: Unremarkable. KIDNEYS: Unremarkable. The kidneys enhance symmetrically. No hydronephrosis or hydroureter. STOMACH AND BOWEL: Small hiatal hernia. Diffuse submucosal fat within the distal small bowel and colon without wall thickening or inflammatory change. No obstruction, perforation or pneumatosis. No wall thickening. APPENDIX: Normal-appearing appendix. No CT evidence for appendicitis. RETRO/PERITONEUM: No free fluid. No free air. LYMPH NODES: No lymphadenopathy. PELVIC ORGANS: Unremarkable as visualized. VASCULATURE: No aortic aneurysm. ABDOMINAL WALL AND SOFT TISSUES: Unremarkable. BONES: No fracture or suspicious osseous abnormality. CT/Abdomen/Pelvis W IV Cont ONLY IMPRESSION: 1. No acute findings in the abdomen or pelvis. 2. Submucosal fat deposition ("fat-halo" sign) in the small and large bowel, m ost often related to chronic IBD, chronic steroid use, or obesity; less commonly chronic ischemia. No acute inflammation. Reading Location: [id number]
[2025-03-03] MEDS: Pantoprazole Sodium 40 MG in 0.9% Normal Saline (100mL MB+) 100 ML 300 MG IV (10:24)
[2025-03-03 10:29] LABS: BETA-HYDROXYBUTYRATE 6.5 mmol/L (0.0-0.3)
[2025-03-03] MEDS: Potassium Chloride 10mEq/100mL 10 MEQ/100 ML IV.SOLN. 100 MEQ IV BOLUS ×4 (10:52→14:54)
--- NOTE | 2025-03-03 11:23 | PCM.HP.STD ---
HPI - General General Date of Admission: 03/03/25 Date of Service: 03/03/25 Chief Complaint: Nausea/vomiting/abdominal pain HPI Narrative ANUSHA DOMINGUEZ, is a 19 F who presented to the emergency department at [facility] on 03/03/2025 due to intractable nausea and vomiting. Patient was brought to the emergency department by EMS. She lives alone and has a history of bulimia as well as heavy THC use and states that her last marijuana use was about a week ago. She indicated that she lost about 70 pounds in the last 6 months or so. It does not sound like this was intentional. She has had no previous abdominal surgeries and denied any urinary symptoms on presentation. She has had no fever or chills. She does follow with psychiatry for major depressive disorder/borderline personality disorder and PTSD. Her last psychiatry visit was in July 2024. It does not appear she is on anything right now for this. Patient states that her intractable nausea and vomiting has been ongoing for some time. She stated when she was smoking marijuana she actually felt better and was able to eat a little bit more. She has some associated postprandial right upper quadrant pain that is fairly severe. She has never been worked up for gallbladder disease. She also states that she will want to eat and eat and things come right back up. She is not forcing herself to vomit like she had been with her previous bulimia. Recently she has had decreased bowel movements but is passing gas and had a small bowel movement this morning. She states her p.o. intake just not probably been adequate to produce a stool. There is been no hematemesis. She did states she was post to follow-up with her primary care, Cathy Fay NP, for further testing but she has not been able to get a ride so this testing has not yet been ordered. Vital signs on presentation showed a temperature of 97.5, heart rate 117, respiratory 32, blood pressure is 146/121 and pulse ox is 94% on room air. Repeat blood pressure is 103/53 and heart rate did come down to 66 after IV fluids were given. Per the ED physician the patient appeared to be markedly dehydrated on presentation. Her CBC showed a leukocytosis and and erythrocytosis which is consistent with her dehydration. Chemistry panel showed marked hypokalemia with potassium of 2.6. Anion gap was 27 with a serum bicarb of 13.6. Serum blood sugar was 174 but hemoglobin A1c was 4.6. Liver function was unremarkable. Lipase was normal. Beta-hydroxybutyrate was 6.5. test is negative. UA is not consistent with infection but is consistent with dehydration and had ketones likely related to starvation ketosis. Toxicology screen was negative except for presumptive positive cannabinoids. ABG was obtained and consistent with a mild acidosis with a pH of 7.33. She has a compensatory respiratory alkalosis for her metabolic acidosis. CT of her abdomen pelvis showed no acute findings. She had a gallbladder ultrasound on 09/22/2022 that was unremarkable for any acute findings at that time. [facility] Medical History PTSD (post-traumatic stress disorder) MDD (major depressive disorder) Bulimia nervosa, purging type Major depressive disorder, recurrent severe without psychotic features Encounter for medication monitoring Anxiety disorder, unspecified Borderline personality disorder Dysthymic disorder Depression Home Medications Medication Instructions Recorded Last Taken Type ondansetron 4 mg disintegrating 4 mg PO Q8H PRN nausea and vomiting 03/03/25 03/03/25 History tablet Allergy/AdvReac Type Severity Reaction Status Date / Time No Known Allergies Allergy Verified 03/03/25 08:45 no significant family history Surgical History History of wisdom tooth extraction Social History Smoking Status: Never smoker alcohol intake: current details: rarely substance use type: former substance user, marijuana and other details: acid and mushrooms what type of physical activity do you participate in: walking ROS Constitutional Constitutional: Reports anorexia, change in weight and fatigue; Denies chills, fever(s), malaise, night sweats, weakness or other Eyes Eyes: Denies blurry vision, change in eye color, change in vision, discharge from eye(s), double vision, erythema, eye pain, loss of vision or other ENT HEENT: Denies abnormal hearing, dysphagia, ear pain, epistaxis, headache(s), hearing loss, nasal congestion, nasal discharge, post nasal drip, sinus pressure, sore throat or other Cardiovascular Cardiovascular: Denies chest pain, claudication, dyspnea on exertion, edema, lightheadedness, orthopnea, palpitations, paroxysmal nocturnal dyspnea, rapid heart rate, syncope or other Respiratory/Chest Respiratory/Chest: Denies cough, dyspnea, excessive phlegm production, hemoptysis, productive cough, shortness of breath at rest, shortness of breath with exertion, wheezing or other Gastrointestinal Gastrointestinal: Reports abdominal pain, nausea and vomiting; Denies coffee ground emesis, constipation, diarrhea, dyspepsia, hematemesis, hematochezia, loose stools, melena or other Genitourinary Genitourinary: Denies burning urination, difficulty urinating, dysuria, hematuria, nocturia, urinary frequency, urinary hesitancy, urinary incontinence, urinary urgency or other Musculoskeletal Musculoskeletal: Denies arthralgias, back pain, joint pain, joint stiffness, joint swelling, myalgias, neck pain or other Neurologic Neurologic: Denies abnormal gait, abnormal speech, confusion, disequilibrium, dizziness, focal weakness, headache(s), numbness, paresthesias, seizure-like activity, seizures, syncope, tingling, tremor(s) or other Psychiatric Psychiatric: Reports depression; Denies anxiety, homicidal ideation, suicidal ideation or other Endocrine Endocrinology: Denies change in body appearance, cold intolerance, excessive sweating, heat intolerance, polydipsia, polyuria or other Hematologic/Lymphatic Hematologic/Lymphatic: Denies anemia, easy bleeding, easy bruising, lymphadenopathy or other Allergic/Immunologic Allergic/Immunologic: Denies rhinitis, hives, eczemia, asthma or other Vital Signs Vital Signs Vital Signs: 03/03/25 08:36 03/03/25 11:12 Temperature 97.5 F L Temperature Source Oral Pulse Rate 117 H 66 Respiratory Rate 32 H 16 Blood Pressure 146/121 H 103/53 L Blood Pressure Mean 129 69 Pulse Ox 94 99 Oxygen Delivery Method Room Air Weight Weight: 79.4 kg Body Mass Index (BMI) 35.3 Physical Exam Const alert, oriented x3, no apparent distress, average body habitus and well nourished Constitutional Narrative: Obese, Young, white female, sitting up in bed, does not appear toxic, currently appears comfortable, friend at bedside, converses appropriately General Appearance: cooperative HEENT normocephalic, head/scalp atraumatic and hearing grossly normal bilaterally HEENT Narrative: Mucous membranes are dry Neck supple Neck Narrative: Trachea midline Resp normal respiratory effort, no retractions, no use of accessory muscles and clear to auscultation bilaterally Auscultation: Negative for crackles, rhonchi or wheezes Cardio regular rate, regular rhythm, S1 normal heart sound, S2 normal heart sound, no murmurs, no rub, no gallops and no clicks GI normal to inspection, nondistended, normoactive bowel sounds and soft to palpation; Negative for non-tender GI Narrative: Mild right upper quadrant tenderness Extremity no clubbing, cyanosis or edema Extremity Narrative: 2+ pedal pulses Neuro moves all extremities and no focal motor deficits Speech: speech normal Psych affect normal Psych Narrative: Eye contact is good and patient interacts appropriately Results Lab / Micro Data 03/03/25 09:13 03/03/25 13:40 Labs: Laboratory Results - last 24 hr 03/03/25 09:13: WBC 17.6 H, RBC 5.61 H, Hgb 16.0 H, Hct 47.0, MCV 83.8, MCH 28.5, MCHC 34.0, RDW Std Deviation 40.4, RDW Coeff of Nikhil 13.2, Plt Count 298, MPV 11.3, Immature Gran % (Auto) 0.900, Neut % (Auto) 86.8 H, Lymph % (Auto) 7.9 L, Pleasants % (Auto) 3.8, Eos % (Auto) 0.1, Baso % (Auto) 0.5, Absolute Neuts (auto) 15.3 H, Absolute Lymphs (auto) 1.39, Nucleated RBC % 0, Sodium 135, Potassium 2.6 L*, Chloride 94 L, Carbon Dioxide 13.9 L, Anion Gap 27 H, BUN 5, Creatinine 0.79, Estim Creat Clear Calc 105.03, Est GFR (MDRD) Non-Af 110, BUN/Creatinine Ratio 6.1 L, Glucose 174 H, Calcium 9.8, Total Bilirubin 0.60, AST 15, ALT 19, Alkaline Phosphatase 57, Total Protein 7.6, Albumin 4.4, Globulin 3.2, Albumin/Globulin Ratio 1.4, Lipase 32, b-Hydroxybutyric mmol/L 6.5 H, Serum , Qual NEGATIVE Imaging Radiology Impression Abdomen/Pelvis CT 03/03/25 10:05 IMPRESSION: 1. No acute findings in the abdomen or pelvis. 2. Submucosal fat deposition ("fat-halo" sign) in the small and large bowel, most often related to chronic IBD, chronic steroid use, or obesity; less commonly chronic ischemia. No acute inflammation. Reading Location: [facility] Assessment & Plan Assessment/Plan (1) Intractable nausea and vomiting: (2) Hyperglycemia: (3) High anion gap metabolic acidosis: (4) Leukocytosis: (5) Erythrocytosis: (6) Hypokalemia: (7) Hyperglycemia: (8) Dehydration: (9) Abdominal pain: (10) Weight loss: PLAN: Plan Intractable nausea vomiting/abdominal pain - May be cyclic vomiting syndrome as she recently has stopped using marijuana - IV fluids - Scopolamine patch - As needed antiemetics - Will check UA - test is negative - Check toxicology screen - CT of the abdomen pelvis was overtly unremarkable other than a "fat-halo" sign which seems to be more nonspecific per radiology read - Clear liquid diet for now and advance as tolerated - This has been going on on for some time with marked weight loss - Had unremarkable gallbladder ultrasound in 2022 so we will check a HIDA scan - Check gastric emptying study to rule out gastroparesis will avoid Reglan for now - May need GI input if these tests are unrevealing Anion gap metabolic acidosis secondary to starvation ketosis - A1c is normal at 4.5 - Was hyperglycemic on presentation however suspect this is stress response - Beta-hydroxybutyrate elevated from starvation ketosis this is not in alignment with DKA - IV fluids with D5 LR - Serial BMPs to ensure improvement - ABG shows mild acidosis with compensation Severe hypokalemia - Replacement initiated in the emergency department with IV potassium due to intractable nausea and vomiting - Will repeat and trend - check magnesium level Hyperglycemia - A1c is under 5 - Suspect stress response - Will remain elevated while she is on dextrose - Will trend with as needed BMPs - No SSI or Accu-Cheks for now Leukocytosis/erythrocytosis - Highly suspect this is related to dehydration - Will recheck in a.m. after IV fluids History of bulimia - Purging type - Patient denies any current issues with this MDD/PTSD/borderline personality disorder - Follows with Dr. Wyatt Montejo from psychiatry - Does not appear to be on any medications currently - Recommend close outpatient follow-up Obesity - BMI 33.4 DVT prophylaxis - Lovenox subcu daily CODE STATUS - Full code Charges/Coding Visit Charges Inpatient E&M: 38857 Subs Hosp L3
[2025-03-03 11:48] LABS: Mucous, Urine 0 SEEN /hpf (<or=2+); Red Blood Cells-Urine 0 SEEN /hpf (0-5)
[2025-03-03 11:52] LABS: Color, Urine Straw (Yellow); Glucose, Dipstick Normal (Normal); Leukocyte Esterase-Dipstick Negative /ul (Negative); Nitrite-Dipstick Negative (Negative); Occult Blood-Urine Negative /ul (Negative); Protein-Dipstick 15 mg/dl (Negative); Specific Gravity, Urine 1.010 (1.002-1.030); Urine Bilirubin Dipstick Negative (Negative)
[2025-03-03 11:56] LABS: Base Excess -14 mmol/L (-2 to +2); PO2 102 mmHG (75-100); SO2 98 % (94-98)
[2025-03-03 11:58] LABS: Magnesium 1.8 mg/dL (1.5-2.2)
[2025-03-03 11:59] LABS: Ketone-Dipstick 150 mg/dl (Negative)
[2025-03-03 12:01] LABS: Squamous Epithelial Cells - UA 0-5 SEEN /hpf (5-10)
--- NOTE | 2025-03-03 12:18 | ED.RN ---
called pharmacy for second bag of K+
[2025-03-03 12:42] LABS: Barbiturate Urine NEGATIVE (< 200 ng/mL); Benzodiazepine Urine NEGATIVE (< 200 ng/mL); PCP Urine NEGATIVE (< 25 ng/mL); THC Urine PRESUMPTIVE POSITIVE (< 50 ng/mL)
--- OUTSIDE RECORDS SUMMARY | 2025-03-03 12:49 | XMS RPT_ITS | CCD ---
Author Organization [facility] Care Team Providers Care Clinical Laboratory Technician Name Role Phone PATRICIA ORELLANA MD Primary [...] Primary Care Unava ilable Marvel Velasquez [facility] Luis Avila Attending Unavailable Care Physician, No [...] Basophil, Absolute 0.0 10 3/mcL Normal 0.0-0.3 [facility] Comment on above: Performed By: #### A DIFF, CBC, ANEU, MDW, GFR, CMP, LIP #### [facility] [address] [place], [place] [address] Basophils/100 WBC (Bld) 0.7 % Normal 0.0-2.5 [facility] Comment on above: Performed By: #### A DIFF, CBC, ANEU, MDW, GFR, CMP, LIP #### [address] [address] Eosinophil, Absolute 0.1 10 3/mcL Normal 0.0-0.7 [facility] Comment on above: Performed By: #### A DIFF, CBC, ANEU, MDW, GFR, CMP, LIP #### [address] [address] Eosinophils/100 WBC (Bld) 1.3 % Normal 0.0-6.0 [facility] Comment on above: Performed By: #### A DIFF, CBC, ANEU, MDW, GFR, CMP, LIP #### [address] [address] Lymphocyte, Absolute 3.0 10 3/mcL Normal 0.9-4.3 [facility] Comment on above: Performed By: #### A DIFF, CBC, ANEU, MDW, GFR, CMP, LIP #### [address] [address] Lymphocytes/100 WBC (Bld) 28.9 % Normal 20.0-40.0 [facility] Comment on above: Performed By: #### A DIFF, CBC, ANEU, MDW, GFR, CMP, LIP #### [address] [address] Monocyte, Absolute 0.9 10 3/mcL Normal 0.1-1.4 [facility] Comment on above: Performed By: #### A DIFF, CBC, ANEU, MDW, GFR, CMP, LIP #### [address] [address] Monocytes/100 WBC (Bld) 9.0 % Normal 2.0-13.0 [facility] Comment on above: Performed By: #### A DIFF, CBC, ANEU, MDW, GFR, CMP, LIP #### [address] [address] Neutrophils/100 WBC (Bld) 59.9 % Normal 50.0-75.0 [facility] Comment on above: Performed By: #### A DIFF, CBC, ANEU, MDW, GFR, CMP, LIP #### [address] [address] .GFRon 09-29-2024 Estimated Glomerular Filtration Rate 101 ml/min/1.73sqm Normal [facility] Comment on above: Result Comment: Stages of [...] CBC, ANEU, MDW, GFR, CMP, LIP #### [address] [address] .MDWon 09-29-2024 Monocyte Distribution Width Not performed Normal 0.00-20.00 [facility] Comment on above: Result Comment: MDW testing unable to be performed on [id number] instrumentation. Performed By: #### A DIFF, CBC, ANEU, MDW, GFR, CMP, LIP #### [address] [address] .NEUABSon 09-29-2024 Neutrophil, Absolute 6.2 10 3/mcL Normal 2.3-8.1 [facility] Comment on above: Performed By: #### A DIFF, CBC, ANEU, MDW, GFR, CMP, LIP #### [address] [address] CBCon 09-29-2024 Erythrocyte distribution width (RBC) [Ratio] 13.7 % Normal 11.5-15.5 [facility] Comment on above: Performed By: #### A DIFF, CBC, ANEU, MDW, GFR, CMP, LIP #### [address] [address] Hematocrit (Bld) [Volume fraction] 49.0 % High 34.0-46.0 [facility] Comment on above: Performed By: #### A DIFF, CBC, ANEU, MDW, GFR, CMP, LIP #### [address] [address] Hgb 17.2 G/dL High 12.0-16.0 [facility] Comment on above: Performed By: #### A DIFF, CBC, ANEU, MDW, GFR, CMP, LIP #### [address] [address] MCH (RBC) [Entitic mass] 27.9 pg Normal 27.0-33.0 [facility] Comment on above: Performed By: #### A DIFF, CBC, ANEU, MDW, GFR, CMP, LIP #### [address] [address] MCHC 35.2 G/dL Normal 32.0-36.0 [facility] Comment on above: Performed By: #### A DIFF, CBC, ANEU, MDW, GFR, CMP, LIP #### [address] [address] MCV (RBC) [Entitic vol] 79.3 fL Low 80.0-99.0 [facility] Comment on above: Performed By: #### A DIFF, CBC, ANEU, MDW, GFR, CMP, LIP #### [address] [address] Platelet 371 10 3/mcL Normal 150-450 [facility] Comment on above: Performed By: #### A DIFF, CBC, ANEU, MDW, GFR, CMP, LIP #### [address] [address] Platelet mean volume (Bld) [Entitic vol] 8.6 fL Normal 6.6-10.5 [facility] Comment on above: Performed By: #### A DIFF, CBC, ANEU, MDW, GFR, CMP, LIP #### [address] [address] RBC 6.18 10 6/mcL High 4.10-5.30 [facility] Comment on above: Performed By: #### A DIFF, CBC, ANEU, MDW, GFR, CMP, LIP #### [address] [address] WBC 10.4 10 3/mcL Normal 4.5-10.8 [facility] Comment on above: Performed By: #### A DIFF, CBC, ANEU, MDW, GFR, CMP, LIP #### [address] [address] CMPon 09-29-2024 Albumin Level 4.3 G/dL Normal 3.5-5.0 [facility] Comment on above: Performed By: #### A DIFF, CBC, ANEU, MDW, GFR, CMP, LIP #### [address] [address] Albumin/Globulin [Mass ratio] 1.0 {ratio} Low 1.1-2.5 [facility] Comment on above: Performed By: #### A DIFF, CBC, ANEU, MDW, GFR, CMP, LIP #### [address] [address] ALP [Catalytic activity/Vol] 85 U/L Normal 40-135 [facility] Comment on above: Performed By: #### A DIFF, CBC, ANEU, MDW, GFR, CMP, LIP #### [address] [address] ALT [Catalytic activity/Vol] 27 U/L Normal 14-59 [facility] Comment on above: Performed By: #### A DIFF, CBC, ANEU, MDW, GFR, CMP, LIP #### [address] [address] AST [Catalytic activity/Vol] 17 U/L Normal 10-40 [facility] Comment on above: Performed By: #### A DIFF, CBC, ANEU, MDW, GFR, CMP, LIP #### [address] [address] Bili Total 0.7 mg/dL Normal 0.2-1.0 [facility] Comment on above: Result Comment: Use of this assay is not recommended for patients undergoing treatment with eltrombopag due to the potential for falsely elevated results. Performed By: #### A DIFF, CBC, ANEU, MDW, GFR, CMP, LIP #### [place] [id number] BUN/Creatinine Ratio 5 ratio Low 7-27 [facility] Comment on above: Performed By: #### A DIFF, CBC, ANEU, MDW, GFR, CMP, LIP #### [place] [id number] Calcium [Mass/Vol] 9.4 mg/dL Normal 8.4-10.2 [facility] Comment on above: Performed By: #### A DIFF, CBC, ANEU, MDW, GFR, CMP, LIP #### [place] [id number] Chloride [Moles/Vol] 99 mmol/L Normal 98-107 [facility] Comment on above: Performed By: #### A DIFF, CBC, ANEU, MDW, GFR, CMP, LIP #### [place] [address] CO2 [Moles/Vol] 17 mmol/L Low 22-29 [facility] Comment on above: Performed By: #### A DIFF, CBC, ANEU, MDW, GFR, CMP, LIP #### [address] [address] Creatinine [Mass/Vol] 0.84 mg/dL Normal 0.51-0.95 [facility] Comment on above: Performed By: #### A DIFF, CBC, ANEU, MDW, GFR, CMP, LIP #### [address] [address] Electrolyte Balance 21.0 mEq/L High 4.0-15.0 [facility] Comment on above: Performed By: #### A DIFF, CBC, ANEU, MDW, GFR, CMP, LIP #### [address] [address] Globulin 4.5 G/dL High 2.7-4.4 [facility] Comment on above: Performed By: #### A DIFF, CBC, ANEU, MDW, GFR, CMP, LIP #### [address] [address] Glucose [Mass/Vol] 89 mg/dL Normal 70-105 [facility] Comment on above: Performed By: #### A DIFF, CBC, ANEU, MDW, GFR, CMP, LIP #### [address] [address] Potassium [Moles/Vol] 3.4 mmol/L Low 3.5-5.1 [facility] Comment on above: Performed By: #### A DIFF, CBC, ANEU, MDW, GFR, CMP, LIP #### [address] [address] Sodium [Moles/Vol] 137 mmol/L Normal 136-145 [facility] Comment on above: Performed By: #### A DIFF, CBC, ANEU, MDW, GFR, CMP, LIP #### [address] [address] Total Protein 8.8 G/dL High 6.4-8.2 [facility] Comment on above: Performed By: #### A DIFF, CBC, ANEU, MDW, GFR, CMP, LIP #### [address] [address] Urea nitrogen [Mass/Vol] 4 mg/dL Low 7-18 [facility] Comment on above: Performed By: #### A DIFF, CBC, ANEU, MDW, GFR, CMP, LIP #### [address] [address] [address] ABD/PELVIS W/ IV CONTRAST ONLYon 09-29-2024 [...] 09/29/2024 2:50:36 AM Ordering Provider: DIANE Tucker [facility] LABORATORYOrdered By: Rosa Momin on 09-29-2024 Amphetamines [...] MDW testing unable to be performed on [id number] instrumentation. LABORATORYOrdered By: SYSTEM SYSTEM on 09-29-2024 [...] 09-29-2024 Lipase Level 37 U/L Normal 16-77 [facility] Comment on above: Performed By: #### A DIFF, CBC, ANEU, MDW, GFR, CMP, LIP #### [address] [address] PREGUon 09-29-2024 HCG ( test) Ql (U) Negative Normal [facility] Comment on above: Performed By: #### U A, UAMIC, PREGU, UDRUG #### [place] [address] test (u) int Not detected Invalid Interpretation Code [facility] Comment on above: Performed By: #### U A, UAMIC, PREGU, UDRUG #### [place] [address] UAon 09-29-2024 Color (U) Yellow Normal [facility] Comment on above: Performed By: #### U A, UAMIC, PREGU, UDRUG #### [place] [address] Glucose (U) [Mass/Vol] Negative Normal Negative [facility] Comment on above: Performed By: #### U A, UAMIC, PREGU, UDRUG #### [place] [address] Ketones Ql (U) >=160 Abnormal Negative [facility] Comment on above: Performed By: #### U A, UAMIC, PREGU, UDRUG #### [place] [address] UA Appear Clear Normal Clear [facility] Comment on above: Performed By: #### U A, UAMIC, PREGU, UDRUG #### [address] [address] UA Bili Moderate Abnormal Negative [facility] Comment on above: Performed By: #### U A, UAMIC, PREGU, UDRUG #### [place] [address] UA Blood Negative Normal Negative [facility] Comment on above: Performed By: #### U A, UAMIC, PREGU, UDRUG #### [address] [address] UA Leuk Est Negative Normal Negative [facility] Comment on above: Performed By: #### U A, UAMIC, PREGU, UDRUG #### [place] [address] UA Nitrite Negative Normal Negative [facility] Comment on above: Performed By: #### U A, UAMIC, PREGU, UDRUG #### [place] [address] UA pH 6.0 Normal 5.0 - 8.0 [facility] Comment on above: Performed By: #### U A, UAMIC, PREGU, UDRUG #### [place] [address] UA Protein 100 mg/dL Abnormal Negative [facility] Comment on above: Performed By: #### U A, UAMIC, PREGU, UDRUG #### [place] [address] UA Spec Grav >=1.030 Abnormal 1.015-1.025 [facility] Comment on above: Performed By: #### U A, UAMIC, PREGU, UDRUG #### [place] [address] UA Specimen Type Void Normal [facility] Comment on above: Performed By: #### U A, UAMIC, PREGU, UDRUG #### [place] [address] UA Urobilinogen 0.2 E.U./dL Normal 0.2-1.0 [facility] Comment on above: Performed By: #### U A, UAMIC, PREGU, UDRUG #### [place] [address] UAMICon 09-29-2024 UA RBC Negative Normal 0-2 [facility] Comment on above: Performed By: #### A DIFF, CBC, ANEU, MDW, GFR, CMP, LIP #### [place] [address] UA Squam Epithelial 3-5 Normal 0-20 [facility] Comment on above: Performed By: #### A DIFF, CBC, ANEU, MDW, GFR, CMP, LIP #### [address] [address] UA WBC 3-5 Normal 0-5 [facility] Comment on above: Performed By: #### A DIFF, CBC, ANEU, MDW, GFR, CMP, LIP #### [place] [address] UDRUGon 09-29-2024 Amphetamine (u) Negative Normal Negative [facility] Comment on above: Performed By: #### A DIFF, CBC, ANEU, MDW, GFR, CMP, LIP #### [place] [address] Barbiturate (u) Negative Normal Negative [facility] Comment on above: Performed By: #### A DIFF, CBC, ANEU, MDW, GFR, CMP, LIP #### [place] [address] Benzodiazepine (u) Negative Normal Negative [facility] Comment on above: Performed By: #### A DIFF, CBC, ANEU, MDW, GFR, CMP, LIP #### [place] [address] Cannabinoid (u) Positive Abnormal Negative [facility] Comment on above: Performed By: #### A DIFF, CBC, ANEU, MDW, GFR, CMP, LIP #### [place] [address] Cocaine Ql (U) Negative Normal Negative [facility] Comment on above: Performed By: #### A DIFF, CBC, ANEU, MDW, GFR, CMP, LIP #### [place] [address] Methadone Ql (U) Negative Normal Negative [facility] Comment on above: Performed By: #### A DIFF, CBC, ANEU, MDW, GFR, CMP, LIP #### [place] [address] Opiate (u) Negative Normal Negative [facility] Comment on above: Performed By: #### A DIFF, CBC, ANEU, MDW, GFR, CMP, LIP #### [address] [address] PCP (u) Negative Normal Negative [facility] Comment on above: Performed By: #### A DIFF, CBC, ANEU, MDW, GFR, CMP, LIP #### [place] [id number] Urine Drugs screened: See Below Normal [facility] Comment on above: Result Comment: This drug [...] CBC, ANEU, MDW, GFR, CMP, LIP #### [place] [id number] MR/BMS.BPon 08-17-2024 MR/[place] [address] OFFICE VISIT Date of Service: 08/17/24 MR#: [id number] Acct: [id number] Name: EVA MONTES Rep #: [id number] : 2005 Provider: Dr. Wyatt Izquierdo se, DO Age/Sex: 19/F Location: [facility].BPV Status: Signed Intake Vital Signs 07/19/24 14:40 08/17/24 15:08 Height 4 ft 11 in 4 ft 11 in BP Intake Visit Reasons: 1mfu Allergies No Known Allergies Allergy (Verified 06/21/24 15:21) [facility] History (Updated 06/21/24 @ 15:53 by [...] this. Did recently take a trip to [facility] with her friend and her boyfriend. Sleep schedule is currently "messed up." Attributes this to not having day program. Going to bed around 7 am until 3 pm. Patient has applied for social security disability. manager ethics, Grazyna, has been helping her with obtaining [...] regular volume and regular prosody Mood depressed ("Brvi-akw-vixs") Affect full range Thought Process linear and [...] is l (more content not included)... Normal [facility] MR/BMS.BPon 07-19-2024 MR/BMS.BP [address], [address] [place] [address] OFFICE VISIT Date of Service: 07/19/24 MR#: [id number] Acct: [id number] Name: EVA MONTES Rep #: [id number] : 2005 Provider: Dr. Wyatt Izquierdo se, DO Age/Sex: 19/F Location: [facility].BPV Status: Signed with Addenda ADDENDUM by Dr. [...] a lot of time with her friend Sophia, who is essentially a mother figure to [...] No Known Allergies Allergy (Verified 06/21/24 15:21) [facility] Medical History (Updated 06/21/24 @ 15:53 by [...] evaluation via virtual visit. Presents today with cyanide case hardener Grazyna. Admits to having recent plan with [...] and down (more content not included)... Normal [facility] MR/on 06-21-2024 MR/AGATA. [facility] [address], [address] [place] [id number] OFFICE VISIT Date of Service: 06/21/24 MR#: [id number] Acct: [id number] Name: EVA MONTES Rep #: [id number] : 2005 Provider: Dr. Wyatt Izquierdo se, DO Age/Sex: 18/F Location: [facility].BP Status: Signed Intake Vital Signs 04/11/24 15:55 06/21/24 15:18 Height 4 ft 11 in 4 ft 11 in Weight: 208 lb BMI 42.0 BP 132/79 H Blood Pressure Location Lt brachial Position Sitting Respiration 16 Pulse 86 Pulse Source Monitor BP Intake Visit Reasons: follow up Accompanied by: [employer] Allergies No Known Allergies Allergy (Verified 06/21/24 [...] for follow up evaluation. Presents today with cyanide case hardener Grazyna. Admits to having recent plan with [...] add prazo (more content not included)... Normal [facility] MR/BMS.BPon 04-11-2024 MR/BMS.BP [facility] [address], [address] [place] [address] OFFICE VISIT Date of Service: 04/11/24 MR#: [id number] Acct: [id number] Name: EVA MONTES Rep #: [id number] : 2005 Provider: Dr. Wyatt Izquierdo se, DO Age/Sex: 18/F Location: [facility].BPV Status: Signed Intake Vital Signs 03/09/24 17:12 04/11/24 15:55 Height 4 ft 11 in 4 ft 11 in BP Intake Visit Reasons: f/u Allergies No Known Allergies Allergy (Verified 03/09/24 17:17) [facility] Medical History MDD (major depressive disorder) Bulimia [...] depressive disor (more content not included)... Normal [facility] Alcohol, Blood (Medical)-Ser umon 03-09-2024 SERUM ETOH < 3.[address] [facility] Comment on above: Result Comment: The serum:whole blood ethanol ratio is approximately 1.14 and varies slightly with hematocrit. Medical Alcohol reference interval and critical value in non-tolerant individuals; 50 - 100 Impairment 100 Intoxication 100 - 250 Severe Poisoning 250 - 400 Deep/possible fatal coma Performed By: #### L 500.2500, L501.9100, L505.5000, L100.0100, L700.6800 ####[facility] [address] [place], [address] Basic Metabolic Profile (BMP )on 03-09-2024 BUN/CRE 12.0 RATIO Normal 10-[address] [facility] Comment on above: Performed By: #### L 500.2500, L501.9100, L505.5000, L100.0100, L700.6800 #### [facility] [address] [place], [address] CA,Total 9.3 mg/dL Normal 8.5-10.[address] [facility] Comment on above: Performed By: #### L 500.2500, L501.9100, L505.5000, L100.0100, L700.6800 #### [facility] [address] [place], [address] Chloride [Moles/Vol] 109 mmol/L High 98-107 [facility] Comment on above: Performed By: #### L 500.2500, L501.9100, L505.5000, L100.0100, L700.6800 #### [facility] [address] [place], [address] CO2 [Moles/Vol] 20.0 mmol/L Low 21.0-32.[address] [facility] Comment on above: Performed By: #### L 500.2500, L501.9100, L505.5000, L100.0100, L700.6800 #### [facility] [address] [place], [address] Creatinine [Mass/Vol] 0.91 mg/dL Normal 0.55-1.[address] [facility] Comment on above: Result Comment: The validity of the calculated GFR GFRAA in patients over 70 years has not been determined. Clinical correlation is essential. Performed By: #### L 500.2500, L501.9100, L505.5000, L100.0100, L700.6800 #### [facility] [address] [place], [address] ECRCL 104.83 ml/min Normal [facility] Comment on above: Performed By: #### L 500.2500, L501.9100, L505.5000, L100.0100, L700.6800 #### [facility] [address] [place], [address] EST GFR - AA 100 mL/min Normal >[address] [facility] Comment on above: Result Comment: Afri can [place] GFR Calc Performed By: #### L 500.2500, L501.9100, L505.5000, L100.0100, L700.6800 #### [facility] [address] [place], [place], [facility] GAP 10 Normal 5-[address] [facility] Comment on above: Performed By: #### L 500.2500, L501.9100, L505.5000, L100.0100, L700.6800 #### [facility] [address] [place], [address] GFR/1.73 sq M.predicted among non-blacks MDRD (S/P/Bld) [Vol rate/Area] 83 mL/min/{1.73_m2} Normal >[address] [facility] Comment on above: Result Comment: Non- GFR Calc Performed By: #### L 500.2500, L501.9100, L505.5000, L100.0100, L700.6800 #### [facility] [address] [place], [address] Glucose [Mass/Vol] 93 mg/dL Normal 74-106 [facility] Comment on above: Performed By: #### L 500.2500, L501.9100, L505.5000, L100.0100, L700.6800 #### [facility] [address] [place], [address] Potassium [Moles/Vol] 3.2 mmol/L Low 3.5-5.[address] [facility] Comment on above: Performed By: #### L 500.2500, L501.9100, L505.5000, L100.0100, L700.6800 #### [facility] [address] [place], [address] Sodium [Moles/Vol] 139 mmol/L Normal 136-145 [facility] Comment on above: Performed By: #### L 500.2500, L501.9100, L505.5000, L100.0100, L700.6800 #### [facility] [address] [place], [address] Urea nitrogen [Mass/Vol] 11 mg/dL Normal 7-[address] [facility] Comment on above: Performed By: #### L 500.2500, L501.9100, L505.5000, L100.0100, L700.6800 #### [facility] [address] [place], [address] CBC W/Diff, Automatedon 02-26 Absolute Lymph 1.46 X10 3/uL Normal 0.83-4.[address] [facility] Comment on above: Performed By: #### L 500.2500, L501.9100, L505.5000, L100.0100, L700.6800 ####[facility] [address] [place], [address] Absolute Neut 15.1 X10 3/uL High 2.0-7.[address] [facility] Comment on above: Performed By: #### L 500.2500, L501.9100, L505.5000, L100.0100, L700.6800 ####[facility] [address] [place], [address] Basophils/100 WBC (Bld) 0.3 % Normal 0-[address] [facility] Comment on above: Performed By: #### L 500.2500, L501.9100, L505.5000, L100.0100, L700.6800 ####[facility] [address] [place], [address] Eosinophils/100 WBC (Bld) 0.2 % Normal 0-[address] [facility] Comment on above: Performed By: #### L 500.2500, L501.9100, L505.5000, L100.0100, L700.6800 ####[facility] [address] [place], [address] Erythrocyte distribution width (RBC) [Ratio] 12.8 % Normal 11.6-14.[address] [facility] Comment on above: Performed By: #### L 500.2500, L501.9100, L505.5000, L100.0100, L700.6800 ####[facility] [address] [place], [address] Hematocrit (Bld) [Volume fraction] 45.3 % Normal 37-[address] [facility] Comment on above: Performed By: #### L 500.2500, L501.9100, L505.5000, L100.0100, L700.6800 ####[facility] [address] [place], [address] Hemoglobin (Bld) [Mass/Vol] 14.6 g/dL Normal 12.0-15.[address] [facility] Comment on above: Performed By: #### L 500.2500, L501.9100, L505.5000, L100.0100, L700.6800 ####[facility] [address] [place], [address] IG% 0.600 Normal 0.0-0.[address] [facility] Comment on above: Result Comment: IG% - Immature Granulocytes (promyelocytes, myelocytes and metamyelocytes) > 1% indicates that a LEFT SHIFT is Present. Performed By: #### L 500.2500, L501.9100, L505.5000, L100.0100, L700.6800 ####[facility] [address] [place], [address] Lymphocytes/100 WBC (Bld) 8.3 % Low 19-[address] [facility] Comment on above: Performed By: #### L 500.2500, L501.9100, L505.5000, L100.0100, L700.6800 ####[facility] [address] [place], [address] MCH (RBC) [Entitic mass] 27.8 pg Normal 27.0-32.[address] [facility] Comment on above: Performed By: #### L 500.2500, L501.9100, L505.5000, L100.0100, L700.6800 ####[facility] [address] [place], [address] MCHC (RBC) [Mass/Vol] 32.2 g/dL Normal 32-[address] [facility] Comment on above: Performed By: #### L 500.2500, L501.9100, L505.5000, L100.0100, L700.6800 ####[facility] [address] [place], [address] MCV (RBC) [Entitic vol] 86.1 fL Normal 81-[address] [facility] Comment on above: Performed By: #### L 500.2500, L501.9100, L505.5000, L100.0100, L700.6800 ####[facility] [address] [place], [address] Monocytes/100 WBC (Bld) 4.5 % Normal 0-[address] [facility] Comment on above: Performed By: #### L 500.2500, L501.9100, L505.5000, L100.0100, L700.6800 ####[facility] [address] [place], [address] Neutrophils/100 WBC (Bld) 86.1 % High 47-[address] [facility] Comment on above: Performed By: #### L 500.2500, L501.9100, L505.5000, L100.0100, L700.6800 ####[facility] [address] [place], [address] Nucleated RBC (Bld) [#/Vol] 0 10*3/uL Normal 0-[address] [facility] Comment on above: Performed By: #### L 500.2500, L501.9100, L505.5000, L100.0100, L700.6800 ####[facility] [address] [place], [address] Platelet mean volume (Bld) [Entitic vol] 10.0 fL Normal 6.2-12.[address] [facility] Comment on above: Performed By: #### L 500.2500, L501.9100, L505.5000, L100.0100, L700.6800 ####[facility] [address] [place], [address] Platelets (Bld) [#/Vol] 318 10*3/uL Normal 150-[address] [facility] Comment on above: Performed By: #### L 500.2500, L501.9100, L505.5000, L100.0100, L700.6800 ####[facility] [address] [place], [address] RBC (Bld) [#/Vol] 5.26 10*6/uL Normal 4.2-5.4 [facility] Comment on above: Performed By: #### L 500.2500, L501.9100, L505.5000, L100.0100, L700.6800 ####[facility] [address] [place], [address] RDW SD 39.9 fl Normal 35.1-43.[address] [facility] Comment on above: Performed By: #### L 500.2500, L501.9100, L505.5000, L100.0100, L700.6800 ####[facility] [address] [place], [address] WBC (Bld) [#/Vol] 17.5 10*3/uL High 4.4-11.0 [facility] Comment on above: Performed By: #### L 500.2500, L501.9100, L505.5000, L100.0100, L700.6800 ####[facility] [address], [address] Emergency Department Summary on 03-09-2024 Emergency Department Summary [facility] Medical Records Department [address] [place] [address] Emergency Department Summary 03/09/24 MR#: [id number] Acct: [id number] Name: EVA MONTES Rep #: [id number] : 2005 18 From: Maria Guadalupe PARADA [...] borderline personality disorder. Her tetanus is up-to-date. [facility] Medical History MDD (major depressive disorder) Bulimia [...] feeling suicidal (more content not included)... Normal [facility] ,Serum,hCG Quali.on 03-09-2024 HCG, SERUM QUAL Negative Normal [facility] Comment on above: Performed By: #### L 500.2500, L501.9100, L505.5000, L100.0100, L700.6800 ####[facility] [address] [place], [address] Urinalysis, Completeon 03-09 BACTERIA 1+ /hpf Normal None Seen [facility] Comment on above: Order Comment: CLEAN CATCH Performed By: #### L 400.0001 #### [facility] Laboratory [address] [place], [address] EPI,SQUAMOUS 5-10 SEEN Normal 5-[address] [facility] Comment on above: Order Comment: CLEAN CATCH Performed By: #### L 400.0001 #### [facility] Laboratory [address] [place], [address] EPI,TRANSITION 0-5 SEEN Normal 0-[address] [facility] Comment on above: Order Comment: CLEAN CATCH Performed By: #### L 400.0001 #### [facility] Laboratory [address] [place], [address] RBC 0-5 SEEN Normal 0-[address] [facility] Comment on above: Order Comment: CLEAN CATCH Performed By: #### L 400.0001 #### [facility] Laboratory [address] [place], [address] Mucus Ql (Urine sed) 0 SEEN Normal [facility] Comment on above: Order Comment: CLEAN CATCH Performed By: #### L 400.0001 #### [facility] [address] [place], [address] WBC 0 SEEN Normal 0-[address] [facility] Comment on above: Order Comment: CLEAN CATCH Performed By: #### L 400.0001 #### [facility] Laboratory [address] [place], [address] Urine Drug Screen (VISTA)on 03-09-2024 AMPHETAMINES Negative Normal <1000 ng/mL [facility] Comment on above: Performed By: #### L 500.2500, L501.9100, L505.5000, L100.0100, L700.6800 #### [facility] Laboratory [address] [place], [address] BARBITIURATES Negative Normal < 200 ng/mL [facility] Comment on above: Performed By: #### L 500.2500, L501.9100, L505.5000, L100.0100, L700.6800 #### [facility] Laboratory [address] [place], [address] BENZODIAZIPINE Negative Normal < 200 ng/mL [facility] Comment on above: Performed By: #### L 500.2500, L501.9100, L505.5000, L100.0100, L700.6800 #### [facility] Laboratory [address] [place], [facility] COCAINE Negative Normal < 300 ng/mL [facility] Comment on above: Performed By: #### L 500.2500, L501.9100, L505.5000, L100.0100, L700.6800 #### [facility] Laboratory [address] [place], [facility] ECSTACY Negative Normal < 500 ng/mL [facility] Comment on above: Performed By: #### L 500.2500, L501.9100, L505.5000, L100.0100, L700.6800 #### [facility] [address] [place], [facility] METHADONE Negative Normal < 300 ng/mL [facility] Comment on above: Performed By: #### L 500.2500, L501.9100, L505.5000, L100.0100, L700.6800 #### [facility] [address] [place], [facility] OPIATES Negative Normal < 300 ng/mL [facility] Comment on above: Performed By: #### L 500.2500, L501.9100, L505.5000, L100.0100, L700.6800 #### [facility] [address] [place], [facility] PCP Negative Normal < 25 ng/mL [facility] Comment on above: Performed By: #### L 500.2500, L501.9100, L505.5000, L100.0100, L700.6800 #### [facility] [address] [place], [address] THC Positive Abnormal < 50 ng/mL [facility] Comment on above: Performed By: #### L 500.2500, L501.9100, L505.5000, L100.0100, L700.6800 #### [facility] Laboratory [address] [place], [address] VISTA UDS PH [address] [facility] Comment on above: Performed By: #### L 500.2500, L501.9100, L505.5000, L100.0100, L700.6800 #### [facility] Laboratory [address] [place], [address] MR/BMS.BPon 03-02-2024 MR/BMS.[address], [address] [place], [place] [address] OFFICE VISIT Date of Service: 03/02/24 MR#: [id number] Acct: [id number] Name: VEA MONTES Rep #: [id number] : 2005 Provider: Dr. Wyatt Izquierdo se, DO Age/Sex: 18/F Location: [facility].BP Status: Signed Intake Vital Signs 02/03/24 12:38 [...] worse. She spent essentially 3 days at [facility], but did not feel like she needed to be there. [facility]. She states that [...] personality disorder: (more content not included)... Normal [facility] Alcohol, Blood (Medical)-Ser umon 02-03-2024 SERUM ETOH < 3.[address] [facility] Comment on above: Result Comment: The serum:whole blood ethanol ratio is approximately 1.14 and varies slightly with hematocrit. Medical Alcohol reference interval and critical value in non-tolerant individuals; 50 - 100 Impairment 100 Intoxication 100 - 250 Severe Poisoning 250 - 400 Deep/possible fatal coma Performed By: #### L 500.2500, L700.6800, L505.5000, L501.9100, L100.0100 #### [facility] Laboratory [address] [place], [address] Basic Metabolic Profile (BMP )on 02-03-2024 BUN/CRE 8.1 RATIO Low 10-[address] [facility] Comment on above: Performed By: #### L 500.2500, L700.6800, L505.5000, L501.9100, L100.0100 #### [facility] [address] [place], [address] CA,Total 9.3 mg/dL Normal 8.5-10.[address] [facility] Comment on above: Performed By: #### L 500.2500, L700.6800, L505.5000, L501.9100, L100.0100 #### [facility] [address] [place], [address] Chloride [Moles/Vol] 109 mmol/L High 98-107 [facility] Comment on above: Performed By: #### L 500.2500, L700.6800, L505.5000, L501.9100, L100.0100 #### [facility] [address] [place], [address] CO2 [Moles/Vol] 20.0 mmol/L Low 21.0-32.[address] [facility] Comment on above: Performed By: #### L 500.2500, L700.6800, L505.5000, L501.9100, L100.0100 #### [facility] [address] [place], [address] Creatinine [Mass/Vol] 0.86 mg/dL Normal 0.55-1.[address] [facility] Comment on above: Result Comment: The validity of the calculated GFR GFRAA in patients over 70 years has not been determined. Clinical correlation is essential. Performed By: #### L 500.2500, L700.6800, L505.5000, L501.9100, L100.0100 #### [facility] [address] [place], [address] ECRCL 105.66 ml/min Normal [facility] Comment on above: Performed By: #### L 500.2500, L700.6800, L505.5000, L501.9100, L100.0100 #### [facility] [address] [place], [address] EST GFR - AA 107 mL/min Normal >[address] [facility] Comment on above: Result Comment: Afri can [place] GFR Calc Performed By: #### L 500.2500, L700.6800, L505.5000, L501.9100, L100.0100 #### [facility] [address] [place], [address] GAP 8 Normal 5-[address] [facility] Comment on above: Performed By: #### L 500.2500, L700.6800, L505.5000, L501.9100, L100.0100 #### [facility] Laboratory [address] [place], [address] GFR/1.73 sq M.predicted among non-blacks MDRD (S/P/Bld) [Vol rate/Area] 88 mL/min/{1.73_m2} Normal >[address] [facility] Comment on above: Result Comment: Non- GFR Calc Performed By: #### L 500.2500, L700.6800, L505.5000, L501.9100, L100.0100 #### [facility] [address] [place], [address] Glucose [Mass/Vol] 109 mg/dL High 74-106 [facility] Comment on above: Result Comment: Fast ing Glucose result from 100 to 125 mg/dL suggests IMPAIRED HOMEOSTASIS per A.D.A. criteria. Performed By: #### L 500.2500, L700.6800, L505.5000, L501.9100, L100.0100 #### [facility] [address] [place], [address] Potassium [Moles/Vol] 3.4 mmol/L Low 3.5-5.[address] [facility] Comment on above: Performed By: #### L 500.2500, L700.6800, L505.5000, L501.9100, L100.0100 #### [facility] [address] [place], [address] Sodium [Moles/Vol] 137 mmol/L Normal 136-145 [facility] Comment on above: Performed By: #### L 500.2500, L700.6800, L505.5000, L501.9100, L100.0100 #### [facility] [address] [place], [address] Urea nitrogen [Mass/Vol] 7 mg/dL Normal 7-[address] [facility] Comment on above: Performed By: #### L 500.2500, L700.6800, L505.5000, L501.9100, L100.0100 #### [facility] [address] [place], [address] CBC W/Diff, Automatedon 11-0 7-2023 Absolute Lymph 2.79 X10 3/uL Normal 0.83-4.[address] [facility] Comment on above: Performed By: #### L 500.2500, L700.6800, L505.5000, L501.9100, L100.0100 #### [facility] [address] [place], [address] Absolute Neut 11.0 X10 3/uL High 2.0-7.[address] [facility] Comment on above: Performed By: #### L 500.2500, L700.6800, L505.5000, L501.9100, L100.0100 #### [facility] [address] [place], [address] Basophils/100 WBC (Bld) 0.3 % Normal 0-[address] [facility] Comment on above: Performed By: #### L 500.2500, L700.6800, L505.5000, L501.9100, L100.0100 #### [facility] [address] [place], [address] Eosinophils/100 WBC (Bld) 0.3 % Normal 0-[address] [facility] Comment on above: Performed By: #### L 500.2500, L700.6800, L505.5000, L501.9100, L100.0100 #### [facility] [address] [place], [address] Erythrocyte distribution width (RBC) [Ratio] 13.2 % Normal 11.6-14.[address] [facility] Comment on above: Performed By: #### L 500.2500, L700.6800, L505.5000, L501.9100, L100.0100 #### [facility] [address] [place], [address] Hematocrit (Bld) [Volume fraction] 45.4 % Normal 37-[address] [facility] Comment on above: Performed By: #### L 500.2500, L700.6800, L505.5000, L501.9100, L100.0100 #### [facility] [address] [place], [address] Hemoglobin (Bld) [Mass/Vol] 15.1 g/dL High 12.0-15.[address] [facility] Comment on above: Performed By: #### L 500.2500, L700.6800, L505.5000, L501.9100, L100.0100 #### [facility] [address] [place], [address] IG% 0.500 Normal 0.0-0.[address] [facility] Comment on above: Result Comment: IG% - Immature Granulocytes (promyelocytes, myelocytes and metamyelocytes) > 1% indicates that a LEFT SHIFT is Present. Performed By: #### L 500.2500, L700.6800, L505.5000, L501.9100, L100.0100 #### [facility] [address] [place], [address] Lymphocytes/100 WBC (Bld) 19.0 % Normal 19-[address] [facility] Comment on above: Performed By: #### L 500.2500, L700.6800, L505.5000, L501.9100, L100.0100 #### [facility] [address] [place], [address] MCH (RBC) [Entitic mass] 27.8 pg Normal 27.0-32.[address] [facility] Comment on above: Performed By: #### L 500.2500, L700.6800, L505.5000, L501.9100, L100.0100 #### [facility] [address] [place], [address] MCHC (RBC) [Mass/Vol] 33.3 g/dL Normal 32-[address] [facility] Comment on above: Performed By: #### L 500.2500, L700.6800, L505.5000, L501.9100, L100.0100 #### [facility] [address] [place], [address] MCV (RBC) [Entitic vol] 83.6 fL Normal 81-[address] [facility] Comment on above: Performed By: #### L 500.2500, L700.6800, L505.5000, L501.9100, L100.0100 #### [facility] [address] [place], [address] Monocytes/100 WBC (Bld) 5.0 % Normal 0-[address] [facility] Comment on above: Performed By: #### L 500.2500, L700.6800, L505.5000, L501.9100, L100.0100 #### [facility] [address] [place], [address] Neutrophils/100 WBC (Bld) 74.9 % High 47-[address] [facility] Comment on above: Performed By: #### L 500.2500, L700.6800, L505.5000, L501.9100, L100.0100 #### [facility] [address] [place], [address] Nucleated RBC (Bld) [#/Vol] 0 10*3/uL Normal 0-[address] [facility] Comment on above: Performed By: #### L 500.2500, L700.6800, L505.5000, L501.9100, L100.0100 #### [facility] [address] [place], [address] Platelet mean volume (Bld) [Entitic vol] 9.6 fL Normal 6.2-12.[address] [facility] Comment on above: Performed By: #### L 500.2500, L700.6800, L505.5000, L501.9100, L100.0100 #### [facility] [address] [place], [address] Platelets (Bld) [#/Vol] 399 10*3/uL Normal 150-[address] [facility] Comment on above: Performed By: #### L 500.2500, L700.6800, L505.5000, L501.9100, L100.0100 #### [facility] [address] [place], [address] RBC (Bld) [#/Vol] 5.43 10*6/uL High 4.2-5.4 [facility] Comment on above: Performed By: #### L 500.2500, L700.6800, L505.5000, L501.9100, L100.0100 #### [facility] [address] [place], [address] RDW SD 40.6 fl Normal 35.1-43.[address] [facility] Comment on above: Performed By: #### L 500.2500, L700.6800, L505.5000, L501.9100, L100.0100 #### [facility] [address] [place], [address] WBC (Bld) [#/Vol] 14.7 10*3/uL High 4.4-11.0 [facility] Comment on above: Performed By: #### L 500.2500, L700.6800, L505.5000, L501.9100, L100.0100 #### [facility] [address] [place], [address] Emergency Department Summary on 02-03-2024 Emergency Department Summary [facility] Medical Records Department [address] [place] [address] Emergency Department Summary 02/03/24 MR#: [id number] Acct: [id number] Name: EVA MONTES Rep #: [id number] : 2005 18 From: Luis Avila DO PCP: Care Physician,No Primary Status:REG ER Location: ED HPI HPI - Psych History of Present Illness Chief Complaint: Mental Health [facility] Medical History (Updated 11/30/23 @ 13:50 by [...] auditory visualizations. Denies any drug use. Per police commissioner patient failed her care plan. Per police commissioner patient had been overwhelmed by "triggering" events. [...] good approximation. Medical clearance labs were obtained. [place] slip signed/. Awaiting medical clearance. Signed out [...] removal. Delores (more content not included)... Normal [facility] ,Serum,hCG Quali.on 02-03-2024 HCG, SERUM QUAL Negative Normal [facility] Comment on above: Performed By: #### L 500.2500, L700.6800, L505.5000, L501.9100, L100.0100 #### [facility] Laboratory [address] [place] [address] Urine Drug Screen (VISTA)on 02-03-2024 AMPHETAMINES Negative Normal <1000 ng/mL [facility] Comment on above: Performed By: #### L 500.2500, L700.6800, L505.5000, L501.9100, L100.0100 #### [facility] Laboratory [address] [place], [facility] BARBITIURATES Negative Normal < 200 ng/mL [facility] Comment on above: Performed By: #### L 500.2500, L700.6800, L505.5000, L501.9100, L100.0100 #### [facility] Laboratory [address] [place], [facility] BENZODIAZIPINE Negative Normal < 200 ng/mL [facility] Comment on above: Performed By: #### L 500.2500, L700.6800, L505.5000, L501.9100, L100.0100 #### [facility] Laboratory [address] [place] [id number] COCAINE Negative Normal < 300 ng/mL [facility] Comment on above: Performed By: #### L 500.2500, L700.6800, L505.5000, L501.9100, L100.0100 #### [facility] Laboratory [address] [place], [address] ECSTACY Negative Normal < 500 ng/mL [facility] Comment on above: Performed By: #### L 500.2500, L700.6800, L505.5000, L501.9100, L100.0100 #### [facility] Laboratory [address] [place], [facility] METHADONE Negative Normal < 300 ng/mL [facility] Comment on above: Performed By: #### L 500.2500, L700.6800, L505.5000, L501.9100, L100.0100 #### [facility] [address] [place], [facility] OPIATES Negative Normal < 300 ng/mL [facility] Comment on above: Performed By: #### L 500.2500, L700.6800, L505.5000, L501.9100, L100.0100 #### [facility] [address] [place], [facility] PCP Negative Normal < 25 ng/mL [facility] Comment on above: Performed By: #### L 500.2500, L700.6800, L505.5000, L501.9100, L100.0100 #### [facility] [address] [place], [facility] THC Positive Abnormal < 50 ng/mL [facility] Comment on above: Performed By: #### L 500.2500, L700.6800, L505.5000, L501.9100, L100.0100 #### [facility] [address] [place], [facility] VISTA UDS PH [address] [facility] Comment on above: Performed By: #### L 500.2500, L700.6800, L505.5000, L501.9100, L100.0100 #### [facility] [place], [address] MR/BMS.BPon 02-01-2024 MR/BMS.BP [facility] [address], [address] [place] [address] OFFICE VISIT Date of Service: 02/01/24 MR#: [id number] Acct: [id number] Name: EVA MONTES Rep #: [id number] : 2005 Provider: Dr. Wyatt Izquierdo se, DO Age/Sex: 18/F Location: [facility].BPV Status: Signed Intake Vital Signs 11/30/23 13:27 02/01/24 13:43 Height 4 ft 11 in 4 ft 11 in BP 125/84 H Blood Pressure Location Rt brachial Position Sitting Respiration 20 H Pulse 82 Pulse Source Monitor Pulse Oximetry (%) 98 Oxygen Delivery Method room air BP Intake Visit Reasons: follow up Allergies No Known Allergies Allergy (Verified 11/30/23 13:32) [facility] Medical History (Updated 11/30/23 @ 13:50 by [...] change she will be going to a intermediate which Eva found out was just a "scare tactic." Has been going to day program through the counseling center. Discovered that anytime she was getting a phone call she was worried that she would lose her housing because of this clinical case manager. Has been assigned a new clinical case manager and it has been somewhat of an adjustment. Describes her mood as "horrible." Does have the occasional good day but also has a lot of bad days. Does have times where she has poor motivation or others where she is irritable. No longer has a nursing care attendant whom she was very close with before. Her nursing care attendant resigned without her knowing and she got a call out of blue [facility] She will not be getting another nursing care attendant at this time. She has been somewhat [...] be ef (more content not included)... Normal [facility] MR/BMS.BPon 11-30-2023 MR/BMS.BP [facility] [address], [address] [place] [address] OFFICE VISIT Date of Service: 11/30/23 MR#: [id number] Acct: [id number] Name: EVA MONTES Rep #: [id number] : 2005 Provider: Dr. Wyatt Izquierdo se, DO Age/Sex: 18/F Location: [facility].BP Status: Signed Intake Vital Signs 08/28/23 16:49 11/30/23 13:27 Height 4 ft 11 in 4 ft 11 in BP 125/84 H Blood Pressure Location Rt brachial Position Sitting Respiration 20 H Pulse 82 Pulse Source Monitor Pulse Oximetry (%) 98 Oxygen Delivery Method room air BP Intake Visit Reasons: follow up [employer] Required: No Accompanied by: Self Is patient in pain?: No Allergies No Known Allergies Allergy (Verified 11/30/23 13:32) Medications ???Medication ???Instructions ???Recorded ???Confirmed ???Type escitalopram oxalate 5 mg tablet 5 mg PO QDAY #30 tabs 11/30/23 11/30/23 Rx mirabegron 50 mg tablet,extended 50 mg PO QDAY 11/30/23 11/30/23 History release 24 hr (Myrbetriq) [facility] Medical History (Updated 11/30/23 @ 13:50 by [...] months. Since last appointment was admitted to [facility] after attempted suicide by cutting of her [...] There was discussion of going to a intermediate per self report. Feels like she invalidates [...] Content no (more content not included)... Normal [facility] Basophil percentageon 2021 Basophil percentage 0-5 SEEN /hpf 0-5 [facility] Work Phone: Bilirubin Test strip Ql (U)o n 03-24-2022 Bilirubin Ql (U) Negative Negative [facility] Work Phone: Ketones Test strip Ql (U)on 03-24-2022 Ketones Ql (U) 50 mg/dl Negative [facility] Work Phone: Mucus LM Ql (Urine sed)on Mucus Ql (Urine sed) 0 SEEN /hpf [facility] Work Phone: Nitrite Test strip Ql (U)on 03-24-2022 Nitrite Ql (U) Negative Negative [facility] Work Phone: Protein Test strip Ql (U)on 03-24-2022 Protein Ql (U) Negative Negative [facility] Work Phone: Squamous epithelial cells de tection in urine sediment by light microscopyon 03-24-2022 Epithelial cells.squamous LM Ql (Urine sed) 0-5 SEEN /hpf 5-[address] [facility] Work Phone: Urine blood detectionon 02-27 RBC Ql (U) 150 /ul Negative [facility] Work Phone: RBC Ql (U) 10-25 SEEN /hpf 0-[address] [facility] Work Phone: Urine clarityon 03-24-2022 Clarity (U) Sl. Cloudy Clear [facility] Work Phone: Urine color determinationon 03-24-2022 Color (U) Yellow Yellow [facility] Work Phone: Urine glucose detectionon Glucose Ql (U) Normal mg/dl Normal [facility] Work Phone: Urine leukocyte esterase det ection by dipstickon 03-24-2022 Leukocyte esterase Test strip Ql (U) 25 /ul Negative [facility] Work Phone: Urine pHon 03-24-2022 pH (U) 5.0 [pH] 5.0 - 8.[address] [facility] Work Phone: Urine sediment bacteria coun t by microscopy (number/high power field)on 03-24-2022 Bacteria LM.HPF (Urine sed) [#/Area] 1 /[HPF] None Seen [facility] Work Phone: Urine specific gravity measu rementon 03-24-2022 Specific gravity (U) [Rel density] 1.015 1.002-1.[address] [facility] Work Phone: Urobilinogen Auto test strip Ql (U)on 03-24-2022 Urobilinogen Ql (U) Normal mg/dl Normal [facility] Work Phone: Absolute lymphocyte counton 03-23-2022 Lymphocytes Auto (Unsp spec) [#/Vol] 1.80 10*3/uL 0.83-4.[address] [facility] Work Phone: Basophil percentageon 2021 Basophils/100 WBC (Bld) 0.3 % 0-[address] [facility] Work Phone: Chloride [Moles/Vol] 107 mmol/L 98-107 [facility] Work Phone: Eosinophils/100 WBC (Bld) 0.1 % 0-[address] [facility] Work Phone: Glucose [Mass/Vol] 88 mg/dL 74-106 [facility] Work Phone: Neutrophils (Bld) [#/Vol] 11.5 10*3/uL 2.0-7.[address] [facility] Work Phone: [phone] Neutrophils/100 WBC (Bld) 80.8 % 34-[address] [facility] Work Phone: [phone] Potassium [Moles/Vol] 3.2 mmol/L 3.5-5.[address] [facility] Work Phone: [phone] Sodium [Moles/Vol] 139 mmol/L 136-145 [facility] Work Phone: [phone] WBC (Bld) [#/Vol] 14.2 10*3/uL 4.5-13.0 [facility] Work Phone: [phone] Beta hCG serum qualon 2021 Beta HCG ( test) Ql Negative [facility] Work Phone: [phone] Blood erythrocytes count (nu mber/volume)on 03-23-2022 RBC (Bld) [#/Vol] 4.99 10*6/uL 4.1-4.8 [facility] Work Phone: [phone] Blood hemoglobin measurement (mass/volume)on 03-23-2022 Hemoglobin (Bld) [Mass/Vol] 13.5 g/dL 12.0-15.[address] [facility] Work Phone: [phone] Blood lymphocytes/100 leukoc yteson 03-23-2022 Lymphocytes/100 WBC (Bld) 12.7 % 25-[address] [facility] Work Phone: [phone] Blood monocytes/100 leukocyt eson 03-23-2022 Monocytes/100 WBC (Bld) 5.6 % 3-[address] [facility] Work Phone: Blood platelet mean volumeon 03-23-2022 Platelet mean volume (Bld) [Entitic vol] 10.4 fL 6.2-12.[address] [facility] Work Phone: Determination of erythrocyte mean corpuscular volume (MCV)on 03-23-2022 MCV (RBC) [Entitic vol] 85.4 fL 78-[address] [facility] Work Phone: [phone] Hematocrit Auto (Bld) [Volum e fraction]on 03-23-2022 Hematocrit (Bld) [Volume fraction] 42.6 % 37-[address] [facility] Work Phone: [phone] Laboratory - Chemistry and C hemistry - challengeon 03-23-2022 CO2 [Moles/Vol] 20.0 mmol/L 21.0-32.[address] [facility] Work Phone: [phone] Urea nitrogen/Creatinine [Mass ratio] 10.5 mg/mg 10-[address] [facility] Work Phone: [phone] Laboratory - Drug toxicology on 03-23-2022 Amphetamines Ql (U) Negative <1000 ng/mL [facility] Work Phone: [phone] Benzodiazepines Ql (U) Negative < 200 ng/mL [facility] Work Phone: [phone] Cannabinoids Screen Ql (U) Negative < 50 ng/mL [facility] Work Phone: [phone] Cocaine Ql (U) Negative < 300 ng/mL [facility] Work Phone: [phone] Opiates Ql (U) Negative < 300 ng/mL [facility] Work Phone: [phone] Laboratory - Hematology and Cell countson 03-23-2022 Erythrocyte distribution width (RBC) [Entitic vol] 40.3 fL 35.1-43.[address] [facility] Work Phone: [phone] Erythrocyte distribution width (RBC) [Ratio] 13.1 % 11.6-14.[address] [facility] Work Phone: [phone] Immature granulocytes/100 WBC (Bld) 0.500 % 0.0-0.[address] [facility] Work Phone: [phone] Comment on above: IG% - Immature Granu locytes (promyelocytes, myelocytes and metamyelocytes) > 1% indicates that a LEFT SHIFT is Present. MCH (RBC) [Entitic mass] 27.1 pg 25.0-35.[address] [facility] Work Phone: [phone] Nucleated RBC/100 WBC (Bld) [Ratio] 0 % 0-[address] [facility] Work Phone: [phone] MCHC Auto (RBC) [Mass/Vol]on 03-23-2022 MCHC (RBC) [Mass/Vol] 31.7 g/dL 32-[address] [facility] Work Phone: [phone] Panel Informationon 03-23 MDMA (Ecstasy) Screen Negative < 500 ng/mL [facility] Work Phone: [phone] Urine Barbiturates Screen Negative < 200 ng/mL [facility] Work Phone: [phone] Urine Drug Screen Comment [facility] Work Phone: [phone] Comment on above: CONFIRMATORY TESTING FOR ALL [...] Urine Methadone Screen Negative < 300 ng/mL [facility] Work Phone: [phone] Estimated Creatinine Clearance Calc 171.92 ml/min [facility] Work Phone: [phone] Estimated GFR (MDRD) Amer 126 mL/min >[address] [facility] Work Phone: [phone] Comment on above: GFR Calc Estimated GFR (MDRD) Non-Af Amer 104 mL/min >[address] [facility] Work Phone: [phone] Comment on above: Non- GFR Calc Ethyl Alcohol Level 3.0 mg/dL [facility] Work Phone: [phone] Comment on above: The serum:whole bloo d ethanol ratio is approximately 1.14and varies slightly with hematocrit. Medical Alcohol reference interval and critical value innon-tolerant individuals; 50 - 100 Impairment 100 Intoxication 100 - 250 Severe Poisoning 250 - 400 Deep/possible fatal coma Platelets bldon 03-23-2022 Platelets (Bld) [#/Vol] 232 10*3/uL 150-[address] [facility] Work Phone: [phone] Serum or plasma calcium dean urement (mass/volume)on 03-23-2022 Calcium [Mass/Vol] 8.9 mg/dL 8.5-10.1 [facility] Work Phone: [phone] Serum or plasma creatinine m easurement (mass/volume)on 03-23-2022 Creatinine [Mass/Vol] 0.76 mg/dL 0.55-1.[address] [facility] Work Phone: Comment on above: The validity of the calculated GFR & GFRAA in patients over 70 years has not been determined. Clinical correlation is essential. Serum or plasma urea nitroge n measurement (mass/volume)on 03-23-2022 Urea nitrogen [Mass/Vol] 8 mg/dL 7-[address] [facility] Work Phone: Thin prep Papanicolaou smear with manual screeningon 03-23-2022 Thin prep Papanicolaou smear with manual screening 12 5-[address] [facility] Work Phone: [phone] Urine phencyclidine (PCP) de tectionon 03-23-2022 Phencyclidine Ql (U) Negative < 25 ng/mL [facility] Work Phone: [phone] Absolute lymphocyte counton 03-02-2022 Lymphocytes Auto (Unsp spec) [#/Vol] 3.22 10*3/uL 0.83-4.[address] [facility] Work Phone: Basophil percentageon 2021 Basophils/100 WBC (Bld) 0.5 % 0-[address] [facility] Work Phone: Chloride [Moles/Vol] 110 mmol/L 98-107 [facility] Work Phone: Eosinophils/100 WBC (Bld) 0.9 % 0-[address] [facility] Work Phone: Glucose [Mass/Vol] 107 mg/dL 74-106 [facility] Work Phone: Comment on above: Fasting Glucose resu lt from 100 to 125 mg/dL suggests IMPAIRED HOMEOSTASIS per A.D.A. criteria. Neutrophils (Bld) [#/Vol] 7.5 10*3/uL 2.0-7.[address] [facility] Work Phone: [phone] Neutrophils/100 WBC (Bld) 64.2 % 34-[address] [facility] Work Phone: [phone] Potassium [Moles/Vol] 3.5 mmol/L 3.5-5.[address] [facility] Work Phone: [phone] Sodium [Moles/Vol] 139 mmol/L 136-145 [facility] Work Phone: [phone] WBC (Bld) [#/Vol] 11.8 10*3/uL 4.5-13.0 [facility] Work Phone: [phone] Beta hCG serum qualon 2021 Beta HCG ( test) Ql Negative [facility] Work Phone: [phone] Blood erythrocytes count (nu mber/volume)on 03-02-2022 RBC (Bld) [#/Vol] 5.27 10*6/uL 4.1-4.8 [facility] Work Phone: [phone] Blood hemoglobin measurement (mass/volume)on 03-02-2022 Hemoglobin (Bld) [Mass/Vol] 14.5 g/dL 12.0-15.[address] [facility] Work Phone: [phone] Blood lymphocytes/100 leukoc yteson 03-02-2022 Lymphocytes/100 WBC (Bld) 27.4 % 25-[address] [facility] Work Phone: [phone] Blood monocytes/100 leukocyt eson 03-02-2022 Monocytes/100 WBC (Bld) 6.5 % 3-[address] [facility] Work Phone: [phone] Blood platelet mean volumeon 03-02-2022 Platelet mean volume (Bld) [Entitic vol] 10.5 fL 6.2-12.[address] [facility] Work Phone: [phone] Determination of erythrocyte mean corpuscular volume (MCV)on 03-02-2022 MCV (RBC) [Entitic vol] 84.1 fL 78-[address] [facility] Work Phone: [phone] Hematocrit Auto (Bld) [Volum e fraction]on 03-02-2022 Hematocrit (Bld) [Volume fraction] 44.3 % 37-[address] [facility] Work Phone: [phone] Laboratory - Chemistry and C hemistry - challengeon 03-02-2022 CO2 [Moles/Vol] 21.0 mmol/L 21.0-32.[address] [facility] Work Phone: [phone] Urea nitrogen/Creatinine [Mass ratio] 10.5 mg/mg 10-[address] [facility] Work Phone: [phone] Laboratory - Drug toxicology on 03-02-2022 Amphetamines Ql (U) Negative <1000 ng/mL [facility] Work Phone: [phone] Benzodiazepines Ql (U) Negative < 200 ng/mL [facility] Work Phone: [phone] Cannabinoids Screen Ql (U) Negative < 50 ng/mL [facility] Work Phone: [phone] Cocaine Ql (U) Negative < 300 ng/mL [facility] Work Phone: [phone] Opiates Ql (U) Negative < 300 ng/mL [facility] Work Phone: [phone] Laboratory - Hematology and Cell countson 03-02-2022 Erythrocyte distribution width (RBC) [Entitic vol] 39.5 fL 35.1-43.[address] [facility] Work Phone: [phone] Erythrocyte distribution width (RBC) [Ratio] 12.9 % 11.6-14.[address] [facility] Work Phone: [phone] Immature granulocytes/100 WBC (Bld) 0.500 % 0.0-0.[address] [facility] Work Phone: [phone] Comment on above: IG% - Immature Granu locytes (promyelocytes, myelocytes and metamyelocytes) > 1% indicates that a LEFT SHIFT is Present. MCH (RBC) [Entitic mass] 27.5 pg 25.0-35.[address] [facility] Work Phone: Nucleated RBC/100 WBC (Bld) [Ratio] 0 % 0-[address] [facility] Work Phone: [phone] MCHC Auto (RBC) [Mass/Vol]on 03-02-2022 MCHC (RBC) [Mass/Vol] 32.7 g/dL 32-[address] [facility] Work Phone: No Panel Informationon 03-02 Estimated Creatinine Clearance Calc 155.72 ml/min [facility] Work Phone: [phone] Estimated GFR (MDRD) Amer 111 mL/min >[address] [facility] Work Phone: [phone] Comment on above: GFR Calc Estimated GFR (MDRD) Non-Af Amer 91 mL/min >[address] [facility] Work Phone: [phone] Comment on above: Non- GFR Calc Ethyl Alcohol Level < 3.0 mg/dL [facility] Work Phone: [phone] Comment on above: The serum:whole bloo d ethanol ratio is approximately 1.14and varies slightly with hematocrit. Medical Alcohol reference interval and critical value innon-tolerant individuals; 50 - 100 Impairment 100 Intoxication 100 - 250 Severe Poisoning 250 - 400 Deep/possible fatal coma MDMA (Ecstasy) Screen Negative < 500 ng/mL [facility] Work Phone: [phone] Urine Barbiturates Screen Negative < 200 ng/mL [facility] Work Phone: [phone] Urine Drug Screen Comment [facility] Work Phone: [phone] Comment on above: CONFIRMATORY TESTING FOR ALL [...] Urine Methadone Screen Negative < 300 ng/mL [facility] Work Phone: Platelets bldon 03-02-2022 Platelets (Bld) [#/Vol] 276 10*3/uL 150-[address] [facility] Work Phone: Serum or plasma calcium dean urement (mass/volume)on 03-02-2022 Calcium [Mass/Vol] 9.3 mg/dL 8.5-10.1 [facility] Work Phone: Serum or plasma creatinine m easurement (mass/volume)on 03-02-2022 Creatinine [Mass/Vol] 0.85 mg/dL 0.55-1.[address] [facility] Work Phone: Comment on above: The validity of the calculated GFR & GFRAA in patients over 70 years has not been determined. Clinical correlation is essential. Serum or plasma urea nitroge n measurement (mass/volume)on 03-02-2022 Urea nitrogen [Mass/Vol] 9 mg/dL 7-[address] [facility] Work Phone: Thin prep Papanicolaou smear with manual screeningon 03-02-2022 Thin prep Papanicolaou smear with manual screening 8 5-[address] [facility] Work Phone: Urine phencyclidine (PCP) de tectionon 03-02-2022 Phencyclidine Ql (U) Negative < 25 ng/mL [facility] Work Phone: Absolute lymphocyte counton 02-25-2022 Lymphocytes Auto (Unsp spec) [#/Vol] 2.68 10*3/uL 0.83-4.[address] [facility] Work Phone: Basophil percentageon 2021 Basophils/100 WBC (Bld) 0.4 % 0-[address] [facility] Work Phone: Chloride [Moles/Vol] 108 mmol/L 98-107 [facility] Work Phone: Eosinophils/100 WBC (Bld) 0.6 % 0-[address] [facility] Work Phone: Glucose [Mass/Vol] 100 mg/dL 74-106 [facility] Work Phone: Comment on above: Fasting Glucose resu lt from 100 to 125 mg/dL suggests IMPAIRED HOMEOSTASIS per A.D.A. criteria. Neutrophils (Bld) [#/Vol] 10.4 10*3/uL 2.0-7.[address] [facility] Work Phone: Neutrophils/100 WBC (Bld) 74.5 % 34-[address] [facility] Work Phone: [phone] Potassium [Moles/Vol] 3.3 mmol/L 3.5-5.[address] [facility] Work Phone: [phone] Sodium [Moles/Vol] 141 mmol/L 136-145 [facility] Work Phone: [phone] WBC (Bld) [#/Vol] 14.0 10*3/uL 4.5-13.0 [facility] Work Phone: [phone] Beta hCG serum qualon 2021 Beta HCG ( test) Ql Negative [facility] Work Phone: [phone] Blood erythrocytes count (nu mber/volume)on 02-25-2022 RBC (Bld) [#/Vol] 5.45 10*6/uL 4.1-4.8 [facility] Work Phone: Blood hemoglobin measurement (mass/volume)on 02-25-2022 Hemoglobin (Bld) [Mass/Vol] 14.6 g/dL 12.0-15.[address] [facility] Work Phone: [phone] Blood lymphocytes/100 leukoc yteson 02-25-2022 Lymphocytes/100 WBC (Bld) 19.2 % 25-[address] [facility] Work Phone: [phone] Blood monocytes/100 leukocyt eson 02-25-2022 Monocytes/100 WBC (Bld) 4.8 % 3-[address] [facility] Work Phone: Blood platelet mean volumeon 02-25-2022 Platelet mean volume (Bld) [Entitic vol] 11.0 fL 6.2-12.[address] [facility] Work Phone: Determination of erythrocyte mean corpuscular volume (MCV)on 02-25-2022 MCV (RBC) [Entitic vol] 82.0 fL 78-[address] [facility] Work Phone: [phone] Hematocrit Auto (Bld) [Volum e fraction]on 02-25-2022 Hematocrit (Bld) [Volume fraction] 44.7 % 37-[address] [facility] Work Phone: [phone] Laboratory - Chemistry and C hemistry - challengeon 02-25-2022 CO2 [Moles/Vol] 24.0 mmol/L 21.0-32.[address] [facility] Work Phone: [phone] Urea nitrogen/Creatinine [Mass ratio] 11.1 mg/mg 10-[address] [facility] Work Phone: [phone] Laboratory - Drug toxicology on 02-25-2022 Amphetamines Ql (U) Negative <1000 ng/mL [facility] Work Phone: [phone] Benzodiazepines Ql (U) Negative < 200 ng/mL [facility] Work Phone: [phone] Cannabinoids Screen Ql (U) Negative < 50 ng/mL [facility] Work Phone: [phone] Cocaine Ql (U) Negative < 300 ng/mL [facility] Work Phone: [phone] Opiates Ql (U) Negative < 300 ng/mL [facility] Work Phone: [phone] Laboratory - Hematology and Cell countson 02-25-2022 Erythrocyte distribution width (RBC) [Entitic vol] 38.8 fL 35.1-43.[address] [facility] Work Phone: [phone] Erythrocyte distribution width (RBC) [Ratio] 13.0 % 11.6-14.[address] [facility] Work Phone: [phone] Immature granulocytes/100 WBC (Bld) 0.500 % 0.0-0.[address] [facility] Work Phone: [phone] Comment on above: IG% - Immature Granu locytes (promyelocytes, myelocytes and metamyelocytes) > 1% indicates that a LEFT SHIFT is Present. MCH (RBC) [Entitic mass] 26.8 pg 25.0-35.[address] [facility] Work Phone: [phone] Nucleated RBC/100 WBC (Bld) [Ratio] 0 % 0-[address] [facility] Work Phone: [phone] MCHC Auto (RBC) [Mass/Vol]on 02-25-2022 MCHC (RBC) [Mass/Vol] 32.7 g/dL 32-[address] [facility] Work Phone: [phone] No Panel Informationon 02-25 MDMA (Ecstasy) Screen Negative < 500 ng/mL [facility] Work Phone: [phone] Urine Barbiturates Screen Negative < 200 ng/mL [facility] Work Phone: [phone] Urine Drug Screen Comment [facility] Work Phone: [phone] Comment on above: CONFIRMATORY TESTING FOR ALL [...] Urine Methadone Screen Negative < 300 ng/mL [facility] Work Phone: [phone] Estimated Creatinine Clearance Calc 186.01 ml/min [facility] Work Phone: [phone] Estimated GFR (MDRD) Amer 135 mL/min >[address] [facility] Work Phone: [phone] Comment on above: GFR Calc Estimated GFR (MDRD) Non-Af Amer 111 mL/min >[address] [facility] Work Phone: [phone] Comment on above: Non- GFR Calc Ethyl Alcohol Level 9.0 mg/dL [facility] Work Phone: [phone] Comment on above: The serum:whole bloo d ethanol ratio is approximately 1.14and varies slightly with hematocrit. Medical Alcohol reference interval and critical value innon-tolerant individuals; 50 - 100 Impairment 100 Intoxication 100 - 250 Severe Poisoning 250 - 400 Deep/possible fatal coma Platelets bldon 02-25-2022 Platelets (Bld) [#/Vol] 224 10*3/uL 150-[address] [facility] Work Phone: Serum or plasma calcium dean urement (mass/volume)on 02-25-2022 Calcium [Mass/Vol] 9.2 mg/dL 8.5-10.1 [facility] Work Phone: Serum or plasma creatinine m easurement (mass/volume)on 02-25-2022 Creatinine [Mass/Vol] 0.72 mg/dL 0.55-1.[address] [facility] Work Phone: Comment on above: The validity of the calculated GFR & GFRAA in patients over 70 years has not been determined. Clinical correlation is essential. Serum or plasma urea nitroge n measurement (mass/volume)on 02-25-2022 Urea nitrogen [Mass/Vol] 8 mg/dL 7-[address] [facility] Work Phone: Thin prep Papanicolaou smear with manual screeningon 02-25-2022 Thin prep Papanicolaou smear with manual screening 9 5-[address] [facility] Work Phone: Urine phencyclidine (PCP) de tectionon 02-25-2022 Phencyclidine Ql (U) Negative < 25 ng/mL [facility] Work Phone: Progress Noteon 04-23-2021 [employer] Aut[employer] Interface Message Text Patient ID: Eva [...] 87.6 kg, last menstrual period 03/24/2021. Normal [facility] Immunoglobulin Aon 2 Immunoglobulin A 228 mg/dL Normal 61-348 [facility] Comment on above: Order Comment: Is th is specimen being sent to an external lab?->No Release to patient->Automatic [id number]&Blood^\\S\\^Vein&Vein Performed By: #### I GA #### [address] [address] Bili,Conjugatedon 04-03-2021 Bili,Conjugated <0.1 Normal 0.0-0.7 [facility] Comment on above: Order Comment: Is th is specimen being sent to an external lab?->No Release to patient->Automatic [id number]&Blood^\\S\\^Vein&Vein Performed By: #### D BILI #### [address] [address] Comp Metabolic Panelon 04-03 Potassium [Moles/Vol] 6.5 mmol/L Off scale high 3.3-5.1 [facility] Comment on above: Order Comment: Is th is specimen being sent to an external lab?->No Release to patient->Automatic [id number]&Blood^\\S\\^Vein&Vein Result Comment: No v isible hemolysis. Original specimen repeated and results verified. Performed By: #### C MP #### [address] [address] Albumin [Mass/Vol] 4.3 g/dL Normal 3.2-4.5 [facility] [facility] Comment on above: Order Comment: Is th is specimen being sent to an external lab?->No Release to patient->Automatic 94087&Blood^\\S\\^Vein&Vein Performed By: #### C MP #### [address] [address] ALP [Catalytic activity/Vol] 47 U/L Normal 43-83 [facility] Comment on above: Order Comment: Is th is specimen being sent to an external lab?->No Release to patient->Automatic 49949&Blood^\\S\\^Vein&Vein Performed By: #### C MP #### [address] [address] ALT [Catalytic activity/Vol] 18 U/L Normal 0-31 [facility] Comment on above: Order Comment: Is th is specimen being sent to an external lab?->No Release to patient->Automatic 93861&Blood^\\S\\^Vein&Vein Performed By: #### C MP #### [address] [address] AST [Catalytic activity/Vol] 17 U/L Normal 0-31 [facility] Comment on above: Order Comment: Is th is specimen being sent to an external lab?->No Release to patient->Automatic 06275&Blood^\\S\\^Vein&Vein Performed By: #### C MP #### [address] [address] Bili,Total 0.5 mg/dl Normal 0.0-1.0 [facility] Comment on above: Order Comment: Is th is specimen being sent to an external lab?->No Release to patient->Automatic 54893&Blood^\\S\\^Vein&Vein Performed By: #### C MP #### [address] [address] Calcium [Mass/Vol] 9.1 mg/dL Normal 7.6-11.0 [facility] Comment on above: Order Comment: Is th is specimen being sent to an external lab?->No Release to patient->Automatic 02711&Blood^\\S\\^Vein&Vein Performed By: #### C MP #### [place] [address] Chloride [Moles/Vol] 103 mmol/L Normal 96-108 [facility] Comment on above: Order Comment: Is th is specimen being sent to an external lab?->No Release to patient->Automatic 03199&Blood^\\S\\^Vein&Vein Performed By: #### C MP #### [place] [address] CO2 [Moles/Vol] 23.6 mmol/L Normal 22.0-29.0 [facility] Comment on above: Order Comment: Is th is specimen being sent to an external lab?->No Release to patient->Automatic 32522&Blood^\\S\\^Vein&Vein Performed By: #### C MP #### [place] [address] Creatinine [Mass/Vol] 0.69 mg/dL Normal 0.50-1.00 [facility] Comment on above: Order Comment: Is th is specimen being sent to an external lab?->No Release to patient->Automatic 39977&Blood^\\S\\^Vein&Vein Result Comment: Premature 0.3-1.0 mg/dL Performed By: #### C MP #### [place] [address] Glucose [Mass/Vol] 69 mg/dL Low 70-99 [facility] Comment on above: Order Comment: Is th is specimen being sent to an external lab?->No Release to patient->Automatic 04068&Blood^\\S\\^Vein&Vein Result Comment: Criteria for Diagnosis of Diabetes(Effective 09/01/10): Fasting specimen (no caloric intake for at least 8 hours). <100 mg/dl Normal 100-125 mg/dl Increased Risk for Diabetes >125 mg/dl Diagnostic for Diabetes Random Glucose (any time of day without regard to last meal). >=200 mg/dl plus Classic Symptoms of Diabetes Performed By: #### C MP #### [place] [address] Protein [Mass/Vol] 7.9 g/dL Normal 6.0-8.0 [facility] Comment on above: Order Comment: Is th is specimen being sent to an external lab?->No Release to patient->Automatic 68122&Blood^\\S\\^Vein&Vein Performed By: #### C MP #### [place] [address] Sodium [Moles/Vol] 137 mmol/L Normal 133-145 [facility] Comment on above: Order Comment: Is th is specimen being sent to an external lab?->No Release to patient->Automatic 08283&Blood^\\S\\^Vein&Vein Performed By: #### C MP #### [place] [address] Urea nitrogen [Mass/Vol] 8 mg/dL Normal 4-19 [facility] Comment on above: Order Comment: Is th is specimen being sent to an external lab?->No Release to patient->Automatic 68842&Blood^\\S\\^Vein&Vein Performed By: #### C MP #### [place] [address] LABORATORYOrdered By: Ashley Borges on 04-03-2021 Basophil, [...] Lipase [Catalytic activity/Vol] 28 U/L Normal 16-63 [facility] Comment on above: Order Comment: Is th is specimen being sent to an external lab?->No Release to patient->Automatic 49320&Blood^\\S\\^Vein&Vein Performed By: #### L IPAS #### [address] [address] Transglutaminase IgAon 04-03 Transglutaminase IgA <1.60 Normal 0.00-8.99 [facility] Comment on above: Order Comment: Is th is specimen being sent to an external lab?->No Release to patient->Automatic 33274&Blood^\\S\\^Vein&Vein Result Comment: NEGATIVE Interpretation of Results: Negative: <9.0 AU/mL Equivocal: 9.0-16.0 AU/mL Positive: >16.0 AU/mL Method: The anti-tTG antibodies were determined using an ASHLEY-based commercially available kit ([facility], [facility]). 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 Findings: No rash. Normal 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 Eva is not happy about this because [...] an adult friend that she met at [facility]. 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 (Likes to swim). Drugs: [...] problems wit (more content not included)... Normal [facility] COVID-19 virus antigen assay SARS-CoV-2 (COVID-19) Ag IA.rapid Ql (Resp) [facility] Work Phone: Vital Signs Date Time Vital Sign Value Performing Clinician Facility 08-05-2023 21:24-0400 Body height 149.9 cm [facility] Rep [facility] 08-05-2023 21:24-0400 Body temperature 98.24 [degF] [facility] Rep [facility] 08-05-2023 21:24-0400 Body weight 81.8 kg [facility] [employer] [facility] 08-05-2023 21:24-0400 Diastolic Blood Pressure Non-Invasive 84 mm[Hg] [facility] Rep [facility] 08-05-2023 21:24-0400 Heart rate 110 /min [facility] [employer] [facility] 08-05-2023 21:24-0400 Systolic Blood Pressure Non-Invasive 122 mm[Hg] HODAN MELCHOR DO [facility] 02-19-2023 23:39-0500 Blood Pressure Location QUINTIN BARLOW DO [facility] 02-19-2023 23:39-0500 Body height 149.9 cm QUINTIN ELENAT DO [facility] 02-19-2023 23:39-0500 Body temperature 99.14 [degF] QUINTIN ELENAT DO [facility] 02-19-2023 23:39-0500 Body weight 103.1 kg QUINTIN ELENAT DO [facility] 02-19-2023 23:39-0500 Diastolic Blood Pressure Non-Invasive 88 mm[Hg] QUINTIN ELENAT DO [facility] 02-19-2023 23:39-0500 Heart rate 98 /min QUINTIN BARLOW DO [facility] 02-19-2023 23:39-0500 Height ZScore -2.06 1 QUINTIN BARLOW DO [facility] Comment on above: Result Comment: ^~:!ZScore Source -[facility] 02-19-2023 23:39-0500 Percent Height for Age 1.96 % QUINTIN ELENAT DO [facility] Comment on above: Result Comment: ^~:!Percentile Source -[facility] 02-19-2023 23:39-0500 Respiratory rate 16 /min QUINTIN ELENAT DO [facility] 02-19-2023 23:39-0500 Systolic Blood Pressure Non-Invasive 138 mm[Hg] QUINTIN ELENAT DO [facility] 03-24-2022 06:00-0500 Diastolic blood pressure 75 mm[Hg] [facility] Work Phone: 03-24-2022 06:00-0500 Heart rate 76 /min [facility] Work Phone: 03-24-2022 06:00-0500 Respiratory rate 18 /min [facility] Work Phone: 03-24-2022 06:00-0500 SaO2% (BldA) [Mass fraction] 97 % [facility] Work Phone: 03-24-2022 06:00-0500 Systolic blood pressure 126 mm[Hg] [facility] Work Phone: 03-23-2022 18:27-0500 Body temperature 98.4 [degF] [facility] Work Phone: 03-23-2022 17:02-0500 Body height 147.32 cm [facility] Work Phone: 03-23-2022 17:02-0500 Body mass index (BMI) [Percentile] Per age and sex 98.9 % [facility] Work Phone: 03-23-2022 17:02-0500 Body mass index (BMI) [Ratio] 41.8 kg/m2 [facility] Work Phone: 03-23-2022 17:02-0500 Body weight 90.71 kg [facility] Work Phone: 03-03-2022 10:00-0500 Body temperature 98.1 [degF] [facility] Work Phone: 03-03-2022 10:00-0500 Diastolic blood pressure 71 mm[Hg] [facility] Work Phone: 03-03-2022 10:00-0500 Heart rate 74 /min [facility] Work Phone: 03-03-2022 10:00-0500 Respiratory rate 16 /min [facility] Work Phone: 03-03-2022 10:00-0500 SaO2% (BldA) [Mass fraction] 97 % [facility] Work Phone: 03-03-2022 10:00-0500 Systolic blood pressure 93 mm[Hg] [facility] Work Phone: 03-02-2022 21:11-0500 Body height 147.32 cm [facility] Work Phone: 03-02-2022 21:11-0500 Body mass index (BMI) [Percentile] Per age and sex 98.9 % [facility] Work Phone: 03-02-2022 21:11-0500 Body mass index (BMI) [Ratio] 42.3 kg/m2 [facility] Work Phone: 03-02-2022 21:11-0500 Body weight 91.9 kg [facility] Work Phone: 02-26-2022 15:06-0500 Diastolic blood pressure 77 mm[Hg] [facility] Work Phone: 02-26-2022 15:06-0500 Heart rate 73 /min [facility] Work Phone: 02-26-2022 15:06-0500 Respiratory rate 16 /min [facility] Work Phone: 02-26-2022 15:06-0500 SaO2% (BldA) [Mass fraction] 97 % [facility] Work Phone: 02-26-2022 15:06-0500 Systolic blood pressure 110 mm[Hg] [facility] Work Phone: 02-26-2022 14:00-0500 Body temperature 97.4 [degF] [facility] Work Phone: 02-25-2022 17:42-0500 Body height 147.32 cm [facility] Work Phone: 02-25-2022 17:42-0500 Body mass index (BMI) [Percentile] Per age and sex 99 % [facility] Work Phone: 02-25-2022 17:42-0500 Body mass index (BMI) [Ratio] 42.8 kg/m2 [facility] Work Phone: 02-25-2022 17:42-0500 Body weight 92.98 kg [facility] Work Phone: 04-03-2021 22:00-0500 Diastolic blood pressure 78 mm[Hg] GREGORY BOX MD [facility] 04-03-2021 22:00-0500 Heart rate 80 /min GREGORY BOX MD [facility] 04-03-2021 22:00-0500 Systolic blood pressure 126 mm[Hg] GREGORY BOX MD [facility] 04-03-2021 20:04-0500 Body temperature 98.6 [degF] GREGROY BOX MD [facility] 04-03-2021 20:04-0500 Body weight 83 kg GREGORY BOX MD [facility] 04-03-2021 20:04-0500 Diastolic blood pressure 88 mm[Hg] GREGORY BOX MD [facility] 04-03-2021 20:04-0500 Heart rate 88 /min GREGORY BOX MD [facility] 04-03-2021 20:04-0500 Respiratory rate 18 /min GREGORY BOX MD [facility] 04-03-2021 20:04-0500 Systolic blood pressure 138 mm[Hg] GREGORY BOX MD [facility] Encounters Encounter Date Encounter Type Care Provider Facility Start: 10-11-2024 ambulatory No Primary Car e Physician Facility:[facility] Start: 09-29-2024 End: 09-29-2024 Emergency department patient visit DR DIANE MAIN MD [facility] Start: 08-17-2024 End: 08-17-2024 ambulatory No Primary Care Physician Facility:[facility] Start: 07-19-2024 End: 07-19-2024 ambulatory No Primary Care Physician Facility:[facility] Start: 06-21-2024 End: 06-21-2024 ambulatory No Primary Care Physician Facility:[facility] Start: 04-11-2024 End: 04-11-2024 ambulatory No Primary Care Physician Facility:[facility] Start: 03-09-2024 End: 03-10-2024 Emergency department patient visit No Primary Care Physician Facility:[facility] Start: 03-02-2024 End: 03-02-2024 ambulatory Wyatt L Seese Facility:[facility] Start: 02-29-2024 ambulatory Wyatt L Seese Facility :[facility] Start: 02-03-2024 End: 02-04-2024 Emergency department patient visit Luis Avila Facility:[facility] Start: 02-01-2024 End: 02-01-2024 ambulatory No Primary Care Physician Facility:[facility] Start: 01-11-2024 ambulatory No Primary Car e Physician Facility:[facility] Start: 11-30-2023 End: 11-30-2023 ambulatory No Primary Care Physician Facility:[facility] Start: 08-05-2023 End: 08-06-2023 Emergency department patient visit HODAN JILL LOZANO Facility:[facility] Start: 08-05-2023 End: 08-06-2023 [facility] Start: 02-20-2023 End: 02-20-2023 Emergency department patient visit QUINTIN BARLOW DO Facility:[facility] Start: 02-19-2023 End: 02-19-2023 [facility] Start: 02-02-2023 End: 02-09-2023 Evaluation and management of inpatient MONICA K. [facility] Start: 06-28-2022 End: 07-02-2022 Evaluation and management of inpatient [facility] Start: 03-23-2022 End: 03-24-2022 Emergency department patient visit [facility] Start: 03-03-2022 End: 03-16-2022 Evaluation and management of inpatient HAILEY MALDONADO [facility] Start: 03-02-2022 End: 03-03-2022 Emergency department patient visit [facility] Start: 02-26-2022 End: 03-01-2022 Evaluation and management of inpatient [facility] Start: 02-25-2022 End: 02-26-2022 Emergency department patient visit [facility] Start: 04-03-2021 End: 04-03-2021 Emergency department patient visit GREGORY BOX MD [facility] Procedures Date Procedure Procedure Detail Performing Clinician Start: 02-25-2018 Steven BOX MD Comment on above: Right Start: 09-17-2017 Steven BOX MD Comment on above: LEFT Viral antigen assay Plan of Treatment Date Care Activity Detail Author Start: 03-23-2022 Referral to service [facility] Work Phone: Start: 03-23-2022 End: 03-23-2022 [facility] Work [facility]: Start: 03-02-2022 Referral to service [facility] Work Phone: Start: 03-02-2022 End: 03-02-2022 Suicide precautions [facility] Work Phone: Start: 02-25-2022 Referral to service [facility] Work Phone: Start: 02-25-2022 End: 02-25-2022 Suicide precautions [facility] Work Phone: Patient referral [facility] Work Phone: Immunizations Immunization Date Immunization Notes Care Provider Fa sweetie 02-19-2023 tetanus toxoid, redu tammy diphtheria toxoid, and acellular pertussis vaccine, adsorbed QUINTIN KASSYMariana DO [facility] Payers Date Payer Category Payer Medicaid [id number] 2023 Self-pay [id number] 2022 Medicaid [id number] 2016 Unknown [facility] [id number] 2003 Unknown [id number] 2.16. [id number] 2003 Unknown [id number] 2.16. 840.1.569114.3.579.2.903 2003 Unknown [id number] 2.16. 840.1.784678.3.579.2.903 2003 Unknown [id number] 2.16. 840.1.674170.3.579.2.903 2003 Unknown [id number] 2.16. 840.1.930276.3.579.2.627 1962 Unknown [id number] 2.16.8 40.1.892904.3.579.2.627 1962 Unknown [id number] 2.16.8 40.1.009265.3.579.2.627 Unknown [id number] 2.16.8 40.1.285852.3.579.2.462 Unknown [id number] 2.16.8 40.1.233690.3.579.2.462 Unknown [id number] 2.16.8 40.1.901708.3.579.2.462 Unknown [id number] 2.16.8 40.1.751398.3.579.2.462 Unknown [id number] 2.16.8 40.1.001186.3.579.2.462 Unknown [id number] 2.16.8 40.1.986613.3.579.2.462 Unknown [id number] 2.16.8 40.1.481351.3.579.2.462 Unknown [id number] 2.16.8 40.1.742160.3.579.2.462 Unknown [id number] 2.16.8 40.1.965947.3.579.2.462 Unknown [id number] 2.16.8 40.1.316917.3.579.2.462 Unknown [id number] 2.16.8 40.1.263978.3.579.2.462 Unknown [id number] 2.16.8 40.1.381971.3.579.2.462 Unknown [id number] 2.16.8 40.1.802174.3.579.2.462 Unknown [id number] 2.16.8 40.1.102279.3.579.2.462 Social History Date Type Detail Facility Start: 09-29-2024 Never smoked t obacco (finding) [facility] Sex Assigned At [facility] Start: 02-25-2022 End: 03-23-2022 Tobacco smoking status NHIS Unknown if ever smoked [facility] Work Phone: Start: 08-02-2020 Non-smoker;- [facility] Work Phone: Start: 2003 Sex Assigned At Female [facility] Work Phone: Start: 08-30-2017 Sex Female (finding) [facility] Functional Status Date Assessment Result Facility 08-06-2023 Functional Status ID band on, Bed in low position [facility] 08-05-2023 Functional Status Room check performed [facility] 08-05-2023 Functional Status [facility] 02-19-2023 Functional Status Identified as high risk, Room located near nursing station, Door open, Non-Slip footwear, Room check performed, Loan Approver at bedside [facility] Mental Status Date Assessment Result Facility 08-05-2023 Mental Status Orientation Orie nted x 4, Follows simple commands [facility] 02-19-2023 Mental Status Oriented x 4 [facility] Clinical Notes 04-04-2021 to 09-29-2024 Note Date [...] and water are not available, use alcohol-based steam box hand to keep from spreading the infection to [...] Yellow color of the eyes or skin [phone] [employer] [place] [address]. All rights reserved. This information is not [...] for diarrhea, vomiting, or a high fever. 8866-[address] [employer] [place] [address]. All rights reserved. This information is not intended as a substitute for professional medical care. Always follow your healthcare professional's instructions. Follow Up Care 09/29/2024 01:22:15 With:Call STEPHANIE Godfrey Pt. Refferral [phone] Address:Unknown When:2-4 days Comments:Return to ED if symptoms worsen With:Call Physician Referral Address:Unknown When:2-4 days [facility] Magaña 09-29-2024 Note Discharge Instructions Thank you for allowing [facility] to assist you with your healthcare needs. The following is important discharge information regarding your hospital visit. Diagnosis from Today's Visit Dehydration Nausea & vomiting What to Do Next Instructions from Your Care Team No qualifying data available. Post Acute Orders No qualifying data available. You Need to Schedule the Following Appointments Follow Up with Call AMB New Pt. Refferral [phone] When:Within 2-4 days Additional Information: Return to [...] and water are not available, use alcohol-based steam box hand to keep from spreading the infection to [...] Yellow color of the eyes or skin [phone] [employer]. [address] [place] [address], [place] [address]. All rights reserved. This information is not [...] for diarrhea, vomiting, or a high fever. 0186-3261 [employer]. [address] [place] [address], [place] [address]. All rights reserved. This information is not intended as a substitute for professional medical care. Always follow your healthcare professional's instructions. Additional Information VACCINATE! IT SAVES LIVES! Members of the community who have not yet received the COVID-19 vaccine and would like to receive it can visit one of [facility] vaccine clinics. There are many vaccine clinic locations within the [facility]. For locations and available times, please visit [email or web address]. gov/. It is important to note that some COVID mobile vaccine clinics are held outdoors and may be canceled in rainy or stormy conditions. To learn more about pediatric vaccinations (ages 5-11), we invite you to visit the [facility] webpage. https://www.[employer].org/p ages/7433-Tvumu-Qbngeijogdg-Freq koqhgr-Xwddb-Idaunxuji.html To learn more about the COVID-19 vaccine, we invite you to visit the CDC website for a list of frequently asked questions. https://www.cdc.gov/coronavirus/ 2019-ncov/vaccines/faq.html [facility] Patient Portal Access Instructions: Stay connected with your healthcare team and access your personal medical information anytime with the [facility] Patient Portal. If you would like a full copy of your medical records please contact the [facility] Medical Records Department Wednesday through Wednesday between 8a.m. and 4:30p.m. Please follow the directions below to access the portal: 1.Access the email account you provided upon registration to the hospital.2.Look for an invitation email from [facility].3.Open the email and access the invitation link: Accept Invitation to [facility]4.Fill in the required vogel to create your account. Sign into www.[employer] with your username and password that you [...] you will allow to register on the [facility] Patient Portal for access to your information. You can also access the [facility] Patient Portal on the [employer]. Simply click on "Health Records" under "Health Data" and then click on the [employer] logo. HOW TO SAFELY DISPOSE OF PRESCRIPTION [...] Call your local pharmacy or go to [email or web address]/3P2Az5f to find one close to you.3.Make use of household items: Use cat litter or old coffee grounds to dispose medications if other options are not available. Mix your drugs with these household products, seal them in an airtight container and throw it into the garbage. Call [facility]: [phone] to be sure your drugs can be [...] aware that I should contact my doctor. Patient/Granulator Tender Signature: Date/Time: Relationship to Patient: Witness Name/Signature: Date/Time: [facility] 09-29-2024 Note Exam Date Time Procedure Performing Provider Status 09/29/24 2:[address] Abd/Pelvis w/ IV Contrast Only ENRICO JUSTICE MD; Auth (Verified) [id number] ORIGINAL EXAMINATION: CT OF THE ABDOMEN AND [...] 09/29/2024 2:50:36 AM Ordering Provider: DIANE MAIN [facility]05-10-2024 Note Discharge Instructions Thank you for allowing [facility] to assist you with your healthcare needs. [...] providers about all of the prescription and ksxh-yex-mwhklgo medicines, vitamins, and supplements you take. Certain [...] behavior and ask you to seek help [phone] [employer] [place] [address]. All rights reserved. This information is not [...] wound Decreased movement around the injured area [phone] [employer] [place] [address]. All rights reserved. This information is not intended as a substitute for professional medical care. Always follow yourhealthcare professional's instructions. Additional Information VACCINATE! IT SAVES LIVES! Members of the community who have not yet received the COVID-19 vaccine and would like to receive it can visit one of [facility] vaccine clinics. There are many vaccine clinic locations within the [facility]. For locations and available times, please visit [email or web address].gov/. It is important to note that some COVID mobile vaccine clinics are held outdoors and may be canceled in rainy or stormy conditions. To learn more about pediatric vaccinations (ages 5-11), we invite you to visit the [facility] webpage. https://www.[employer]Touchstorms.org/pages/3730-Zsoly-Uvnecmjhvao-Iqnbwitkxl-Bnvpf-Uwc stions.htmlTo learn more about the COVID-19 vaccine, we invite you to visit the CDC website for a list of frequently asked questions. https://www.cdc.gov/coronavirus/2019-ncov/vaccines/faq.html [facility] Patient Portal Access Instructions: Stay connected with your healthcare team and access your personal medical information anytime with the [facility] Patient Portal. If you would like a full copy of your medical records please contact the [facility] Medical Records Department Wednesday through Wednesday between 8a.m. and 4:30p.m. Please follow the directions below to access the portal: 1.Access the email account you provided upon registration to the hospital.2.Look for an invitation email from [facility].3.Open the email and access the invitation link: Accept Invitation to [facility].Fill in the required vogel to create your account. Sign into www.[employer] with your username and password that you [...] you will allow to register on the [facility] Patient Portal for access to your information. You can also access the [facility] Patient Portal on the [employer]. Simply click on "Health Records" under "HealthData" and then click on the [employer] logo. HOW TO SAFELY DISPOSE OF PRESCRIPTION [...] Call your local pharmacy or go to http://[employer]/1G7Ec6c to find one close to you.3.Make use of household items: Use cat litter or old coffee grounds to dispose medications if other options arenot available. Mix your drugs with these household products, seal them in an airtight container andthrow it into the garbage. Call [facility]: [phone] to be sure your drugs can be [...] been reviewed and explained to me and IALBETRO RAVEN L understand my current condition and have read and understand these discharge instructions. I have received a written copy of the plan/instructions. If I have questions, I am aware that I should contact my doctor. Patient/Granulator Tender Signature: Date/Time: Relationship to Patient: Witness Name/Signature: Date/Time: [facility]05-10-2024 Nurse Progress note Crisis arrived to unit, will speak with patient. Digitally Signed by Sonali Smith RN on 08/06/2023 12:46 AM [facility]05-10-2024 Hospital Discharge instructions Patient Education 08/05/2023 22:11:37 [...] providers about all of the prescription and khmm-rvp-nllbscz medicines, vitamins, and supplements you take. Certain [...] behavior and ask you to seek help 2841-[address] [employer] [place] [address], [place] [address]. All rights reserved. This information is not intended as a substitute for professional medical care. Always follow yourpeoples hospitalcare professional's instructions. 08/05/2023 22:11:27 Laceration, Extremity: Suture, Staple, or Tape Extremity Laceration: Stitches, [place], or Tape A laceration is a cut [...] wound Decreased movement around the injured area [id number] [employer] [place] [address]. All rights reserved. This information is not intended as a substitute for professional medical care. Always follow yourhealthcare professional's instructions. Follow Up Care 08/05/2023 21:13:51 With:your counselor Address: When:2-4 days With:Go to emergency room if symptoms worsen Address:Unknown When:2-4 days With:Call Physician Referral Address:Unknown When:2-4 days [facility] 11-25-2023 Hospital Discharge instructions Patient Education 02/19/2023 [...] wound Decreased movement around the injured area 4445-[address] [employer] [place] [address]. All rights reserved. This information is not intended as a substitute for professional medical care. Always follow yourhealthcare professional's instructions. Follow Up Care 02/19/2023 23:12:47 With:PATRICIA ORELLANA MD Address: [facility] [address] [address] [place] [address]- When:2-4 days [facility] 11-24-2023 Note Discharge Instructions Thank you for allowing [facility] to assist you with your healthcare needs. The following is importantdischarge information regarding your hospital visit. Diagnosis from Today's Visit Arm laceration What to Do Next Instructions from Your Care Team No qualifying data available. Post Acute Orders No qualifying data available. You Need to Schedule the Following Appointments Follow Up with PATRICIA ORELLANA MD When Within 2-4 days Where: [facility] [address] [place] [address]- Allergies NKA Medications Please ask your primary [...] and ay BASIM juan manuel ler per [facility] iss) Adacel (Tdap), Boostrix (Tdap) [...] may affect this vaccine, including prescription and buun-mva-otuuqmx medicines, vitamins, and herbal products. Not all [...] to ensure that the information provided by [employer]. ('[employer]') is accurate, up-to-date, and complete, but no guarantee is made to that effect. Drug information contained herein may be time sensitive. [employer] information has been compiled for use by healthcare practitioners and consumers in the [place] and therefore [employer] does not warrant that uses outside of the [place] are appropriate, unless specifically indicated otherwise. [employer]'s drug information does not endorse drugs, diagnose patients or recommend therapy. [employer]s drug information isan informational resource designed to [...] effective or appropriate for any given patient. [facility] does not assume any responsibility for any aspect of healthcare administered with the aid of information [facility] provides. The information contained herein is not intended to cover all possible uses, directions, precautions, warnings, drug interactions, allergic reactions, or adverse effects. If you have questions about the drugs you are taking, check with your doctor, nurse or pharmacist. Copyright 8455-5769 [employer]. Version: 4.01. Revision Date: 02/26/2021. Education Materials [...] wound Decreased movement around the injured area 8618-[address] [employer] [place] [address]. All rights reserved. This information is not intended as a substitute for professional medical care. Always follow yourhealthcare professional's instructions. Additional Information VACCINATE! IT SAVES LIVES! Members of the community who have not yet received the COVID-19 vaccine and would like to receive it can visit one of [facility] vaccine clinics. There are many vaccine clinic locations within the [facility]. For locations and available times, please visit www.gettheshot.coronavirus.[place].gov/. It is important to note that some COVID mobile vaccine clinics are held outdoors and may be canceled in rainy or stormy conditions. To learn more about pediatric vaccinations (ages 5-11), we invite you to visit the [facility] webpage. https://www.[facility].org/pages/0210-Rgduh-Nfbxehnkjjh-Zfxghripmy-Ochif-Xyv stions.htmlTo learn more about the COVID-19 vaccine, we invite you to visit the CDC website for a list of frequently asked questions. https://www.cdc.gov/coronavirus/2019-ncov/vaccines/faq.html [facility] Access Instructions: Stay connected with your healthcare team and access your personal medical information anytime with the [facility] Patient Portal. If you would like a full copy of your medical records please contact the [facility] Medical Records Department Wednesday through Wednesday between 8a.m. and 4:30p.m. Please follow the directions below to access the portal: 1.Access the email account you provided upon registration to the [facility].2.Look for an invitation email from [facility].3.Open the email and access the invitation link: Accept Invitation to [facility]4.Fill in the required vogel to create your account. Sign into www.[employer] with your username and password that you [...] you will allow to register on the [facility] Patient Portal for access to your information. You can also access the [facility] Patient Portal on the [employer]. Simply click on "Health Records" under "HealthData" [...] Call your local pharmacy or go to http://[employer]/0T4Wa8n to find one close to you.3.Make use of household items: Use cat litter or old coffee grounds to dispose medications if other options arenot available. Mix your drugs with these household products, seal them in an airtight container andthrow it into the garbage. Call [facility]: [phone] to be sure your drugs can be [...] aware that I should contact my doctor. Patient/Granulator Tender Signature: Date/Time: Relationship to Patient: Witness Name/Signature: Date/Time: [facility]01-07-2022 Hospital Discharge instructions Patient Education 04/03/2021 23:04:23 [...] or water and you are getting dehydrated [phone] [employer] [place] [address]. All rights reserved. This information is not intended as a substitute for professional medical care. Always follow yourhealthcare professional's instructions. Follow Up Care 04/03/2021 20:02:44 With:PATRICIA ORELLANA MD Address: [address] [place] [address]- When:2-4 days [facility] Evaluation + Plan note No data available for this section [facility] Evaluation noteNo assessment information available [facility] Work Phone: Summary note* TRAN Holden: PERFORM Event Display: Patient Summary Documents Authored Date: [id number] [facility] Summary Purpose Family History No Family History [...] Will No February 25 6:43pm Power of Orthotics Technician No February 25, 2022 6:43pm Advance Directive Response Recorded Date/ Time Living Will No March 02 10:08pm Power of Orthotics Technician No March 02, 2022 10:08pm Advance Directive Response Recorded Date/ Time Living Will No March 23 6:28pm Power of Orthotics Technician No March 23, 2022 6:28pm Chief Complaint and Reason for Visit Chief Complaint SI Chief Complaint SI S.I. Chief Complaint SI S.I. SI Additional Source Comments INFORMATION SOURCE (unrecogn ized section and content) DATE CREATED AUTHOR 05/07/2021 [facility] DATE CREATED AUTHOR AUTHOR'S ORGANIZ ATION 02/11/2023 [facility] DATE CREATED AUTHOR AUTHOR'S ORGANIZ ATION 08/14/2023 [facility] DATE CREATED AUTHOR AUTHOR'S ORGANIZ ATION 10/07/2024 [facility] DATE CREATED AUTHOR AUTHOR'S ORGANIZ ATION 10/13/2024 [facility] Goals (unrecognized section and content) Goals may be documented in a n alternate section Patient Care team informatio n (unrecognized section and content) Care Team Personnel Name: PATRICIA ORELLANA MD Member Role: Primary Care Physician Address: Address: [address] [place] [id number] Name: QUINTIN BARLOW DO Position: ED Physician Member Role: ED Physician Address: Address: [facility] [place] [address] Care Team Related Persons Name: MANJULA GRANDA Address: Home [address] [place] [address] Name: IVIS MONTES Address: Home [address] [place], [place] [id number] Address: Temporary [address] [place], [place] [id number] Care Team Personnel Name: PHYSICIAN, LIBERTY Position: Physician Member Role: Primary Care Physician Care Team Related Persons Name: GRANDAMANJULA URENA Address: Home [address] [place] [address] Name: IVIS MONTES Address: Home [address] [place], [place] [id number] Address: Temporary [address] [place] [id number] Care Team Personnel Name: PHYSICIAN, NONE Position: [...] BE BASED ON THE PRIMARY CLINICAL RECORDS. [employer] [facility]. provides no warranty or guarantee of the accuracy or completeness of information in this document.
--- OUTSIDE RECORDS SUMMARY | 2025-03-03 13:15 | XMS RPT_ITS | CCD ---
Author Organization [facility] Care Team Providers Care Registered Art Therapist Name Role Phone PATRICIA ORELLANA MD Primary [...] Primary Care Unava ilable Marvel Velasquez Attending [facility] Luis Avila Attending Unavailable Care Physician, No [...] Basophil, Absolute 0.0 10 3/mcL Normal 0.0-0.3 [facility] Comment on above: Performed By: #### A DIFF, CBC, ANEU, MDW, GFR, CMP, LIP #### [facility] [address] [place], [place] [address] Basophils/100 WBC (Bld) 0.7 % Normal 0.0-2.5 [facility] Comment on above: Performed By: #### A DIFF, CBC, ANEU, MDW, GFR, CMP, LIP #### [address] [address] Eosinophil, Absolute 0.1 10 3/mcL Normal 0.0-0.7 [facility] Comment on above: Performed By: #### A DIFF, CBC, ANEU, MDW, GFR, CMP, LIP #### [address] [address] Eosinophils/100 WBC (Bld) 1.3 % Normal 0.0-6.0 [facility] Comment on above: Performed By: #### A DIFF, CBC, ANEU, MDW, GFR, CMP, LIP #### [address] [address] Lymphocyte, Absolute 3.0 10 3/mcL Normal 0.9-4.3 [facility] Comment on above: Performed By: #### A DIFF, CBC, ANEU, MDW, GFR, CMP, LIP #### [address] [address] Lymphocytes/100 WBC (Bld) 28.9 % Normal 20.0-40.0 [facility] Comment on above: Performed By: #### A DIFF, CBC, ANEU, MDW, GFR, CMP, LIP #### [address] [address] Monocyte, Absolute 0.9 10 3/mcL Normal 0.1-1.4 [facility] Comment on above: Performed By: #### A DIFF, CBC, ANEU, MDW, GFR, CMP, LIP #### [address] [address] Monocytes/100 WBC (Bld) 9.0 % Normal 2.0-13.0 [facility] Comment on above: Performed By: #### A DIFF, CBC, ANEU, MDW, GFR, CMP, LIP #### [address] [address] Neutrophils/100 WBC (Bld) 59.9 % Normal 50.0-75.0 [facility] Comment on above: Performed By: #### A DIFF, CBC, ANEU, MDW, GFR, CMP, LIP #### [address] [address] .GFRon 09-29-2024 Estimated Glomerular Filtration Rate 101 ml/min/1.73sqm Normal [facility] Comment on above: Result Comment: Stages of [...] CBC, ANEU, MDW, GFR, CMP, LIP #### [address] [address] .MDWon 09-29-2024 Monocyte Distribution Width Not performed Normal 0.00-20.00 [facility] Comment on above: Result Comment: MDW testing unable to be performed on [id number] instrumentation. Performed By: #### A DIFF, CBC, ANEU, MDW, GFR, CMP, LIP #### [address] [address] .NEUABSon 09-29-2024 Neutrophil, Absolute 6.2 10 3/mcL Normal 2.3-8.1 [facility] Comment on above: Performed By: #### A DIFF, CBC, ANEU, MDW, GFR, CMP, LIP #### [address] [address] CBCon 09-29-2024 Erythrocyte distribution width (RBC) [Ratio] 13.7 % Normal 11.5-15.5 [facility] Comment on above: Performed By: #### A DIFF, CBC, ANEU, MDW, GFR, CMP, LIP #### [address] [address] Hematocrit (Bld) [Volume fraction] 49.0 % High 34.0-46.0 [facility] Comment on above: Performed By: #### A DIFF, CBC, ANEU, MDW, GFR, CMP, LIP #### [address] [address] Hgb 17.2 G/dL High 12.0-16.0 [facility] Comment on above: Performed By: #### A DIFF, CBC, ANEU, MDW, GFR, CMP, LIP #### [address] [address] MCH (RBC) [Entitic mass] 27.9 pg Normal 27.0-33.0 [facility] Comment on above: Performed By: #### A DIFF, CBC, ANEU, MDW, GFR, CMP, LIP #### [address] [address] MCHC 35.2 G/dL Normal 32.0-36.0 [facility] Comment on above: Performed By: #### A DIFF, CBC, ANEU, MDW, GFR, CMP, LIP #### [address] [address] MCV (RBC) [Entitic vol] 79.3 fL Low 80.0-99.0 [facility] Comment on above: Performed By: #### A DIFF, CBC, ANEU, MDW, GFR, CMP, LIP #### [address] [address] Platelet 371 10 3/mcL Normal 150-450 [facility] Comment on above: Performed By: #### A DIFF, CBC, ANEU, MDW, GFR, CMP, LIP #### [address] [address] Platelet mean volume (Bld) [Entitic vol] 8.6 fL Normal 6.6-10.5 [facility] Comment on above: Performed By: #### A DIFF, CBC, ANEU, MDW, GFR, CMP, LIP #### [address] [address] RBC 6.18 10 6/mcL High 4.10-5.30 [facility] Comment on above: Performed By: #### A DIFF, CBC, ANEU, MDW, GFR, CMP, LIP #### [address] [address] WBC 10.4 10 3/mcL Normal 4.5-10.8 [facility] Comment on above: Performed By: #### A DIFF, CBC, ANEU, MDW, GFR, CMP, LIP #### [address] [address] CMPon 09-29-2024 Albumin Level 4.3 G/dL Normal 3.5-5.0 [facility] Comment on above: Performed By: #### A DIFF, CBC, ANEU, MDW, GFR, CMP, LIP #### [address] [address] Albumin/Globulin [Mass ratio] 1.0 {ratio} Low 1.1-2.5 [facility] Comment on above: Performed By: #### A DIFF, CBC, ANEU, MDW, GFR, CMP, LIP #### [address] [address] ALP [Catalytic activity/Vol] 85 U/L Normal 40-135 [facility] Comment on above: Performed By: #### A DIFF, CBC, ANEU, MDW, GFR, CMP, LIP #### [address] [address] ALT [Catalytic activity/Vol] 27 U/L Normal 14-59 [facility] Comment on above: Performed By: #### A DIFF, CBC, ANEU, MDW, GFR, CMP, LIP #### [address] [address] AST [Catalytic activity/Vol] 17 U/L Normal 10-40 [facility] Comment on above: Performed By: #### A DIFF, CBC, ANEU, MDW, GFR, CMP, LIP #### [address] [address] Bili Total 0.7 mg/dL Normal 0.2-1.0 [facility] Comment on above: Result Comment: Use of this assay is not recommended for patients undergoing treatment with eltrombopag due to the potential for falsely elevated results. Performed By: #### A DIFF, CBC, ANEU, MDW, GFR, CMP, LIP #### [place] [address] BUN/Creatinine Ratio 5 ratio Low 7-27 [facility] Comment on above: Performed By: #### A DIFF, CBC, ANEU, MDW, GFR, CMP, LIP #### [place] [address] Calcium [Mass/Vol] 9.4 mg/dL Normal 8.4-10.2 [facility] Comment on above: Performed By: #### A DIFF, CBC, ANEU, MDW, GFR, CMP, LIP #### [place] [id number] Chloride [Moles/Vol] 99 mmol/L Normal 98-107 [facility] Comment on above: Performed By: #### A DIFF, CBC, ANEU, MDW, GFR, CMP, LIP #### [place] [address] CO2 [Moles/Vol] 17 mmol/L Low 22-29 [facility] Comment on above: Performed By: #### A DIFF, CBC, ANEU, MDW, GFR, CMP, LIP #### [address] [address] Creatinine [Mass/Vol] 0.84 mg/dL Normal 0.51-0.95 [facility] Comment on above: Performed By: #### A DIFF, CBC, ANEU, MDW, GFR, CMP, LIP #### [address] [address] Electrolyte Balance 21.0 mEq/L High 4.0-15.0 [facility] Comment on above: Performed By: #### A DIFF, CBC, ANEU, MDW, GFR, CMP, LIP #### [address] [address] Globulin 4.5 G/dL High 2.7-4.4 [facility] Comment on above: Performed By: #### A DIFF, CBC, ANEU, MDW, GFR, CMP, LIP #### [address] [address] Glucose [Mass/Vol] 89 mg/dL Normal 70-105 [facility] Comment on above: Performed By: #### A DIFF, CBC, ANEU, MDW, GFR, CMP, LIP #### [address] [address] Potassium [Moles/Vol] 3.4 mmol/L Low 3.5-5.1 [facility] Comment on above: Performed By: #### A DIFF, CBC, ANEU, MDW, GFR, CMP, LIP #### [address] [address] Sodium [Moles/Vol] 137 mmol/L Normal 136-145 [facility] Comment on above: Performed By: #### A DIFF, CBC, ANEU, MDW, GFR, CMP, LIP #### [address] [address] Total Protein 8.8 G/dL High 6.4-8.2 [facility] Comment on above: Performed By: #### A DIFF, CBC, ANEU, MDW, GFR, CMP, LIP #### [address] [address] Urea nitrogen [Mass/Vol] 4 mg/dL Low 7-18 [facility] Comment on above: Performed By: #### A DIFF, CBC, ANEU, MDW, GFR, CMP, LIP #### [address] [address] [address] ABD/PELVIS W/ IV CONTRAST ONLYon 09-29-2024 [...] 09/29/2024 2:50:36 AM Ordering Provider: DIANE Tucker [facility] LABORATORYOrdered By: Rosa Momin on 09-29-2024 Amphetamines [...] MDW testing unable to be performed on [id number] instrumentation. LABORATORYOrdered By: SYSTEM SYSTEM on 09-29-2024 [...] 09-29-2024 Lipase Level 37 U/L Normal 16-77 [facility] Comment on above: Performed By: #### A DIFF, CBC, ANEU, MDW, GFR, CMP, LIP #### [address] [address] PREGUon 09-29-2024 HCG ( test) Ql (U) Negative Normal [facility] Comment on above: Performed By: #### U A, UAMIC, PREGU, UDRUG #### [place] [address] test (u) int Not detected Invalid Interpretation Code [facility] Comment on above: Performed By: #### U A, UAMIC, PREGU, UDRUG #### [place] [address] UAon 09-29-2024 Color (U) Yellow Normal [facility] Comment on above: Performed By: #### U A, UAMIC, PREGU, UDRUG #### [place] [address] Glucose (U) [Mass/Vol] Negative Normal Negative [facility] Comment on above: Performed By: #### U A, UAMIC, PREGU, UDRUG #### [place] [address] Ketones Ql (U) >=160 Abnormal Negative [facility] Comment on above: Performed By: #### U A, UAMIC, PREGU, UDRUG #### [place] [address] UA Appear Clear Normal Clear [facility] Comment on above: Performed By: #### U A, UAMIC, PREGU, UDRUG #### [address] [address] UA Bili Moderate Abnormal Negative [facility] Comment on above: Performed By: #### U A, UAMIC, PREGU, UDRUG #### [place] [address] UA Blood Negative Normal Negative [facility] Comment on above: Performed By: #### U A, UAMIC, PREGU, UDRUG #### [address] [address] UA Leuk Est Negative Normal Negative [facility] Comment on above: Performed By: #### U A, UAMIC, PREGU, UDRUG #### [place] [address] UA Nitrite Negative Normal Negative [facility] Comment on above: Performed By: #### U A, UAMIC, PREGU, UDRUG #### [place] [address] UA pH 6.0 Normal 5.0 - 8.0 [facility] Comment on above: Performed By: #### U A, UAMIC, PREGU, UDRUG #### [place] [address] UA Protein 100 mg/dL Abnormal Negative [facility] Comment on above: Performed By: #### U A, UAMIC, PREGU, UDRUG #### [place] [address] UA Spec Grav >=1.030 Abnormal 1.015-1.025 [facility] Comment on above: Performed By: #### U A, UAMIC, PREGU, UDRUG #### [place] [address] UA Specimen Type Void Normal [facility] Comment on above: Performed By: #### U A, UAMIC, PREGU, UDRUG #### [place] [address] UA Urobilinogen 0.2 E.U./dL Normal 0.2-1.0 [facility] Comment on above: Performed By: #### U A, UAMIC, PREGU, UDRUG #### [place] [address] UAMICon 09-29-2024 UA RBC Negative Normal 0-2 [facility] Comment on above: Performed By: #### A DIFF, CBC, ANEU, MDW, GFR, CMP, LIP #### [place] [address] UA Squam Epithelial 3-5 Normal 0-20 [facility] Comment on above: Performed By: #### A DIFF, CBC, ANEU, MDW, GFR, CMP, LIP #### [address] [address] UA WBC 3-5 Normal 0-5 [facility] Comment on above: Performed By: #### A DIFF, CBC, ANEU, MDW, GFR, CMP, LIP #### [place] [address] UDRUGon 09-29-2024 Amphetamine (u) Negative Normal Negative [facility] Comment on above: Performed By: #### A DIFF, CBC, ANEU, MDW, GFR, CMP, LIP #### [place] [address] Barbiturate (u) Negative Normal Negative [facility] Comment on above: Performed By: #### A DIFF, CBC, ANEU, MDW, GFR, CMP, LIP #### [place] [address] Benzodiazepine (u) Negative Normal Negative [facility] Comment on above: Performed By: #### A DIFF, CBC, ANEU, MDW, GFR, CMP, LIP #### [place] [address] Cannabinoid (u) Positive Abnormal Negative [facility] Comment on above: Performed By: #### A DIFF, CBC, ANEU, MDW, GFR, CMP, LIP #### [place] [address] Cocaine Ql (U) Negative Normal Negative [facility] Comment on above: Performed By: #### A DIFF, CBC, ANEU, MDW, GFR, CMP, LIP #### [place] [address] Methadone Ql (U) Negative Normal Negative [facility] Comment on above: Performed By: #### A DIFF, CBC, ANEU, MDW, GFR, CMP, LIP #### [place] [address] Opiate (u) Negative Normal Negative [facility] Comment on above: Performed By: #### A DIFF, CBC, ANEU, MDW, GFR, CMP, LIP #### [address] [address] PCP (u) Negative Normal Negative [facility] Comment on above: Performed By: #### A DIFF, CBC, ANEU, MDW, GFR, CMP, LIP #### [place] [id number] Urine Drugs screened: See Below Normal [facility] Comment on above: Result Comment: This drug [...] CBC, ANEU, MDW, GFR, CMP, LIP #### [place] [id number] MR/BMS.BPon 08-17-2024 MR/[place] [address] OFFICE VISIT Date of Service: 08/17/24 MR#: [id number] Acct: [id number] Name: EVA MONTES Rep #: [id number] : 2005 Provider: Dr. Wyatt Izquierdo se, DO Age/Sex: 19/F [place] [facility] Status: Signed Intake Vital Signs 07/19/24 14:40 08/17/24 15:08 Height 4 ft 11 in 4 ft 11 in BP Intake Visit Reasons: 1mfu Allergies No Known Allergies Allergy (Verified 06/21/24 15:21) [facility] History (Updated 06/21/24 @ 15:53 [...] this. Did recently take a trip to [facility] with her friend and her boyfriend. Sleep schedule is currently "messed up." Attributes this to not having day program. Going to bed around 7 am until 3 pm. Patient has applied for social security disability. manager database administration, Grazyna, has been helping her with obtaining [...] regular volume and regular prosody Mood depressed ("[id number]") Affect full range Thought Process linear and [...] is l (more content not included)... Normal [facility] MR/BMS.BPon 07-19-2024 MR/BMS.BP [address], [address] [place] [address] OFFICE VISIT Date of Service: 07/19/24 MR#: [id number] Acct: [id number] Name: EVA MONTES Rep #: [id number] : 2005 Provider: Dr. Wyatt Izquierdo se, DO Age/Sex: 19/F Location[place] [facility] [place] Status: Signed with Addenda ADDENDUM by Dr. [...] No Known Allergies Allergy (Verified 06/21/24 15:21) [facility] Medical History (Updated 06/21/24 @ 15:53 by [...] evaluation via virtual visit. Presents today with case monitor Grazyna. Admits to having recent plan with [...] and down (more content not included)... Normal [facility] MR/on 06-21-2024 MR/[facility]. [facility] [address], [address] [place] [id number] OFFICE VISIT Date of Service: 06/21/24 MR#: [id number] Acct: [id number] Name: EVA MONTES Rep #: [id number] : 2005 Provider: Dr. Wyatt Izquierdo se, DO Age/Sex: 18/F Location: [facility] Status: Signed Intake Vital Signs 04/11/24 15:55 06/21/24 15:18 Height 4 ft 11 in 4 ft 11 in Weight: 208 lb BMI 42.0 BP 132/79 H Blood Pressure Location Lt brachial Position Sitting Respiration 16 Pulse 86 Pulse Source Monitor BP Intake Visit Reasons: follow up Accompanied by: Budget Director Allergies No Known Allergies Allergy (Verified 06/21/24 [...] for follow up evaluation. Presents today with case monitor Grazyna. Admits to having recent plan with [...] add prazo (more content not included)... Normal [facility] MR/BMS.BPon 04-11-2024 MR/BMS.BP [facility] [address], [address] [place] [address] OFFICE VISIT Date of Service: 04/11/24 MR#: [id number] Acct: [id number] Name: EVA MONTES Rep #: [id number] : 2005 Provider: Dr. Wyatt Izquierdo se, DO Age/Sex: 18/F Location: [facility] [place] Status: Signed Intake Vital Signs 03/09/24 17:12 04/11/24 15:55 Height 4 ft 11 in 4 ft 11 in BP Intake Visit Reasons: f/u Allergies No Known Allergies Allergy (Verified 03/09/24 17:17) [facility] Medical History MDD (major depressive disorder) Bulimia [...] depressive disor (more content not included)... Normal [facility] Alcohol, Blood (Medical)-Ser umon 03-09-2024 SERUM ETOH < 3.0 Normal [facility] Comment on above: Result Comment: The serum:whole blood ethanol ratio is approximately 1.14 and varies slightly with hematocrit. Medical Alcohol reference interval and critical value in non-tolerant individuals; 50 - 100 Impairment 100 Intoxication 100 - 250 Severe Poisoning 250 - 400 Deep/possible fatal coma Performed By: #### L 500.2500, L501.9100, L505.5000, L100.0100, L700.6800 ####[facility] [address] [place], [address] Basic Metabolic Profile (BMP )on 03-09-2024 BUN/CRE 12.0 RATIO Normal 10-20 [facility] Comment on above: Performed By: #### L 500.2500, L501.9100, L505.5000, L100.0100, L700.6800 #### [facility] [address] [place], [address] CA,Total 9.3 mg/dL Normal 8.5-10.1 [facility] Comment on above: Performed By: #### L 500.2500, L501.9100, L505.5000, L100.0100, L700.6800 #### [facility] [address] [place], [address] Chloride [Moles/Vol] 109 mmol/L High 98-107 [facility] Comment on above: Performed By: #### L 500.2500, L501.9100, L505.5000, L100.0100, L700.6800 #### [facility] [address] [place], [address] CO2 [Moles/Vol] 20.0 mmol/L Low 21.0-32.0 [facility] Comment on above: Performed By: #### L 500.2500, L501.9100, L505.5000, L100.0100, L700.6800 #### [facility] [address] [place], [address] Creatinine [Mass/Vol] 0.91 mg/dL Normal 0.55-1.02 [facility] Comment on above: Result Comment: The validity of the calculated GFR GFRAA in patients over 70 years has not been determined. Clinical correlation is essential. Performed By: #### L 500.2500, L501.9100, L505.5000, L100.0100, L700.6800 #### [facility] [address] [place], [address] ECRCL 104.83 ml/min Normal [facility] Comment on above: Performed By: #### L 500.2500, L501.9100, L505.5000, L100.0100, L700.6800 #### [facility] [address] [place], [address] EST GFR - AA 100 mL/min Normal >60 [facility] Comment on above: Result Comment: Afri can Ecuadorean GFR Calc Performed By: #### L 500.2500, L501.9100, L505.5000, L100.0100, L700.6800 #### [facility] [address] [place], [place], [facility] GAP 10 Normal 5-15 [facility] Comment on above: Performed By: #### L 500.2500, L501.9100, L505.5000, L100.0100, L700.6800 #### [facility] [address] [place], [address] GFR/1.73 sq M.predicted among non-blacks MDRD (S/P/Bld) [Vol rate/Area] 83 mL/min/{1.73_m2} Normal >60 [facility] Comment on above: Result Comment: Non- GFR Calc Performed By: #### L 500.2500, L501.9100, L505.5000, L100.0100, L700.6800 #### [facility] [address] [place], [address] Glucose [Mass/Vol] 93 mg/dL Normal 74-[address] [facility] Comment on above: Performed By: #### L 500.2500, L501.9100, L505.5000, L100.0100, L700.6800 #### [facility] [address] [place], [address] Potassium [Moles/Vol] 3.2 mmol/L Low 3.5-5.1 [facility] Comment on above: Performed By: #### L 500.2500, L501.9100, L505.5000, L100.0100, L700.6800 #### [facility] [address] [place], [address] Sodium [Moles/Vol] 139 mmol/L Normal 136-[address] [facility] Comment on above: Performed By: #### L 500.2500, L501.9100, L505.5000, L100.0100, L700.6800 #### [facility] [address] [place], [address] Urea nitrogen [Mass/Vol] 11 mg/dL Normal 7-18 [facility] Comment on above: Performed By: #### L 500.2500, L501.9100, L505.5000, L100.0100, L700.6800 #### [facility] [address] [place], [address] CBC W/Diff, Automatedon 02-26 Absolute Lymph 1.46 X10 3/uL Normal 0.83-4.51 [facility] Comment on above: Performed By: #### L 500.2500, L501.9100, L505.5000, L100.0100, L700.6800 ####[facility] [address] [place], [address] Absolute Neut 15.1 X10 3/uL High 2.0-7.7 [facility] Comment on above: Performed By: #### L 500.2500, L501.9100, L505.5000, L100.0100, L700.6800 ####[facility] [address] [place], [address] Basophils/100 WBC (Bld) 0.3 % Normal 0-1 [facility] Comment on above: Performed By: #### L 500.2500, L501.9100, L505.5000, L100.0100, L700.6800 ####[facility] [address] [place], [address] Eosinophils/100 WBC (Bld) 0.2 % Normal 0-5 [facility] Comment on above: Performed By: #### L 500.2500, L501.9100, L505.5000, L100.0100, L700.6800 ####[facility] [address] [place], [address] Erythrocyte distribution width (RBC) [Ratio] 12.8 % Normal 11.6-14.6 [facility] Comment on above: Performed By: #### L 500.2500, L501.9100, L505.5000, L100.0100, L700.6800 ####[facility] [address] [place], [address] Hematocrit (Bld) [Volume fraction] 45.3 % Normal 37-47 [facility] Comment on above: Performed By: #### L 500.2500, L501.9100, L505.5000, L100.0100, L700.6800 ####[facility] [address] [place], [address] Hemoglobin (Bld) [Mass/Vol] 14.6 g/dL Normal 12.0-15.0 [facility] Comment on above: Performed By: #### L 500.2500, L501.9100, L505.5000, L100.0100, L700.6800 ####[facility] [address] [place], [address] IG% 0.600 Normal 0.0-0.9 [facility] Comment on above: Result Comment: IG% - Immature Granulocytes (promyelocytes, myelocytes and metamyelocytes) > 1% indicates that a LEFT SHIFT is Present. Performed By: #### L 500.2500, L501.9100, L505.5000, L100.0100, L700.6800 ####[facility] [address] [place], [address] Lymphocytes/100 WBC (Bld) 8.3 % Low 19-41 [facility] Comment on above: Performed By: #### L 500.2500, L501.9100, L505.5000, L100.0100, L700.6800 ####[facility] [address] [place], [address] MCH (RBC) [Entitic mass] 27.8 pg Normal 27.0-32.0 [facility] Comment on above: Performed By: #### L 500.2500, L501.9100, L505.5000, L100.0100, L700.6800 ####[facility] [address] [place], [address] MCHC (RBC) [Mass/Vol] 32.2 g/dL Normal 32-36 [facility] Comment on above: Performed By: #### L 500.2500, L501.9100, L505.5000, L100.0100, L700.6800 ####[facility] [address] [place], [address] MCV (RBC) [Entitic vol] 86.1 fL Normal 81-99 [facility] Comment on above: Performed By: #### L 500.2500, L501.9100, L505.5000, L100.0100, L700.6800 ####[facility] [address] [place], [address] Monocytes/100 WBC (Bld) 4.5 % Normal 0-10 [facility] Comment on above: Performed By: #### L 500.2500, L501.9100, L505.5000, L100.0100, L700.6800 ####[facility] [address] [place], [address] Neutrophils/100 WBC (Bld) 86.1 % High 47-70 [facility] Comment on above: Performed By: #### L 500.2500, L501.9100, L505.5000, L100.0100, L700.6800 ####[facility] [address] [place], [address] Nucleated RBC (Bld) [#/Vol] 0 10*3/uL Normal 0-5 [facility] Comment on above: Performed By: #### L 500.2500, L501.9100, L505.5000, L100.0100, L700.6800 ####[facility] [address] [place], [address] Platelet mean volume (Bld) [Entitic vol] 10.0 fL Normal 6.2-12.0 [facility] Comment on above: Performed By: #### L 500.2500, L501.9100, L505.5000, L100.0100, L700.6800 ####[facility] [address] [place], [address] Platelets (Bld) [#/Vol] 318 10*3/uL Normal 150-450 [facility] Comment on above: Performed By: #### L 500.2500, L501.9100, L505.5000, L100.0100, L700.6800 ####[facility] [address] [place], [address] RBC (Bld) [#/Vol] 5.26 10*6/uL Normal 4.2-5.4 [facility] Comment on above: Performed By: #### L 500.2500, L501.9100, L505.5000, L100.0100, L700.6800 ####[facility] [address] [place], [address] RDW SD 39.9 fl Normal 35.1-43.9 [facility] Comment on above: Performed By: #### L 500.2500, L501.9100, L505.5000, L100.0100, L700.6800 ####[facility] [address] [place], [address] WBC (Bld) [#/Vol] 17.5 10*3/uL High 4.4-11.0 [facility] Comment on above: Performed By: #### L 500.2500, L501.9100, L505.5000, L100.0100, L700.6800 ####[facility] [address] [place], [address] Emergency Department Summary on 03-09-2024 Emergency Department Summary [facility] Medical Records Department [address] [place] [address] Emergency Department Summary 03/09/24 MR#: [id number] Acct: [id number] Name: EVA MONTES Rep #: [id number] : 2005 18 From: Maria Guadalupe PARADA [...] borderline personality disorder. Her tetanus is up-to-date. [facility] Medical History MDD (major depressive disorder) Bulimia [...] feeling suicidal (more content not included)... Normal [facility] ,Serum,hCG Quali.on 03-09-2024 HCG, SERUM QUAL Negative Normal [facility] Comment on above: Performed By: #### L 500.2500, L501.9100, L505.5000, L100.0100, L700.6800 ####[facility] [address] [place], [address] Urinalysis, Completeon 03-09 BACTERIA 1+ /hpf Normal None Seen [facility] Comment on above: Order Comment: CLEAN CATCH Performed By: #### L 400.0001 #### [facility] [address] [place], [address] EPI,SQUAMOUS 5-10 SEEN Normal 5-10 [facility] Comment on above: Order Comment: CLEAN CATCH Performed By: #### L 400.0001 #### [facility] [address] [place], [address] EPI,TRANSITION 0-5 SEEN Normal 0-5 [facility] Comment on above: Order Comment: CLEAN CATCH Performed By: #### L 400.0001 #### [facility] [address] [place], [address] RBC 0-5 SEEN Normal 0-5 [facility] Comment on above: Order Comment: CLEAN CATCH Performed By: #### L 400.0001 #### [facility] [address] [place], [address] Mucus Ql (Urine sed) 0 SEEN Normal [facility] Comment on above: Order Comment: CLEAN CATCH Performed By: #### L 400.0001 #### [facility] [address] [place], [address] WBC 0 SEEN Normal 0-5 [facility] Comment on above: Order Comment: CLEAN CATCH Performed By: #### L 400.0001 #### [facility] [address] [place], [address] Urine Drug Screen (VISTA)on 03-09-2024 AMPHETAMINES Negative Normal <1000 ng/mL [facility] Comment on above: Performed By: #### L 500.2500, L501.9100, L505.5000, L100.0100, L700.6800 #### [facility] [address] [place], [address] BARBITIURATES Negative Normal < 200 ng/mL [facility] Comment on above: Performed By: #### L 500.2500, L501.9100, L505.5000, L100.0100, L700.6800 #### [facility] [address] [place], [address] BENZODIAZIPINE Negative Normal < 200 ng/mL [facility] Comment on above: Performed By: #### L 500.2500, L501.9100, L505.5000, L100.0100, L700.6800 #### [facility] [address] [place], [facility] COCAINE Negative Normal < 300 ng/mL [facility] Comment on above: Performed By: #### L 500.2500, L501.9100, L505.5000, L100.0100, L700.6800 #### [facility] [address] [place], [facility] ECSTACY Negative Normal < 500 ng/mL [facility] Comment on above: Performed By: #### L 500.2500, L501.9100, L505.5000, L100.0100, L700.6800 #### [facility] [address] [place], [facility] METHADONE Negative Normal < 300 ng/mL [facility] Comment on above: Performed By: #### L 500.2500, L501.9100, L505.5000, L100.0100, L700.6800 #### [facility] [address] [place], [facility] OPIATES Negative Normal < 300 ng/mL [facility] Comment on above: Performed By: #### L 500.2500, L501.9100, L505.5000, L100.0100, L700.6800 #### [facility] [address] [place], [facility] PCP Negative Normal < 25 ng/mL [facility] Comment on above: Performed By: #### L 500.2500, L501.9100, L505.5000, L100.0100, L700.6800 #### [facility] [address] [place], [address] THC Positive Abnormal < 50 ng/mL [facility] Comment on above: Performed By: #### L 500.2500, L501.9100, L505.5000, L100.0100, L700.6800 #### [facility] [address] [place], [address] VISTA UDS PH 5 Normal [facility] Comment on above: Performed By: #### L 500.2500, L501.9100, L505.5000, L100.0100, L700.6800 #### [facility] [address] [place], [address] MR/BMS.BPon 03-02-2024 MR/BMS.[address], [address] [place], [place] [address] OFFICE VISIT Date of Service: 03/02/24 MR#: [id number] Acct: [id number] Name: EVA MONTES Rep #: [id number] : 2005 Provider: Dr. Wyatt Izquierdo se, DO Age/Sex: 18/F Location: [facility] Status: Signed Intake Vital Signs 02/03/24 12:38 [...] worse. She spent essentially 3 days at [facility], but did not feel like she needed to be there. States that [facility]. She states that a [...] personality disorder: (more content not included)... Normal [facility] Alcohol, Blood (Medical)-Ser umon 02-03-2024 SERUM ETOH < 3.0 Normal [facility] Comment on above: Result Comment: The serum:whole blood ethanol ratio is approximately 1.14 and varies slightly with hematocrit. Medical Alcohol reference interval and critical value in non-tolerant individuals; 50 - 100 Impairment 100 Intoxication 100 - 250 Severe Poisoning 250 - 400 Deep/possible fatal coma Performed By: #### L 500.2500, L700.6800, L505.5000, L501.9100, L100.0100 #### [facility] [address] [place], [address] Basic Metabolic Profile (BMP )on 02-03-2024 BUN/CRE 8.1 RATIO Low 10-20 [facility] Comment on above: Performed By: #### L 500.2500, L700.6800, L505.5000, L501.9100, L100.0100 #### [facility] [address] [place], [address] CA,Total 9.3 mg/dL Normal 8.5-10.1 [facility] Comment on above: Performed By: #### L 500.2500, L700.6800, L505.5000, L501.9100, L100.0100 #### [facility] [address] [place], [address] Chloride [Moles/Vol] 109 mmol/L High 98-107 [facility] Comment on above: Performed By: #### L 500.2500, L700.6800, L505.5000, L501.9100, L100.0100 #### [facility] [address] [place], [address] CO2 [Moles/Vol] 20.0 mmol/L Low 21.0-32.0 [facility] Comment on above: Performed By: #### L 500.2500, L700.6800, L505.5000, L501.9100, L100.0100 #### [facility] [address] [place], [address] Creatinine [Mass/Vol] 0.86 mg/dL Normal 0.55-1.02 [facility] Comment on above: Result Comment: The validity of the calculated GFR GFRAA in patients over 70 years has not been determined. Clinical correlation is essential. Performed By: #### L 500.2500, L700.6800, L505.5000, L501.9100, L100.0100 #### [facility] [address] [place], [address] ECRCL 105.66 ml/min Normal [facility] Comment on above: Performed By: #### L 500.2500, L700.6800, L505.5000, L501.9100, L100.0100 #### [facility] [address] [place], [address] EST GFR - AA 107 mL/min Normal >60 [facility] Comment on above: Result Comment: Afri can Ecuadorean GFR Calc Performed By: #### L 500.2500, L700.6800, L505.5000, L501.9100, L100.0100 #### [facility] [address] [place], [address] GAP 8 Normal 5-15 [facility] Comment on above: Performed By: #### L 500.2500, L700.6800, L505.5000, L501.9100, L100.0100 #### [facility] [address] [place], [address] GFR/1.73 sq M.predicted among non-blacks MDRD (S/P/Bld) [Vol rate/Area] 88 mL/min/{1.73_m2} Normal >60 [facility] Comment on above: Result Comment: Non- GFR Calc Performed By: #### L 500.2500, L700.6800, L505.5000, L501.9100, L100.0100 #### [facility] [address] [place], [address] Glucose [Mass/Vol] 109 mg/dL High 74-[address] [facility] Comment on above: Result Comment: Fast ing Glucose result from 100 to 125 mg/dL suggests IMPAIRED HOMEOSTASIS per A.D.A. criteria. Performed By: #### L 500.2500, L700.6800, L505.5000, L501.9100, L100.0100 #### [facility] [address] [place], [address] Potassium [Moles/Vol] 3.4 mmol/L Low 3.5-5.1 [facility] Comment on above: Performed By: #### L 500.2500, L700.6800, L505.5000, L501.9100, L100.0100 #### [facility] [address] [place], [address] Sodium [Moles/Vol] 137 mmol/L Normal 136-[address] [facility] Comment on above: Performed By: #### L 500.2500, L700.6800, L505.5000, L501.9100, L100.0100 #### [facility] [address] [place], [address] Urea nitrogen [Mass/Vol] 7 mg/dL Normal 7-18 [facility] Comment on above: Performed By: #### L 500.2500, L700.6800, L505.5000, L501.9100, L100.0100 #### [facility] [address] [place], [address] CBC W/Diff, Automatedon 11-0 7-2023 Absolute Lymph 2.79 X10 3/uL Normal 0.83-4.51 [facility] Comment on above: Performed By: #### L 500.2500, L700.6800, L505.5000, L501.9100, L100.0100 #### [facility] [address] [place], [address] Absolute Neut 11.0 X10 3/uL High 2.0-7.7 [facility] Comment on above: Performed By: #### L 500.2500, L700.6800, L505.5000, L501.9100, L100.0100 #### [facility] [address] [place], [address] Basophils/100 WBC (Bld) 0.3 % Normal 0-1 [facility] Comment on above: Performed By: #### L 500.2500, L700.6800, L505.5000, L501.9100, L100.0100 #### [facility] [address] [place], [address] Eosinophils/100 WBC (Bld) 0.3 % Normal 0-5 [facility] Comment on above: Performed By: #### L 500.2500, L700.6800, L505.5000, L501.9100, L100.0100 #### [facility] [address] [place], [address] Erythrocyte distribution width (RBC) [Ratio] 13.2 % Normal 11.6-14.6 [facility] Comment on above: Performed By: #### L 500.2500, L700.6800, L505.5000, L501.9100, L100.0100 #### [facility] [address] [place], [address] Hematocrit (Bld) [Volume fraction] 45.4 % Normal 37-47 [facility] Comment on above: Performed By: #### L 500.2500, L700.6800, L505.5000, L501.9100, L100.0100 #### [facility] [address] [place], [address] Hemoglobin (Bld) [Mass/Vol] 15.1 g/dL High 12.0-15.0 [facility] Comment on above: Performed By: #### L 500.2500, L700.6800, L505.5000, L501.9100, L100.0100 #### [facility] [address] [place], [address] IG% 0.500 Normal 0.0-0.9 [facility] Comment on above: Result Comment: IG% - Immature Granulocytes (promyelocytes, myelocytes and metamyelocytes) > 1% indicates that a LEFT SHIFT is Present. Performed By: #### L 500.2500, L700.6800, L505.5000, L501.9100, L100.0100 #### [facility] [address] [place], [address] Lymphocytes/100 WBC (Bld) 19.0 % Normal 19-41 [facility] Comment on above: Performed By: #### L 500.2500, L700.6800, L505.5000, L501.9100, L100.0100 #### [facility] [address] [place], [address] MCH (RBC) [Entitic mass] 27.8 pg Normal 27.0-32.0 [facility] Comment on above: Performed By: #### L 500.2500, L700.6800, L505.5000, L501.9100, L100.0100 #### [facility] [address] [place], [address] MCHC (RBC) [Mass/Vol] 33.3 g/dL Normal 32-36 [facility] Comment on above: Performed By: #### L 500.2500, L700.6800, L505.5000, L501.9100, L100.0100 #### [facility] [address] [place], [address] MCV (RBC) [Entitic vol] 83.6 fL Normal 81-99 [facility] Comment on above: Performed By: #### L 500.2500, L700.6800, L505.5000, L501.9100, L100.0100 #### [facility] [address] [place], [address] Monocytes/100 WBC (Bld) 5.0 % Normal 0-10 [facility] Comment on above: Performed By: #### L 500.2500, L700.6800, L505.5000, L501.9100, L100.0100 #### [facility] [address] [place], [address] Neutrophils/100 WBC (Bld) 74.9 % High 47-70 [facility] Comment on above: Performed By: #### L 500.2500, L700.6800, L505.5000, L501.9100, L100.0100 #### [facility] [address] [place], [address] Nucleated RBC (Bld) [#/Vol] 0 10*3/uL Normal 0-5 [facility] Comment on above: Performed By: #### L 500.2500, L700.6800, L505.5000, L501.9100, L100.0100 #### [facility] [address] [place], [address] Platelet mean volume (Bld) [Entitic vol] 9.6 fL Normal 6.2-12.0 [facility] Comment on above: Performed By: #### L 500.2500, L700.6800, L505.5000, L501.9100, L100.0100 #### [facility] [address] [place], [address] Platelets (Bld) [#/Vol] 399 10*3/uL Normal 150-450 [facility] Comment on above: Performed By: #### L 500.2500, L700.6800, L505.5000, L501.9100, L100.0100 #### [facility] [address] [place], [address] RBC (Bld) [#/Vol] 5.43 10*6/uL High 4.2-5.4 [facility] Comment on above: Performed By: #### L 500.2500, L700.6800, L505.5000, L501.9100, L100.0100 #### [facility] [address] [place], [address] RDW SD 40.6 fl Normal 35.1-43.9 [facility] Comment on above: Performed By: #### L 500.2500, L700.6800, L505.5000, L501.9100, L100.0100 #### [facility] [address] [place], [address] WBC (Bld) [#/Vol] 14.7 10*3/uL High 4.4-11.0 [facility] Comment on above: Performed By: #### L 500.2500, L700.6800, L505.5000, L501.9100, L100.0100 #### [facility] [address] [place], [address] Emergency Department Summary on 02-03-2024 Emergency Department Summary [facility] Medical Records Department [address] [place] [address] Emergency Department Summary 02/03/24 MR#: [id number] Acct: [id number] Name: EVA MONTES Rep #: [id number] : 2005 18 From: Luis Avila DO PCP: Care Physician,No Primary Status:REG ER Location: ED HPI HPI - Psych History of Present Illness Chief Complaint: Mental Health [facility] Medical History (Updated 11/30/23 @ 13:50 by [...] auditory visualizations. Denies any drug use. Per commissioned police officer patient failed her care plan. Per commissioned police officer patient had been overwhelmed by [...] good approximation. Medical clearance labs were obtained. [place] slip signed/. Awaiting medical clearance. Signed out [...] removal. Delores (more content not included)... Normal [facility] ,Serum,hCG Quali.on 02-03-2024 HCG, SERUM QUAL Negative Normal [facility] Comment on above: Performed By: #### L 500.2500, L700.6800, L505.5000, L501.9100, L100.0100 #### [facility] [address] [place] [address] Urine Drug Screen (VISTA)on 02-03-2024 AMPHETAMINES Negative Normal <1000 ng/mL [facility] Comment on above: Performed By: #### L 500.2500, L700.6800, L505.5000, L501.9100, L100.0100 #### [facility] [address] [place], [facility] BARBITIURATES Negative Normal < 200 ng/mL [facility] Comment on above: Performed By: #### L 500.2500, L700.6800, L505.5000, L501.9100, L100.0100 #### [facility] [address] [place], [facility] BENZODIAZIPINE Negative Normal < 200 ng/mL [facility] Comment on above: Performed By: #### L 500.2500, L700.6800, L505.5000, L501.9100, L100.0100 #### [facility] [address] [place] [id number] COCAINE Negative Normal < 300 ng/mL [facility] Comment on above: Performed By: #### L 500.2500, L700.6800, L505.5000, L501.9100, L100.0100 #### [facility] [address] [place], [address] ECSTACY Negative Normal < 500 ng/mL [facility] Comment on above: Performed By: #### L 500.2500, L700.6800, L505.5000, L501.9100, L100.0100 #### [facility] [address] [place], [facility] METHADONE Negative Normal < 300 ng/mL [facility] Comment on above: Performed By: #### L 500.2500, L700.6800, L505.5000, L501.9100, L100.0100 #### [facility] [address] [place], [facility] OPIATES Negative Normal < 300 ng/mL [facility] Comment on above: Performed By: #### L 500.2500, L700.6800, L505.5000, L501.9100, L100.0100 #### [facility] [address] [place], [facility] PCP Negative Normal < 25 ng/mL [facility] Comment on above: Performed By: #### L 500.2500, L700.6800, L505.5000, L501.9100, L100.0100 #### [facility] [address] [place], [facility] THC Positive Abnormal < 50 ng/mL [facility] Comment on above: Performed By: #### L 500.2500, L700.6800, L505.5000, L501.9100, L100.0100 #### [facility] [address] [place], [facility] VISTA UDS PH 6 Normal [facility] Comment on above: Performed By: #### L 500.2500, L700.6800, L505.5000, L501.9100, L100.0100 #### [facility] [place], [address] MR/BMS.BPon 02-01-2024 MR/BMS.BP [facility] [address], [address] [place] [address] OFFICE VISIT Date of Service: 02/01/24 MR#: [id number] Acct: [id number] Name: EVA MONTES Rep #: [id number] : 2005 Provider: Dr. Wyatt Izquierdo se, DO Age/Sex: 18/F Location: [facility] Status: Signed Intake Vital Signs 11/30/23 13:27 02/01/24 13:43 Height 4 ft 11 in 4 ft 11 in BP 125/84 H Blood Pressure Location Rt brachial Position Sitting Respiration 20 H Pulse 82 Pulse Source Monitor Pulse Oximetry (%) 98 Oxygen Delivery Method room air BP Intake Visit Reasons: follow up Allergies No Known Allergies Allergy (Verified 11/30/23 13:32) [facility] Medical History (Updated 11/30/23 @ 13:50 by [...] change she will be going to a [facility] which Eva found out was just a "scare tactic." Has been going to day program through the counseling center. Discovered that anytime she was getting a phone call she was worried that she would lose her housing because of this case folder. Has been assigned a new case folder and it has been somewhat of an adjustment. Describes her mood as "horrible." Does have the occasional good day but also has a lot of bad days. Does have times where she has poor motivation or others where she is irritable. No longer has a childcare worker whom she was very close with before. Her childcare worker resigned without her knowing and she got a call out of blue [facility]. She will not be getting another childcare worker at this time. She has been somewhat [...] be ef (more content not included)... Normal [facility] MR/BMS.BPon 11-30-2023 MR/BMS.BP [facility] [address], [address] [place] [address] OFFICE VISIT Date of Service: 11/30/23 MR#: [id number] Acct: [id number] Name: EVA MONTES Rep #: [id number] : 2005 Provider: Dr. Wyatt Izquierdo se, DO Age/Sex: 18/F Location: [facility] Status: Signed Intake Vital Signs 08/28/23 16:49 11/30/23 13:27 Height 4 ft 11 in 4 ft 11 in BP 125/84 H Blood Pressure Location Rt brachial Position Sitting Respiration 20 H Pulse 82 Pulse Source Monitor Pulse Oximetry (%) 98 Oxygen Delivery Method room air BP Intake Visit Reasons: follow up [employer] Required: No Accompanied by: Self Is patient in pain?: No Allergies No Known Allergies Allergy (Verified 11/30/23 13:32) Medications ???Medication ???Instructions ???Recorded ???Confirmed ???Type escitalopram oxalate 5 mg tablet 5 mg PO QDAY #30 tabs 11/30/23 11/30/23 Rx mirabegron 50 mg tablet,extended 50 mg PO QDAY 11/30/23 11/30/23 History release 24 hr (Myrbetriq) [facility] Medical History (Updated 11/30/23 @ 13:50 by [...] months. Since last appointment was admitted to [facility] after attempted suicide by cutting of her [...] There was discussion of going to a [facility] per self report. Feels like she invalidates [...] Content no (more content not included)... Normal [facility] Basophil percentageon 2021 Basophil percentage 0-5 SEEN /hpf 0-5 [facility] Work Phone: Bilirubin Test strip Ql (U)o n 03-24-2022 Bilirubin Ql (U) Negative Negative [facility] Work Phone: Ketones Test strip Ql (U)on 03-24-2022 Ketones Ql (U) 50 mg/dl Negative [facility] [facility] Work Phone: Mucus LM Ql (Urine sed)on Mucus Ql (Urine sed) 0 SEEN /hpf [facility] Work Phone: Nitrite Test strip Ql (U)on 03-24-2022 Nitrite Ql (U) Negative Negative [facility] Work Phone: Protein Test strip Ql (U)on 03-24-2022 Protein Ql (U) Negative Negative [facility] Work Phone: Squamous epithelial cells de tection in urine sediment by light microscopyon 03-24-2022 Epithelial cells.squamous LM Ql (Urine sed) 0-5 SEEN /hpf 5-10 [facility] Work Phone: Urine blood detectionon 02-27 RBC Ql (U) 150 /ul Negative [facility] Work Phone: RBC Ql (U) 10-25 SEEN /hpf 0-5 [facility] Work Phone: Urine clarityon 03-24-2022 Clarity (U) Sl. Cloudy Clear [facility] Work Phone: Urine color determinationon 03-24-2022 Color (U) Yellow Yellow [facility] Work Phone: Urine glucose detectionon Glucose Ql (U) Normal mg/dl Normal [facility] Work Phone: Urine leukocyte esterase det ection by dipstickon 03-24-2022 Leukocyte esterase Test strip Ql (U) 25 /ul Negative [facility] Work Phone: Urine pHon 03-24-2022 pH (U) 5.0 [pH] 5.0 - 8.0 [facility] Work Phone: Urine sediment bacteria coun t by microscopy (number/high power field)on 03-24-2022 Bacteria LM.HPF (Urine sed) [#/Area] 1 /[HPF] None Seen [facility] Work Phone: Urine specific gravity measu rementon 03-24-2022 Specific gravity (U) [Rel density] 1.015 1.002-1.030 [facility] Work Phone: Urobilinogen Auto test strip Ql (U)on 03-24-2022 Urobilinogen Ql (U) Normal mg/dl Normal [facility] Work Phone: Absolute lymphocyte counton 03-23-2022 Lymphocytes Auto (Unsp spec) [#/Vol] 1.80 10*3/uL 0.83-4.51 [facility] Work Phone: Basophil percentageon 2021 Basophils/100 WBC (Bld) 0.3 % 0-1 [facility] Work Phone: Chloride [Moles/Vol] 107 mmol/L 98-107 [facility] Work Phone: Eosinophils/100 WBC (Bld) 0.1 % 0-3 [facility] Work Phone: Glucose [Mass/Vol] 88 mg/dL 74-[address] [facility] Work Phone: Neutrophils (Bld) [#/Vol] 11.5 10*3/uL 2.0-7.7 [facility] Work Phone: [phone] Neutrophils/100 WBC (Bld) 80.8 % 34-64 [facility] Work Phone: [phone] Potassium [Moles/Vol] 3.2 mmol/L 3.5-5.1 [facility] Work Phone: [phone] Sodium [Moles/Vol] 139 mmol/L 136-[address] [facility] Work Phone: [phone] WBC (Bld) [#/Vol] 14.2 10*3/uL 4.5-13.0 [facility] Work Phone: [phone] Beta hCG serum qualon 2021 Beta HCG ( test) Ql Negative [facility] Work Phone: [phone] Blood erythrocytes count (nu mber/volume)on 03-23-2022 RBC (Bld) [#/Vol] 4.99 10*6/uL 4.1-4.8 [facility] Work Phone: [phone] Blood hemoglobin measurement (mass/volume)on 03-23-2022 Hemoglobin (Bld) [Mass/Vol] 13.5 g/dL 12.0-15.0 [facility] Work Phone: [phone] Blood lymphocytes/100 leukoc yteson 03-23-2022 Lymphocytes/100 WBC (Bld) 12.7 % 25-45 [facility] Work Phone: [phone] Blood monocytes/100 leukocyt eson 03-23-2022 Monocytes/100 WBC (Bld) 5.6 % 3-6 [facility] Work Phone: Blood platelet mean volumeon 03-23-2022 Platelet mean volume (Bld) [Entitic vol] 10.4 fL 6.2-12.0 [facility] Work Phone: Determination of erythrocyte mean corpuscular volume (MCV)on 03-23-2022 MCV (RBC) [Entitic vol] 85.4 fL 78-96 [facility] Work Phone: [phone] Hematocrit Auto (Bld) [Volum e fraction]on 03-23-2022 Hematocrit (Bld) [Volume fraction] 42.6 % 37-46 [facility] Work Phone: [phone] Laboratory - Chemistry and C hemistry - challengeon 03-23-2022 CO2 [Moles/Vol] 20.0 mmol/L 21.0-32.0 [facility] Work Phone: [phone] Urea nitrogen/Creatinine [Mass ratio] 10.5 mg/mg 10-20 [facility] Work Phone: [phone] Laboratory - Drug toxicology on 03-23-2022 Amphetamines Ql (U) Negative <1000 ng/mL [facility] Work Phone: [phone] Benzodiazepines Ql (U) Negative < 200 ng/mL [facility] Work Phone: [phone] Cannabinoids Screen Ql (U) Negative < 50 ng/mL [facility] Work Phone: [phone] Cocaine Ql (U) Negative < 300 ng/mL [facility] Work Phone: [phone] Opiates Ql (U) Negative < 300 ng/mL [facility] Work Phone: [phone] Laboratory - Hematology and Cell countson 03-23-2022 Erythrocyte distribution width (RBC) [Entitic vol] 40.3 fL 35.1-43.9 [facility] Work Phone: [phone] Erythrocyte distribution width (RBC) [Ratio] 13.1 % 11.6-14.6 [facility] Work Phone: [phone] Immature granulocytes/100 WBC (Bld) 0.500 % 0.0-0.9 [facility] Work Phone: [phone] Comment on above: IG% - Immature Granu locytes (promyelocytes, myelocytes and metamyelocytes) > 1% indicates that a LEFT SHIFT is Present. MCH (RBC) [Entitic mass] 27.1 pg 25.0-35.0 [facility] Work Phone: [phone] Nucleated RBC/100 WBC (Bld) [Ratio] 0 % 0-5 [facility] Work Phone: [phone] MCHC Auto (RBC) [Mass/Vol]on 03-23-2022 MCHC (RBC) [Mass/Vol] 31.7 g/dL 32-36 [facility] Work Phone: [phone] Panel Informationon 03-23 MDMA (Ecstasy) Screen Negative < 500 ng/mL [facility] Work Phone: [phone] Urine Barbiturates Screen Negative < 200 ng/mL [facility] Work Phone: [phone] Urine Drug Screen Comment [facility] Work Phone: [phone] Comment on above: CONFIRMATORY TESTING FOR ALL [...] Urine Methadone Screen Negative < 300 ng/mL [facility] Work Phone: [phone] Estimated Creatinine Clearance Calc 171.92 ml/min [facility] Work Phone: [phone] Estimated GFR (MDRD) Amer 126 mL/min >60 [facility] Work Phone: [phone] Comment on above: GFR Calc Estimated GFR (MDRD) Non-Af Amer 104 mL/min >60 [facility] Work Phone: [phone] Comment on above: Non- GFR Calc Ethyl Alcohol Level 3.0 mg/dL [facility] Work Phone: [phone] Comment on above: The serum:whole bloo d ethanol ratio is approximately 1.14and varies slightly with hematocrit. Medical Alcohol reference interval and critical value innon-tolerant individuals; 50 - 100 Impairment 100 Intoxication 100 - 250 Severe Poisoning 250 - 400 Deep/possible fatal coma Platelets bldon 03-23-2022 Platelets (Bld) [#/Vol] 232 10*3/uL 150-450 [facility] Work Phone: [phone] Serum or plasma calcium dean urement (mass/volume)on 03-23-2022 Calcium [Mass/Vol] 8.9 mg/dL 8.5-10.[address] [facility] Work Phone: [phone] Serum or plasma creatinine m easurement (mass/volume)on 03-23-2022 Creatinine [Mass/Vol] 0.76 mg/dL 0.55-1.02 [facility] Work Phone: Comment on above: The validity of the calculated GFR & GFRAA in patients over 70 years has not been determined. Clinical correlation is essential. Serum or plasma urea nitroge n measurement (mass/volume)on 03-23-2022 Urea nitrogen [Mass/Vol] 8 mg/dL 7-18 [facility] Work Phone: Thin prep Papanicolaou smear with manual screeningon 03-23-2022 Thin prep Papanicolaou smear with manual screening 12 5-15 [facility] Work Phone: [phone] Urine phencyclidine (PCP) de tectionon 03-23-2022 Phencyclidine Ql (U) Negative < 25 ng/mL [facility] Work Phone: [phone] Absolute lymphocyte counton 03-02-2022 Lymphocytes Auto (Unsp spec) [#/Vol] 3.22 10*3/uL 0.83-4.51 [facility] Work Phone: Basophil percentageon 2021 Basophils/100 WBC (Bld) 0.5 % 0-1 [facility] Work Phone: Chloride [Moles/Vol] 110 mmol/L 98-107 [facility] Work Phone: Eosinophils/100 WBC (Bld) 0.9 % 0-3 [facility] Work Phone: Glucose [Mass/Vol] 107 mg/dL 74-[address] [facility] Work Phone: Comment on above: Fasting Glucose resu lt from 100 to 125 mg/dL suggests IMPAIRED HOMEOSTASIS per A.D.A. criteria. Neutrophils (Bld) [#/Vol] 7.5 10*3/uL 2.0-7.7 [facility] Work Phone: [phone] Neutrophils/100 WBC (Bld) 64.2 % 34-64 [facility] Work Phone: [phone] Potassium [Moles/Vol] 3.5 mmol/L 3.5-5.1 [facility] Work Phone: [phone] Sodium [Moles/Vol] 139 mmol/L 136-[address] [facility] Work Phone: [phone] WBC (Bld) [#/Vol] 11.8 10*3/uL 4.5-13.0 [facility] Work Phone: [phone] Beta hCG serum qualon 2021 Beta HCG ( test) Ql Negative [facility] Work Phone: [phone] Blood erythrocytes count (nu mber/volume)on 03-02-2022 RBC (Bld) [#/Vol] 5.27 10*6/uL 4.1-4.8 [facility] Work Phone: [phone] Blood hemoglobin measurement (mass/volume)on 03-02-2022 Hemoglobin (Bld) [Mass/Vol] 14.5 g/dL 12.0-15.0 [facility] Work Phone: [phone] Blood lymphocytes/100 leukoc yteson 03-02-2022 Lymphocytes/100 WBC (Bld) 27.4 % 25-45 [facility] Work Phone: [phone] Blood monocytes/100 leukocyt eson 03-02-2022 Monocytes/100 WBC (Bld) 6.5 % 3-6 [facility] Work Phone: [phone] Blood platelet mean volumeon 03-02-2022 Platelet mean volume (Bld) [Entitic vol] 10.5 fL 6.2-12.0 [facility] Work Phone: [phone] Determination of erythrocyte mean corpuscular volume (MCV)on 03-02-2022 MCV (RBC) [Entitic vol] 84.1 fL 78-96 [facility] Work Phone: [phone] Hematocrit Auto (Bld) [Volum e fraction]on 03-02-2022 Hematocrit (Bld) [Volume fraction] 44.3 % 37-46 [facility] Work Phone: [phone] Laboratory - Chemistry and C hemistry - challengeon 03-02-2022 CO2 [Moles/Vol] 21.0 mmol/L 21.0-32.0 [facility] Work Phone: [phone] Urea nitrogen/Creatinine [Mass ratio] 10.5 mg/mg 10-20 [facility] Work Phone: [phone] Laboratory - Drug toxicology on 03-02-2022 Amphetamines Ql (U) Negative <1000 ng/mL [facility] Work Phone: [phone] Benzodiazepines Ql (U) Negative < 200 ng/mL [facility] Work Phone: [phone] Cannabinoids Screen Ql (U) Negative < 50 ng/mL [facility] Work Phone: [phone] Cocaine Ql (U) Negative < 300 ng/mL [facility] Work Phone: [phone] Opiates Ql (U) Negative < 300 ng/mL [facility] Work Phone: [phone] Laboratory - Hematology and Cell countson 03-02-2022 Erythrocyte distribution width (RBC) [Entitic vol] 39.5 fL 35.1-43.9 [facility] Work Phone: [phone] Erythrocyte distribution width (RBC) [Ratio] 12.9 % 11.6-14.6 [facility] Work Phone: [phone] Immature granulocytes/100 WBC (Bld) 0.500 % 0.0-0.9 [facility] Work Phone: [phone] Comment on above: IG% - Immature Granu locytes (promyelocytes, myelocytes and metamyelocytes) > 1% indicates that a LEFT SHIFT is Present. MCH (RBC) [Entitic mass] 27.5 pg 25.0-35.0 [facility] Work Phone: Nucleated RBC/100 WBC (Bld) [Ratio] 0 % 0-5 [facility] Work Phone: [phone] MCHC Auto (RBC) [Mass/Vol]on 03-02-2022 MCHC (RBC) [Mass/Vol] 32.7 g/dL 32-36 [facility] Work Phone: No Panel Informationon 03-02 Estimated Creatinine Clearance Calc 155.72 ml/min [facility] Work Phone: [phone] Estimated GFR (MDRD) Amer 111 mL/min >60 [facility] Work Phone: [phone] Comment on above: GFR Calc Estimated GFR (MDRD) Non-Af Amer 91 mL/min >60 [facility] Work Phone: [phone] Comment on above: Non- GFR Calc Ethyl Alcohol Level < 3.0 mg/dL [facility] Work Phone: [phone] Comment on above: The serum:whole bloo d ethanol ratio is approximately 1.14and varies slightly with hematocrit. Medical Alcohol reference interval and critical value innon-tolerant individuals; 50 - 100 Impairment 100 Intoxication 100 - 250 Severe Poisoning 250 - 400 Deep/possible fatal coma MDMA (Ecstasy) Screen Negative < 500 ng/mL [facility] Work Phone: [phone] Urine Barbiturates Screen Negative < 200 ng/mL [facility] Work Phone: [phone] Urine Drug Screen Comment [facility] Work Phone: [phone] Comment on above: CONFIRMATORY TESTING FOR ALL [...] Urine Methadone Screen Negative < 300 ng/mL [facility] Work Phone: Platelets bldon 03-02-2022 Platelets (Bld) [#/Vol] 276 10*3/uL 150-450 [facility] Work Phone: Serum or plasma calcium dean urement (mass/volume)on 03-02-2022 Calcium [Mass/Vol] 9.3 mg/dL 8.5-10.[address] [facility] Work Phone: Serum or plasma creatinine m easurement (mass/volume)on 03-02-2022 Creatinine [Mass/Vol] 0.85 mg/dL 0.55-1.02 [facility] Work Phone: Comment on above: The validity of the calculated GFR & GFRAA in patients over 70 years has not been determined. Clinical correlation is essential. Serum or plasma urea nitroge n measurement (mass/volume)on 03-02-2022 Urea nitrogen [Mass/Vol] 9 mg/dL 7-18 [facility] Work Phone: Thin prep Papanicolaou smear with manual screeningon 03-02-2022 Thin prep Papanicolaou smear with manual screening 8 5-15 [facility] Work Phone: Urine phencyclidine (PCP) de tectionon 03-02-2022 Phencyclidine Ql (U) Negative < 25 ng/mL [facility] Work Phone: Absolute lymphocyte counton 02-25-2022 Lymphocytes Auto (Unsp spec) [#/Vol] 2.68 10*3/uL 0.83-4.51 [facility] Work Phone: Basophil percentageon 2021 Basophils/100 WBC (Bld) 0.4 % 0-1 [facility] Work Phone: Chloride [Moles/Vol] 108 mmol/L 98-107 [facility] Work Phone: Eosinophils/100 WBC (Bld) 0.6 % 0-3 [facility] Work Phone: Glucose [Mass/Vol] 100 mg/dL 74-[address] [facility] Work Phone: Comment on above: Fasting Glucose resu lt from 100 to 125 mg/dL suggests IMPAIRED HOMEOSTASIS per A.D.A. criteria. Neutrophils (Bld) [#/Vol] 10.4 10*3/uL 2.0-7.7 [facility] Work Phone: Neutrophils/100 WBC (Bld) 74.5 % 34-64 [facility] Work Phone: [phone] Potassium [Moles/Vol] 3.3 mmol/L 3.5-5.1 [facility] Work Phone: [phone] Sodium [Moles/Vol] 141 mmol/L 136-[address] [facility] Work Phone: [phone] WBC (Bld) [#/Vol] 14.0 10*3/uL 4.5-13.0 [facility] Work Phone: [phone] Beta hCG serum qualon 2021 Beta HCG ( test) Ql Negative [facility] Work Phone: [phone] Blood erythrocytes count (nu mber/volume)on 02-25-2022 RBC (Bld) [#/Vol] 5.45 10*6/uL 4.1-4.8 [facility] Work Phone: Blood hemoglobin measurement (mass/volume)on 02-25-2022 Hemoglobin (Bld) [Mass/Vol] 14.6 g/dL 12.0-15.0 [facility] Work Phone: [phone] Blood lymphocytes/100 leukoc yteson 02-25-2022 Lymphocytes/100 WBC (Bld) 19.2 % 25-45 [facility] Work Phone: [phone] Blood monocytes/100 leukocyt eson 02-25-2022 Monocytes/100 WBC (Bld) 4.8 % 3-6 [facility] Work Phone: Blood platelet mean volumeon 02-25-2022 Platelet mean volume (Bld) [Entitic vol] 11.0 fL 6.2-12.0 [facility] Work Phone: Determination of erythrocyte mean corpuscular volume (MCV)on 02-25-2022 MCV (RBC) [Entitic vol] 82.0 fL 78-96 [facility] Work Phone: [phone] Hematocrit Auto (Bld) [Volum e fraction]on 02-25-2022 Hematocrit (Bld) [Volume fraction] 44.7 % 37-46 [facility] Work Phone: [phone] Laboratory - Chemistry and C hemistry - challengeon 02-25-2022 CO2 [Moles/Vol] 24.0 mmol/L 21.0-32.0 [facility] Work Phone: [phone] Urea nitrogen/Creatinine [Mass ratio] 11.1 mg/mg 10-20 [facility] Work Phone: [phone] Laboratory - Drug toxicology on 02-25-2022 Amphetamines Ql (U) Negative <1000 ng/mL [facility] Work Phone: [phone] Benzodiazepines Ql (U) Negative < 200 ng/mL [facility] Work Phone: [phone] Cannabinoids Screen Ql (U) Negative < 50 ng/mL [facility] Work Phone: [phone] Cocaine Ql (U) Negative < 300 ng/mL [facility] Work Phone: [phone] Opiates Ql (U) Negative < 300 ng/mL [facility] Work Phone: [phone] Laboratory - Hematology and Cell countson 02-25-2022 Erythrocyte distribution width (RBC) [Entitic vol] 38.8 fL 35.1-43.9 [facility] Work Phone: [phone] Erythrocyte distribution width (RBC) [Ratio] 13.0 % 11.6-14.6 [facility] Work Phone: [phone] Immature granulocytes/100 WBC (Bld) 0.500 % 0.0-0.9 [facility] Work Phone: [phone] Comment on above: IG% - Immature Granu locytes (promyelocytes, myelocytes and metamyelocytes) > 1% indicates that a LEFT SHIFT is Present. MCH (RBC) [Entitic mass] 26.8 pg 25.0-35.0 [facility] Work Phone: [phone] Nucleated RBC/100 WBC (Bld) [Ratio] 0 % 0-5 [facility] Work Phone: [phone] MCHC Auto (RBC) [Mass/Vol]on 02-25-2022 MCHC (RBC) [Mass/Vol] 32.7 g/dL 32-36 [facility] Work Phone: [phone] No Panel Informationon 02-25 MDMA (Ecstasy) Screen Negative < 500 ng/mL [facility] Work Phone: [phone] Urine Barbiturates Screen Negative < 200 ng/mL [facility] Work Phone: [phone] Urine Drug Screen Comment [facility] Work Phone: [phone] Comment on above: CONFIRMATORY TESTING FOR ALL [...] Urine Methadone Screen Negative < 300 ng/mL [facility] Work Phone: [phone] Estimated Creatinine Clearance Calc 186.01 ml/min [facility] Work Phone: [phone] Estimated GFR (MDRD) Amer 135 mL/min >60 [facility] Work Phone: [phone] Comment on above: GFR Calc Estimated GFR (MDRD) Non-Af Amer 111 mL/min >60 [facility] Work Phone: [phone] Comment on above: Non- GFR Calc Ethyl Alcohol Level 9.0 mg/dL [facility] Work Phone: [phone] Comment on above: The serum:whole bloo d ethanol ratio is approximately 1.14and varies slightly with hematocrit. Medical Alcohol reference interval and critical value innon-tolerant individuals; 50 - 100 Impairment 100 Intoxication 100 - 250 Severe Poisoning 250 - 400 Deep/possible fatal coma Platelets bldon 02-25-2022 Platelets (Bld) [#/Vol] 224 10*3/uL 150-450 [facility] Work Phone: Serum or plasma calcium dean urement (mass/volume)on 02-25-2022 Calcium [Mass/Vol] 9.2 mg/dL 8.5-10.[address] [facility] Work Phone: Serum or plasma creatinine m easurement (mass/volume)on 02-25-2022 Creatinine [Mass/Vol] 0.72 mg/dL 0.55-1.02 [facility] Work Phone: Comment on above: The validity of the calculated GFR & GFRAA in patients over 70 years has not been determined. Clinical correlation is essential. Serum or plasma urea nitroge n measurement (mass/volume)on 02-25-2022 Urea nitrogen [Mass/Vol] 8 mg/dL 7-18 [facility] Work Phone: Thin prep Papanicolaou smear with manual screeningon 02-25-2022 Thin prep Papanicolaou smear with manual screening 9 5-15 [facility] Work Phone: Urine phencyclidine (PCP) de tectionon 02-25-2022 Phencyclidine Ql (U) Negative < 25 ng/mL [facility] Work Phone: Progress Noteon 04-23-2021 [employer] Interface Message Text Patient ID: [id number] [...] 87.6 kg, last menstrual period 03/24/2021. Normal [facility] Immunoglobulin Aon 2 Immunoglobulin A 228 mg/dL Normal 61-348 [facility] Comment on above: Order Comment: Is th is specimen being sent to an external lab?->No Release to patient->Automatic 18562&Blood^\\S\\^Vein&Vein Performed By: #### I GA #### [address] [address] Bili,Conjugatedon 04-03-2021 Bili,Conjugated <0.1 Normal 0.0-0.7 [facility] Comment on above: Order Comment: Is th is specimen being sent to an external lab?->No Release to patient->Automatic 94677&Blood^\\S\\^Vein&Vein Performed By: #### D BILI #### [address] [address] Comp Metabolic Panelon 04-03 Potassium [Moles/Vol] 6.5 mmol/L Off scale high 3.3-5.1 [facility] Comment on above: Order Comment: Is th is specimen being sent to an external lab?->No Release to patient->Automatic 50833&Blood^\\S\\^Vein&Vein Result Comment: No v isible hemolysis. Original specimen repeated and results verified. Performed By: #### C MP #### [address] [address] Albumin [Mass/Vol] 4.3 g/dL Normal 3.2-4.5 [facility] Comment on above: Order Comment: Is th is specimen being sent to an external lab?->No Release to patient->Automatic 28534&Blood^\\S\\^Vein&Vein Performed By: #### C MP #### [address] [address] ALP [Catalytic activity/Vol] 47 U/L Normal 43-83 [facility] Comment on above: Order Comment: Is th is specimen being sent to an external lab?->No Release to patient->Automatic 64803&Blood^\\S\\^Vein&Vein Performed By: #### C MP #### [address] [address] ALT [Catalytic activity/Vol] 18 U/L Normal 0-31 [facility] Comment on above: Order Comment: Is th is specimen being sent to an external lab?->No Release to patient->Automatic 24026&Blood^\\S\\^Vein&Vein Performed By: #### C MP #### [address] [address] AST [Catalytic activity/Vol] 17 U/L Normal 0-31 [facility] Comment on above: Order Comment: Is th is specimen being sent to an external lab?->No Release to patient->Automatic 09647&Blood^\\S\\^Vein&Vein Performed By: #### C MP #### [address] [address] Bili,Total 0.5 mg/dl Normal 0.0-1.0 [facility] Comment on above: Order Comment: Is th is specimen being sent to an external lab?->No Release to patient->Automatic 78283&Blood^\\S\\^Vein&Vein Performed By: #### C MP #### [address] [address] Calcium [Mass/Vol] 9.1 mg/dL Normal 7.6-11.0 [facility] Comment on above: Order Comment: Is th is specimen being sent to an external lab?->No Release to patient->Automatic 10465&Blood^\\S\\^Vein&Vein Performed By: #### C MP #### [place] [address] Chloride [Moles/Vol] 103 mmol/L Normal 96-108 [facility] Comment on above: Order Comment: Is th is specimen being sent to an external lab?->No Release to patient->Automatic 11180&Blood^\\S\\^Vein&Vein Performed By: #### C MP #### [place] [address] CO2 [Moles/Vol] 23.6 mmol/L Normal 22.0-29.0 [facility] Comment on above: Order Comment: Is th is specimen being sent to an external lab?->No Release to patient->Automatic 73126&Blood^\\S\\^Vein&Vein Performed By: #### C MP #### [place] [address] Creatinine [Mass/Vol] 0.69 mg/dL Normal 0.50-1.00 [facility] Comment on above: Order Comment: Is th is specimen being sent to an external lab?->No Release to patient->Automatic 37424&Blood^\\S\\^Vein&Vein Result Comment: Premature 0.3-1.0 mg/dL Performed By: #### C MP #### [place] [address] Glucose [Mass/Vol] 69 mg/dL Low 70-99 [facility] Comment on above: Order Comment: Is th is specimen being sent to an external lab?->No Release to patient->Automatic 28396&Blood^\\S\\^Vein&Vein Result Comment: Criteria for Diagnosis of Diabetes(Effective 09/01/10): Fasting specimen (no caloric intake for at least 8 hours). <100 mg/dl Normal 100-125 mg/dl Increased Risk for Diabetes >125 mg/dl Diagnostic for Diabetes Random Glucose (any time of day without regard to last meal). >=200 mg/dl plus Classic Symptoms of Diabetes Performed By: #### C MP #### [place] [address] Protein [Mass/Vol] 7.9 g/dL Normal 6.0-8.0 [facility] Comment on above: Order Comment: Is th is specimen being sent to an external lab?->No Release to patient->Automatic 70241&Blood^\\S\\^Vein&Vein Performed By: #### C MP #### [place] [address] Sodium [Moles/Vol] 137 mmol/L Normal 133-145 [facility] Comment on above: Order Comment: Is th is specimen being sent to an external lab?->No Release to patient->Automatic 30922&Blood^\\S\\^Vein&Vein Performed By: #### C MP #### [place] [address] Urea nitrogen [Mass/Vol] 8 mg/dL Normal 4-19 [facility] Comment on above: Order Comment: Is th is specimen being sent to an external lab?->No Release to patient->Automatic 53263&Blood^\\S\\^Vein&Vein Performed By: #### C MP #### [place] [address] LABORATORYOrdered By: Ashley Borges on 04-03-2021 Basophil, [...] Lipase [Catalytic activity/Vol] 28 U/L Normal 16-63 [facility] Comment on above: Order Comment: Is th is specimen being sent to an external lab?->No Release to patient->Automatic 94963&Blood^\\S\\^Vein&Vein Performed By: #### L IPAS #### [address] [address] Transglutaminase IgAon 04-03 Transglutaminase IgA <1.60 Normal 0.00-8.99 [facility] Comment on above: Order Comment: Is th is specimen being sent to an external lab?->No Release to patient->Automatic 34791&Blood^\\S\\^Vein&Vein Result Comment: NEGATIVE Interpretation of Results: Negative: <9.0 AU/mL Equivocal: 9.0-16.0 AU/mL Positive: >16.0 AU/mL Method: The anti-tTG antibodies were determined using an ASHLEY-based commercially available kit ([facility]). Performed By: #### T RGLA #### [address] [address] Progress Noteon 04-02-2021 [employer]ounder Authentication Interface Message Text Patient ID: Eva [...] pale and cyanotic. Findings: No rash. Normal [facility] Progress Noteon 10-10-2020 Cofounder Authentication Interface Message Text Patient ID: Eva [...] going to start counseling together, Wednesday at [facility]. Eva is not happy about this [...] adult friend that she [facility]. 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 (Likes to swim). Drugs: [...] problems wit (more content not included)... Normal [facility] COVID-19 virus antigen assay SARS-CoV-2 (COVID-19) Ag IA.rapid Ql (Resp) [facility] Work Phone: Vital Signs Date Time Vital Sign Value Performing Clinician Facility 08-05-2023 21:24-0400 Body height 149.9 cm [facility] [employer] [facility] 08-05-2023 21:24-0400 Body temperature 98.24 [degF] [facility] [employer] [facility] 08-05-2023 21:24-0400 Body weight 81.8 kg [facility] [employer] [facility] 08-05-2023 21:24-0400 Diastolic Blood Pressure Non-Invasive 84 mm[Hg] [facility] [employer] [facility] 08-05-2023 21:24-0400 Heart rate 110 /min [facility] [employer] [facility] 08-05-2023 21:24-0400 Systolic Blood Pressure Non-Invasive 122 mm[Hg] HODAN MELCHOR DO [facility] 02-19-2023 23:39-0500 Blood Pressure Location QUINTIN BARLOW DO [facility] 02-19-2023 23:39-0500 Body height 149.9 cm QUINTIN ELENAT DO [facility] 02-19-2023 23:39-0500 Body temperature 99.14 [degF] QUINTIN ELENAT DO [facility] 02-19-2023 23:39-0500 Body weight 103.1 kg QUINTIN ELENAT DO [facility] 02-19-2023 23:39-0500 Diastolic Blood Pressure Non-Invasive 88 mm[Hg] QUINTIN ELENAT DO [facility] 02-19-2023 23:39-0500 Heart rate 98 /min QUINTIN BARLOW DO [facility] 02-19-2023 23:39-0500 Height ZScore -2.06 1 QUINTIN BARLOW DO [facility] Comment on above: Result Comment: ^~:!ZScore Source -[facility] 02-19-2023 23:39-0500 Percent Height for Age 1.96 % QUINTIN ELENAT DO [facility] Comment on above: Result Comment: ^~:!Percentile Source -[facility] 02-19-2023 23:39-0500 Respiratory rate 16 /min QUINTIN ELENAT DO [facility] 02-19-2023 23:39-0500 Systolic Blood Pressure Non-Invasive 138 mm[Hg] QUINTIN ELENAT DO [facility] 03-24-2022 06:00-0500 Diastolic blood pressure 75 mm[Hg] [facility] Work Phone: 03-24-2022 06:00-0500 Heart rate 76 /min [facility] Work Phone: 03-24-2022 06:00-0500 Respiratory rate 18 /min [facility] Work Phone: 03-24-2022 06:00-0500 SaO2% (BldA) [Mass fraction] 97 % [facility] Work Phone: 03-24-2022 06:00-0500 Systolic blood pressure 126 mm[Hg] [facility] Work Phone: 03-23-2022 18:27-0500 Body temperature 98.4 [degF] [facility] Work Phone: 03-23-2022 17:02-0500 Body height 147.32 cm [facility] Work Phone: 03-23-2022 17:02-0500 Body mass index (BMI) [Percentile] Per age and sex 98.9 % [facility] Work Phone: 03-23-2022 17:02-0500 Body mass index (BMI) [Ratio] 41.8 kg/m2 [facility] Work Phone: 03-23-2022 17:02-0500 Body weight 90.71 kg [facility] Work Phone: 03-03-2022 10:00-0500 Body temperature 98.1 [degF] [facility] Work Phone: 03-03-2022 10:00-0500 Diastolic blood pressure 71 mm[Hg] [facility] Work Phone: 03-03-2022 10:00-0500 Heart rate 74 /min [facility] Work Phone: 03-03-2022 10:00-0500 Respiratory rate 16 /min [facility] Work Phone: 03-03-2022 10:00-0500 SaO2% (BldA) [Mass fraction] 97 % [facility] Work Phone: 03-03-2022 10:00-0500 Systolic blood pressure 93 mm[Hg] [facility] Work Phone: 03-02-2022 21:11-0500 Body height 147.32 cm [facility] Work Phone: 03-02-2022 21:11-0500 Body mass index (BMI) [Percentile] Per age and sex 98.9 % [facility] Work Phone: 03-02-2022 21:11-0500 Body mass index (BMI) [Ratio] 42.3 kg/m2 [facility] Work Phone: 03-02-2022 21:11-0500 Body weight 91.9 kg [facility] Work Phone: 02-26-2022 15:06-0500 Diastolic blood pressure 77 mm[Hg] [facility] Work Phone: 02-26-2022 15:06-0500 Heart rate 73 /min [facility] Work Phone: 02-26-2022 15:06-0500 Respiratory rate 16 /min [facility] Work Phone: 02-26-2022 15:06-0500 SaO2% (BldA) [Mass fraction] 97 % [facility] Work Phone: 02-26-2022 15:06-0500 Systolic blood pressure 110 mm[Hg] [facility] Work Phone: 02-26-2022 14:00-0500 Body temperature 97.4 [degF] [facility] Work Phone: 02-25-2022 17:42-0500 Body height 147.32 cm [facility] Work Phone: 02-25-2022 17:42-0500 Body mass index (BMI) [Percentile] Per age and sex 99 % [facility] Work Phone: 02-25-2022 17:42-0500 Body mass index (BMI) [Ratio] 42.8 kg/m2 [facility] Work Phone: 02-25-2022 17:42-0500 Body weight 92.98 kg [facility] Work Phone: 04-03-2021 22:00-0500 Diastolic blood pressure 78 mm[Hg] GREGORY BOX MD [facility] 04-03-2021 22:00-0500 Heart rate 80 /min GREGORY BOX MD [facility] 04-03-2021 22:00-0500 Systolic blood pressure 126 mm[Hg] GREGORY BOX MD [facility] 04-03-2021 20:04-0500 Body temperature 98.6 [degF] GREGORY BOX MD [facility] 04-03-2021 20:04-0500 Body weight 83 kg GREGORY BOX MD [facility] 04-03-2021 20:04-0500 Diastolic blood pressure 88 mm[Hg] GREGORY BOX MD [facility] 04-03-2021 20:04-0500 Heart rate 88 /min GREGORY BOX MD [facility] 04-03-2021 20:04-0500 Respiratory rate 18 /min GREGORY BOX MD [facility] 04-03-2021 20:04-0500 Systolic blood pressure 138 mm[Hg] GREGORY BOX MD [facility] Encounters Encounter Date Encounter Type Care Provider Facility Start: 10-11-2024 ambulatory No Primary Car e Physician Facility:[facility] Start: 09-29-2024 End: 09-29-2024 Emergency department patient visit DR DIANE MAIN MD [facility] Start: 08-17-2024 End: 08-17-2024 ambulatory No Primary Care Physician Facility:[facility] Start: 07-19-2024 End: 07-19-2024 ambulatory No Primary Care Physician Facility:[facility] Start: 06-21-2024 End: 06-21-2024 ambulatory No Primary Care Physician Facility:[facility] Start: 04-11-2024 End: 04-11-2024 ambulatory No Primary Care Physician Facility:[facility] Start: 03-09-2024 End: 03-10-2024 Emergency department patient visit No Primary Care Physician Facility:[facility] Start: 03-02-2024 End: 03-02-2024 ambulatory Wyatt L Seese Facility:[facility] Start: 02-29-2024 ambulatory Wyatt L Seese Facility :[facility] Start: 02-03-2024 End: 02-04-2024 Emergency department patient visit Luis Avila Facility:[facility] Start: 02-01-2024 End: 02-01-2024 ambulatory No Primary Care Physician Facility:[facility] Start: 01-11-2024 ambulatory No Primary Car e Physician Facility:[facility] Start: 11-30-2023 End: 11-30-2023 ambulatory No Primary Care Physician Facility:[facility] Start: 08-05-2023 End: 08-06-2023 Emergency department patient visit HODAN JILL LOZANO Facility:[facility] Start: 08-05-2023 End: 08-06-2023 [facility] Start: 02-20-2023 End: 02-20-2023 Emergency department patient visit QUINTIN BARLOW DO Facility:[facility] Start: 02-19-2023 End: 02-19-2023 [facility] Start: 02-02-2023 End: 02-09-2023 Evaluation and management of inpatient MONICA K. [facility] Start: 06-28-2022 End: 07-02-2022 Evaluation and management of inpatient [facility] Start: 03-23-2022 End: 03-24-2022 Emergency department patient visit [facility] Start: 03-03-2022 End: 03-16-2022 Evaluation and management of inpatient HAILEY MALDONADO [facility] Start: 03-02-2022 End: 03-03-2022 Emergency department patient visit [facility] Start: 02-26-2022 End: 03-01-2022 Evaluation and management of inpatient [facility] Start: 02-25-2022 End: 02-26-2022 Emergency department patient visit [facility] Start: 04-03-2021 End: 04-03-2021 Emergency department patient visit GREGORY BOX MD [facility] Procedures Date Procedure Procedure Detail Performing Clinician Start: 02-25-2018 Steven BOX MD Comment on above: Right Start: 09-17-2017 Steven BOX MD Comment on above: LEFT Viral antigen assay Plan of Treatment Date Care Activity Detail Author Start: 03-23-2022 Referral to service [facility] Work Phone: Start: 03-23-2022 End: 03-23-2022 [facility]: Start: 03-02-2022 Referral to service [facility] Work Phone: Start: 03-02-2022 End: 03-02-2022 Suicide precautions [facility] Work Phone: Start: 02-25-2022 Referral to service [facility] Work Phone: Start: 02-25-2022 End: 02-25-2022 Suicide precautions [facility] Work Phone: Patient referral [facility] Work Phone: Immunizations Immunization Date Immunization Notes Care Provider Fa sweetie 02-19-2023 tetanus toxoid, redu tammy diphtheria toxoid, and acellular pertussis vaccine, adsorbed QUINTIN KASSYMariana DO [facility] Payers Date Payer Category Payer Medicaid [id number] 2023 Self-pay [id number] 2022 Medicaid [id number] 2016 [facility] [id number] [id number] 2003 Unknown [id number] 2.16. [id number] 2003 Unknown [id number] 2.16. 840.1.280960.3.579.2.903 2003 Unknown [id number] 2.16. 840.1.851894.3.579.2.903 2003 Unknown [id number] 2.16. 840.1.502975.3.579.2.903 2003 Unknown [id number] 2.16. 840.1.597477.3.579.2.627 1962 Unknown [id number] 2.16.8 40.1.358825.3.579.2.627 1962 Unknown [id number] 2.16.8 40.1.523053.3.579.2.627 Unknown [id number] 2.16.8 40.1.588576.3.579.2.462 Unknown [id number] 2.16.8 40.1.239719.3.579.2.462 Unknown [id number] 2.16.8 40.1.582362.3.579.2.462 Unknown [id number] 2.16.8 40.1.855172.3.579.2.462 Unknown [id number] 2.16.8 40.1.676687.3.579.2.462 Unknown [id number] 2.16.8 40.1.681611.3.579.2.462 Unknown [id number] 2.16.8 40.1.354733.3.579.2.462 Unknown [id number] 2.16.8 40.1.134273.3.579.2.462 Unknown [id number] 2.16.8 40.1.133598.3.579.2.462 Unknown [id number] 2.16.8 40.1.016842.3.579.2.462 Unknown [id number] 2.16.8 40.1.683340.3.579.2.462 Unknown [id number] 2.16.8 40.1.764591.3.579.2.462 Unknown [id number] 2.16.8 40.1.888371.3.579.2.462 Unknown [id number] 2.16.8 40.1.794616.3.579.2.462 Social History Date Type Detail Facility Start: 09-29-2024 Never smoked t obacco (finding) [facility] Sex Assigned At [facility] Start: 02-25-2022 End: 03-23-2022 Tobacco smoking status NHIS Unknown if ever smoked [facility] Work Phone: Start: 08-02-2020 Non-smoker;- [facility] Work Phone: Start: 2003 Sex Assigned At Female [facility] Work Phone: Start: 08-30-2017 Sex Female (finding) [facility] Functional Status Date Assessment Result Facility 08-06-2023 Functional Status ID band on, Bed in low position [facility] 08-05-2023 Functional Status Room check performed [facility] 08-05-2023 Functional Status [employer] [facility] 02-19-2023 Functional Status Identified as high risk, Room located near nursing station, Door open, Non-Slip footwear, Room check performed, Energy Operations Vice President at bedside [facility] Mental Status Date Assessment Result Facility 08-05-2023 Mental Status Orientation Orie nted x 4, Follows simple commands [facility] 02-19-2023 Mental Status Oriented x 4 [facility] Clinical Notes 04-04-2021 to 09-29-2024 Note [...] and water are not available, use alcohol-based pastry wrapper to keep from spreading the infection to [...] Yellow color of the eyes or skin 1981-[address] [employer]. [address] [place] [address]. All rights reserved. This information is not [...] for diarrhea, vomiting, or a high fever. 3917-9742 [employer]. [address] [place] [address]. All rights reserved. This information is not intended as a substitute for professional medical care. Always follow your healthcare professional's instructions. Follow Up Care 09/29/2024 01:22:15 With:Call STEPHANIE Godfrey Pt. Refferral [phone] Address:Unknown When:2-4 days Comments:Return to ED if symptoms worsen With:Call Physician Referral Address:Unknown When:2-4 days [facility] River[facility] Magaña 09-29-2024 Note Discharge Instructions Thank you for allowing [employer] to assist you with your healthcare needs. The following is important discharge information regarding your hospital visit. Diagnosis from Today's Visit Dehydration Nausea & vomiting What to Do Next Instructions from Your Care Team No qualifying data available. Post Acute Orders No qualifying data available. You Need to Schedule the Following Appointments Follow Up with Call AMB New Pt. Refferral [phone] When:Within 2-4 days Additional Information: Return to [...] and water are not available, use alcohol-based pastry wrapper to keep from spreading the infection to [...] Yellow color of the eyes or skin 4229-1075 [employer]. [address] [place] [address], [place] [address]. All rights reserved. This information is not [...] for diarrhea, vomiting, or a high fever. 1199-7508 [employer]. [address] [place] [address], [place] [address]. All rights reserved. This information is not intended as a substitute for professional medical care. Always follow your healthcare professional's instructions. Additional Information VACCINATE! IT SAVES LIVES! Members of the community who have not yet received the COVID-19 vaccine and would like to receive it can visit one of [facility] vaccine clinics. There are many vaccine clinic locations within the [facility]. For locations and available times, please visit [email or web address]. [email or web address] It is important to note that some COVID mobile vaccine clinics are held outdoors and may be canceled in rainy or stormy conditions. To learn more about pediatric vaccinations (ages 5-11), we invite you to visit the [facility] webpage. https://www.Courseras.org/p ages/[email or web address]-Bvwiz-Amsaavelujf-Freq mrfgsg-Njbez-[email or web address].html To learn more about the COVID-19 vaccine, we invite you to visit the CDC website for a list of frequently asked questions. https://www.cdc.gov/coronavirus/ 2019-ncov/vaccines/faq.html [email or web address] Patient Portal Access Instructions: Stay connected with your healthcare team and access your personal medical information anytime with the [email or web address] Patient Portal. If you would like a full copy of your medical records please contact the [facility] Medical Records Department Wednesday through Wednesday between 8a.m. and 4:30p.m. Please follow the directions below to access the portal: 1.Access the email account you provided upon registration to the hospital.2.Look for an invitation email from [facility].3.Open the email and access the invitation link: Accept Invitation to [email or web address].Fill in the required vogel to create your account. Sign into [email or web address] with your username and password that you [...] you will allow to register on the [employer] Patient Portal for access to your information. You can also access the [employer] Patient Portal on the [employer]. Simply click on "Health Records" under "Health Data" and then click on the [employer] logo. HOW TO SAFELY DISPOSE OF PRESCRIPTION [...] Call your local pharmacy or go to http://YPlan.Viraloid/7S9Ey0m to find one close to you.3.Make use of household items: Use cat litter or old coffee grounds to dispose medications if other options are not available. Mix your drugs with these household products, seal them in an airtight container and throw it into the garbage. Call [facility]: [phone] to be sure your drugs can be [...] aware that I should contact my doctor. 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 Interpreted by: Enrcio Justice MD Preliminary Report By: Enrico Justice [...] 2:50:36 AM Ordering Provider: DIANE MAIN [facility]05-10-2024 Note Discharge Instructions Thank you for allowing [employer] to assist you with your healthcare needs. [...] providers about all of the prescription and tahv-rnl-vdftlog medicines, vitamins, and supplements you take. Certain [...] behavior and ask you to seek help [phone] [employer]. [address] [place] [address]. All rights reserved. This information is not [...] wound Decreased movement around the injured area 4976-4372 [employer]. [address] [place] [address]. All rights reserved. This information is not intended as a substitute for professional medical care. Always follow yourhealthcare professional's instructions. Additional Information VACCINATE! IT SAVES LIVES! Members of the community who have not yet received the COVID-19 vaccine and would like to receive it can visit one of [facility] vaccine clinics. There are many vaccine clinic locations within the [facility]. For locations and available times, please visit www.gettheshot.coronavirus.[place].gov/. It is important to note that some COVID mobile vaccine clinics are held outdoors and may be canceled in rainy or stormy conditions. To learn more about pediatric vaccinations (ages 5-11), we invite you to visit the [facility] webpage. https://www.akSDH Groups.org/pages/9399-Ipdlu-Kfscmoptcgh-Mywejxsomj-Pdslb-Kza stions.htmlTo learn more about the COVID-19 vaccine, we invite you to visit the CDC website for a list of frequently asked questions. https://www.cdc.gov/coronavirus/2019-ncov/vaccines/faq.html [employer] Patient Portal Access Instructions: Stay connected with your healthcare team and access your personal medical information anytime with the [email or web address] Patient Portal. If you would like a full copy of your medical records please contact the [facility] Medical Records Department Wednesday through Wednesday between 8a.m. and 4:30p.m. Please follow the directions below to access the portal: 1.Access the email account you provided upon registration to the hospital.2.Look for an invitation email from [facility].3.Open the email and access the invitation link: Accept Invitation to [email or web address].Fill in the required vogel to create your account. Sign into [email or web address] with your username and password that you [...] you will allow to register on the [email or web address] Patient Portal for access to your information. You can also access the [email or web address] Patient Portal on the [employer]. Simply click on "Health Records" under "HealthData" and then click on the [employer] logo. HOW TO SAFELY DISPOSE OF PRESCRIPTION [...] Call your local pharmacy or go to http://YPlan.Viraloid/3R3Zx0x to find one close to you.3.Make use of household items: Use cat litter or old coffee grounds to dispose medications if other options arenot available. Mix your drugs with these household products, seal them in an airtight container andthrow it into the garbage. Call [facility]: [phone] to be sure your drugs can be [...] aware that I should contact my doctor. Patient/Concrete Batcher Signature: Date/Time: Relationship to Patient: Witness Name/Signature: Date/Time: [facility]05-10-2024 Nurse Progress note Crisis arrived to unit, will speak with patient. Digitally Signed by Sonali Smith RN on 08/06/2023 12:46 AM [facility]05-10-2024 Hospital Discharge instructions Patient Education 08/05/2023 [...] providers about all of the prescription and knzc-ccp-ygxifpr medicines, vitamins, and supplements you take. Certain [...] behavior and ask you to seek help [phone] [employer]. [address] [place] [address], [place] [address]. All rights reserved. This information is not intended as a substitute for professional medical care. Always follow [facility] instructions. 08/05/2023 22:11:27 Laceration, Extremity: Suture, Staple, or Tape Extremity Laceration: Stitches, [place], or Tape A laceration is a cut [...] wound Decreased movement around the injured area 0505-7540 [employer]. [address] [place] [address]. All rights reserved. This information is not intended as a substitute for professional medical care. Always follow yourhealthcare professional's instructions. Follow Up Care 08/05/2023 21:13:51 With:your counselor Address: When:2-4 days With:Go to emergency room if symptoms worsen Address:Unknown When:2-4 days With:Call Physician Referral Address:Unknown When:2-4 days [facility] 11-25-2023 Hospital Discharge instructions Patient Education [...] wound Decreased movement around the injured area 6794-6344 [employer]. [address] [place] [address]. All rights reserved. This information is not intended as a substitute for professional medical care. Always follow yourhealthcare professional's instructions. Follow Up Care 02/19/2023 23:12:47 With:PATRICIA ORELLANA MD Address: [facility] [address] [facility] [address] [place] [address]- When:2-4 days [facility] 11-24-2023 Note Discharge Instructions Thank you for allowing [employer] to assist you with your healthcare needs. The following is importantdischarge information regarding your hospital visit. Diagnosis from Today's Visit Arm laceration What to Do Next Instructions from Your Care Team No qualifying data available. Post Acute Orders No qualifying data available. You Need to Schedule the Following Appointments Follow Up with PATRICIA ORELLANA MD When Within 2-4 days Where: [facility] [address] [place] [address]- Allergies NKA Medications Please ask your primary [...] and ay BASIM juan manuel ler per [facility] iss) Adacel (Tdap), Boostrix (Tdap) What is [...] may affect this vaccine, including prescription and sgoc-bgo-[id number] medicines, vitamins, and herbal products. Not all [...] to ensure that the information provided by [employer]. ('[employer]') is accurate, up-to-date, and complete, but no guarantee is made to that effect. Drug information contained herein may be time sensitive. [employer] information has been compiled for use by healthcare practitioners and consumers in the [place] and therefore [employer] does not warrant that uses outside of the [place] are appropriate, unless specifically indicated otherwise. [employer]'s drug information does not endorse drugs, diagnose patients or recommend therapy. [employer] drug information isan informational resource designed to [...] effective or appropriate for any given patient. [facility] does not assume any responsibility for any aspect of healthcare administered with the aid of information [facility] provides. The information contained herein is not intended to cover all possible uses, directions, precautions, warnings, drug interactions, allergic reactions, or adverse effects. If you have questions about the drugs you are taking, check with your doctor, nurse or pharmacist. Copyright 7564-6097 [employer]. Version: 4.01. Revision Date: 02/26/2021. Education Materials [...] wound Decreased movement around the injured area 8510-9469 [employer]. [address] [place] [address]. All rights reserved. This information is not intended as a substitute for professional medical care. Always follow yourhealthcare professional's instructions. Additional Information VACCINATE! IT SAVES LIVES! Members of the community who have not yet received the COVID-19 vaccine and would like to receive it can visit one of [facility] vaccine clinics. There are many vaccine clinic locations within the [facility]. For locations and available times, please visit www.gettheshot.coronavirus.[place].gov/. It is important to note that some COVID mobile vaccine clinics are held outdoors and may be canceled in rainy or stormy conditions. To learn more about pediatric vaccinations (ages 5-11), we invite you to visit the [facility] webpage. https://www.[facility].org/pages/7167-Asggq-Iobzeszgcbu-Trigneasvb-Owhgf-Bis stions.htmlTo learn more about the COVID-19 vaccine, we invite you to visit the CDC website for a list of frequently asked questions. https://www.cdc.gov/coronavirus/2019-ncov/vaccines/faq.html [facility] Access Instructions: Stay connected with your healthcare team and access your personal medical information anytime with the [email or web address] Patient Portal. If you would like a full copy of your medical records please contact the [facility] Medical Records Department Wednesday through Wednesday between 8a.m. and 4:30p.m. Please follow the directions below to access the portal: 1.Access the email account you provided upon registration to the [facility].2.Look for an invitation email from [facility].3.Open the email and access the invitation link: Accept Invitation to [email or web address].Fill in the required vogel to create your account. Sign into [email or web address] with your username and password that you [...] you will allow to register on the [email or web address] Patient Portal for access to your information. You can also access the [employer] Patient Portal on the [employer]. Simply click on "Health Records" under "HealthData" [...] Call your local pharmacy or go to [email or web address] to find one close to you.3.Make use of household items: Use cat litter or old coffee grounds to dispose medications if other options arenot available. Mix your drugs with these household products, seal them in an airtight container andthrow it into the garbage. Call [facility]: [phone] to be sure your drugs can be [...] aware that I should contact my doctor. Patient/Concrete Batcher Signature: Date/Time: Relationship to Patient: Witness Name/Signature: Date/Time: [facility]01-07-2022 Hospital Discharge instructions Patient Education 04/03/2021 [...] or water and you are getting dehydrated [phone] [employer]. [address] [place] [address]. All rights reserved. This information is not intended as a substitute for professional medical care. Always follow yourhealthcare professional's instructions. Follow Up Care 04/03/2021 20:02:44 With:PATRICIA ORELLANA MD Address: [address] [place] [address]- When:2-4 days [facility] Evaluation + Plan note No data available for this section [facility] Evaluation noteNo assessment information available [facility] Work Phone: Summary note* TRAN Holden: PERFORM Event Display: Patient Summary Documents Authored Date: [id number] [facility] Summary Purpose Family History No Family [...] Will No February 25 6:43pm Power of Banking Representative No February 25, 2022 6:43pm Advance Directive Response Recorded Date/ Time Living Will No March 02 10:08pm Power of Banking Representative No March 02, 2022 10:08pm Advance Directive Response Recorded Date/ Time Living Will No March 23 6:28pm Power of Banking Representative No March 23, 2022 6:28pm Chief Complaint and Reason for Visit Chief Complaint SI Chief Complaint SI S.I. Chief Complaint SI S.I. SI Additional Source Comments INFORMATION SOURCE (unrecogn ized section and content) DATE CREATED AUTHOR 05/07/2021 [facility] DATE CREATED AUTHOR AUTHOR'S ORGANIZ ATION 02/11/2023 [facility] DATE CREATED AUTHOR AUTHOR'S ORGANIZ ATION 08/14/2023 [facility] ([place]) DATE CREATED AUTHOR AUTHOR'S ORGANIZ ATION 10/07/2024 [facility] DATE CREATED AUTHOR AUTHOR'S ORGANIZ ATION 10/13/2024 [facility] Goals (unrecognized section and content) Goals may be documented in a n alternate section Patient Care team informatio n (unrecognized section and content) Care Team Personnel Name: PATRICIA ORELLANA MD Member Role: Primary Care Physician Address: Address: [address] [place] [id number] Name: QUINTIN BARLOW DO Position: ED Physician Member Role: ED Physician Address: Address: [facility] [place] [address] Care Team Related Persons Name: MANJULA GRANDA Address: Home [address] [place] [address] Name: IVIS MONTES Address: Home [address] [place], [place] [id number] Address: Temporary [address] [place], [place] [id number] Care Team Personnel Name: PHYSICIAN, LIBERTY Position: Physician Member Role: Primary Care Physician Care Team Related Persons Name: GRANDAMANJULA URENA Address: Home [address] [place] [address] Name: IVIS MONTES Address: Home [address] [place], [place] [id number] Address: Temporary [address] [place], [place] [id number] Care Team Personnel Name: PHYSICIAN, NONE Position: [...] BE BASED ON THE PRIMARY CLINICAL RECORDS. [employer] [facility]. provides no warranty or guarantee of the accuracy or completeness of information in this document.
[2025-03-03 14:35] LABS: Anion Gap 20 (5-15); BUN 3 mg/dL (4-19); BUN/Creat Ratio 4.5 RATIO (10-20); Calcium,Total 8.8 mg/dL (7.6-11.0); Carbon Dioxide 14.3 mmol/L (21.0-32.0); Chloride 101 mmol/L (98-108); Estimated Creatinine Clearance 118.46 ml/min (50-250); Glucose 98 mg/dL (70-99); Potassium 3.5 mmol/L (3.3-5.1)
[2025-03-03] MEDS: Scopolamine 1mg/72hr Patch 1 PATCH TD (14:55)
--- NOTE | 2025-03-03 16:30 | NURSING ---
pt sipping 30cc apple juice
--- NOTE | 2025-03-03 16:40 | NURSING ---
pt with copmplant N/V. very sm emesis. zofran given. much reassurance given
[2025-03-03 17:14] LABS: SITE L RADIAL
[2025-03-03 17:15] LABS: Allen Test PASS
[2025-03-03] MEDS: 0.9% Saline Lock 10 ML Syringe IV ×3 (17:23→23:26)
[2025-03-03 17:52] LABS: Anion Gap 20 (5-15); BETA-HYDROXYBUTYRATE 6.0 mmol/L (0.0-0.3); BUN 3 mg/dL (4-19); BUN/Creat Ratio 3.8 RATIO (10-20); Calcium,Total 8.9 mg/dL (7.6-11.0); Carbon Dioxide 14.1 mmol/L (21.0-32.0); Chloride 102 mmol/L (98-108); Estimated Creatinine Clearance 116.75 ml/min (50-250); Glucose 124 mg/dL (70-99); Potassium 3.5 mmol/L (3.3-5.1)
[2025-03-03 22:00] LABS: Anion Gap 17 (5-15); BUN < 2 mg/dL (4-19); BUN/Creat Ratio UNABLE TO CALCULATE RATIO (10-20); Calcium,Total 8.7 mg/dL (7.6-11.0); Carbon Dioxide 14.1 mmol/L (21.0-32.0); Chloride 104 mmol/L (98-108); Estimated Creatinine Clearance 118.46 ml/min (50-250); Glucose 142 mg/dL (70-99); Potassium 3.4 mmol/L (3.3-5.1)
[2025-03-04] VITALS (15 sets, daily range): BP systolic 89–104; BP diastolic 43–69; PULSE 53–66; RESP 12–20; TEMP 36.5–37.2; O2SAT 94–98; BMI 34.0
[2025-03-04 05:03] LABS: Hematocrit 37.4 % (37-47); Hemoglobin 12.7 g/dL (12.0-15.0); Immature Granulocytes Count 0.040 X10^3/uL (0.0-0.0); Mean Corp Hgb Conc 34.0 g/dL (32-36); Mean Corpuscular Volume 83.9 fL (81-99); Mean Platelet Vol. 11.2 fl (6.2-12.0); NRBC Flagged by Analyzer 0 % (0-5); Platelet Count 217 K/mm3 (150-450); RBC Distribution Width CV 13.5 % (11.6-14.6); RBC Distribution Width SD 41.6 fl (35.1-43.9); Red Blood Count 4.46 M/mm3 (4.2-5.4); White Blood Count 9.5 K/mm3 (4.4-11.0)
[2025-03-04 05:18] LABS: Magnesium 1.8 mg/dL (1.5-2.2)
[2025-03-04 05:19] LABS: Anion Gap 14 (5-15); BUN < 2 mg/dL (4-19); BUN/Creat Ratio UNABLE TO CALCULATE RATIO (10-20); Calcium,Total 8.7 mg/dL (7.6-11.0); Carbon Dioxide 18.7 mmol/L (21.0-32.0); Chloride 107 mmol/L (98-108); Estimated Creatinine Clearance 129.93 ml/min (50-250); Glucose 111 mg/dL (70-99); Potassium 3.1 mmol/L (3.3-5.1)
--- NOTE | 2025-03-04 06:53 | PN.HOSP_ITS ---
Reason for Visit Chief Complaint: Nausea/vomiting/abdominal pain Subjective Subjective Patient states she is feeling a bit better today. Still having some right upper quadrant pain. We did discuss testing will be done tomorrow. Electrolytes much improved. Objective Data Objective Data Vital Signs: Vital Signs Temp Pulse Resp BP Pulse Ox O2 Del Method 99 F 55 L 17 100/59 L 95 Room Air 03/04/25 04:00 03/04/25 06:00 03/04/25 06:00 03/04/25 06:00 03/04/25 06:00 03/04/25 06:00 Oxygen Delivery Method Room Air Weight: 76.7 kg Body Mass Index (BMI) 34.0 Intake & Output: Intake and Output for Last 24 Hours 03/02/25 03/03/25 03/04/25 23:59 23:59 23:59 Intake Total 2710 / 2710 Output Total 110 / 110 Balance 2600 / 2600 Lab / Micro Data 03/04/25 04:55 03/04/25 04:55 Labs: Laboratory Results - last 24 hr 03/03/25 09:13: WBC 17.6 H, RBC 5.61 H, Hgb 16.0 H, Hct 47.0, MCV 83.8, MCH 28.5, MCHC 34.0, RDW Std Deviation 40.4, RDW Coeff of Nikhil 13.2, Plt Count 298, MPV 11.3, Immature Gran % (Auto) 0.900, Neut % (Auto) 86.8 H, Lymph % (Auto) 7.9 L, [place] % (Auto) 3.8, Eos % (Auto) 0.1, Baso % (Auto) 0.5, Absolute Neuts (auto) 15.3 H, Absolute Lymphs (auto) 1.39, Nucleated RBC % 0, Sodium 135, Potassium 2.6 L*, Chloride 94 L, Carbon Dioxide 13.9 L, Anion Gap 27 H, BUN 5, Creatinine 0.79, Estim Creat Clear Calc 105.03, Est GFR (MDRD) Non-Af 110, BUN/Creatinine Ratio 6.1 L, Glucose 174 H, Hemoglobin A1c 4.6 03/03/25 09:13: Hemoglobin A1c Cancelled, Calcium 9.8, Magnesium 1.8, Total Bilirubin 0.60, AST 15, ALT 19, Alkaline Phosphatase 57, Total Protein 7.6, Albumin 4.4, Globulin 3.2, Albumin/Globulin Ratio 1.4, Lipase 32, b- Hydroxybutyric mmol/L 6.5 H, Serum , Qual NEGATIVE 03/03/25 11:42: Urine Color Straw, Urine Clarity Clear, Urine pH 5.0, Ur Specific Duke 1.010, Urine Protein 15 H, Urine Glucose (UA) Normal, Urine Ketones 150 A*, Urine Occult Blood Negative, Urine Nitrite Negative, Urine Bilirubin Negative, Urine Urobilinogen Normal, Ur Leukocyte Esterase Negative, Urine RBC 0 SEEN, Urine WBC 0 SEEN, Ur Squamous Epith Cells 0-5 SEEN, Urine Bacteria 0 SEEN, Urine Mucus 0 SEEN, Urine Opiates Screen NEGATIVE, U Buprenorphine Qual NEGATIVE, Ur Oxycodone Screen NEGATIVE, Urine Methadone Screen NEGATIVE, Urine Fentanyl Screen NEGATIVE, Ur Barbiturates Screen NEGATIVE, Ur Phencyclidine Scrn NEGATIVE, Ur Amphetamines Screen NEGATIVE, U Benzodiazepines Scrn NEGATIVE, Urine Cocaine Screen NEGATIVE, U Cannabinoids Screen PRESUMPTIVE POSITIVE 03/03/25 13:40: Sodium 135, Potassium 3.5, Chloride 101, Carbon Dioxide 14.3 L, Anion Gap 20 H, BUN 3 L, Creatinine 0.68 L, Estim Creat Clear Calc 118.46, Est GFR (MDRD) Non-Af 127, BUN/Creatinine Ratio 4.5 L, Glucose 98, Calcium 8.8 03/03/25 17:25: Sodium 136, Potassium 3.5, Chloride 102, Carbon Dioxide 14.1 L, Anion Gap 20 H, BUN 3 L, Creatinine 0.69 L, Estim Creat Clear Calc 116.75, Est GFR (MDRD) Non-Af 127, BUN/Creatinine Ratio 3.8 L, Glucose 124 H, Calcium 8.9, b -Hydroxybutyric mmol/L 6.0 H 03/03/25 20:50: Sodium 135, Potassium 3.4, Chloride 104, Carbon Dioxide 14.1 L, Anion Gap 17 H, BUN < 2 L, Creatinine 0.68 L, Estim Creat Clear Calc 118.46, Est GFR (MDRD) Non-Af 127, BUN/Creatinine Ratio UNABLE TO CALCULATE L, Glucose 142 H , Calcium 8.7 03/04/25 04:55: WBC 9.5, RBC 4.46, Hgb 12.7, Hct 37.4, MCV 83.9, MCH 28.5, MCHC 34.0, RDW Std Deviation 41.6, RDW Coeff of Nikhil 13.5, Plt Count 217, MPV 11.2, Immature Gran % (Auto) 0.400, Neut % (Auto) 65.1, Lymph % (Auto) 25.5, [place] % (Auto) 8.4, Eos % (Auto) 0.3, Baso % (Auto) 0.3, Absolute Neuts (auto) 6.2, Absolute Lymphs (auto) 2.42, Nucleated RBC % 0, Sodium 140, Potassium 3.1 L, Chloride 107, Carbon Dioxide 18.7 L, Anion Gap 14, BUN < 2 L, Creatinine 0.62 L, Estim Creat Clear Calc 129.93, Est GFR (MDRD) Non-Af 130, BUN/Creatinine Ratio UNABLE TO CALCULATE L, Glucose 111 H, Calcium 8.7, Phosphorus 2.0 L, Magnesium 1.8 ABG Data ABG results: ABG 03/03/25 11:53 Specimen Type ART Sample Site L RADIAL pH 7.33 L Bicarbonate Actual 12.2 L Total CO2 13 Base Excess -14 L O2 Saturation 98 ABG pCO2 23.2 L ABG pO2 102 H Pacheco Test PASS O2 Delivery Device Not entered Vent Mode Not entered Radiography Diagnostic Testing: Radiology Impression Abdomen/Pelvis CT 03/03/25 10:05 IMPRESSION: 1. No acute findings in the abdomen or pelvis. 2. Submucosal fat deposition ("fat-halo" sign) in the small and large bowel, most often related to chronic IBD, chronic steroid use, or obesity; less commonly chronic ischemia. No acute inflammation. Reading Location: [facility] Physical Exam Const alert, oriented x3, no apparent distress, average body habitus and well nourished Constitutional Narrative: Obese, Young, white female, sitting up in bed, appears comfortable, toxic General Appearance: cooperative HEENT normocephalic, head/scalp atraumatic and hearing grossly normal bilaterally HEENT Narrative: Mallampati 2, no thrush Resp normal respiratory effort, no retractions, no use of accessory muscles and clear to auscultation bilaterally Auscultation: Negative for crackles, rhonchi or wheezes Cardio regular rate, regular rhythm, S1 normal heart sound, S2 normal heart sound, no murmurs, no rub, no gallops and no clicks GI normal to inspection, nondistended, normoactive bowel sounds and soft to palpation; Negative for non-tender GI Narrative: Mild persistent right upper quadrant tenderness Extremity no clubbing, cyanosis or edema Extremity Narrative: 2+ pedal pulses Neuro moves all extremities and no focal motor deficits Speech: speech normal Psych affect normal Psych Narrative: Eye contact is good and patient interacts appropriately Assessment & Plan Assessment/Plan (1) Intractable nausea and vomiting: (2) Hyperglycemia: (3) High anion gap metabolic acidosis: (4) Leukocytosis: (5) Erythrocytosis: (6) Hypokalemia: (7) Dehydration: (8) Abdominal pain: (9) Weight loss: PLAN: Plan Intractable nausea vomiting/abdominal pain - Has been ongoing for several months adult cyclic vomiting syndrome--> initial workup in progress - Continue IV fluids but will decrease to 75 cc/h - Continue scopolamine patch - Continue as needed antiemetics - UA is not consistent with infection - test is negative - Toxicology screen was only positive for marijuana and she states her last joint was about 20 days ago -Continue clear liquids for now - This has been going on on for some time with marked weight loss - Had unremarkable gallbladder ultrasound in 2022 so we will check a HIDA scan - Check gastric emptying study to rule out gastroparesis will avoid Reglan for now - May need GI input if these tests are unrevealing Anion gap metabolic acidosis secondary to starvation ketosis - Resolved Severe hypokalemia - Improved but still low - IV K-Phos bolus - Recheck in a.m. Hypophosphatemia - K-Phos bolus given - Recheck in a.m. Hyperglycemia - A1c was less than 5 - Likely related to stress response - Improved Leukocytosis/erythrocytosis secondary to volume depletion and dehydration - Resolved History of bulimia - Purging type - Patient denies any current issues with this MDD/PTSD/borderline personality disorder - Follows with Dr. Wyatt Montejo from psychiatry - Does not appear to be on any medications currently - Recommend close outpatient follow-up Obesity - BMI 34.2 DVT prophylaxis - Lovenox subcu daily CODE STATUS - Full code Disposition: - Transfer to medical floor and await HIDA scan and gastric emptying study results to decide next steps Charges/Coding Visit Charges Inpatient E&M: 31470 Subs Hosp L2
--- NOTE | 2025-03-04 07:15 | NURSING ---
change of shift rounds
[2025-03-04] MEDS: Potassium Phosphate 45 MM in 0.9% Normal Saline (500mL Bag) 500 ML 85 MM IV (09:32)
[2025-03-04] MEDS: 0.9% Saline Lock 10 ML Syringe IV (09:37)
--- NOTE | 2025-03-04 14:04 | NURSING ---
report called to MS3 RN, to [id number] per .
[2025-03-04] MEDS: Pantoprazole Sodium 40 MG in 0.9% Normal Saline (100mL MB+) 100 ML 300 MG IV (17:29)
[2025-03-05] MEDS: BENZOCAINE/MENTHOL 1 LOZENGE MUCOUS MEM (01:46)
[2025-03-05 04:50] VITALS: BP 112/59; PULSE 58; RESP 16; TEMP 36.8; O2SAT 99
[2025-03-05 05:53] VITALS: BMI 34.2
[2025-03-05 06:06] LABS: Magnesium 1.5 mg/dL (1.5-2.2)
[2025-03-05 06:11] LABS: Anion Gap 13 (5-15); BUN < 2 mg/dL (4-19); BUN/Creat Ratio UNABLE TO CALCULATE RATIO (10-20); Calcium,Total 8.4 mg/dL (7.6-11.0); Carbon Dioxide 21.0 mmol/L (21.0-32.0); Chloride 106 mmol/L (98-108); Estimated Creatinine Clearance 138.44 ml/min (50-250); Glucose 91 mg/dL (70-99); Potassium 3.1 mmol/L (3.3-5.1)
[2025-03-05 08:30] VITALS: BP 98/66; PULSE 92; RESP 16; TEMP 36.9; O2SAT 98
--- NOTE | 2025-03-05 11:00 | NM_ITS ---
PROCEDURE: GASTRIC EMPTYING STUDY N/A REASON FOR EXAM: POSTPRANDIAL NAUSEA AND VOMITING COMPARISON: None TECHNIQUE: Procedure Code: NMGES Modality: NM Procedure: GASTRIC EMPTYING STUDY The patient ingested a standard meal of technetium sulfur colloid and oatmeal and water.. There was no vomiting postprandially. Anterior and posterior planar images of the upper abdomen were obtained for 1 minute immediately following the meal at 1h, 2h and 4h if more than 10% of the activity persisted within the stomach. Regions of interest were drawn, and a geometric mean was used to calculate a [id number]. RADIOPHARMACEUTICAL: Technetium labeled sulfur colloid DOSE 1.2mCi FINDINGS: Percent activity remaining in stomach: 1 hour 72 % (normal 37-90%) NM/Gastric Emptying Study IMPRESSION: Delayed gastric emptying. A repeat 4 hour gastric emptying study recommended. Reading Location: [place] [address]
[2025-03-05] MEDS: Pantoprazole Sodium 40 MG in 0.9% Normal Saline (100mL MB+) 100 ML 300 MG IV (11:57)
[2025-03-05 12:20] VITALS: BP 117/69; PULSE 62; RESP 16; TEMP 36.4; O2SAT 98
[2025-03-05 15:11] VITALS: BP 117/74; PULSE 71; RESP 16; TEMP 36.7; O2SAT 98
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
--- NOTE | 2025-03-05 17:21 | PCM.DC ---
Discharge Instructions DC O2, CPAP, BIPAP needs Home O2 Discharge instructions: No Dressing / Incision Discharge Activity: Return to Normal Activity Weight Bearing Status: Full weight bearing Follow Up Care Test Results: Test results from this visit will be discussed in further detail at your follow-up appointment, if applicable. Discharge Plan Admission Admit Date/Time: 03/03/25 12:27 Primary Reason for Your Visit: Intractable nausea and vomiting with abdominal pain Attending Provider: Jef Bell Primary Care Provider: Cathy Fay Consulting Providers: Whitney Dutta Instructions Additional Instructions / Restrictions: Avoid using THC containing products-this can cause nausea and vomiting Cathy Fay will discuss rescheduling your HIDA scan if your abdominal discomfort persists Discharge Orders/Prescriptions Prescriptions: New scopolamine base 1 mg over 3 days Patch 3 Day 1 patch transdermal Q3D Qty: 5 0RF potassium chloride [Klor-Con 10] 10 mEq tablet extended release 10 meq PO BID Qty: 14 0RF Continued ondansetron 4 mg tablet,disintegrating 4 mg PO Q8H PRN (Reason: nausea and vomiting) Referrals / Follow Up: Care Physician,No Primary [Non-Staff, Medical] Cathy Fay, AGRICULTURAL EXTENSION SPECIALIST-C [Primary Care Provider, Family Practice] - In 1 Week Disposition Disposition (needs filled in before D/C Order can be placed): Home, Self Care
--- NOTE | 2025-03-05 17:21 | DCINST_ITS ---
Discharge Instructions DC O2, CPAP, BIPAP needs Home O2 Discharge instructions: No Dressing / Incision Discharge Activity: Return to Normal Activity Weight Bearing Status: Full weight bearing Follow Up Care Test Results: Test results from this visit will be discussed in further detail at your follow- up appointment, if applicable. Discharge Plan Admission Admit Date/Time: 03/03/25 12:27 Primary Reason for Your Visit: Intractable nausea and vomiting with abdominal pain Attending Provider: Jef Bell Primary Care Provider: Cathy Fya Consulting Providers: Whtiney Dutta Discharge Orders/Prescriptions Prescriptions: No Action ondansetron 4 mg tablet,disintegrating 4 mg PO Q8H PRN (Reason: nausea and vomiting) Referrals / Follow Up: Care Physician,No Primary [Non-Staff, Medical] Cathy Fay, SECRETARY OF POLICE-C [Primary Care Provider, Family Practice]
--- NOTE | 2025-03-05 17:29 | PCM.DC.SUM ---
Providers Date of Admission: 03/03/25 Date of Discharge: 03/05/25 Primary Care Physician: Cathy Fay [facility], WRAPPING CLERK-C Reason For Visit: INTRACTABLE N/V, ANION GAP METABOLIC ACIDOSIS Diagnosis Discharge Diagnosis (1) Intractable nausea and vomiting: Status: Acute Code(s): R11.2 - Nausea with vomiting, unspecified (2) Hyperglycemia: Status: Acute Code(s): R73.9 - Hyperglycemia, unspecified (3) High anion gap metabolic acidosis: Status: Acute Code(s): E87.29 - Other acidosis (4) Leukocytosis: Status: Acute Code(s): D72.829 - Elevated white blood cell count, unspecified (5) Erythrocytosis: Status: Acute Code(s): D75.1 - Secondary polycythemia (6) Hypokalemia: Status: Acute Code(s): E87.6 - Hypokalemia (7) Dehydration: Status: Acute Code(s): E86.0 - Dehydration (8) Abdominal pain: Status: Acute Code(s): R10.9 - Unspecified abdominal pain (9) Weight loss: Status: Acute Code(s): R63.4 - Abnormal weight loss Plan 1. Intractable nausea and vomiting-etiology unclear #2 severe hypokalemia-secondary to nausea and vomiting #3 PTSD #4 chronic depression Medications at Discharge Home Medications ondansetron 4 mg disintegrating tablet 4 mg PO Q8H PRN nausea and vomiting 03/03/25 potassium chloride 10 mEq tablet,extended release (Klor-Con) 10 meq PO BID #14 tabs 03/05/25 scopolamine base 1 mg over 3 days transdermal patch 1 patch transdermal Q3D #5 ea 03/05/25 Hospital Course Operations None Procedures None Summary of Care Provided Minutes Spent on Discharge: 30 Hospital Course: This 19-year-old white female was seen in the emergency room at [facility] with complaints of intractable nausea and vomiting her past medical history is complicated by history of bulimia and PTSD as well as marijuana usage. Chemistry obtained in the emergency room showed hypokalemia with potassium of 2.6, liver functions were unremarkable, lipase was normal, UA was unremarkable, toxicology screen was positive for presumptive cannabinoids. CBC showed a leukocytosis. Patient was given IV fluids in the emergency room. Patient was admitted to MedSurg 3 and given IV fluids and labs were monitored, patient felt better during her hospital stay and on 03/05/2025, was seen and examined: On examination she appeared in good health and spirits, she does not appear to be in any distress. Vital signs as documented. Skin warm and dry and without overt rashes. Neck without JVD, thyroid appears normal, trachea is midline, neck is supple. Lungs clear, normal air movement was noted. Heart exam notable for regular rhythm, normal sounds and absence of murmurs, rubs or gallops. Abdomen unremarkable and without evidence of organomegaly, masses, or abdominal aortic enlargement, bowel sounds are present in all 4 quadrants, no abdominal tenderness was noted. Extremities nonedematous, no cyanosis was noted, no clubbing was noted. Neuro: Cranial nerves II through XII are grossly intact, no focal motor deficits were noted, sensation to light touch and pinprick is intact, motor exam 5/5 throughout. Psych: Patient is alert and oriented x3, she does not appear anxious or depressed, she does not appear agitated. 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 as evidenced by poor po intake and ~23.4% unplanned wt loss x 1 year Status Active Problem Recommendation Dietitian As medically able, rec SMITH to Regular diet Recommendations/ Will order 8 oz ensure clear tid w/ meals for increased Changes nutrition if consumed Continue to follow and monitor for changes in pt nutritional status and make additional rec as indicated Weight / BMI Weight Weight: 77.1 kg Body Mass Index (BMI) 34.2 ABG / Lab / Microbiology Data 03/04/25 04:55 03/05/25 05:20 Laboratory: Laboratory Results - last 24 hr 03/05/25 05:20: Sodium 141, Potassium 3.1 L, Chloride 106, Carbon Dioxide 21.0, Anion Gap 13, BUN < 2 L, Creatinine 0.59 L, Estim Creat Clear Calc 138.44, Est GFR (MDRD) Non-Af 132, BUN/Creatinine Ratio UNABLE TO CALCULATE L, Glucose 91, Calcium 8.4, Phosphorus 3.5, Magnesium 1.5 Radiography Diagnostic Testing: Radiology Impression Gastric Emptying Nuclear Medicine 03/05/25 11:00 IMPRESSION: Delayed gastric emptying. A repeat 4 hour gastric emptying study recommended. Reading Location: [facility] D/C Instructions Weight Bearing Status: Full weight bearing DC O2, CPAP, BIPAP Needs Home O2 Discharge instructions: No Meaningful Use Info Meaningful Use Meaningful Use Diagnoses (Choose all that apply): None applicable Discharge Plan Admission Admit Date/Time: 03/03/25 12:27 Primary Reason for Your Visit: Intractable nausea and vomiting with abdominal pain Attending Provider: Jef Bell Primary Care Provider: Cathy Fay Consulting Providers: Whitney Dutta Instructions Additional Instructions / Restrictions: Avoid using THC containing products-this can cause nausea and vomiting Cathy Fay will discuss rescheduling your HIDA scan if your abdominal discomfort persists Discharge Orders/Prescriptions Prescriptions: New scopolamine base 1 mg over 3 days Patch 3 Day 1 patch transdermal Q3D Qty: 5 0RF potassium chloride [Klor-Con 10] 10 mEq tablet extended release 10 meq PO BID Qty: 14 0RF Continued ondansetron 4 mg tablet,disintegrating 4 mg PO Q8H PRN (Reason: nausea and vomiting) Referrals / Follow Up: Care Physician,No Primary [Non-Staff, Medical] Cathy Fay, WRAPPING CLERK-C [Primary Care Provider, Family Practice] - In 1 Week Disposition Disposition (needs filled in before D/C Order can be placed): Home, Self Care Charges/Coding Visit Charges Inpatient E&M: 33736 Disch Hosp
== END 2025-03-05 18:03 | disposition home or self-care (01) ==
LOC: ED 11:39 → ICU 14:35 → MS3 03-05 07:18 → ICU 04-19 10:26
PROVIDERS: Admitting Provider Internal Medicine; Emergency Provider Emergency Medicine; PCP Nurse Practitioner Family; Visit Provider Internal Medicine
DX: R11.2 Nausea with vomiting, unspecified (principal); E88.89 Other specified metabolic disorders; E43 Unspecified severe protein-calorie malnutrition; E86.0 Dehydration; E87.6 Hypokalemia; D72.829 Elevated white blood cell count, unspecified; D75.1 Secondary polycythemia; R63.4 Abnormal weight loss; R73.9 Hyperglycemia, unspecified; R10.9 Unspecified abdominal pain; Z68.33 Body mass index [BMI] 33.0-33.9, adult; F33.9 Major depressive disorder, recurrent, unspecified; E87.20 Acidosis, unspecified; Z86.59 Personal history of other mental and behavioral disorders; E66.9 Obesity, unspecified; R94.31 Abnormal electrocardiogram [ECG] [EKG]
CPT/HCPCS: 36415; 36600; 74177; 78264; 80048; 80053; 80307; 81001; 82010; 82803; 83036; 83690; 83735; 84100; 84703; 85025; 93005; 94762; 96361; 96365; 96366; 96367; 96375; 96376; 97802; 99221; 99284; A9541; Q9967; A4216; G0378; J2405